=== PATIENT | female | born 1955 | race Caucasian/White ===

== ENCOUNTER 2018-03-19 05:58 | Day surgery (SDC) | payer MEDICARE, SELFPAY ==
[2018-03-14 11:41] LABS: Hematocrit 46.3 % (37-47); Hemoglobin 15.8 g/dl (12.0-15.0); Mean Corp Hgb Conc 34.1 g/gl (32-36); Mean Corpuscular Hgb 31.5 pg (27.0-32.0); Mean Corpuscular Volume 92.2 fL (81-99); Mean Platelet Vol. 8.9 fl (6.2-12.0); Platelet Count 267 K/mm3 (150-450); RBC Distribution Width CV 14.7 % (11.6-14.6); RBC Distribution Width SD 48.8 fl (35.1-43.9); Red Blood Count 5.02 M/mm3 (4.2-5.4); Scan Indicated on CBC? Y/N NO; White Blood Count 7.9 K/mm3 (4.4-11.0)
[2018-03-14 11:48] LABS: Prothrombin Time (Protime)PT. 12.8 SECONDS (11.7-14.9)
[2018-03-14 11:49] LABS: Partial Thromboplast Time 27.3 Seconds (24.1-36.2)
[2018-03-14 12:25] LABS: AST(SGOT) 22 U/L (15-37); Alanine Aminotransfer ALT/SGPT 28 U/L (13-56); Albumin, Serum 3.9 g/dL (3.2-5.0); Alkaline Phosphatase 77 U/L (45-117); Anion Gap 6 (5-15); BUN 11 mg/dL (7-18); BUN/Creat Ratio 10.9 RATIO (10-20); Calcium,Total 9.4 mg/dL (8.5-10.1); Chloride 107 mmol/L (98-107); Creatinine, Serum 1.01 mg/dL (0.55-1.02); EST Glomerular Filtration Rate 59 mL/min (>60); Est Glom Filt Rate - Afr Amer 71 mL/min (>60); Glucose 101 mg/dL (74-106); Potassium 4.3 mmol/L (3.5-5.1); Protein, Total 7.9 g/dL (6.4-8.2); Sodium Level 140 mmol/L (136-145)
--- NOTE | 2018-03-18 11:32 | PCM.HP.BLA ---
History and Physical Date of Admission: 03/19/18 Surgical History and Physical Saniya Medina, a 62 year old female 2 0 0 0 2, presents for L/S BSO on March 19, 2018 at 7:30. 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 Saniya claims it started gradually and has been present Found on CT Scan. It occurs all the time. It is located in the RLQ of the abdomen. Saniya characterizes the quality asymptomatic. Severity is asymptomatic; Additional comments are: Referred by Desiree Bejarano NP.; Additional comments are: having colonoscopy soon. MEDICATIONS HISTORY: Patient is also takin. methotrexate sodium 2.5 mg tablet, one po five times weekly 2. metoprolol tartrate 25 mg tablet, One pill by mouth twice a day 3. Nexium 40 mg capsule,delayed release, One pill by mouth once a day 4. Plaquenil 200 mg tablet, One and one half tab daily ALLERGIES: No Known Allergies Infections - Chicken pox, Mumps and Measles Illnesses - Rheumatoid Arthritis, Acid Reflux Accidents - None Hospitalizations - see surgery Review of Systems: GENERAL - Denies fever, or chills SKIN - Denies skin changes EYES - Denies visual changes EARS - Denies difficulty hearing NOSE - Denies nasal congestion or bleeding MOUTH - Denies sore throat or difficulty swallowing NECK - Denies pain or swelling RESPIRATORY - Denies shortness of breath or wheezing CARDIOVASCULAR - Denies palpitations or chest pain GASTROINTESTINAL - Denies nausea, vomiting, diarrhea, constipation GENITOURINARY - Denies dysuria, frequency of urination, incontinence of urine MUSCULOSKELETAL - Denies joint or muscle pain NEUROLOGICAL - Denies localized numbness or weakness PSYCHIATRIC - Denies depression or anxiety ENDOCRINE - Denies heat or cold intolerance, weight loss or gain HEMATO-IMMUNOLOGIC - Denies excesive bleeding with cuts SOCIAL HISTORY: Alcohol Use - drinks occasionally Smoking - 1/2 pack/day--advised to quit Diet - no special diet Lifestyle - moderate stress lifestyle and Exercise - active Seat Belt Use - always Employer - Disability Illicit Drug Use - None Sexual Activity - single sexual partner Control - postmenopausal FAMILY HISTORY: MENSTRUAL HISTORY: LMP Known?- Postmenopausal PAST PREGNANCIES: Total Pregnancies - 2; Full Term Pregnancies - 2; Premature - 0; Abortions, Induced - 0; Abortions, Spontaneous - 0; Ectopics - 0; Multiple Births - 0; Living Children - 2 SURGICAL HISTORY: 1. T and A, 1969 2. 2003 (L) Shoulder Arthoscopy 3. 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 PHYSICAL EXAM BP- 132/78 Sitting, Right arm, regular cuff Weight- 168.81867 lbs Height- 65 inch BMI:28.02 CONSTITUTIONAL - NAD, well nourished, and well developed SKIN - No rash, lesions, or ulcers HEENT - Normocephalic, PERRLA, EOMI NECK - No nodes, no nuchal rigidity and thyroid normal size and texture LYMPH NODES - Palpation of lymph nodes in neck and groins within normal limits LUNGS - CTA x2 without wheezes, crackles or rales CARDIAC - Regular rate and rhythm without rubs, murmurs, or gallops BREAST - No dominant masses, no tenderness, no axillary adenopathy, no nipple discharge, no skin changes ABDOMEN - Without hepatosplenomegaly, distention, masses, rebound, or guarding; normal bowel sounds; no hernias EXTREMITIES - No edema or calf tenderness NEUROLOGICAL - Cranial nerves II-XII grossly intact PSYCHIATRIC - A and O to time, place, person, mood and affect External Genitial Vagina - non-tender without lesions Urethra/Urethral Meatus - non-tender Bladder - non-tender Vagina - vaginal lozano are pink and moist without loss of rugae and no evidence of atropy Cervix - without cervical motion tenderness and has normal size and features without evident lesions Uterus - 5-6 cm in size, mobile and nontender Adnexa - clear without masses or tenderness ASSESSMENT/PLAN: 1. Ovarian Cyst Nos Discussed options for treatment and recommended proceeding with L/S BSO. Discussed RBAs and all questions answered.
[2018-03-19 06:27] VITALS: BP 125/64; PULSE 59; RESP 16; TEMP 36.6; O2SAT 95; BMI 27.7
--- NOTE | 2018-03-19 07:45 | OV_PTH ---
PATIENT: YU BUSTOS LOC: [facility] [place] [facility] [place][id number] AGE/SX: 62/F ROOM: RE03/19/[address]: Dr. Bogdan Traylor MD : 1955 BED: DIS: 03/19/2018 SPEC #: [id number] RECD: 03/19/18 14:42 STATUS: DEMARIO IGGY #: [id number] PRESTON: 03/19/18 07:[address]: Bogdan Traylor DEPT: SURGICAL PATHOLOGY RECD BY: Rayo Noe ENTERED: 03/19/18 14:42 SP TYPE: OVARY OTHR DR: ANDRES Pederson Tissues: Right ovary Procedures: Surgery Specimen Level V HEADER OPERATION: Laparoscopic right salpingo-oophorotomy, left salpingectomy PRE-OP DIAGNOSIS: Right dermoid ovarian cyst TISSUE SUBMITTED: Bilateral fallopian tubes, right ovary MICROSCOPIC DIAGNOSIS Bilateral fallopian tubes and right ovary, right salpingo-oophorotomy and left salpingectomy: Right ovary - mature cystic teratoma (dermoid cyst). Right and left fallopian tubes ? no pathologic change. AM:sandi 03/20/18 MICROSCOPIC DESCRIPTION Slides are reviewed. GROSS DESCRIPTION Received in fixative is one container labeled with the patient's name and designated bilateral fallopian tubes and right ovary. The specimen consists of a smooth, glistening cystic ovary measuring 3 x 2.6 x 2 cm. The external surface is inked and sections reveal a cystic ovary containing applesauce-like material. The inner cyst wall lining is smooth and glistening. No papillary projections, mass lesions or nodularities are seen. Also present free in the container are two fallopian tubes with an average length of 3.8 cm and maximal diameters of 0.5 cm. The fimbriated ends have a normal villous appearance and cross-sections of the fallopian tubes do not reveal lesions. Sections are submitted as follows: 1-3 ? ovary, totally submitted, 4 ? community relations representative section of one fallopian tube, 5 - community relations representative section of the other fallopian tube. / AM:sandi 03/19/18 TC:1 CPT: 12068
--- NOTE | 2018-03-19 07:59 | PCM.OP.BLANK ---
Operative Report Date of Procedure: 03/19/18 Surgeon: Bogdan Traylor MD, FACOG Overlock Collar Setter: RAKESH Lainez Anesthesia: Xiang Peralta CRNA, LESLIE Type of Anesthesia: General Endotracheal Pre-Op Diagnosis: Right Dermoid Ovarian Cyst Postoperative Diagnosis: Right Dermoid Ovarian Cyst Procedure: Laparoscopic Right Salpingo-Oophrectomy; Left Salpingectomy Findings: 5-6 cm uterus with normal appearing fallopian tubes with evidence of prior tubal ligation. 3-4 cm right ovarian cyst. 1 cm left ovary densely adhered to sidewall. Minimal descensus of cervix which would make vaginal hysterectomy difficult but robotic assisted vaginal hysterectomy possible. Indications: This is a 62 year old patient who has the above diagnosis. She is aware of the risk and indications of this procedure including the possibility of bleeding, infection, and injury to surrounding structures such as bowel and bladder. All questions were answered to consider the patient well-informed. Procedure: The patient was taken to the operating room where after induction of general anesthesia, she was placed in the dorsolithotomy position and prepped and draped in the usual sterile fashion. The bladder was drained of approximately 50 cc of clear yellow urine with a catheter. Anterior cervix was grasped with the tenaculum. Conn cannula was placed and attention was turned toward the laparoscopic portion of the procedure. Approximately 20 cc of half percent ropivacaine was injected subumbilically, suprapubically and midway between. A 5 mm bladeless trocar was placed subumbilically and intraperitoneal placement confirmed. After CO2 insufflation was complete, a 10/12 mm bladeless trocar was introduced suprapubically. The above findings were noted. A 5 mm bladeless port was placed midway between these 2 ports. Each fallopian tube was identified to its fimbriated end and an Enseal device was used to divide the infundibulopelvic ligament on the right and the mesosalpinx on the left. Tubes and right ovary were brought through the lower port using an Endobag. Laparoscopic instruments with as much CO2 gas as possible were removed and incisions were closed with interrupted 4-0 Monocryl suture. The right ureter was noted to peristalsis after removal of the right tube and ovary. Photographs were taken. Steri-Strips placed across the incision. Vaginal instruments were removed. Patient tolerated procedure well was taken to recovery room in satisfactory condition sponge instrument and needle counts were all reportedly correct. Estimated blood loss for the case was minimal. Cefotan 2 g IV was given prior to beginning the operative procedure. Specimens to pathology was bilateral tubes and right ovary
--- NOTE | 2018-03-19 08:05 | PCM.DC.TUB ---
Discharge Diet: No Restrictions Discharge Activity: Return to Normal Activity, May Drive - when you are no longer taking pain/narcotic medicines., May Shower, May Take a Tub Bath, Use Crutches May resume sexual activity in: 3 weeks Additional Activity Instructions:: Ambulate often the next week after surgery. Nothing in the vagina for 5 days. Call your doctor if your incision/area has: Continuous Slow Oozing, Sudden Increased Bleeding, Increased Pain/ Swelling, Increased Redness, Foul Smelling Discharge Call your doctor if you observe: Fever of 101 or Higher, Inability to urinate, Inability to have a bowel movement, Using more than one pad per hour Allergies/Adverse Reactions: Allergies No Known Allergies Allergy (Verified 03/12/18 14:03) Medications to take at Discharge Aspirin [Aspirin, Baby] 81 mg PO DAILY@0800 03/12/18 Calcium Carbonate/Vitamin D3 [Calcium 500-Vit D3 600 Caplet] 1 each PO DAILY 03/12/18 Esomeprazole Mag Trihydrate [Nexium] 40 mg PO DAILY 03/12/18 Flaxseed Oil 1,000 mg PO DAILY 03/12/18 Folic Acid 1 mg PO DAILY@0800 03/12/18 Hydroxychloroquine Sulfate [Plaquenil] 200 mg PO DAILY 03/12/18 Methotrexate 7.5 mg PO Q7D 03/12/18 Metoprolol Succinate [Toprol Xl] 50 mg PO DAILY 03/12/18 Pyridoxine HCl [Vitamin B-6] 25 mg PO DAILY 03/12/18 Hydrocodone/Acetaminophen [Kimper 5-325 Tablet] 1 ea PO Q6H PRN PRN 7 Days #10 tab 03/19/18 Primary Care Physician: Desiree Bejarano PA [Primary Care Provider] - Test Results: Test results from this visit will be discussed in further detail at your follow-up appointment, if applicable. Please Follow Up With: Bogdan Traylor MD - [phone] When: 2-3 weeks
[2018-03-19] MEDS: Ropivacaine 0.5% 30 ML Vial (08:25)
[2018-03-19 09:15] VITALS: BP 125/64; BP 148/81; PULSE 78; RESP 18; TEMP 36.3; O2SAT 100
[2018-03-19 09:30] VITALS: BP 125/64; BP 150/75; PULSE 61; RESP 18; O2SAT 100
[2018-03-19 09:48] VITALS: BP 125/64; BP 138/66; PULSE 61; RESP 18; TEMP 36.2; O2SAT 100
[2018-03-19 11:12] VITALS: BP 125/64; BP 151/59; PULSE 51; RESP 16; TEMP 36.6; O2SAT 96
== END 2018-03-19 11:12 | disposition home or self-care (01) ==
LOC: SDC 05:58 → AC 05:58
PROVIDERS: Family Provider Physician Assistant; PCP Physician Assistant; Visit Provider Obstetrics & Gynecology
PROC: (CPT 58661; principal; 2018-03-19 07:30)
DX: D27.0 Benign neoplasm of right ovary (principal); K21.9 Gastro-esophageal reflux disease without esophagitis; M06.9 Rheumatoid arthritis, unspecified; Z87.891 Personal history of nicotine dependence; Z98.51 Tubal ligation status
CPT/HCPCS: 58661; 36415; 80053; 85027; 85610; 85730; 86850; 86900; 88305; 88307; 93005; J7120; C1760

== ENCOUNTER → 2020-05-07 15:44 | Outpatient (CLI) | payer MEDICARE, SELFPAY ==
[2018-10-09 10:30] VITALS: BMI 27.6
[2020-05-07 16:17] LABS: Absolute Lymphocyte Count 3.24 X10^3/uL (0.83-4.51); Absolute Neutrophil Count 5.9 X10^3/uL (2.0-7.7); Basophil# 0.04 X10^3/uL; Basophil% 0.4 % (0-1); Hematocrit 43.6 % (37-47); Hemoglobin 14.3 g/dL (12.0-15.0); Lymphocyte # 3.24 X10^3/ul (4.0); Lymphocyte % 32.7 % (19-41); Mean Corp Hgb Conc 32.8 g/dL (32-36); Mean Corpuscular Hgb 31.4 pg (27.0-32.0); Mean Corpuscular Volume 95.8 fL (81-99); Monocyte# 0.64 X10^3/uL; Monocyte% 6.5 % (0-10); NRBC Flagged by Analyzer 0 % (0-5); Neutrophil # 5.87 X10^3/uL (2.7-7.7); Neutrophil % 59.2 % (47-70); Platelet Count 301 K/mm3 (150-450); RBC Distribution Width CV 13.3 % (11.6-14.6); RBC Distribution Width SD 46.6 fl (35.1-43.9); Red Blood Count 4.55 M/mm3 (4.2-5.4); White Blood Count 9.9 K/mm3 (4.4-11.0)
[2020-05-07 16:41] LABS: AST(SGOT) 18 U/L (15-37); Alanine Aminotransfer ALT/SGPT 25 U/L (13-56); Albumin, Serum 3.6 g/dL (3.2-5.0); Alkaline Phosphatase 79 U/L (45-117); Anion Gap 6 (5-15); BUN 11 mg/dL (7-18); BUN/Creat Ratio 11.4 RATIO (10-20); Calcium,Total 9.1 mg/dL (8.5-10.1); Chloride 110 mmol/L (98-107); Creatinine, Serum 0.97 mg/dL (0.55-1.02); EST Glomerular Filtration Rate 61 mL/min (>60); Est Glom Filt Rate - Afr Amer 74 mL/min (>60); Globulin 3.6 g/dL (2.2-4.2); Glucose 92 mg/dL (74-106); Potassium 3.9 mmol/L (3.5-5.1); Protein, Total 7.2 g/dL (6.4-8.2); Sodium Level 142 mmol/L (136-145); Thyroid Stim Hormone (TSH) 0.94 uIU/mL (0.358-3.74)
[2020-05-08 09:48] LABS: Hepatitis C Antibody Non-Reactive (Nonreactive); Vitamin D,25 Hydroxy 48.7 ng/mL
== END ==
PROVIDERS: PCP Family Medicine Geriatric Medicine; Visit Provider Family Medicine Geriatric Medicine
DX: I10 Essential (primary) hypertension (principal); E55.9 Vitamin D deficiency, unspecified; Z13.89 Encounter for screening for other disorder
CPT/HCPCS: 36415; 80053; 82306; 84443; 85025; 86803

== ENCOUNTER → 2020-05-18 13:48 | Outpatient (CLI) | payer MEDICARE, SELFPAY ==
[2018-10-09 10:30] VITALS: BMI 27.6
--- NOTE | 2020-05-18 13:51 | CT_ITS ---
STUDY: CT CHEST WITHOUT CONTRAST- LOW DOSE SCREENING PROTOCOL REASON FOR EXAM: Female, 64 years old. Current smoker. 50 pack per year history. No current symptoms of lung cancer or pulmonary infection. Shared decision-making with referring PCP documented in patient''s record. RADIATION DOSAGE (If Supplied By Facility): CTDIvol = ( 2.01 ) mGy, DLP = ( 65.45 ) mGycm TECHNIQUE: Low dose screening CT examination performed from the base of the neck to the upper abdomen. Sagittal and coronal reformatted images performed. Sagittal and coronal MIP images provided. The measurements provided are average, rounded measurements per ACR guidelines. COMPARISON: None. FINDINGS: There is hyperinflation of the lungs consistent with chronic obstructive lung disease (COPD). There is no demonstrated pleural abnormality. Normal heart and pericardium. There are calcifications of the coronary arteries. Normal mediastinum. Normal hilar regions. Normal unenhanced pulmonary arteries. Normal aorta arch and descending thoracic aorta. Normal osseous structures. There is no demonstrated abnormality of the visualized upper abdomen. CT/Low Dose CT Lung Screening IMPRESSION: 1. No significant indeterminate incidental findings requiring additional imaging. 2. Incidental findings include mild emphysema.. ASSESSMENT CATEGORY: LungRADS 1 - Negative. Continue annual screening with LDCT in 12 months, per established ACR guidelines. Electronically Signed: Karsten Castillo MD at 9:07 EDT Tel , Service support ,
== END ==
PROVIDERS: PCP Family Medicine Geriatric Medicine; Referring Provider Family Medicine Geriatric Medicine; Visit Provider Family Medicine Geriatric Medicine
DX: Z12.2 Encounter for screening for malignant neoplasm of respiratory organs (principal); F17.210 Nicotine dependence, cigarettes, uncomplicated; J43.9 Emphysema, unspecified
CPT/HCPCS: G0297

== ENCOUNTER 2020-07-09 08:45 | Day surgery (SDC) | payer MEDICARE, SELFPAY ==
[2020-06-22 13:01] VITALS: BMI 25.1
--- NOTE | 2020-07-03 09:09 | EKG12_ITS ---
Test Reason : PRE OP Blood Pressure : / mmHG Vent. Rate : 058 BPM Atrial Rate : 058 BPM P-R Int : 174 ms QRS Dur : 084 ms QT Int : 412 ms P-R-T Axes : 042 -17 048 degrees QTc Int : 404 ms Sinus bradycardia Otherwise normal ECG Confirmed by RADHA CAMARGO, DORINA ([id number]), international editorial producer ELLIS GALLEGOS ([id number]) on 07/09/2020 8:25:18 AM Referred By: Marito Jackson Confirmed By:DORINA GARCIA MD
[2020-07-03 09:26] LABS: Hematocrit 43.6 % (37-47); Hemoglobin 14.6 g/dL (12.0-15.0); Mean Corp Hgb Conc 33.5 g/dL (32-36); Mean Corpuscular Hgb 31.8 pg (27.0-32.0); Mean Platelet Vol. 8.6 fl (6.2-12.0); Platelet Count 297 K/mm3 (150-450); RBC Distribution Width CV 13.2 % (11.6-14.6); RBC Distribution Width SD 45.1 fl (35.1-43.9); Red Blood Count 4.59 M/mm3 (4.2-5.4); White Blood Count 9.7 K/mm3 (4.4-11.0)
[2020-07-03 09:57] LABS: Anion Gap 4 (5-15); BUN 10 mg/dL (7-18); BUN/Creat Ratio 12.6 RATIO (10-20); Calcium,Total 8.8 mg/dL (8.5-10.1); Chloride 109 mmol/L (98-107); Creatinine, Serum 0.79 mg/dL (0.55-1.02); EST Glomerular Filtration Rate 77 mL/min (>60); Est Glom Filt Rate - Afr Amer 93 mL/min (>60); Glucose 103 mg/dL (74-106); Potassium 4.1 mmol/L (3.5-5.1); Sodium Level 141 mmol/L (136-145)
[2020-07-09] VITALS (7 sets, daily range): BP systolic 110–143; BP diastolic 67–76; PULSE 46–72; RESP 14–16; TEMP 36.3–37.1; O2SAT 95–100; BMI 24.5
[2020-07-09] MEDS: Lactated Ringers 1,000 ML 100 ML IV (09:28)
--- NOTE | 2020-07-09 10:19 | PCM.HP.BLA ---
Problem List (1) Hemorrhoids, complicated Status: Acute History and Physical Date of Admission: 07/09/20 Intake Visit Reasons: Hemorrhoids Chief Complaint: hemorrhoids Document Specialist Required: No Is patient in pain?: Yes (rectum) Pain scale (1-10): 7 Allergies No Known Allergies Allergy (Verified 06/22/20 13:01) Medications Calcium Carbonate/Vitamin D3 [Calcium 500-Vit D3 600 Caplet] 1 ea PO DAILY 03/12/18 [History Confirmed 06/22/20] Esomeprazole Mag Trihydrate [Nexium] 40 mg PO DAILY 03/12/18 [History Confirmed 06/22/20] Flaxseed Oil 1,000 mg PO DAILY 03/12/18 [History Confirmed 06/22/20] Folic Acid 1 mg PO DAILY@0800 03/12/18 [History Confirmed 06/22/20] Hydroxychloroquine Sulfate [Plaquenil] 200 mg PO DAILY 03/12/18 [History Confirmed 06/22/20] Metoprolol Succinate [Toprol Xl] 50 mg PO DAILY 03/12/18 [History Confirmed 06/22/20] Pyridoxine HCl [Vitamin B-6] 25 mg PO DAILY 03/12/18 [History Confirmed 06/22/20] albuterol sulfate 90 mcg/actuation aerosol inhaler 2 puff INHALATION Q6H PRN #18 g 10/09/18 [Rx Confirmed 06/22/20] methotrexate sodium 2.5 mg tablet 12.5 mg PO Q7D tab 10/09/18 [History Confirmed 06/22/20] lactobacillus combination no.8 3 billion cell capsule 3,000 mmu cells PO DAILY 06/22/20 [History Confirmed 06/22/20] PFSH Medical History BMI 30.0-30.9,adult (Chronic) History of pelvic mass (Chronic) Headache (Chronic) History of UTI (Resolved) History of rectal bleeding (Resolved) Abnormal PFT (Acute) Hyperglycemia (Chronic) Rheumatoid arthritis (Chronic) Acid reflux disease (Chronic) Hypertension (Chronic) Grief reaction (Chronic) Depression (Chronic) Hyperlipidemia (Chronic) Obesity (Chronic) Pneumonia (Resolved) Surgical History History of unilateral salpingectomy (Resolved) History of unilateral oophorectomy (Resolved) History of tubal ligation (Resolved) History of tonsillectomy (Resolved) History of arthroscopy of left shoulder (Resolved) Paris's neuroma of left foot (Resolved) Family History Mother Diabetes CVA (cerebral vascular accident) CAD (coronary artery disease) Hypertension Father Hypertension CAD (coronary artery disease) Sister Cancer Ovarian Social History (Updated 06/22/20 @ 13:[address] Marito Jackson MD) household members: none housing: other details: mobile home pets and animals: No Smoking Status: Current every day smoker second hand exposure: Yes alcohol intake: current alcohol intake frequency: a few times a week Alcohol type: beer substance use type: does not use caffeine: Yes Type: coffee Number of servings: 3 HPI HPI HPI: YU BUSTOS, is a 64 F who presents to the office today for surgical consultation regarding bleeding itching painful hemorrhoids. The patient is referred by Dr. Huddleston and a written copy my surgical consult recommendations will return to him. She had a colonoscopy by Dr. Juarez Jones in 2012. Rectal biopsies suggested focal acute colitis. The patient has no recollection of that diagnosis nor treatment. She states her most recent colonoscopy was 2018. I do not have a report of any pathology or that procedure at this time. The patient stated that there were no polyps and a follow-up colonoscopy at 10 years recommended. She has had quite symptomatic hemorrhoids for well over 5 years but in the past 2 years they have become quite symptomatic. She is had rheumatoid arthritis for 20 years. In addition to her other medications she is on Plaquenil and Metformin. She states that she has been very stable in that regard. She has been literally a lifelong cigarette smoker and she continues to smoke cigarettes. She has COPD. She has significant thoracic kyphosis and hyperinflated lung garcia. I have now been handed colonoscopy report February 27, 2018 where a proximal ascending colon polyp consistent with a diminutive tubular adenoma with no dysplasia was removed. The patient was not aware that she had a polyp removed thought it was a hemorrhoid. The interpretation the time of that colonoscopy is that she had rectal bleeding felt likely secondary to internal and external hemorrhoids. There was some evidence of diverticulosis. Actually it was suggested at that time that she have a follow-up colonoscopy at 5 years even though she is under the assumption its 10 years. HPI HPI HPI: YU BUSTOS, is a 64 F who presents to the office today for ROS General General: Yes weight change; no appetite, fatigue, colon cancer, breast cancer or weakness HEENT HEENT: No difficulty swallowing, eye injury, eye surgery, swollen glands or hoarseness Endo Endocrine: No thyroid disease, diabetes mellitus, thyroid cancer, Hair loss, heat intolerance or cold intolerance Skin Skin: No rash or changing moles Breast Breast: No left breast lump, right breast lump, nipple discharge, breast pain, abnormal mammogram, abnormal US or breast enlargement Musc Musculoskeletal: Yes rheumatoid arthritis; no back problems, arthritis, gout or joint pain Cardio Cardiovascular: No murmur, pacemaker, heart disease, atrial fibrillation, high blood pressure, heart attack, heart stent, palpitations, shortness of breat with exertion or chest pain Psych Psychiatric: No depression, anxiety or hearing voices Resp Respiratory: No shortness of breath, No sleep apnea, No cough, No COPD, No asthma, No emphysema, No wheezing Gastro Gastrointestinal: No abdominal pain, No nausea or vomiting, No diarrhea, No constipation, No blood in stool, Yes acid reflux, Yes hemorrhoids, No ulcers, No gallbladder problem, No black,tarry stools Ramesh Hematologic: No blood thinners, No blood disorders, No bleeding, No anemia, No blood clots Neuro Neurologic: No system reviewed and no additional complaints, except as docu, No as per HPI, No abnormal walking, No abnormal hearing, No abnormal movements, No abnormal speech, No behavioral changes, No burning sensations, No confusion, No seizure-like activity, No unsteadiness, No dizziness, No localized weakness, No frequent falls, No headache(s), No lack of coordination, No loss of vision, No memory loss, No numbness, No other visual disturbances, No radiating pain, No restless legs, No sensory deficit, No fainting, No tingling, No tremor(s), No weakness, No other Exam Const General: cooperative, comfortable, no acute distress Nutritional Appearance: average body habitus Orientation: alert, awake [facility] Head: normal to inspection Neck Neck: normal visual inspection Carotids: normal carotid upstroke, no bruits Chest Breast Palpation: No nipple discharge Other: Markedly increased anterior posterior diameter with barrel chest. Marked kyphosis Resp Other: Poor respiratory excursion, clear Cardio Rate: regular rate Rhythm: regular rhythm Heart Sounds: no murmurs GI Palpation: soft, no hepatosplenomegaly Auscultation: normal bowel sounds Other: External inspection of the anal rectum demonstrates prolapsing internal hemorrhoids with irritation. Combination of significant external and internal hemorrhoids on digital examination. Skin General: no rashes or lesions noted Neuro Cognition: normal cognition Extrem General: no calf tenderness Psych Affect: normal affect Assessment & Plan Problems 1. Hemorrhoids, complicated K64.8 Plan Complicated internal and external hemorrhoids. This would clearly be consistent with local pain itching bleeding. The findings clinically are complicated and significant. I recommended the patient consideration for surgical hemorrhoidectomy. I have discussed the technique, benefit, risk, alternatives. She has had an opportunity to ask and have questions answered. 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 The patient is aware of technique, benefit, risk, alternatives. She is aware that I anticipate this being performed as an outpatient. She is aware of COVID-19. Currently the [facility] still reporting a low local incidence. The patient is interested in proceeding if possible. I appreciate the opportunity of assisting with her surgical care Copy: Dr. Duane Jackson M.D., F.A.C.S. Coding Level of Care Code 29964 Diagnoses Hemorrhoids, complicated K64.8 I have re-examined the patient. There are no clinical changes since date of exam. Marito Jackson M.D., F.A.C.S.
--- NOTE | 2020-07-09 11:00 | HEM_PTH ---
PATIENT: YU BUSTOS LOC: [facility] – [place] U#:[id number] AGE/SX: 64/F ROOM: RE07/09/[address]: Dr. Marito Jackson MD : 1955 BED: DIS: 07/09/2020 SPEC #: [id number] RECD: 07/09/20 13:33 STATUS: DEMARIO REHang #: [id number] PRESTON: 07/09/20 11:[address]: Marito Jackson DEPT: SURGICAL PATHOLOGY RECD BY: Alem Paz ENTERED: 07/10/20 08:11 SP TYPE: HEMORRHOID OTHR DR: Dr. Duane Huddleston MD Tissues: HEMORRHOIDS Procedures: Surgery Specimen Level III HEADER OPERATION: Hemorrhoidectomy PRE-OP DIAGNOSIS: Hemorrhoids TISSUE SUBMITTED: Hemorrhoid tissue MICROSCOPIC DIAGNOSIS Hemorrhoid tissue, hemorrhoidectomy: Fragments of anorectal mucosa with dilated and congested blood vessels, consistent with hemorrhoid with focal thrombosis and organization. SJ:sandi 07/13/20 MICROSCOPIC DESCRIPTION Slides are reviewed. GROSS DESCRIPTION Received in fixative is one container labeled with the patient's name and designated hemorrhoid tissue. The specimen consists of three variable sized pieces of junior mucosal tissue measuring in aggregate 5.5 x 3 x 2 cm. Sections reveal congested and hemorrhagic cut surfaces. Residential Treatment Staff sections are submitted in one cassette. / HOLLY:sandi 07/10/20 TC:5 CPT: 00207
[2020-07-09] MEDS: Lubricating Jelly 60 GM Tube 30 GM TOPICAL (11:06)
[2020-07-09] MEDS: Cefotetan 2 GM in 0.9% NS 100 ML IV (11:06)
--- NOTE | 2020-07-09 11:08 | DCINST_ITS ---
Discharge Diet: No Restrictions Discharge Activity: Return to Normal Activity, May Not Drive - while you are taking narcotic pain medications. Do not drive, work with heavy equipment or sign legal documents for 24 hours after your surgery. Additional Activity Instructions:: Take a daily fiber supplementation, large heaping tablespoon in with fluid. You may shower or take a sitz baths in warm soapy water as needed for comfort or after any bowel movement. You may use [id number] topical agents like Preparation H or similar for comfort. You may utilize the provided dibucaine ointment as needed for numbing every 2-4 hours. Anticipate discomfort and anticipate some bleeding. Additional Dressing/Incision Instructions:: You may remove the Vaseline gauze dressing tomorrow morning. Female hygiene pads work well for any drainage. Allergies/Adverse Reactions: Allergies No Known Allergies Allergy (Verified 07/09/20 09:13) Medications to take at Discharge Calcium Carbonate/Vitamin D3 [Calcium 500-Vit D3 600 Caplet] 1 ea PO BID 03/12/18 Esomeprazole Mag Trihydrate [Nexium] 40 mg PO DAILY 03/12/18 Flaxseed Oil 1,000 mg PO DAILY 03/12/18 Folic Acid 1 mg PO DAILY@0800 03/12/18 Hydroxychloroquine Sulfate [Plaquenil] 200 mg PO DAILY 03/12/18 Metoprolol Succinate [Toprol Xl] 25 mg PO BID 03/12/18 Pyridoxine HCl [Vitamin B-6] 25 mg PO DAILY 03/12/18 methotrexate sodium 2.5 mg tablet 12.5 mg PO MO tab 10/09/18 lactobacillus combination no.8 3 billion cell capsule 3,000 mmu cells PO DAILY 06/22/20 Primary Care Physician: Duane Huddleston Chi, MD [Primary Care Provider] - Test Results: Test results from this visit will be discussed in further detail at your follow- up appointment, if applicable. Please Follow Up With: Marito Jackson MD - [phone] When: Plan to have a follow up approximately 3-4 weeks after surgery.
[2020-07-09] MEDS: BUPIVACAINE LIPOSOME/PF 20 ML VIAL OPERA.SITE (11:22)
[2020-07-09] MEDS: Bupivacaine Mpf 0.5% 30 ML VIAL (11:22)
[2020-07-09] MEDS: Dibucaine 30 GM Tube 1 APPLIC TOPICAL (11:22)
--- NOTE | 2020-07-09 12:02 | PCM.OPRPT ---
Problem List (1) Hemorrhoids, complicated Status: Acute Report of Operation Date of Procedure: 07/09/20 Pre-Operative Diagnosis: Symptomatic bleeding, pruritic, internal and external hemorrhoids Post-Operative Diagnosis: Same Surgery/Procedure Performed:: Complex hemorrhoidectomy Description of Surgical Findings:: Timeout and informed consent was obtained. 64-year-old female was taken to the operating room. She was placed prone jackknife on the table. She underwent monitored anesthesia care. Cefotetan 2 g were given intravenously. The perianal area was carefully Betadine and clipper prepped and tape was used to help with retraction. The perianal area and perirectal area was anesthetized with Exparel 20 cc mixed with 25 cc of 0.5% Marcaine. All of the local was utilized throughout the procedure. A speculum was inserted. The large bulk of hemorrhoidal disease was right posterior lateral. An apical suture of 2-0 chromic was placed. This was reinforced with a apical suture of 0 chromic. Scalpel was used to excise the external component and then a harmonic scalpel was used to completely excise the hemorrhoidal tissue. The sphincter mechanism was identified and carefully preserved. Then the mucosa was approximated to itself with a running simple and locking 2-0 chromic. An additional wedge resection was performed right anterior lateral and left mid lateral. Significant amount of tissue was achieved. There was good removal and resolution of the visible hemorrhoidal tissue. Vaseline gauze was inserted and dibucaine ointment was applied externally. Sponge and instrument and needle counts were reported the surgeon be correct. Specimens hemorrhoids. Drains none. Blood loss minimal. The patient was taken to the recovery area in satisfactory edition without apparent complication. Marito Jackson M.D., F.A.C.S. Type of Anesthesia:: Local MAC Anesthesiologist: Quinn Patterson
== END 2020-07-09 13:58 | disposition home or self-care (01) ==
LOC: SDC 08:57 → AC 08:58
PROVIDERS: PCP Family Medicine Geriatric Medicine; Referring Provider Surgery; Visit Provider Surgery
PROC: (CPT 46260; principal; 2020-07-09 10:45)
DX: K64.8 Other hemorrhoids (principal); K64.4 Residual hemorrhoidal skin tags; K62.5 Hemorrhage of anus and rectum; J44.9 Chronic obstructive pulmonary disease, unspecified; M06.9 Rheumatoid arthritis, unspecified; F17.210 Nicotine dependence, cigarettes, uncomplicated; Z87.19 Personal history of other diseases of the digestive system; I10 Essential (primary) hypertension; F32.9 Major depressive disorder, single episode, unspecified; E78.5 Hyperlipidemia, unspecified
CPT/HCPCS: 00902; 46260; 36415; 80048; 85027; 87426; 88304; 93005; C9803; J7120; J2405

== ENCOUNTER → 2020-08-10 10:08 | Outpatient (CLI) | payer MEDICARE, SELFPAY ==
[2020-07-09 09:14] VITALS: BMI 24.5
[2020-08-10 12:16] LABS: Absolute Lymphocyte Count 2.61 X10^3/uL (0.83-4.51); Absolute Neutrophil Count 5.9 X10^3/uL (2.0-7.7); Basophil# 0.06 X10^3/uL; Basophil% 0.7 % (0-1); Eosinophil# 0.07 X10^3/uL; Eosinophils% 0.8 % (0-5); Hemoglobin 14.5 g/dL (12.0-15.0); Lymphocyte # 2.61 X10^3/ul (4.0); Lymphocyte % 28.8 % (19-41); Mean Corp Hgb Conc 33.7 g/dL (32-36); Mean Corpuscular Hgb 31.3 pg (27.0-32.0); Mean Corpuscular Volume 92.9 fL (81-99); Mean Platelet Vol. 9.3 fl (6.2-12.0); Monocyte# 0.43 X10^3/uL; Monocyte% 4.7 % (0-10); NRBC Flagged by Analyzer 0 % (0-5); Neutrophil # 5.85 X10^3/uL (2.7-7.7); Neutrophil % 64.6 % (47-70); Platelet Count 310 K/mm3 (150-450); RBC Distribution Width CV 12.8 % (11.6-14.6); RBC Distribution Width SD 43.3 fl (35.1-43.9); Red Blood Count 4.63 M/mm3 (4.2-5.4); White Blood Count 9.1 K/mm3 (4.4-11.0)
[2020-08-10 12:52] LABS: Vitamin D,25 Hydroxy 40.3 ng/mL
[2020-08-10 12:57] LABS: ALB/GLOB Ratio 0.9 RATIO (0.9-2.4); AST(SGOT) 11 U/L (15-37); Alanine Aminotransfer ALT/SGPT 15 U/L (13-56); Albumin, Serum 3.5 g/dL (3.2-5.0); Alkaline Phosphatase 78 U/L (45-117); Anion Gap 6 (5-15); BUN 6 mg/dL (7-18); BUN/Creat Ratio 6.4 RATIO (10-20); Chloride 107 mmol/L (98-107); Cholesterol 184 mg/dL (200); Creatinine, Serum 0.93 mg/dL (0.55-1.02); EST Glomerular Filtration Rate 64 mL/min (>60); Est Glom Filt Rate - Afr Amer 77 mL/min (>60); Globulin 3.7 g/dL (2.2-4.2); Glucose 111 mg/dL (74-106); High Density Lipoprotein 48 mg/dL; Potassium 4.4 mmol/L (3.5-5.1); Protein, Total 7.2 g/dL (6.4-8.2); Sodium Level 140 mmol/L (136-145); Thyroid Stim Hormone (TSH) 0.98 uIU/mL (0.358-3.74); Triglycerides 158 mg/dL; Very Low Density Lipoprotein 32 mg/dL (5-40)
== END ==
PROVIDERS: PCP Family Medicine Geriatric Medicine; Visit Provider Family Medicine Geriatric Medicine
DX: I10 Essential (primary) hypertension (principal); E55.9 Vitamin D deficiency, unspecified; E78.5 Hyperlipidemia, unspecified
CPT/HCPCS: 36415; 80053; 80061; 82306; 84443; 85025

== ENCOUNTER 2020-11-06 10:01 | Emergency (ER) | payer MEDICARE, SELFPAY ==
[2020-07-09 09:14] VITALS: BMI 24.5
[2020-11-06 10:02] VITALS: BP 140/81; PULSE 73; RESP 16; TEMP 36.3; O2SAT 97; BMI 25.0
--- NOTE | 2020-11-06 10:10 | RAD_ITS ---
STUDY: X-RAY - LEFT HAND REASON FOR EXAM: Female, 65 years old. Injury TECHNIQUE: 3 view(s) of the hand. COMPARISON: None. FINDINGS: Normal radiocarpal articulation. Normal distal radioulnar joint. Normal visualized carpal bones. Normal carpal articulations Normal carpometacarpal articulation of the thumb. Normal second through fifth carpometacarpal joints. Normal metacarpi. Normal metacarpophalangeal joint of the thumb. Normal interphalangeal joint of the thumb. Normal proximal and distal phalanges of the thumb. Normal metacarpophalangeal joints of the second through fifth fingers. Normal proximal and distal interphalangeal joints of the second through fifth fingers. Normal phalanges of the second through fifth fingers. The soft tissue structures are unremarkable. RAD/Hand Min 3 Views IMPRESSION: Normal x-ray examination of the hand. Electronically Signed: Yassine Perales MD at 10:26 EDT , Service support ,
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
[2020-11-06 11:01] VITALS: BP 118/74; PULSE 62; RESP 15; O2SAT 98
== END 2020-11-06 11:03 | disposition home or self-care (01) ==
PROVIDERS: Emergency Provider Emergency Medicine; PCP Family Medicine Geriatric Medicine
DX: S63.203A Unspecified subluxation of left middle finger, initial encounter (principal); X58.XXXA Exposure to other specified factors, initial encounter; Y93.9 Activity, unspecified; Y92.89 Other specified places as the place of occurrence of the external cause; Y99.8 Other external cause status; M06.9 Rheumatoid arthritis, unspecified; I10 Essential (primary) hypertension; K21.9 Gastro-esophageal reflux disease without esophagitis; F17.200 Nicotine dependence, unspecified, uncomplicated
CPT/HCPCS: 73130; 99283

== ENCOUNTER → 2020-11-09 09:42 | Outpatient (CLI) | payer MEDICARE, SELFPAY ==
[2020-11-06 10:02] VITALS: BMI 25.0
[2020-11-09 11:27] LABS: Absolute Lymphocyte Count 3.64 X10^3/uL (0.83-4.51); Absolute Neutrophil Count 6.1 X10^3/uL (2.0-7.7); Basophil# 0.05 X10^3/uL; Basophil% 0.5 % (0-1); Eosinophil# 0.08 X10^3/uL; Eosinophils% 0.8 % (0-5); Hematocrit 46.1 % (37-47); Hemoglobin 14.6 g/dL (12.0-15.0); Lymphocyte # 3.64 X10^3/ul (0.83-4.51); Lymphocyte % 34.7 % (19-41); Mean Corp Hgb Conc 31.7 g/dL (32-36); Mean Corpuscular Hgb 30.3 pg (27.0-32.0); Mean Corpuscular Volume 95.6 fL (81-99); Monocyte# 0.55 X10^3/uL; Monocyte% 5.2 % (0-10); NRBC Flagged by Analyzer 0 % (0-5); Neutrophil # 6.14 X10^3/uL (2.7-7.7); Neutrophil % 58.5 % (47-70); Platelet Count 338 K/mm3 (150-450); RBC Distribution Width SD 48.8 fl (35.1-43.9); Red Blood Count 4.82 M/mm3 (4.2-5.4); White Blood Count 10.5 K/mm3 (4.4-11.0)
[2020-11-09 11:41] LABS: Vitamin D,25 Hydroxy 42.7 ng/mL
[2020-11-09 11:53] LABS: AST(SGOT) 13 U/L (15-37); Alanine Aminotransfer ALT/SGPT 24 U/L (13-56); Albumin, Serum 3.6 g/dL (3.2-5.0); Alkaline Phosphatase 87 U/L (45-117); Anion Gap 6 (5-15); BUN 10 mg/dL (7-18); BUN/Creat Ratio 12.3 RATIO (10-20); Calcium,Total 8.9 mg/dL (8.5-10.1); Chloride 108 mmol/L (98-107); Cholesterol 207 mg/dL (200); Creatinine, Serum 0.81 mg/dL (0.55-1.02); EST Glomerular Filtration Rate 75 mL/min (>60); Est Glom Filt Rate - Afr Amer 90 mL/min (>60); Globulin 3.7 g/dL (2.2-4.2); Glucose 110 mg/dL (74-106); High Density Lipoprotein 61 mg/dL; Potassium 3.8 mmol/L (3.5-5.1); Protein, Total 7.3 g/dL (6.4-8.2); Sodium Level 141 mmol/L (136-145); Thyroid Stim Hormone (TSH) 1.34 uIU/mL (0.358-3.74); Triglycerides 132 mg/dL; Very Low Density Lipoprotein 26 mg/dL (5-40)
== END ==
PROVIDERS: PCP Family Medicine Geriatric Medicine; Visit Provider Family Medicine Geriatric Medicine
DX: I10 Essential (primary) hypertension (principal); E78.5 Hyperlipidemia, unspecified; E55.9 Vitamin D deficiency, unspecified
CPT/HCPCS: 36415; 80053; 80061; 82306; 84443; 85025

== ENCOUNTER → 2020-11-11 12:33 | Outpatient (CLI) | payer MEDICARE, SELFPAY ==
[2020-11-06 10:02] VITALS: BMI 25.0
--- NOTE | 2020-11-11 12:35 | BI_ITS ---
MAMMOGRAPHY - BILATERAL SCREENING REASON FOR EXAM: Female, 65 years old. Routine annual screening examination. PERTINENT HISTORY: Non-contributory. TECHNIQUE: Digital bilateral breast estrada (3D mammographic acquisition) in the CC and MLO projections. 2-D mediolateral oblique (MLO) and craniocaudad (CC) views of both breasts were obtained. CAD: Full Field Digital Mammography with Computer Added Detection was performed. COMPARISON: Comparison is made with prior study dated 09/12/2019. FINDINGS: Breast Composition: There are scattered areas of fibroglandular density. There are no dominant masses or suspicious calcifications. There is a 4.9 mm x 3.8 mm well-defined nodule in the upper lateral aspect of the right breast. This is unchanged. This most likely represents a small lymph node. No other significant abnormalities are identified. There has been no significant change since the prior study. BI/SCRN MAMM (CAD)W/ESTRADA BILAT IMPRESSION: Stable bilateral screening mammogram. Yearly follow-up mammogram recommended. (A) ASSESSMENT CATEGORY: BIRADS Category 2: Benign. A letter regarding these results will be sent to the patient by the facility within 30 days. Approximately 10% of breast cancers are not detected by mammography. A normal mammogram should not delay biopsy of a clinically suspicious abnormality. [id number] Electronically Signed: Yassine Perales MD at 13:23 EDT , Service support ,
== END ==
PROVIDERS: PCP Family Medicine Geriatric Medicine; Referring Provider Family Medicine Geriatric Medicine; Visit Provider Family Medicine Geriatric Medicine
DX: Z12.31 Encounter for screening mammogram for malignant neoplasm of breast (principal)
CPT/HCPCS: 77063; 77067

== ENCOUNTER → 2020-11-24 08:58 | Outpatient (CLI) | payer MEDICARE, SELFPAY ==
[2020-11-06 10:02] VITALS: BMI 25.0
--- NOTE | 2020-11-24 09:13 | EKG12_ITS ---
Test Reason : PRE OP Blood Pressure : / mmHG Vent. Rate : 056 BPM Atrial Rate : 056 BPM P-R Int : 166 ms QRS Dur : 086 ms QT Int : 410 ms P-R-T Axes : 028 -27 058 degrees QTc Int : 395 ms Sinus bradycardia with Premature atrial complexes Septal infarct , age undetermined Abnormal ECG Confirmed by RADHA CAMARGO, DORINA ([id number]), food expeditor BRIAN YOUNGER ([id number]) on 11/25/2020 9:07:26 AM Referred By: Wandy Jenkins Confirmed By:DORINA GARCIA MD
[2020-11-24 10:02] LABS: Anion Gap 6 (5-15); BUN 10 mg/dL (7-18); BUN/Creat Ratio 11.2 RATIO (10-20); Calcium,Total 9.1 mg/dL (8.5-10.1); Chloride 108 mmol/L (98-107); EST Glomerular Filtration Rate 67 mL/min (>60); Est Glom Filt Rate - Afr Amer 81 mL/min (>60); Glucose 101 mg/dL (74-106); Potassium 4.1 mmol/L (3.5-5.1); Sodium Level 141 mmol/L (136-145)
== END ==
PROVIDERS: PCP Family Medicine Geriatric Medicine; Referring Provider Orthopaedic Surgery Hand Surgery; Visit Provider Orthopaedic Surgery Hand Surgery
DX: Z01.812 Encounter for preprocedural laboratory examination (principal); Z01.810 Encounter for preprocedural cardiovascular examination
CPT/HCPCS: 36415; 80048; 93005

== ENCOUNTER → 2021-02-09 09:48 | Outpatient (CLI) | payer MEDICARE, SELFPAY ==
[2021-02-09 12:13] LABS: Absolute Lymphocyte Count 3.02 X10^3/uL (0.83-4.51); Absolute Neutrophil Count 6.2 X10^3/uL (2.0-7.7); Basophil# 0.06 X10^3/uL; Basophil% 0.6 % (0-1); Eosinophil# 0.08 X10^3/uL; Eosinophils% 0.8 % (0-5); Hematocrit 42.3 % (37-47); Lymphocyte # 3.02 X10^3/ul (0.83-4.51); Lymphocyte % 30.4 % (19-41); Mean Corp Hgb Conc 33.1 g/dL (32-36); Mean Corpuscular Hgb 31.3 pg (27.0-32.0); Mean Corpuscular Volume 94.6 fL (81-99); Mean Platelet Vol. 8.9 fl (6.2-12.0); Monocyte# 0.48 X10^3/uL; Monocyte% 4.8 % (0-10); NRBC Flagged by Analyzer 0 % (0-5); Neutrophil # 6.24 X10^3/uL (2.7-7.7); Platelet Count 304 K/mm3 (150-450); RBC Distribution Width CV 13.2 % (11.6-14.6); RBC Distribution Width SD 45.6 fl (35.1-43.9); Red Blood Count 4.47 M/mm3 (4.2-5.4); White Blood Count 9.9 K/mm3 (4.4-11.0)
[2021-02-09 12:29] LABS: Vitamin D,25 Hydroxy 44.2 ng/mL
[2021-02-09 12:35] LABS: AST(SGOT) 21 U/L (15-37); Alanine Aminotransfer ALT/SGPT 29 U/L (13-56); Albumin, Serum 3.4 g/dL (3.2-5.0); Alkaline Phosphatase 75 U/L (45-117); Anion Gap 7 (5-15); BUN 11 mg/dL (7-18); BUN/Creat Ratio 11.3 RATIO (10-20); Calcium,Total 8.3 mg/dL (8.5-10.1); Chloride 105 mmol/L (98-107); Cholesterol 224 mg/dL (200); Creatinine, Serum 0.97 mg/dL (0.55-1.02); EST Glomerular Filtration Rate 61 mL/min (>60); Est Glom Filt Rate - Afr Amer 73 mL/min (>60); Globulin 3.4 g/dL (2.2-4.2); Glucose 133 mg/dL (74-106); High Density Lipoprotein 61 mg/dL; Potassium 3.8 mmol/L (3.5-5.1); Protein, Total 6.8 g/dL (6.4-8.2); Sodium Level 140 mmol/L (136-145); Thyroid Stim Hormone (TSH) 1.05 uIU/mL (0.358-3.74); Triglycerides 82 mg/dL; Very Low Density Lipoprotein 16 mg/dL (5-40)
== END ==
PROVIDERS: PCP Family Medicine Geriatric Medicine; Visit Provider Family Medicine Geriatric Medicine
DX: I10 Essential (primary) hypertension (principal); E78.5 Hyperlipidemia, unspecified; E55.9 Vitamin D deficiency, unspecified
CPT/HCPCS: 36415; 80053; 80061; 82306; 84443; 85025

== ENCOUNTER → 2021-05-12 11:04 | Outpatient (CLI) | payer MEDICARE, SELFPAY ==
[2021-05-12 12:30] LABS: Absolute Lymphocyte Count 3.26 X10^3/uL (0.83-4.51); Absolute Neutrophil Count 4.2 X10^3/uL (2.0-7.7); Basophil# 0.06 X10^3/uL; Basophil% 0.7 % (0-1); Eosinophil# 0.12 X10^3/uL; Eosinophils% 1.5 % (0-5); Hematocrit 43.1 % (37-47); Hemoglobin 14.4 g/dL (12.0-15.0); Lymphocyte # 3.26 X10^3/ul (0.83-4.51); Lymphocyte % 40.3 % (19-41); Mean Corp Hgb Conc 33.4 g/dL (32-36); Mean Corpuscular Hgb 31.2 pg (27.0-32.0); Mean Corpuscular Volume 93.3 fL (81-99); Mean Platelet Vol. 9.2 fl (6.2-12.0); Monocyte# 0.42 X10^3/uL; Monocyte% 5.2 % (0-10); NRBC Flagged by Analyzer 0 % (0-5); Neutrophil # 4.21 X10^3/uL (2.7-7.7); Neutrophil % 52.1 % (47-70); Platelet Count 292 K/mm3 (150-450); RBC Distribution Width CV 13.3 % (11.6-14.6); RBC Distribution Width SD 45.1 fl (35.1-43.9); Red Blood Count 4.62 M/mm3 (4.2-5.4); White Blood Count 8.1 K/mm3 (4.4-11.0)
[2021-05-12 12:57] LABS: ALB/GLOB Ratio 0.9 RATIO (0.9-2.4); AST(SGOT) 23 U/L (15-37); Alanine Aminotransfer ALT/SGPT 33 U/L (13-56); Albumin, Serum 3.4 g/dL (3.2-5.0); Alkaline Phosphatase 76 U/L (45-117); Anion Gap 6 (5-15); BUN 10 mg/dL (7-18); Calcium,Total 8.9 mg/dL (8.5-10.1); Chloride 106 mmol/L (98-107); Cholesterol 213 mg/dL (200); Creatinine, Serum 0.83 mg/dL (0.55-1.02); EST Glomerular Filtration Rate 72 mL/min (>60); Est Glom Filt Rate - Afr Amer 88 mL/min (>60); Globulin 3.9 g/dL (2.2-4.2); Glucose 93 mg/dL (74-106); High Density Lipoprotein 58 mg/dL; Potassium 4.1 mmol/L (3.5-5.1); Protein, Total 7.3 g/dL (6.4-8.2); Sodium Level 139 mmol/L (136-145); Thyroid Stim Hormone (TSH) 1.57 uIU/mL (0.358-3.74); Triglycerides 138 mg/dL; Very Low Density Lipoprotein 28 mg/dL (5-40)
[2021-05-12 13:03] LABS: Vitamin D,25 Hydroxy 48.7 ng/mL
== END ==
PROVIDERS: PCP Family Medicine Geriatric Medicine; Visit Provider Family Medicine Geriatric Medicine
DX: E55.9 Vitamin D deficiency, unspecified (principal); E78.5 Hyperlipidemia, unspecified; I10 Essential (primary) hypertension
CPT/HCPCS: 36415; 80053; 80061; 82306; 84443; 85025

== ENCOUNTER → 2021-11-11 | Outpatient (CLI) | payer MEDICARE, SELFPAY ==
--- NOTE | 2021-11-11 10:46 | RAD_ITS ---
STUDY: X-RAY - LEFT HAND REASON FOR EXAM: Female, 66 years old. RHUE ARTHRITIS W/RHEU FACTOR M05.79 TECHNIQUE: 3 view(s) of the hand. COMPARISON: 11/06/2020 FINDINGS: Normal radiocarpal articulation. Normal distal radioulnar joint. Normal visualized carpal bones. Normal carpal articulations Normal carpometacarpal articulation of the thumb. Normal second through fifth carpometacarpal joints. Normal metacarpi. Normal metacarpophalangeal joint of the thumb. Normal interphalangeal joint of the thumb. Normal proximal and distal phalanges of the thumb. Normal metacarpophalangeal joints of the second through fifth fingers. Normal proximal and distal interphalangeal joints of the second through fifth fingers. Normal phalanges of the second through fifth fingers. The soft tissue structures are unremarkable. RAD/Hand Min 3 Views IMPRESSION: Normal x-ray examination of the hand. Electronically Signed: Karsten Castillo MD at 11:15 EDT ,
--- NOTE | 2021-11-11 10:49 | RAD_ITS ---
STUDY: X-RAY - RIGHT HAND REASON FOR EXAM: Female, 66 years old. RHEU ARTHRITIS W/RHEU FACTOR M05.79 TECHNIQUE: 3 view(s) of the hand. COMPARISON: None. FINDINGS: Normal radiocarpal articulation. Normal distal radioulnar joint. Normal visualized carpal bones. Normal carpal articulations Normal carpometacarpal articulation of the thumb. Normal second through fifth carpometacarpal joints. Normal metacarpi. Normal metacarpophalangeal joint of the thumb. Normal interphalangeal joint of the thumb. Normal proximal and distal phalanges of the thumb. Normal metacarpophalangeal joints of the second through fifth fingers. Normal proximal and distal interphalangeal joints of the second through fifth fingers. Normal phalanges of the second through fifth fingers. The soft tissue structures are unremarkable. RAD/Hand Min 3 Views IMPRESSION: Normal x-ray examination of the hand. Electronically Signed: Karsten Castillo MD at 11:16 EDT ,
[2021-11-11 12:19] LABS: Absolute Lymphocyte Count 3.47 X10^3/uL (0.83-4.51); Absolute Neutrophil Count 7.2 X10^3/uL (2.0-7.7); Basophil# 0.05 X10^3/uL; Basophil% 0.4 % (0-1); Eosinophil# 0.14 X10^3/uL; Eosinophils% 1.2 % (0-5); Hematocrit 43.3 % (37-47); Hemoglobin 14.6 g/dL (12.0-15.0); Lymphocyte # 3.47 X10^3/ul (0.83-4.51); Lymphocyte % 30.3 % (19-41); Mean Corp Hgb Conc 33.7 g/dL (32-36); Mean Corpuscular Hgb 31.9 pg (27.0-32.0); Mean Corpuscular Volume 94.5 fL (81-99); Mean Platelet Vol. 9.4 fl (6.2-12.0); Monocyte# 0.59 X10^3/uL; Monocyte% 5.2 % (0-10); NRBC Flagged by Analyzer 0 % (0-5); Neutrophil # 7.15 X10^3/uL (2.7-7.7); Neutrophil % 62.5 % (47-70); Platelet Count 331 K/mm3 (150-450); RBC Distribution Width CV 13.7 % (11.6-14.6); RBC Distribution Width SD 46.4 fl (35.1-43.9); Red Blood Count 4.58 M/mm3 (4.2-5.4); White Blood Count 11.5 K/mm3 (4.4-11.0)
[2021-11-11 12:37] LABS: Vitamin D,25 Hydroxy 43.4 ng/mL
[2021-11-11 12:42] LABS: AST(SGOT) 20 U/L (15-37); Alanine Aminotransfer ALT/SGPT 33 U/L (13-56); Albumin, Serum 3.7 g/dL (3.2-5.0); Alkaline Phosphatase 80 U/L (45-117); Anion Gap 8 (5-15); BUN 14 mg/dL (7-18); BUN/Creat Ratio 13.2 RATIO (10-20); Calcium,Total 8.9 mg/dL (8.5-10.1); Chloride 107 mmol/L (98-107); Cholesterol 190 mg/dL (200); Creatinine, Serum 1.06 mg/dL (0.55-1.02); EST Glomerular Filtration Rate 55 mL/min (>60); Est Glom Filt Rate - Afr Amer 66 mL/min (>60); Globulin 3.6 g/dL (2.2-4.2); Glucose 110 mg/dL (74-106); High Density Lipoprotein 52 mg/dL; Potassium 3.9 mmol/L (3.5-5.1); Protein, Total 7.3 g/dL (6.4-8.2); Sodium Level 141 mmol/L (136-145); Thyroid Stim Hormone (TSH) 1.01 uIU/mL (0.358-3.74); Triglycerides 136 mg/dL; Very Low Density Lipoprotein 27 mg/dL (5-40)
== END | disposition home or self-care (01) ==
PROVIDERS: PCP Family Medicine Geriatric Medicine; Referring Provider Internal Medicine Rheumatology; Visit Provider Internal Medicine Rheumatology
DX: E55.9 Vitamin D deficiency, unspecified (principal); M05.79 Rheumatoid arthritis with rheumatoid factor of multiple sites without organ or systems involvement; E78.5 Hyperlipidemia, unspecified; I10 Essential (primary) hypertension
CPT/HCPCS: 36415; 73130; 80053; 80061; 82306; 84443; 85025

== ENCOUNTER 2021-11-23 14:16 | Outpatient (CLI) | payer MEDICARE, SELFPAY ==
[2021-11-23 18:13] LABS: M R Staph aureus DNA By PCR Negative (Negative); Probe Check PASS; Specimen Processing Control PASS; Staph aureus DNA By PCR NEGATIVE (Negative)
== END 2021-11-23 23:59 | disposition home or self-care (01) ==
LOC: LABSPEC 14:17
PROVIDERS: PCP Family Medicine Geriatric Medicine; Visit Provider Family Medicine Geriatric Medicine
DX: S21.209A Unspecified open wound of unspecified back wall of thorax without penetration into thoracic cavity, initial encounter (principal); B95.62 Methicillin resistant Staphylococcus aureus infection as the cause of diseases classified elsewhere
CPT/HCPCS: 87070; 87205; 87640

== ENCOUNTER → 2021-12-16 | Outpatient (CLI) | payer MEDICARE, SELFPAY ==
--- NOTE | 2021-12-16 08:13 | BI_ITS ---
MAMMOGRAPHY - BILATERAL SCREENING REASON FOR EXAM: Female, 66 years old. Routine annual screening examination. PERTINENT HISTORY: Non-contributory. TECHNIQUE: Digital bilateral breast estrada (3D mammographic acquisition) in the CC and MLO projections. 2-D mediolateral oblique (MLO) and craniocaudad (CC) views of both breasts were obtained. CAD: Full Field Digital Mammography with Computer Added Detection was performed. COMPARISON: Screening mammogram from 11/11/2020 FINDINGS: Breast Composition: There are scattered areas of fibroglandular density. There are no dominant masses or suspicious calcifications. Stable 5 mm circumscribed nodule in the right upper outer breast likely a small lymph node. No other significant abnormalities are identified. There has been no significant change since the prior study. BI/SCRN MAMM (CAD)W/ESTRADA BILAT IMPRESSION: Stable bilateral screening mammogram. Yearly follow-up mammogram recommended. (A) ASSESSMENT CATEGORY: BIRADS Category 2: Benign. A letter regarding these results will be sent to the patient by the facility within 30 days. Approximately 10% of breast cancers are not detected by mammography. A normal mammogram should not delay biopsy of a clinically suspicious abnormality. [id number] Electronically Signed: Pipo Nance, at 16:52 EDT ,
== END | disposition home or self-care (01) ==
LOC: OPBI 08:11
PROVIDERS: PCP Family Medicine Geriatric Medicine; Visit Provider Family Medicine Geriatric Medicine
DX: Z12.31 Encounter for screening mammogram for malignant neoplasm of breast (principal)
CPT/HCPCS: 77063; 77067

== ENCOUNTER → 2022-05-16 | Outpatient (CLI) | payer MEDICARE, SELFPAY ==
[2022-05-16 12:42] LABS: Absolute Lymphocyte Count 2.73 X10^3/uL (0.83-4.51); Absolute Neutrophil Count 5.4 X10^3/uL (2.0-7.7); Basophil# 0.06 X10^3/uL; Basophil% 0.7 % (0-1); Eosinophil# 0.07 X10^3/uL; Eosinophils% 0.8 % (0-5); Hematocrit 45.5 % (37-47); Lymphocyte # 2.73 X10^3/ul (0.83-4.51); Lymphocyte % 31.1 % (19-41); Mean Corpuscular Hgb 31.3 pg (27.0-32.0); Mean Corpuscular Volume 94.8 fL (81-99); Mean Platelet Vol. 9.5 fl (6.2-12.0); Monocyte# 0.44 X10^3/uL; NRBC Flagged by Analyzer 0 % (0-5); Neutrophil # 5.44 X10^3/uL (2.7-7.7); Neutrophil % 62.1 % (47-70); Platelet Count 309 K/mm3 (150-450); RBC Distribution Width CV 13.5 % (11.6-14.6); RBC Distribution Width SD 46.9 fl (35.1-43.9); White Blood Count 8.8 K/mm3 (4.4-11.0)
[2022-05-16 14:06] LABS: BUN 7 mg/dL (7-18); Creatinine, Serum 1.04 mg/dL (0.55-1.02); Glucose 103 mg/dL (74-106)
[2022-05-16 14:07] LABS: AST(SGOT) 17 U/L (15-37); Alanine Aminotransfer ALT/SGPT 26 U/L (13-56); Albumin, Serum 3.6 g/dL (3.2-5.0); Alkaline Phosphatase 74 U/L (45-117); Anion Gap 7 (5-15); BUN/Creat Ratio 6.7 RATIO (10-20); Calcium,Total 8.6 mg/dL (8.5-10.1); Chloride 105 mmol/L (98-107); Cholesterol 202 mg/dL (200); EST Glomerular Filtration Rate 56 mL/min (>60); Est Glom Filt Rate - Afr Amer 68 mL/min (>60); Globulin 3.6 g/dL (2.2-4.2); High Density Lipoprotein 53 mg/dL; Potassium 3.3 mmol/L (3.5-5.1); Protein, Total 7.2 g/dL (6.4-8.2); Sodium Level 139 mmol/L (136-145); Thyroid Stim Hormone (TSH) 1.02 uIU/mL (0.358-3.74); Triglycerides 135 mg/dL; Very Low Density Lipoprotein 27 mg/dL (5-40)
== END | disposition home or self-care (01) ==
LOC: POLAB3 09:31
PROVIDERS: PCP Family Medicine Geriatric Medicine; Visit Provider Family Medicine Geriatric Medicine
DX: E55.9 Vitamin D deficiency, unspecified (principal); E78.5 Hyperlipidemia, unspecified; I10 Essential (primary) hypertension
CPT/HCPCS: 36415; 80053; 80061; 82306; 84443; 85025

== ENCOUNTER → 2022-05-26 | Outpatient (CLI) | payer MEDICARE, SELFPAY ==
[2022-05-26 12:56] LABS: Anion Gap 6 (5-15); BUN 9 mg/dL (7-18); BUN/Creat Ratio 9.3 RATIO (10-20); Calcium,Total 9.1 mg/dL (8.5-10.1); Chloride 107 mmol/L (98-107); Creatinine, Serum 0.97 mg/dL (0.55-1.02); EST Glomerular Filtration Rate 60 mL/min (>60); Est Glom Filt Rate - Afr Amer 73 mL/min (>60); Glucose 107 mg/dL (74-106); Potassium 3.5 mmol/L (3.5-5.1); Sodium Level 139 mmol/L (136-145)
== END | disposition home or self-care (01) ==
LOC: POLAB3 11:06
PROVIDERS: PCP Family Medicine Geriatric Medicine; Visit Provider Family Medicine Geriatric Medicine
DX: E87.6 Hypokalemia (principal)
CPT/HCPCS: 36415; 80048

== ENCOUNTER → 2022-11-14 | Outpatient (CLI) | payer MEDICARE, SELFPAY ==
[2022-11-14 13:01] LABS: Absolute Lymphocyte Count 2.68 X10^3/uL (0.83-4.51); Basophil# 0.05 X10^3/uL; Basophil% 0.5 % (0-1); Eosinophil# 0.06 X10^3/uL; Eosinophils% 0.6 % (0-5); Hematocrit 45.5 % (37-47); Hemoglobin 15.2 g/dL (12.0-15.0); Lymphocyte # 2.68 X10^3/ul (0.83-4.51); Lymphocyte % 28.8 % (19-41); Mean Corp Hgb Conc 33.4 g/dL (32-36); Mean Corpuscular Hgb 31.2 pg (27.0-32.0); Mean Corpuscular Volume 93.4 fL (81-99); Mean Platelet Vol. 9.5 fl (6.2-12.0); Monocyte# 0.48 X10^3/uL; Monocyte% 5.2 % (0-10); NRBC Flagged by Analyzer 0 % (0-5); Neutrophil % 64.7 % (47-70); Platelet Count 287 K/mm3 (150-450); RBC Distribution Width CV 13.2 % (11.6-14.6); Red Blood Count 4.87 M/mm3 (4.2-5.4); White Blood Count 9.3 K/mm3 (4.4-11.0)
[2022-11-14 13:22] LABS: Vitamin D,25 Hydroxy 57.4 ng/mL
[2022-11-14 13:31] LABS: AST(SGOT) 19 U/L (15-37); Alanine Aminotransfer ALT/SGPT 26 U/L (13-56); Albumin, Serum 3.6 g/dL (3.2-5.0); Alkaline Phosphatase 75 U/L (45-117); Anion Gap 4 (5-15); BUN 12 mg/dL (7-18); BUN/Creat Ratio 14.2 RATIO (10-20); Calcium,Total 9.3 mg/dL (8.5-10.1); Chloride 107 mmol/L (98-107); Cholesterol 225 mg/dL (200); Creatinine, Serum 0.84 mg/dL (0.55-1.02); EST Glomerular Filtration Rate 71 mL/min (>60); Est Glom Filt Rate - Afr Amer 86 mL/min (>60); Globulin 3.5 g/dL (2.2-4.2); Glucose 96 mg/dL (74-106); High Density Lipoprotein 55 mg/dL; Potassium 4.2 mmol/L (3.5-5.1); Protein, Total 7.1 g/dL (6.4-8.2); Sodium Level 136 mmol/L (136-145); Thyroid Stim Hormone (TSH) 0.83 uIU/mL (0.358-3.74); Triglycerides 88 mg/dL; Very Low Density Lipoprotein 18 mg/dL (5-40)
== END | disposition home or self-care (01) ==
LOC: POLAB3 09:29
PROVIDERS: PCP Family Medicine Geriatric Medicine; Visit Provider Family Medicine Geriatric Medicine
DX: E78.5 Hyperlipidemia, unspecified (principal); E55.9 Vitamin D deficiency, unspecified; R53.83 Other fatigue
CPT/HCPCS: 36415; 80053; 80061; 82306; 84443; 85025

== ENCOUNTER → 2022-12-20 | Outpatient (CLI) | payer MEDICARE, SELFPAY ==
--- NOTE | 2022-12-20 12:37 | BI_ITS ---
MAMMOGRAPHY - BILATERAL SCREENING REASON FOR EXAM: Female, 67 years old. Routine annual screening examination. PERTINENT HISTORY: Non-contributory. TECHNIQUE: Digital bilateral breast estrada (3D mammographic acquisition) in the CC and MLO projections. 2-D mediolateral oblique (MLO) and craniocaudad (CC) views of both breasts were obtained. CAD: Full Field Digital Mammography with Computer Added Detection was performed. COMPARISON: Comparison is made with prior study December 16, 2021 and November 11, 2020. FINDINGS: Breast Composition: There are scattered areas of fibroglandular density. There are no dominant masses or suspicious calcifications. Stable 5 mm well-defined nodule in the right upper outer quadrant. This may represent a small lymph node. Stable small benign-appearing bilateral axillary lymph nodes. No other significant abnormalities are identified. There has been no significant change since the prior study. BI/SCRN MAMM (CAD)W/ESTRADA BILAT IMPRESSION: Stable bilateral screening mammogram. Yearly follow-up mammogram recommended. (A) ASSESSMENT CATEGORY: BIRADS Category 2: Benign. A letter regarding these results will be sent to the patient by the facility within 30 days. Approximately 10% of breast cancers are not detected by mammography. A normal mammogram should not delay biopsy of a clinically suspicious abnormality. [id number] Electronically Signed: Yassine Perales MD at 14:03 EDT ,
--- NOTE | 2022-12-20 12:38 | BD_ITS ---
STUDY: DUAL ENERGY X-RAY ABSORPTIOMETRY / DXA REASON FOR EXAM: Female, 67 years old. 627.8Menopausal postmenopausal BONE DENSITY REASON FOR EXAM TECHNIQUE: Bone Mineral Density (BMD) measurements of lumbar spine and bilateral hips were obtained. COMPARISON: None. FINDINGS: Lumbar Spine (L1-L4): g/cm2 (0.792) / T-score (-2.3) / Z-score (-0.3) Findings are suggestive of osteopenia with a high fracture risk. Left Femur Total: g/cm2 (0.769) / T-score (-1.4) / Z-score (0.0) Left Femoral Neck: g/cm2 (0.591) / T-score (-2.3) / Z-score (-0.6) Right Femur Total: g/cm2 (0.745) / T-score (-1.6) / Z-score (-0.1) Right Femoral Neck: g/cm2 (0.637) / T-score (-1.9) / Z-score (-0.2) BD/Dexa Bone Density Study IMPRESSION: The patient is considered osteopenic as outlined below according to World Andrew Organization (WHO) criteria with a high fracture risk. Reference Information: The T-score is the number of standard deviations above or below the standard which is normal for young adults at their peak bone mineral density. The World Health Organization (WHO) interprets the T-scores as follows: Above -1 Normal bone density Between -1 and -2.5 Osteopenia Equal to / or below -2.5 Osteoporosis As a practical clinical guideline, osteopenia may be graded as follows: Mild -1 through -1.5 Moderate -1.6 through -2.0 Severe -2.1 through -2.4 The Z-score is the number of standard deviations above or below age-matched controls. A Z-score of less than -1.5 would be considered abnormal. References: 1. NIH Osteoporosis and Related Bone Diseases www osteo.org 2. International Society for Clinical Densitometry www iscd.org 3. National Osteoporosis Foundation www nof.org Electronically Signed: Yassine Perales MD at 15:43 EDT ,
== END | disposition home or self-care (01) ==
PROVIDERS: PCP Family Medicine Geriatric Medicine; Referring Provider Family Medicine Geriatric Medicine; Visit Provider Family Medicine Geriatric Medicine
DX: Z12.31 Encounter for screening mammogram for malignant neoplasm of breast (principal); Z78.0 Asymptomatic menopausal state
CPT/HCPCS: 77063; 77067; 77080

== ENCOUNTER → 2023-01-23 | Outpatient (CLI) | payer MEDICARE, SELFPAY ==
--- NOTE | 2023-01-23 10:45 | MRI_ITS ---
STUDY: MRI RIGHT ANKLE WITHOUT CONTRAST REASON FOR EXAM: Female, 67 years old. Ankle pain. TECHNIQUE: Standardized fat and water weighted pulse sequences were obtained in all 3 orthogonal planes. COMPARISON: None. FINDINGS: Normal subcutis adipose space. Normal posterior tibialis tendon. Normal flexor digitorum longus tendon. Normal flexor hallucis longus tendon. Normal peroneus longus and brevis tendons. Normal tibialis anterior tendon. Normal extensor hallucis longus tendon. Normal extensor digitorum longus tendons. Normal Achilles tendon and teno-osseous insertion. Normal plantar fascia. Normal plantar calcaneal tubercles. Normal intrinsic muscles of the rearfoot. Normal distal tibiofibular syndesmotic ligamentous complex. Normal lateral ligamentous complex. Normal subtalar ligaments and sinus tarsi. Normal deltoid ligamentous complexes. Normal plantar calcaneonavicular (spring) ligament. 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 Normal talar dome. Normal subtalar articulations. Small lateral ganglion cyst of the talonavicular joint (sagittal series 9 images 8-12, axial series 10 images 11-13). Normal calcaneocuboid articulation. Normal navicular-cuneiform articulations. 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 Lateral ganglion cyst at the talonavicular joint. No other abnormality. Electronically Signed: Quinn Regan MD at 12:26 EDT ,
--- NOTE | 2023-01-23 11:30 | MRI_ITS ---
INDICATION: RIGHT foot pain EXAMINATION: MRI - RIGHT MR Foot W/O Contrast TECHNIQUE: Multiplanar and multisequence MR images of the RIGHT forefoot and midfoot without contrast. IV Contrast Dosage and Agent: None. COMPARISON: MRI ankle on same day.. FINDINGS: BONE: Normal forefoot alignment.] [No fracture or marrow edema. JOINTS: No joint effusion. MUSCLES: Normal bulk and signal. LIGAMENTS: The Lisfranc ligament is intact. TENDONS: The flexor and extensor tendons are intact. No evidence of tenosynovitis. MISCELLANEOUS: Intact plantar fascia. OTHER SOFT TISSUES: Mild increased signal on STIR along ligament between lateral cuneiform and cuboid, axial STIR image 6-9 and sagittal STIR image 15-17.. No evidence to suggest neuroma between the metatarsals. MRI/Lower Ext/No Jt/w/o IMPRESSION: Mild localized edema along ligament between cuboid and cuneiform which may represent strain. Correlate with location of pain. No other acute finding. Electronically Signed: Mendez Constantino MD at 8:59 EDT ,
== END | disposition home or self-care (01) ==
PROVIDERS: PCP Family Medicine Geriatric Medicine; Referring Provider Podiatrist; Visit Provider Podiatrist
DX: M19.071 Primary osteoarthritis, right ankle and foot (principal)
CPT/HCPCS: 73718; 73721

== ENCOUNTER → 2023-02-21 | Outpatient (CLI) | payer MEDICARE, SELFPAY ==
--- NOTE | 2023-02-21 09:33 | RAD_ITS ---
INDICATION: RIGHT UPPER QUADRANT PAIN EXAMINATION/TECHNIQUE: X-RAY - XR Ribs Unilateral Min 2 Views COMPARISON: FINDINGS: SOFT TISSUES: No soft tissue swelling or gas. BONES: No displaced fracture. No sclerotic or destructive changes observed. VISUALIZED LUNGS: Clear. No pneumothorax. RAD/Ribs Unil 2V No CXR IMPRESSION: No evidence of displaced rib fracture. Electronically Signed: Eliazar Hassan DO at 17:34 EDT ,
== END | disposition home or self-care (01) ==
PROVIDERS: PCP Family Medicine Geriatric Medicine; Referring Provider Internal Medicine Rheumatology; Visit Provider Internal Medicine Rheumatology
DX: M85.89 Other specified disorders of bone density and structure, multiple sites (principal); R10.11 Right upper quadrant pain
CPT/HCPCS: 71100

== ENCOUNTER → 2023-03-14 | Outpatient (CLI) | payer MEDICARE, SELFPAY ==
[2023-03-14 12:30] LABS: Absolute Lymphocyte Count 2.47 X10^3/uL (0.83-4.51); Basophil# 0.06 X10^3/uL; Basophil% 0.6 % (0-1); Eosinophil# 0.03 X10^3/uL; Eosinophils% 0.3 % (0-5); Hematocrit 45.5 % (37-47); Lymphocyte # 2.47 X10^3/ul (0.83-4.51); Lymphocyte % 23.8 % (19-41); Mean Corp Hgb Conc 35.2 g/dL (32-36); Mean Corpuscular Hgb 31.9 pg (27.0-32.0); Mean Corpuscular Volume 90.8 fL (81-99); Mean Platelet Vol. 8.7 fl (6.2-12.0); Monocyte# 0.81 X10^3/uL; Monocyte% 7.8 % (0-10); NRBC Flagged by Analyzer 0 % (0-5); Neutrophil % 67.2 % (47-70); Platelet Count 262 K/mm3 (150-450); RBC Distribution Width CV 13.2 % (11.6-14.6); RBC Distribution Width SD 43.8 fl (35.1-43.9); Red Blood Count 5.01 M/mm3 (4.2-5.4); White Blood Count 10.4 K/mm3 (4.4-11.0)
[2023-03-14 12:55] LABS: Anion Gap 8 (5-15); BUN 8 mg/dL (7-18); BUN/Creat Ratio 8.3 RATIO (10-20); Calcium,Total 9.4 mg/dL (8.5-10.1); Chloride 108 mmol/L (98-107); Creatinine, Serum 0.97 mg/dL (0.55-1.02); EST Glomerular Filtration Rate 61 mL/min (>60); Est Glom Filt Rate - Afr Amer 73 mL/min (>60); Glucose 113 mg/dL (74-106); Potassium 4.1 mmol/L (3.5-5.1); Sodium Level 139 mmol/L (136-145)
== END | disposition home or self-care (01) ==
PROVIDERS: PCP Family Medicine Geriatric Medicine; Visit Provider Family Medicine Geriatric Medicine
DX: R30.0 Dysuria (principal); R53.1 Weakness; R53.83 Other fatigue
CPT/HCPCS: 36415; 80048; 85025; 87086

== ENCOUNTER 2023-03-16 09:54 | Emergency (ER) | payer MEDICARE, SELFPAY ==
[2023-03-16 09:55] VITALS: BP 178/94; PULSE 84; RESP 22; TEMP 36.6; O2SAT 98; BMI 28.7
--- NOTE | 2023-03-16 10:14 | EX.ED.DYSGE1 ---
HPI History of Present Illness Chief Complaint: Complaint Informant: patient Onset/Context/Timing Onset: Days (6) Context: Gradual Onset Timing: Continuous Quality: Burning Location: Perineum Worsened by: Urinating, wiping Relieved by: Nothing Narrative Narrative: Patient presents with dysuria that has been constant for the last 6 days. Patient states it is gradually gotten worse. Patient describes the pain as burning. Patient states it is over the perineal area. Patient states it is worse with urination and with wiping. Patient states she got a mirror and looked in her perineum and noted something did not look right. Patient admits to some chills and sweats. Patient is on Cipro and doxycycline for urinary tract infection. Patient admits to some nausea but denies any vomiting. PFSH PFSH Medical History (Updated 03/16/23 @ 10:[address] Cayden Abernathy, DO) Abnormal PFT Acid reflux disease BMI 30.0-30.9,adult Depression Grief reaction Headache Hemorrhoids, complicated History of pelvic mass History of rectal bleeding History of UTI Hyperglycemia Hyperlipidemia Hypertension Obesity Pneumonia Rheumatoid arthritis Home Medications calcium carbonate 500 mg-vitamin D3 15 mcg (600 unit) tablet 1 ea PO BID 03/12/18 [History Last Taken Unknown] esomeprazole magnesium 40 mg capsule,delayed release 40 mg PO DAILY 03/12/18 [History Last Taken 07/09/20] flaxseed oil 1,000 mg capsule 1,000 mg PO DAILY 03/12/18 [History Last Taken Unknown] folic acid 1 mg tablet 1 mg PO DAILY@0800 03/12/18 [History Last Taken Unknown] hydroxychloroquine 200 mg tablet 200 mg PO DAILY 03/12/18 [History Last Taken Unknown] metoprolol succinate 50 mg tablet,extended release 24 hr 25 mg PO BID 03/12/18 [History Last Taken 03/19/18 04:45] pyridoxine (vitamin B6) 50 mg tablet 25 mg PO DAILY 03/12/18 [History Last Taken Unknown] methotrexate sodium 2.5 mg tablet 12.5 mg PO MO 10/09/18 [History Last Taken Unknown] lactobacillus combination no.8 3 billion cell capsule (Adult Probiotic) 3,000 mmu cells PO DAILY 06/22/20 [History Last Taken Unknown] metronidazole 500 mg tablet 500 mg PO TID ##15 07/09/20 [Rx Last Taken Unknown] miconazole nitrate 2 % vaginal cream (Monistat 7) 1 appful vaginal QHS 7 days #45 grams 03/16/23 [Rx Last Taken Unknown] Allergy/AdvReac Type Severity Reaction Status Date / Time No Known Allergies Allergy Verified 03/16/23 09:57 Family History Mother Diabetes CVA (cerebral vascular accident) CAD (coronary artery disease) Hypertension Father Hypertension CAD (coronary artery disease) Sister Cancer Ovarian Surgical History History of arthroscopy of left shoulder History of tonsillectomy History of tubal ligation History of unilateral oophorectomy History of unilateral salpingectomy Hx of hemorrhoidectomy Paris's neuroma of left foot Social History household members: none housing: other details: mobile home pets and animals: No Smoking Status: Current every day smoker tobacco type: cigarettes second hand exposure: Yes alcohol intake: current alcohol intake frequency: a few times a week Alcohol type: beer substance use type: does not use caffeine: Yes Type: coffee Number of servings: 3 ROS ROS ED Constitutional Constitutional ED: Reports chills, subjective and sweats; Denies fever(s) Eyes Eyes: Denies blurry vision or change in vision ENT ENT ED: Denies rhinorrhea or sore throat Cardiovascular Cardiovascular: Denies chest pain or palpitations Respiratory/Chest Respiratory/Chest: Denies cough or dyspnea Gastrointestinal Gastrointestinal: Reports nausea; Denies vomiting Genitourinary Genitourinary ED: Reports dysuria; Denies hematuria Musculoskeletal Musculoskeletal: Denies back pain or neck pain Integumentary Denies abscess or rash Neurologic Neurologic: Reports headache(s); Denies weakness Allergic/Immunologic Allergic/Immunologic ED: Denies mouth swelling or urticaria EXAM Physical Exam Const Vital Signs: 03/16/23 09:55 Temperature 98 F Temperature Source Temporal Pulse Rate 84 Respiratory Rate 22 H Blood Pressure 178/94 H Blood Pressure Mean 122 Pulse Ox 98 Oxygen Delivery Method Room Air Positive well nourished and well developed General Appearance ED: well developed and NAD HEENT Reports moist mucous membranes Neck supple and no JVD Resp normal respiratory effort and clear to auscultation bilaterally Cardio regular rate and regular rhythm GI normal to inspection, nondistended, normoactive bowel sounds and non-tender Palpation: soft Neuro oriented x3, CN's II-XII intact bilaterally and no sensory deficits noted Sensorium / Orientation: alert Motor Exam: strength 5/5 throughout Psych mental status grossly normal MDM MDM MDM Narrative Medical decision making narrative: Differential diagnosis includes urinary tract infection, vaginal candidiasis, and pelvic infection. Urinalysis will be obtained to assess for urinary tract infection. Pelvic exam will be performed to assess for vaginal candidiasis and pelvic infection. History & Record Review Discussion w/independent historian: Patient and Family Additional record(s) reviewed:: Prior outpatient record and Prior labs Lab Data Attestation: I reviewed the patient's lab results. Lab results narrative: Urinalysis showed a leukocyte esterase of 500 with 5-10 white blood cells. There were 0 bacteria noted. Labs: Laboratory Results - last 24 hr 03/16/23 10:45 Urine Color Yellow Urine Clarity Clear Urine pH 5.0 Ur Specific [place] 1.025 Urine Protein 30 H Urine Glucose (UA) Normal Urine Ketones 15 H Urine Occult Blood 50 H Urine Nitrite Negative Urine Bilirubin Negative Urine Urobilinogen 1 H Ur Leukocyte Esterase 500 H Urine RBC 0 SEEN Urine WBC 5-10 SEEN Ur Squamous Epith Cells 0-5 SEEN Urine Bacteria 0 SEEN Urine Mucus 0 SEEN Additional Tests and Interventions Additional Tests or Interventions: Pelvic exam showed erythematous vaginal mucosa. There is some mild thick white discharge noted. There is no uterine or bladder prolapse. Patient was advised that this is likely vaginal candidiasis. Patient requested vaginal cream instead of pill. Treatment and Re-Evaluation :: Urine culture from 2 days ago was reviewed and showed no growth. Patient was instructed to stop taking the Cipro and doxycycline. Patient was given a prescription for Monistat. Patient was instructed to follow-up with her primary care physician in 5 to 7 days. Patient understood and was agreeable with the plan. All questions were answered. Discharge Plan Triage Chief Complaint: Complaint ED Provider: Cayden Abernathy Dx/Rx/DC Orders Clinical Impression: Vaginal candidiasis, Dysuria Instructions: ED TAJ VAGINITIS Prescriptions: New miconazole nitrate [Monistat 7] 2 % cream 1 appful vaginal QHS 7 Days Qty: 45 0RF No Action Adult Probiotic 3 billion cell capsule 3,000 mmu cells PO DAILY Rx Instructions: administer with a meal metoprolol succinate 50 MG tablet extended release 24 hr 25 mg PO BID flaxseed oil 1,000 MG capsule 1,000 mg PO DAILY esomeprazole magnesium 40 MG capsule 40 mg PO DAILY pyridoxine (vitamin B6) 50 MG tablet 25 mg PO DAILY folic acid 1 MG tablet 1 mg PO DAILY@0800 hydroxychloroquine 200 MG tablet 200 mg PO DAILY calcium carbonate-vitamin D3 1 EACH tablet 1 ea PO BID methotrexate sodium 2.5 mg tablet 12.5 mg PO MO metronidazole 500 MG tablet 500 mg PO TID Qty: 15 0RF Primary Care Provider: Duane Huddleston Chi Referrals: Duane Huddleston Chi, MD [Primary Care Provider] - 5-7 Days Disposition Disposition: Home, Self Care
[2023-03-16 10:49] LABS: Bacteria 0 SEEN /hpf (None Seen); Mucous, Urine 0 SEEN /hpf (<or=2+); Red Blood Cells-Urine 0 SEEN /hpf (0-5)
[2023-03-16 11:02] LABS: Color, Urine Yellow (Yellow); Glucose, Dipstick Normal (Normal); Ketone-Dipstick 15 mg/dl (Negative); Leukocyte Esterase-Dipstick 500 /ul (Negative); Nitrite-Dipstick Negative (Negative); Occult Blood-Urine 50 /ul (Negative); Protein-Dipstick 30 mg/dl (Negative); Specific Gravity, Urine 1.025 (1.002-1.030); Urine Bilirubin Dipstick Negative (Negative); Urine Clarity Clear (Clear); Urine Urobilinogen 1 mg/dl (Normal)
[2023-03-16 11:22] LABS: Squamous Epithelial Cells - UA 0-5 SEEN /hpf (5-10); White Blood Cells 5-10 SEEN /hpf (0-5)
== END 2023-03-16 11:28 | disposition home or self-care (01) ==
LOC: ED 11:10
PROVIDERS: Emergency Provider Emergency Medicine; PCP Family Medicine Geriatric Medicine; Visit Provider Emergency Medicine
DX: B37.31 Acute candidiasis of vulva and vagina (principal); M06.9 Rheumatoid arthritis, unspecified; R30.0 Dysuria; E78.5 Hyperlipidemia, unspecified; I10 Essential (primary) hypertension; F17.210 Nicotine dependence, cigarettes, uncomplicated
CPT/HCPCS: 81001; 99282

== ENCOUNTER 2023-03-23 07:03 | Emergency (ER) | payer MEDICARE, SELFPAY ==
[2023-03-23 07:03] VITALS: BP 146/74; PULSE 69; RESP 18; TEMP 36.1; O2SAT 98; BMI 28.9
--- NOTE | 2023-03-23 07:11 | CT_ITS ---
HISTORY: Abdominal pain. TECHNIQUE: Helically acquired images were obtained of the abdomen and pelvis after the intravenous administration of 100 mL Isovue 300. Oral contrast also administered. A radiation dose optimization technique was used for this scan. 420 images. COMPARISON: None. FINDINGS: LOWER CHEST: Lung bases clear. BOWEL: Mild hiatal hernia. Bowel including appendix nondilated. Colonic diverticulosis without focal inflammatory change observed. Moderate stool in the colon. PERITONEUM: No significant ascites. LIVER: Fatty infiltration. GALLBLADDER/BILIARY TREE: Gallbladder present. SPLEEN/PANCREAS/ADRENAL GLANDS: Homogeneous and nonenlarged. KIDNEYS: Right cortical scarring with a 7 mm lower pole cyst. 4 mm right upper pole calculus without hydronephrosis. 3 mm left lower pole calculus without hydronephrosis. VESSELS: No abdominal aortic aneurysm. Mild atherosclerosis. PELVIC ORGANS: Unremarkable. ABDOMINAL WALL: 1.1 x 2.8 cm left inguinal lymph node. BONES: Intact. CT/Abdomen/Pelvis WITH Contrast IMPRESSION: Bilateral nonobstructing renal calculi. Right renal cortical scarring with a small cyst. Hepatic steatosis. Colonic diverticulosis without acute diverticulitis. Moderate stool in the colon. Mild hiatal hernia. Mildly enlarged left inguinal lymph node, possibly reactive. Electronically Signed: Trish Pedraza MD at 9:57 EDT ,
--- NOTE | 2023-03-23 07:12 | EX.ED.DYSGE1 ---
HPI History of Present Illness Chief Complaint: Complaint Informant: patient Onset/Context/Timing Onset: Weeks Context: Gradual Onset Timing: Waxes and wanes Current Severity: Moderate Maximum Severity: Moderate Narrative Narrative: Patient presents with lower abdominal pain. She recently was on Cipro and doxycycline for UTI. She was seen in the ER last week with pelvic pain and found to have a yeast infection. She was prescribed Monistat and then did take fluconazole from her PCP 2 days ago. Patient presents with continued pain from her waist down. She has trouble urinating and states she is just getting dribbles out. She also has not had a bowel movement in several days. She reports chills and sweats but does not believe she had a fever. [facility] Medical History (Updated 03/23/23 @ 10:[address] Alison Jean-Baptiste MD) Abnormal PFT Acid reflux disease BMI 30.0-30.9,adult Depression Grief reaction Headache Hemorrhoids, complicated History of pelvic mass History of rectal bleeding History of UTI Hyperglycemia Hyperlipidemia Hypertension Obesity Pneumonia Rheumatoid arthritis Home Medications calcium carbonate 500 mg-vitamin D3 15 mcg (600 unit) tablet 1 ea PO BID 03/12/18 [History Last Taken Unknown] esomeprazole magnesium 40 mg capsule,delayed release 40 mg PO DAILY 03/12/18 [History Last Taken 07/09/20] flaxseed oil 1,000 mg capsule 1,000 mg PO DAILY 03/12/18 [History Last Taken Unknown] folic acid 1 mg tablet 1 mg PO DAILY@0800 03/12/18 [History Last Taken Unknown] hydroxychloroquine 200 mg tablet 200 mg PO DAILY 03/12/18 [History Last Taken Unknown] metoprolol succinate 50 mg tablet,extended release 24 hr 25 mg PO BID 03/12/18 [History Last Taken 03/19/18 04:45] pyridoxine (vitamin B6) 50 mg tablet 25 mg PO DAILY 03/12/18 [History Last Taken Unknown] methotrexate sodium 2.5 mg tablet 12.5 mg PO MO 10/09/18 [History Last Taken Unknown] lactobacillus combination no.8 3 billion cell capsule (Adult Probiotic) 3,000 mmu cells PO DAILY 06/22/20 [History Last Taken Unknown] metronidazole 500 mg tablet 500 mg PO TID ##15 07/09/20 [Rx Last Taken Unknown] miconazole nitrate 2 % vaginal cream (Monistat 7) 1 appful vaginal QHS 7 days #45 grams 03/16/23 [Rx Last Taken Unknown] magnesium citrate 300 ml PO X1 #1 BOTTLE 03/23/23 [Rx Last Taken Unknown] Allergy/AdvReac Type Severity Reaction Status Date / Time No Known Allergies Allergy Verified 03/16/23 09:57 Family History Mother Diabetes CVA (cerebral vascular accident) CAD (coronary artery disease) Hypertension Father Hypertension CAD (coronary artery disease) Sister Cancer Ovarian Surgical History History of arthroscopy of left shoulder History of tonsillectomy History of tubal ligation History of unilateral oophorectomy History of unilateral salpingectomy Hx of hemorrhoidectomy Paris's neuroma of left foot Social History household members: none housing: other details: mobile home pets and animals: No Smoking Status: Current every day smoker tobacco type: cigarettes second hand exposure: Yes alcohol intake: current alcohol intake frequency: a few times a week Alcohol type: beer substance use type: does not use caffeine: Yes Type: coffee Number of servings: 3 ROS ROS ED Constitutional Constitutional ED: Reports chills and sweats; Denies fever(s) Eyes Eyes: Denies discharge from eye(s) ENT ENT ED: Denies discharge from eye(s), rhinorrhea or sore throat Cardiovascular Cardiovascular: Denies chest pain or palpitations Respiratory/Chest Respiratory/Chest: Denies cough or dyspnea Gastrointestinal Gastrointestinal: Reports abdominal pain and constipation; Denies diarrhea, nausea or vomiting Genitourinary Genitourinary ED: Reports difficulty urinating and dysuria Musculoskeletal Musculoskeletal: Reports back pain; Denies extremity pain Integumentary Denies Abrasions or rash Neurologic Neurologic: Denies headache(s) or weakness Psychiatric Psychiatric: Denies anxiety or depression Allergic/Immunologic Allergic/Immunologic ED: Denies lip swelling or urticaria EXAM Physical Exam Const Vital Signs: 03/23/23 07:03 Temperature 97 F L Temperature Source Temporal Pulse Rate 69 Respiratory Rate 18 Blood Pressure 146/74 H Blood Pressure Mean 98 Pulse Ox 98 Oxygen Delivery Method Room Air Positive well nourished and well developed General Appearance ED: well developed HEENT Reports moist mucous membranes Eyes EOMs intact bilaterally Chest Wall inspection of chest normal and palpation of chest normal Resp normal respiratory effort and clear to auscultation bilaterally Cardio regular rate and regular rhythm GI GI Narrative: Lower abdominal tenderness to palpation. No guarding or rebound. Active bowel sounds noted Extremity normal to inspection Neuro oriented x3 Psych mental status grossly normal Skin no rashes or lesions noted MDM MDM MDM Narrative Medical decision making narrative: Patient is given morphine and Zofran for pain control. Labwork obtained to evaluate for leukocytosis, anemia, and electrolyte derangement. Urinalysis obtained to evaluate for infection/hematuria. CT scan of the abdomen and pelvis obtained to evaluate for any acute abnormality. History & Record Review Discussion w/independent historian: Patient Additional record(s) reviewed:: Prior ED visit and Prior labs Lab Data Attestation: I reviewed the patient's lab results. Labs: Laboratory Results - last 24 hr 03/23/23 03/23/23 07:30 08:25 WBC 8.1 RBC 4.74 Hgb 14.6 Hct 42.1 MCV 88.8 MCH 30.8 MCHC 34.7 RDW Std Deviation 42.3 RDW Coeff of [place] 13.0 Plt Count 288 MPV 8.6 Immature Gran % (Auto) 0.200 Neut % (Auto) 68.3 Lymph % (Auto) 24.7 [place] % (Auto) 6.0 Eos % (Auto) 0.4 Baso % (Auto) 0.4 Absolute Neuts (auto) 5.5 Absolute Lymphs (auto) 2.00 Nucleated RBC % 0 Sodium 136 Potassium 3.8 Chloride 108 H Carbon Dioxide 24.0 Anion Gap 4 L BUN 10 Creatinine 0.87 Estim Creat Clear Calc 50.48 Est GFR (MDRD) Af Amer 83 Est GFR (MDRD) Non-Af 69 BUN/Creatinine Ratio 11.5 Glucose 125 H Calcium 8.9 Urine Color Yellow Urine Clarity Sl. Cloudy Urine pH 7.0 Ur Specific [place] 1.010 Urine Protein 15 H Urine Glucose (UA) Normal Urine Ketones 50 H Urine Occult Blood 10 H Urine Nitrite Negative Urine Bilirubin Negative Urine Urobilinogen Normal Ur Leukocyte Esterase 25 H Urine RBC 0-5 SEEN Urine WBC 0-5 SEEN Ur Squamous Epith Cells 0-5 SEEN Urine Bacteria 1+ Urine Mucus 0 SEEN Radiography Diagnostic Testing: Clinical Impression(s) from Imaging Studies Abdomen/Pelvis CT 03/23/23 07:11 IMPRESSION: Bilateral nonobstructing renal calculi. Right renal cortical scarring with a small cyst. Hepatic steatosis. Colonic diverticulosis without acute diverticulitis. Moderate stool in the colon. Mild hiatal hernia. Mildly enlarged left inguinal lymph node, possibly reactive. Electronically Signed: Trish Pedraza MD at 9:57 EDT , Treatment and Re-Evaluation :: CBC was normal white count 8.1 with normal differential. Hemoglobin is normal at 14.6. Chemistry studies unremarkable with normal renal function. Glucose is 125. Urinalysis shows 1+ bacteria with 0-5 epithelial cells, 0-5 white cells, negative nitrites. This will be sent for culture but not treated with antibiotics. CT scan of the abdomen pelvis shows increased stool throughout. Right renal cortical scarring is noted with a small cyst. She has small nonobstructing renal calculi. No other significant findings noted. Repeat evaluation patient resting more comfortably. Test results are discussed with her. I will write mag citrate to help treat her constipation and see if this does not improve her abdominal pain. Return instructions given. Discharge Plan Triage Chief Complaint: Complaint ED Provider: Alison Jean-Baptiste Dx/Rx/DC Orders Clinical Impression: Abdominal pain, Constipation Instructions: ED Constipation (Adult) Prescriptions: New magnesium citrate Solution 300 ml PO X1 Qty: 1 0RF No Action Adult Probiotic 3 billion cell capsule 3,000 mmu cells PO DAILY Rx Instructions: administer with a meal metoprolol succinate 50 MG tablet extended release 24 hr 25 mg PO BID flaxseed oil 1,000 MG capsule 1,000 mg PO DAILY esomeprazole magnesium 40 MG capsule 40 mg PO DAILY pyridoxine (vitamin B6) 50 MG tablet 25 mg PO DAILY folic acid 1 MG tablet 1 mg PO DAILY@0800 hydroxychloroquine 200 MG tablet 200 mg PO DAILY calcium carbonate-vitamin D3 1 EACH tablet 1 ea PO BID methotrexate sodium 2.5 mg tablet 12.5 mg PO MO metronidazole 500 MG tablet 500 mg PO TID Qty: 15 0RF miconazole nitrate [Monistat 7] 2 % cream 1 appful vaginal QHS 7 Days Qty: 45 0RF Primary Care Provider: Duane Huddleston Chi Referrals: Duane Huddleston Chi, MD [Primary Care Provider] - 1 Week Disposition Disposition: Home, Self Care
[2023-03-23] MEDS: Ondansetron 4 MG/2 ML Vial IV (07:37)
[2023-03-23] MEDS: Morphine 4 MG/ML Syringe IV (07:37)
[2023-03-23] MEDS: 0.9% Normal Saline 1,000 ML 150 ML IV (07:37)
[2023-03-23 07:43] LABS: Absolute Neutrophil Count 5.5 X10^3/uL (2.0-7.7); Basophil# 0.03 X10^3/uL; Basophil% 0.4 % (0-1); Eosinophil# 0.03 X10^3/uL; Eosinophils% 0.4 % (0-5); Hematocrit 42.1 % (37-47); Hemoglobin 14.6 g/dL (12.0-15.0); Lymphocyte % 24.7 % (19-41); Mean Corp Hgb Conc 34.7 g/dL (32-36); Mean Corpuscular Hgb 30.8 pg (27.0-32.0); Mean Corpuscular Volume 88.8 fL (81-99); Mean Platelet Vol. 8.6 fl (6.2-12.0); Monocyte# 0.49 X10^3/uL; NRBC Flagged by Analyzer 0 % (0-5); Neutrophil # 5.53 X10^3/uL (2.7-7.7); Neutrophil % 68.3 % (47-70); Platelet Count 288 K/mm3 (150-450); RBC Distribution Width SD 42.3 fl (35.1-43.9); Red Blood Count 4.74 M/mm3 (4.2-5.4); White Blood Count 8.1 K/mm3 (4.4-11.0)
[2023-03-23 07:56] LABS: Anion Gap 4 (5-15); BUN 10 mg/dL (7-18); BUN/Creat Ratio 11.5 RATIO (10-20); Calcium,Total 8.9 mg/dL (8.5-10.1); Chloride 108 mmol/L (98-107); Creatinine, Serum 0.87 mg/dL (0.55-1.02); EST Glomerular Filtration Rate 69 mL/min (>60); Est Glom Filt Rate - Afr Amer 83 mL/min (>60); Estimated Creatinine Clearance 50.48 ml/min; Glucose 125 mg/dL (74-106); Potassium 3.8 mmol/L (3.5-5.1); Sodium Level 136 mmol/L (136-145)
[2023-03-23 08:33] LABS: Mucous, Urine 0 SEEN /hpf (<or=2+)
[2023-03-23 08:46] LABS: Color, Urine Yellow (Yellow); Glucose, Dipstick Normal (Normal); Ketone-Dipstick 50 mg/dl (Negative); Leukocyte Esterase-Dipstick 25 /ul (Negative); Nitrite-Dipstick Negative (Negative); Occult Blood-Urine 10 /ul (Negative); Protein-Dipstick 15 mg/dl (Negative); Urine Bilirubin Dipstick Negative (Negative); Urine Clarity Sl. Cloudy (Clear); Urine Urobilinogen Normal (Normal)
[2023-03-23 08:57] LABS: Bacteria 1+ /hpf (None Seen); Red Blood Cells-Urine 0-5 SEEN /hpf (0-5)
[2023-03-23 08:58] LABS: Squamous Epithelial Cells - UA 0-5 SEEN /hpf (5-10); White Blood Cells 0-5 SEEN /hpf (0-5)
== END 2023-03-23 10:40 | disposition home or self-care (01) ==
PROVIDERS: Emergency Provider Emergency Medicine; PCP Family Medicine Geriatric Medicine; Visit Provider Emergency Medicine
DX: R10.9 Unspecified abdominal pain (principal); K59.00 Constipation, unspecified; E78.5 Hyperlipidemia, unspecified; I10 Essential (primary) hypertension; Z77.22 Contact with and (suspected) exposure to environmental tobacco smoke (acute) (chronic); Z87.440 Personal history of urinary (tract) infections
CPT/HCPCS: 74177; 80048; 81001; 85025; 87086; 96361; 96374; 96375; 99283; J7030; Q9967; A4216; J2405

== ENCOUNTER → 2023-05-22 | Outpatient (CLI) | payer MEDICARE, SELFPAY ==
[2023-05-22 10:56] LABS: Absolute Lymphocyte Count 2.71 X10^3/uL (0.83-4.51); Absolute Neutrophil Count 5.7 X10^3/uL (2.0-7.7); Basophil# 0.05 X10^3/uL; Basophil% 0.5 % (0-1); Eosinophil# 0.06 X10^3/uL; Eosinophils% 0.7 % (0-5); Hematocrit 45.9 % (37-47); Hemoglobin 15.3 g/dL (12.0-15.0); Lymphocyte # 2.71 X10^3/ul (0.83-4.51); Lymphocyte % 29.4 % (19-41); Mean Corp Hgb Conc 33.3 g/dL (32-36); Mean Corpuscular Volume 92.9 fL (81-99); Mean Platelet Vol. 9.4 fl (6.2-12.0); Monocyte# 0.65 X10^3/uL; Monocyte% 7.1 % (0-10); NRBC Flagged by Analyzer 0 % (0-5); Neutrophil # 5.71 X10^3/uL (2.7-7.7); Platelet Count 326 K/mm3 (150-450); RBC Distribution Width CV 13.6 % (11.6-14.6); RBC Distribution Width SD 46.1 fl (35.1-43.9); Red Blood Count 4.94 M/mm3 (4.2-5.4); White Blood Count 9.2 K/mm3 (4.4-11.0)
[2023-05-22 11:20] LABS: ALB/GLOB Ratio 0.9 RATIO (0.9-2.4); AST(SGOT) 21 U/L (15-37); Alanine Aminotransfer ALT/SGPT 37 U/L (13-56); Albumin, Serum 3.6 g/dL (3.2-5.0); Alkaline Phosphatase 74 U/L (45-117); Anion Gap 7 (5-15); BUN 10 mg/dL (7-18); Calcium,Total 8.9 mg/dL (8.5-10.1); Chloride 108 mmol/L (98-107); Cholesterol 198 mg/dL (200); EST Glomerular Filtration Rate 59 mL/min (>60); Est Glom Filt Rate - Afr Amer 71 mL/min (>60); Globulin 3.9 g/dL (2.2-4.2); Glucose 119 mg/dL (74-106); High Density Lipoprotein 52 mg/dL; Potassium 3.9 mmol/L (3.5-5.1); Protein, Total 7.5 g/dL (6.4-8.2); Sodium Level 137 mmol/L (136-145); Thyroid Stim Hormone (TSH) 1.24 uIU/mL (0.358-3.74); Triglycerides 117 mg/dL; Very Low Density Lipoprotein 23 mg/dL (5-40)
[2023-05-22 14:47] LABS: Vitamin D,25 Hydroxy 54.9 ng/mL
== END | disposition home or self-care (01) ==
LOC: POLAB3 09:03
PROVIDERS: PCP Family Medicine Geriatric Medicine; Visit Provider Family Medicine Geriatric Medicine
DX: R53.83 Other fatigue (principal); E78.5 Hyperlipidemia, unspecified; E55.9 Vitamin D deficiency, unspecified
CPT/HCPCS: 36415; 80053; 80061; 82306; 84443; 85025

== ENCOUNTER → 2023-05-29 | Outpatient (CLI) | payer MEDICARE, SELFPAY ==
[2023-05-29 10:39] LABS: Absolute Lymphocyte Count 2.97 X10^3/uL (0.83-4.51); Absolute Neutrophil Count 4.6 X10^3/uL (2.0-7.7); Basophil# 0.07 X10^3/uL; Basophil% 0.9 % (0-1); Eosinophil# 0.11 X10^3/uL; Eosinophils% 1.3 % (0-5); Hematocrit 43.2 % (37-47); Lymphocyte # 2.97 X10^3/ul (0.83-4.51); Lymphocyte % 36.1 % (19-41); Mean Corp Hgb Conc 32.4 g/dL (32-36); Mean Corpuscular Hgb 30.9 pg (27.0-32.0); Mean Corpuscular Volume 95.4 fL (81-99); Mean Platelet Vol. 8.9 fl (6.2-12.0); Monocyte% 6.1 % (0-10); NRBC Flagged by Analyzer 0 % (0-5); Neutrophil # 4.55 X10^3/uL (2.7-7.7); Neutrophil % 55.4 % (47-70); Platelet Count 272 K/mm3 (150-450); RBC Distribution Width CV 13.5 % (11.6-14.6); RBC Distribution Width SD 47.1 fl (35.1-43.9); Red Blood Count 4.53 M/mm3 (4.2-5.4); White Blood Count 8.2 K/mm3 (4.4-11.0)
[2023-05-29 11:08] LABS: Vitamin D,25 Hydroxy 52.7 ng/mL
[2023-05-29 11:19] LABS: AST(SGOT) 20 U/L (15-37); Alanine Aminotransfer ALT/SGPT 24 U/L (13-56); Albumin, Serum 3.4 g/dL (3.2-5.0); BUN 17 mg/dL (7-18); CRP < 2.90 mg/L (0.0-3.0); Calcium,Total 8.8 mg/dL (8.5-10.1); Creatinine, Serum 0.89 mg/dL (0.55-1.02); EST Glomerular Filtration Rate 67 mL/min (>60); Est Glom Filt Rate - Afr Amer 81 mL/min (>60)
== END | disposition home or self-care (01) ==
LOC: LAB 10:20
PROVIDERS: PCP Family Medicine Geriatric Medicine; Referring Provider Internal Medicine Rheumatology; Visit Provider Internal Medicine Rheumatology
DX: M05.79 Rheumatoid arthritis with rheumatoid factor of multiple sites without organ or systems involvement (principal); M85.89 Other specified disorders of bone density and structure, multiple sites
CPT/HCPCS: 36415; 82040; 82306; 82310; 82565; 84450; 84460; 84520; 85025; 86140

== ENCOUNTER → 2023-06-02 | Outpatient (CLI) | payer MEDICARE, SELFPAY ==
--- NOTE | 2023-06-02 14:39 | CT_ITS ---
STUDY: LOW DOSE CT LUNG CANCER SCREENING REASON FOR EXAM: Female, 67 years old. NICOTINE DEPENDENCE RADIATION DOSAGE (If Supplied By Facility): CTDIvol = ( 3.02 ) mGy, DLP = ( 108.72 ) mGycm TECHNIQUE: No contrast was administered. Low dose technique was utilized (average mAS-38 and kVp 120). 1.25 mm axial source images with a slice interval of 1.25-mm were reconstructed in lung windows. 2.5 mm axial source images with a slice interval of 2.5-mm were reconstructed in lung windows. 5.0 mm axial source images with a slice interval of 5.0-mm were reconstructed in soft tissue windows. COMPARISON: 05/18/2020 Emphysema: Mild emphysema. No noncalcified nodule or mass. Endobronchial lesion: None Aorta: No aortic aneurysm. CORONARY ARTERIES: Coronary artery calcification is seen. Heart: No cardiomegaly. Pulmonary artery: Normal Mediastinal nodes: Normal Other chest and abdominal findings: Small hiatal hernia. CT/Low Dose CT Lung Screening IMPRESSION: Lung-RADS category 1 - Continue annual screening with LDCT in 12 months. IMPORTANT NOTES FOR USE: ACR Lung-RADS Version 1.1 Assessment Categories Release Date: 2018 Category: Coded 0-4 bases on nodule(s) with highest degree of suspicion. Negative screen is defined as categories 1 and 2; a positive screen is defined as categories 3 and 4. Category 3 and 4A nodules that are unchanged on interval CT should be coded as category 2, and individuals returned to screening in 12 months. Category 4X: Category 3 or 4 nodules with additional imaging findings that increase the suspicion of lung cancer, such as spiculation, GGN that doubles in size in 1 year, enlarged lymph notes, etc. Category Modifiers: S (significant finding unrelated to lung cancer) Electronically Signed: Karsten Castillo MD at 0:21 EST ,
== END | disposition home or self-care (01) ==
LOC: CT 14:39
PROVIDERS: PCP Family Medicine Geriatric Medicine; Referring Provider Family Medicine Geriatric Medicine; Visit Provider Family Medicine Geriatric Medicine
DX: F17.210 Nicotine dependence, cigarettes, uncomplicated (principal)
CPT/HCPCS: 71271

== ENCOUNTER → 2023-09-25 | Outpatient (CLI) | payer MEDICARE, SELFPAY ==
--- OUTSIDE RECORDS SUMMARY | 2023-09-25 09:58 | XMS RPT_ITS | CCD ---
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 Name Role Phone MARY CASTILLO Admitting Unavailable ARSUAGA, MARY E Attending Unavailable ARSUAGA, MARY E Primary Care Unavailable BURTON, AMI J Consulting Unavailable PROVIDER, UNKNOWN Consulting Unavailable BURTON, AMI J Admitting Unavailable BURTON, AMI J Attending Unavailable BURTON, AMI J Primary Care Unavailable BURTON, AMI J Consulting Unavailable PROVIDER, UNKNOWN Consulting Unavailable ARSUAGA, MARY E Admitting Unavailable ARSUAGA, MARY E Attending Unavailable ARSUAGA, MARY E Primary Care Unavailable BURTON, AMI J Consulting Unavailable PROVIDER, UNKNOWN Consulting Unavailable ARSUAGA, MARY E Admitting Unavailable ARSUAGA, MARY E Attending Unavailable ARSGREGGGA, MARY E Primary Care Unavailable ALLA HOWE Admitting Unavailable ALLA HOWE Attending Unavailable ALLA HOWE Primary Care Unavailable Isauro, Charles Chi Primary Care Provider Isauro, Charles Chi Primary Care Provider ISAURO, CHARLES CHI Primary Care Unavailable EVIE WILEY Attending Unavailable EVIE WILEY Referring Unavailable YAKOV SUMMERS Attending Unavailable YAKOV SUMMERS Referring Unavailable ISAURO, CHARLES CHI Primary Care Unavailable EVIE WILEY Referring Unavailable BARLEY, THAIS Attending Unavailable ISAURO, CHARLES CHI Primary Care Unavailable ISAURO, CHARLES CHI Primary Care Unavailable EVIE WILEY Attending Unavailable Medications Completed/Discontinued Medications Medication Drug Class(es) Dates Sig (Normalized) Sig (Original) calcium carbonate 1250 mg / cholecalciferol 600 unt oral tablet (8 sources) Vitamin D Start: 03-12-2018 calcium carbonate-vitamin D3 500 mg-15 mcg (600 unit) tab Take by mouth. 0 03/12/2018 Active Problems Active Problems Problem Classification Problem Date Documented Da te Episodic/Chronic Genitourinary symptoms and ill-defined conditions (4 sources) Urinary system finding; Translations: [Unspecified symptoms and signs involving the genitourinary system] Onset: 08-24-2023 06-19-2023 Episodic Other connective tissue disease (1 source) Pain in lower limb; Translations: [Pain in right leg] Episodic Other female genital disorders (1 source) Atrophic vulva; Translations: [Atrophy of vulva] 09-14-2023 Episodic Other gastrointestinal disorders (1 source) Constipation; Translations: [Constipation, unspecified] 08-24-2023 Episodic Other infections; including parasitic (1 source) History of human papilloma virus infection; Translations: [Personal history of other infectious and parasitic diseases] 06-19-2023 Episodic Other injuries and conditions due to external causes (1 source) Injury of left ankle; Translations: [Unspecified injury of left ankle, initial encounter] Episodic Other skin disorders (2 sources) Lichen sclerosus et atrophicus; Translations: [Circumscribed scleroderma] 06-22-2023 Chronic Other skin disorders (1 source) Skin finding; Translations: [Unspecified skin changes] 06-19-2023 Episodic Prolapse of female genital organs (8 sources) Uterine prolapse; Translations: [Uterovaginal prolapse, unspecified] Onset: 08-24-2023 06-19-2023 Chronic Residual codes; unclassified (1 source) Tobacco user; Translations: [Tobacco use] 06-19-2023 Episodic Rheumatoid arthritis and related disease (3 sources) Rheumatoid arthritis with rheumatoid factor of multiple sites without organ or systems involvement; Translations: [Rheumatoid arthritis with rheumatoid factor of multiple sites without organ or systems involvement] Onset: 09-04-2019 Chronic Past or Other Problems Problem Classification Problem Date Documented Da te Episodic/Chronic Other screening for suspected conditions (not mental disorders or infectious disease) (3 sources) Encounter for screening mammogram for malignant neoplasm of breast; Translations: [Encounter for screening mammogram for malignant neoplasm of breast] Onset: 09-12-2019 Episodic Results Test Name Value Interpretation Reference Range Facil ity Vital Signs Date Time Vital Sign Value Performing Clinician Mónica barnett 09-14-2023 10:21-0500 Body weight 74.84 kg Evie Wiley MD Work Phone: [facility] 09-14-2023 10:21-0500 Diastolic blood pressure 78 mm[Hg] Evie Wiley MD Work Phone: [facility] 09-14-2023 10:21-0500 Systolic blood pressure 138 mm[Hg] Evie Wiley MD Work Phone: [facility] 08-30-2023 14:49-0500 Diastolic blood pressure 80 mm[Hg] Yakov Summers MD Work Phone: [facility] 08-30-2023 14:49-0500 Heart rate 73 /min Yakov Summers MD Work Phone: [facility] 08-30-2023 14:49-0500 Systolic blood pressure 153 mm[Hg] Yakov Summers MD Work Phone: [facility] 08-24-2023 09:28-0500 Body weight 74 kg Thais Barley FLOUR WORKER.LEASING MACHINE TENDER Work Phone (unformatted): [phone] [facility] 08-24-2023 09:28-0500 Diastolic blood pressure 84 mm[Hg] Thais Barley FLOUR WORKER.LEASING MACHINE TENDER Work Phone (unformatted): [phone] [facility] 08-24-2023 09:28-0500 Heart rate 71 /min Thais Barley FLOUR WORKER.LEASING MACHINE TENDER Work Phone (unformatted): [phone] [facility] 08-24-2023 09:28-0500 Systolic blood pressure 144 mm[Hg] Thais Barley FLOUR WORKER.LEASING MACHINE TENDER Work Phone (unformatted): [phone] [facility] 06-19-2023 10:46-0500 Body height 160.7 cm Evie Wiley MD Work Phone: [facility] 06-19-2023 10:46-0500 Body weight 75.48 kg Evie Wiley MD Work Phone: [facility] 06-19-2023 10:46-0500 Diastolic blood pressure 80 mm[Hg] Evie Wiley MD Work Phone: [facility] 06-19-2023 10:46-0500 Systolic blood pressure 126 mm[Hg] Evie Wiley MD Work Phone: [facility] 07-20-2022 11:03-0500 Body temperature 98.2 [degF] Mason Christianson APRN.LEASING MACHINE TENDER Work Phone: [facility] 07-20-2022 11:03-0500 Body weight 75.3 kg Mason Christianson APRN.LEASING MACHINE TENDER Work Phone: [facility] 07-20-2022 11:03-0500 Diastolic blood pressure 82 mm[Hg] Mason Christianson APRN.LEASING MACHINE TENDER Work Phone: [facility] 07-20-2022 11:03-0500 Heart rate 66 /min Mason Christianson APRN.LEASING MACHINE TENDER Work Phone: [facility] 07-20-2022 11:03-0500 Respiratory rate 18 /min Mason Christianson APRN.LEASING MACHINE TENDER Work Phone: [facility] 07-20-2022 11:03-0500 SaO2% (BldA) [Mass fraction] 98 % Mason Christianson APRN.LEASING MACHINE TENDER Work Phone: [facility] 07-20-2022 11:03-0500 Systolic blood pressure 124 mm[Hg] Mason Christianson APRN.LEASING MACHINE TENDER Work Phone: [facility] Encounters Encounter Date Encounter Type Care Provider Facility Start: 09-14-2023 Telephone encounter Evie walsh MD Work Phone: OB/Gynecology Procedures Date Procedure Procedure Detail Performing Clinician Start: 08-24-2023 Urnls dip stick/tabl et rgnt auto w/o microscopy Thais Hidalgo FLOUR WORKER.LEASING MACHINE TENDER Work Phone (unformatted): [phone] Start: 07-20-2022 Radex ankle complete minimum 3 views Mason Christianson APRN.LEASING MACHINE TENDER Work Phone: Start: 07-20-2022 Radex foot complete minimum 3 views Mason Christianson APRN.LEASING MACHINE TENDER Work Phone: Plan of Treatment Date Care Activity Detail Author Start: 05-22-2033 Urine microalbumin profile DTaP,Tdap,Td Vaccine (4 - Td or Tdap) [facility] Start: 08-31-2023 End: 11-30-2023 CBC panel - Blood by Automated count CBC Lab Routine Incomplete uterovaginal prolapse Urinary frequency Cystocele, midline Rectocele Expected: 08/31/2023, Expires: 11/30/2023 [facility] Work Phone: Payers Date Payer Category Payer Medicare [id number] 2022 Medicare [id number] 2017 Medicare [id number] 1955 Unknown [id number] 1955 Unknown [id number] 1955 Unknown [id number] 1955 Unknown [id number] 1955 Unknown [id number] Social History Date Type Detail Facility Start[facility] Start: 07-20-2022 Tobacco use and exposure Smokeless t obacco non-user [facility] Start: 1955 Sex Assigned At Not on file [facility] Start: 06-19-2023 End: 09-14-2023 Alcohol intake Current drinker of alcohol (finding) [facility] Start: 06-19-2023 End: 09-14-2023 History of Social function [facility] Start: 06-19-2023 End: 09-14-2023 Tobacco use panel [facility] National Score (1-10 0), lower number is lower risk 80 [facility] Start: 06-19-2023 Alcohol Comment occasional [facility] Clinical Notes 07-20-2022 to 09-14-2023 Telephone Encounter - Evie Wiley MD - 09/14/2023 4:59 PM ESTTelephone Encounter - Katelyn Aguilar RN - 09/14/2023 4:02 PM ESTTelephone Encounter - Roxana Zhong RN - 09/14/2023 11:00 AM EST Note Date & Type Note Facility 09-14-2023 Miscellaneous Notes Noted thank you it is not urgent Received call back form lab client services that Dr. Stiles is traveling internationally and said she would be happy to review it again when she returns. Caller thought that was next week but was not certain. Katelyn Aguilar RN Called lab client services and spoke to pathology department regarding SW requesting vulvar biopsy pathology to be reviewed again. She sent the pathologist who read the vulvar biopsy from 06/19/23, Dr. Alison Stiles, a message regarding this. Roxana Zhong RN documented in this encounter [facility] 09-14-2023 Note HNO ID: [id number] Author: EVIE WILEY MD Service: ? Author Type: Physician Type: Progress Notes Filed: 09/14/2023 12:46 Note Text: Saniya Medina is a 68 year old female who presents for follow up. HPI: Recently has new vulvar lesion and a biopsy was performed as noted below: FINAL DIAGNOSIS 1. 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 - Negative for neoplasm. 2. 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 - Negative for neoplasm. Has been doing well on clobetasol cream. Was not having pruritus. Still not having pruritis. Exam c/w area of hyperpigmentation that was biopsied, and atrophy. OB History T2 L2 SAB0 IAB0 Ectopic0 Multiple0 Live Births0 Comment: Largest baby 8 lb 9 oz [place] History LMP: Postmenopausal Age at Menarche: Age at First : Age at Menopause: [place] History Comments: Sexual Activity: Yes; Male Contraception: Tubal Ligation PAST MEDICAL HISTORY Diagnosis Date Rheumatoid arthritis (HCC) PAST SURGICAL HISTORY Procedure Laterality Date HEMORRHOIDECTOMY 07/09/2020 LIGATE FALLOPIAN TUBE 12/30/1979 PAST SURGICAL HISTORY OF 10/10/2003 left shoulder arthroscopy PAST SURGICAL HISTORY OF 11/01/2010 [place] Neuroma Left foot PAST SURGICAL HISTORY OF 12/02/2020 sagittal ban repair left hand PAST SURGICAL HISTORY OF 11/26/2021 Cyst I and D on back REMV CATARACT EXTRACAP,INSERT LENS Right 06/23/2022 REMV CATARACT EXTRACAP,INSERT LENS Left 07/05/2022 SALPINGECTOMY Right 03/19/2018 and partial oophorectomy TONSILLECTOMY AND ADENOIDECTOMY FAMILY HISTORY Problem Relation Age of Onset Diabetes Mother Heart Father Ovarian cancer Sister No Known Problems Maternal Grandmother No Known Problems Maternal Grandfather No Known Problems Paternal Grandmother No Known Problems Paternal Grandfather Social History Tobacco Use Smoking status: Every Day Smokeless tobacco: Never Vaping Use Vaping Use: Never used Substance Use Topics Alcohol use: Yes Comment: occasional Drug use: Never Current Outpatient Medications Medication Sig calcium carbonate-vitamin D3 500 mg-15 mcg (600 unit) tab Take by mouth. Flaxseed Oil 1,000 mg cap Take by mouth. KLOR-CON M10 10 mEq tablet TAKE 1 TABLET ORALLY ONCE PER DAY FOR 90 DAYS metoprolol tartrate, short acting, (LOPRESSOR) 25 mg tablet methotrexate 2.5 mg tablet hydrOXYchloroQUINE (PLAQUENIL) 200 mg tablet folic acid 1 mg tablet esomeprazole (NEXIUM) 40 mg capsule clobetasol (TEMOVATE) 0.05 % ointment Apply a half of fingertip unit over the affected area every night for 12 weeks until follow up. (Patient not taking: Reported on 08/24/2023) No current facility-administered medications for this visit. Allergies As of Date: 09/14/2023 (No Known Allergies) Fully Assessed 09/14/2023 REVIEW OF SYSTEMS Expanded ROS: N/A Allergies and current medication updated:Yes EXAM: BP 138/78 Wt 165 lb (74.8kg) GENERAL: pleasant, female in no apparent distress CHEST: Normal inspiratory effort PELVIC: external genitalia consistent with atrophy, normal Bartholin's glands, urethra, [place]'s glands, no vulvar lesions, normal appearing perineal body and perianal region NEURO: exam grossly non-focal EXTREMITIES: normal ASSESSMENT AND PLAN: Encounter Diagnosis ICD-10-CM 1. Lichen sclerosus L90.0 2. 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 Exam unchanged from last visit. Vulvar biopsy as noted above. Given clinical exam and patient symptoms, will call to have pathology re evaluate the vulvar biopsy. Discussed if biopsy still consistent with lichen sclerosis, cont clobetasol cream twice weekly. Information given on lichen sclerosis for her to review. Evie Wiley DO Medical Decision Making: Problems: Moderate: New problem with uncertain prognosis Risk: Low: Low risk from testing/treatment Medical Decision Making Level: 3 - Low [facility] 09-14-2023 History of Presen t illness Narrative Saniya Medina is a 68 year old female who presents for follow up. HPI: Recently has new vulvar lesion and a biopsy was performed as noted below: FINAL DIAGNOSIS 1. 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 - Negative for neoplasm. 2. 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 - Negative for neoplasm. Has been doing well on clobetasol cream. Was not having pruritus. Still not having pruritis. Exam c/w area of hyperpigmentation that was biopsied, and atrophy. OB History T2 L2 SAB0 IAB0 Ectopic0 Multiple0 Live Births0 Comment: Largest baby 8 lb 9 oz [place] History LMP: Postmenopausal Age at Menarche: Age at First : Age at Menopause: [place] History Comments: Sexual Activity: Yes; Male Contraception: Tubal Ligation PAST MEDICAL HISTORY Diagnosis Date Rheumatoid arthritis (HCC) PAST SURGICAL HISTORY Procedure Laterality Date HEMORRHOIDECTOMY 07/09/2020 LIGATE FALLOPIAN TUBE 12/30/1979 PAST SURGICAL HISTORY OF 10/10/2003 left shoulder arthroscopy PAST SURGICAL HISTORY OF 11/01/2010 [place] Neuroma Left foot PAST SURGICAL HISTORY OF 12/02/2020 sagittal ban repair left hand PAST SURGICAL HISTORY OF 11/26/2021 Cyst I and D on back REMV CATARACT EXTRACAP,INSERT LENS Right 06/23/2022 REMV CATARACT EXTRACAP,INSERT LENS Left 07/05/2022 SALPINGECTOMY Right 03/19/2018 and partial oophorectomy TONSILLECTOMY & ADENOIDECTOMY <AGE 10 01/23/1969 FAMILY HISTORY Problem Relation Age of Onset Diabetes Mother Heart Father Ovarian cancer Sister No Known Problems Maternal Grandmother No Known Problems Maternal Grandfather No Known Problems Paternal Grandmother No Known Problems Paternal Grandfather Social History Tobacco Use Smoking status: Every Day Smokeless tobacco: Never Vaping Use Vaping Use: Never used Substance Use Topics Alcohol use: Yes Comment: occasional Drug use: Never Current Outpatient Medications Medication Sig calcium carbonate-vitamin D3 500 mg-15 mcg (600 unit) tab Take by mouth. Flaxseed Oil 1,000 mg cap Take by mouth. KLOR-CON M10 10 mEq tablet TAKE 1 TABLET ORALLY ONCE PER DAY FOR 90 DAYS metoprolol tartrate, short acting, (LOPRESSOR) 25 mg tablet methotrexate 2.5 mg tablet hydrOXYchloroQUINE (PLAQUENIL) 200 mg tablet folic acid 1 mg tablet esomeprazole (NEXIUM) 40 mg capsule clobetasol (TEMOVATE) 0.05 % ointment Apply a half of fingertip unit over the affected area every night for 12 weeks until follow up. (Patient not taking: Reported on 08/24/2023) No current facility-administered medications for this visit. Allergies As of Date: 09/14/2023 (No Known Allergies) Fully Assessed 09/14/2023 REVIEW OF SYSTEMS Expanded ROS: N/A Allergies and current medication updated:Yes EXAM: BP 138/78 Wt 165 lb (74.8kg) GENERAL: pleasant, female in no apparent distress CHEST: Normal inspiratory effort PELVIC: external genitalia consistent with atrophy, normal Bartholin's glands, urethra, [place]'s glands, no vulvar lesions, normal appearing perineal body and perianal region NEURO: exam grossly non-focal EXTREMITIES: normal ASSESSMENT AND PLAN: Encounter Diagnosis ICD-10-CM 1. Lichen sclerosus L90.0 2. 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 Exam unchanged from last visit. Vulvar biopsy as noted above. Given clinical exam and patient symptoms, will call to have pathology re evaluate the vulvar biopsy. Discussed if biopsy still consistent with lichen sclerosis, cont clobetasol cream twice weekly. Information given on lichen sclerosis for her to review. Evie Wiley DO Medical Decision Making: Problems: Moderate: New problem with uncertain prognosis Risk: Low: Low risk from testing/treatment Medical Decision Making Level: 3 - Low documented in this encounter [facility] 09-06-2023 Miscellaneous Notes Spoke with patient and she asked for ME for surgery, pt accepted 02/01/24 surgery date at [place], scheduled pre & post op appts except PACC & lab because PACC schedule was not available documented in this encounter [facility] 08-30-2023 Note HNO ID: [id number] Author: YAKOV SUMMERS MD Service: ? Author Type: Physician Type: Progress Notes Filed: 08/31/2023 15:24 Note Text: Female Pelvic Medicine AND Reconstructive Surgery Consult CHIEF COMPLAINT: Saniya Medina is a 68 year old referred for consultation regarding pelvic organ prolapse. She has not had a hysterectomy. PRABHU:08/24/23 IMPRESSION: Saniya Medina is a 68 year old female with Pelvic Organ Prolapse , Urinary Frequency. PLAN: 1. Incomplete uterovaginal prolapse - Discussed observation, pessary, Pelvic Floor Physical Therapy and surgical repair. Discussed need to avoid constipation and well as avoiding excessive Valsalva and weight management to ensure avoidance of worsening of prolapse. - Patient desires surgery, follow up with Dr. Summers 2. Urinary frequency - Discussed the etiology and management of urgency urinary incontinence, urinary urgency and frequency (also known as overactive bladder). Described the care pathway for this problem including 1st and 2nd line treatment options of lifetstyle modifications, behavioral therapy, bladder retraining +/- physical therapy, and medications. - Associated symptoms start with prolapse, expectant management for now - Urine culture ordered 3. Constipation, unspecified constipation type - Continue Benefiber - Discussed important of managing constipation for reducing risk of impact on prolapse I spent a total of 45 minutes on the date of the service which included preparing to see the patient, [id number] patient care, completing clinical documentation, obtaining and/or reviewing separately obtained history, performing a medically appropriate examination, counseling and educating the patient/family/caregiver, ordering medications, tests, or procedures, and communicating with other HCPs (not separately reported). My final recommendations will be communicated back to the requesting physician by way of shared Medical record or letter via US mail. Thais Hidalgo APRN.LEASING MACHINE TENDER = HISTORY OF PRESENT ILLNESS from Thais 08/24/23: HISTORY OF PRESENT ILLNESS: First noticed prolapse in February, states she saw something that was not right . Saw urology and gynecology, was referred to urogynecology. States she has had increase of urinary frequency since noticing prolapse. Voids every 1 hour, denies urinary incontinence. Is not up at night to void. States she feels like she is not fully emptying bladder because of her urinary frequency. Drinks 2-3 cups of coffee, 16 oz pepsi, 32-48 oz of water a day. Denies vaginal bleeding, vaginal pain. States she has occasional constipation. Takes Benefiber daily which has been helping. Denies anal incontinence. Does occasionally strain with bowel movements. History of right salpingectomy and partial oophorectomy (right) in 2018, also history of left salpingectomy. Had cyst on ovaries. Unable to remove left ovary. 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 She has no history of an abnormal mammogram; LMP: No LMP recorded. Patient is postmenopausal.; Menopause yes, age 47: Menstrual history: Menarche: 10; Deliveries: ; History of third or fourth degree laceration: unsure of degree; Weight of largest baby: 8lb9oz Sexual function Sexually active: Not sexually active since she discovered prolapse, no issues prior Comment: Largest baby 8 lb 9 oz , x2 History of third or fourth degree laceration: unsure of degree Weight of largest baby: 8lb9oz PFDI-20 Pt filled this out recently on 08/24/23 PAST MEDICAL HISTORY Diagnosis Date Rheumatoid arthritis (HCC) PAST SURGICAL HISTORY Procedure Laterality Date HEMORRHOIDECTOMY 07/09/2020 LIGATE FALLOPIAN TUBE 12/30/1979 PAST SURGICAL HISTORY OF 10/10/2003 left shoulder arthroscopy PAST SURGICAL HISTORY OF 11/01/2010 [place] Neuroma Left foot PAST SURGICAL HISTORY OF 12/02/2020 sagittal ban repair left hand PAST SURGICAL HISTORY OF 11/26/2021 Cyst I and D on back REMV CATARACT EXTRACAP,INSERT LENS Right 06/23/2022 REMV CATARACT EXTRACAP,INSERT LENS Left 07/05/2022 SALPINGECTOMY Right 03/19/2018 and partial oophorectomy TONSILLECTOMY AND ADENOIDECTOMY FAMILY HISTORY Problem Relation Age of Onset Diabetes Mother Heart Father Ovarian cancer Sister No Known Problems Maternal Grandmother No Known Problems Maternal Grandfather No Known Problems Paternal Grandmother No Known Problems Paternal Grandfather Current Outpatient Medications Medication Sig Dispense Refill clobetasol (TEMOVATE) 0.05 % ointment Apply a half of fingertip unit over the affected area every night for 12 weeks until follow up. (Patient not taking: Reported on 08/24/2023) 30 g 1 calcium carbonate-vitamin D3 500 mg-15 mcg (600 u (more content not included)... [facility] 08-30-2023 Instructions Yakov Summers MD - 08/30/2023 3:46 PM EST HELPFUL PRE-SURGICAL INFORMATION Preparing your skin for surgery Your doctor has asked that you use a special type of soap before surgery, which will help prevent infections after surgery. This soap is called Chlorhexidine, and is sold as Hibiclens, Exidine, and Betasept. You will need a 4 oz. bottle. You will use this soap to wash your body from the neck down. DO NOT use the soap on your head or face. Directions: Use 1/2 of the 4 oz. bottle to wash your body in the shower the night before surgery. Use the other 1/2 bottle to wash your body in the shower the morning of your surgery. DO NOT shave the skin on your belly, genitals, or upper thighs for several days before your surgery. Bowel preparation You will need one 10 oz bottle of Magnesium Citrate saline laxative Start the day prior to surgery Drink the Magnesium Citrate at 12:00 pm Continue with clear liquids for the rest of the day [clear broth, popsicles, Jell-O, coffee or tea (as long as there is no cream or milk added), Gatorade, Crystal light]. Nothing to eat or drink after midnight the night before surgery Other information It is your responsibility to call your primary care or cardiology office to make an appointment if they require seeing you for Medical Clearance. This is at the discretion of each physician. Completed Medical Clearance forms must be faxed or dropped off to our office at least 72 hours prior to your surgery date. For your personal safety, you must be accompanied by a responsible person to drive you home. YOU MAY NOT TAKE A BUS, SCAT, OR CAB. You will need to get the following supplies at the pharmacy before your surgery: Prescriptions Stool softener (Colace or generic docusate sodium) Medications Blood Thinners- for example, Aspirin, baby Aspirin, Coumadin, Heparin, Plavix, Vitamin E, Multivitamin, Fish Oil, Flax Seed, Thanh, Ginkgo, Ginseng, [place]'s Wort, Tumeric, and anti-inflammatory medications including Motrin, Advil, Aleve, etc. MUST be discontinued 7 days prior to surgery. You are responsible for contacting the physician who is monitoring these medications to let them know you will be stopping them during this time. If your physician requires a different plan of action, please contact our office. Diabetic Medications- If you are taking any form of Metformin or Glucophage,or insulin, please consult your primary care physician for directions on holding these medications prior to surgery. Continue to take all other scheduled medications, unless your surgeon instructs you otherwise. You will not be allowed to eat or drink after midnight before your surgery - however, you may take your scheduled oral medications with a sip of water - just enough to get the medications down. Stretching Exercises Starting 5 days before surgery, we recommend that you preform stretching exercises to decrease pain after surgery. We recommend stretching at least 3 times per day every day before surgery. Stretch 1: While lying on your back on the bed or a floor mat Hug your RIGHT knee up to your chest while your left leg is straight on the bed or floor. Hold for 10 seconds. Extend RIGHT leg and rest it on the bed or floor. Rest for 10 seconds. Repeat exercise with the LEFT leg. Hug both knees to chest. Hold for 10 seconds. Straighten both legs and rest them on the bed or floor. Stretch 2: While standing Bend forward at waist and let your arms hang down towards the floor. You may rest your arms on a table or counter for support. Hold for 10 seconds. When to call the office Please call the office at if you have any of the following: If you think you have a fever, take your temperature with a thermometer. Please call if your temperature is 101 degrees F or higher. Your pain is not controlled even though you are taking pain medications. You are throwing up and cannot keep food or liquid down. The skin around your incision is red, and redness is expanding. There is fluid or pus draining from your incision. You have heavy vaginal bleeding (soaking through a pad in one hour) or foul-smelling vaginal discharge. You cannot empty your bladder. You cannot move your bowels and you have tried using over the counter stool softeners. If you need a prescription refill, please call during the day (9AM to 4 PM) and have your pharmacy number available. DO NOT wait until you have run out of medicine. documented in this encounter [facility] 08-30-2023 History of Presen t illness Narrative Female Pelvic Medicine & Reconstructive Surgery Consult CHIEF COMPLAINT: Saniya Medina is a 68 year old referred for consultation regarding pelvic organ prolapse. She has not had a hysterectomy. PRABHU:08/24/23 IMPRESSION: Saniya Medina is a 68 year old female with Pelvic Organ Prolapse , Urinary Frequency. PLAN: 1. Incomplete uterovaginal prolapse - Discussed observation, pessary, Pelvic Floor Physical Therapy and surgical repair. Discussed need to avoid constipation and well as avoiding excessive Valsalva and weight management to ensure avoidance of worsening of prolapse. - Patient desires surgery, follow up with Dr. Summers 2. Urinary frequency - Discussed the etiology and management of urgency urinary incontinence, urinary urgency and frequency (also known as overactive bladder). Described the care pathway for this problem including 1st and 2nd line treatment options of lifetstyle modifications, behavioral therapy, bladder retraining +/- physical therapy, and medications. - Associated symptoms start with prolapse, expectant management for now - Urine culture ordered 3. Constipation, unspecified constipation type - Continue Benefiber - Discussed important of managing constipation for reducing risk of impact on prolapse I spent a total of 45 minutes on the date of the service which included preparing to see the patient, [id number] patient care, completing clinical documentation, obtaining and/or reviewing separately obtained history, performing a medically appropriate examination, counseling and educating the patient/family/caregiver, ordering medications, tests, or procedures, and communicating with other HCPs (not separately reported). My final recommendations will be communicated back to the requesting physician by way of shared Medical record or letter via US mail. Thais Hidalgo APRN.LEASING MACHINE TENDER = HISTORY OF PRESENT ILLNESS from Thais 08/24/23: HISTORY OF PRESENT ILLNESS: First noticed prolapse in February, states she saw something that was not right . Saw urology and gynecology, was referred to urogynecology. States she has had increase of urinary frequency since noticing prolapse. Voids every 1 hour, denies urinary incontinence. Is not up at night to void. States she feels like she is not fully emptying bladder because of her urinary frequency. Drinks 2-3 cups of coffee, 16 oz pepsi, 32-48 oz of water a day. Denies vaginal bleeding, vaginal pain. States she has occasional constipation. Takes Benefiber daily which has been helping. Denies anal incontinence. Does occasionally strain with bowel movements. History of right salpingectomy and partial oophorectomy (right) in 2018, also history of left salpingectomy. Had cyst on ovaries. Unable to remove left ovary. 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 She has no history of an abnormal mammogram; LMP: No LMP recorded. Patient is postmenopausal.; Menopause yes, age 47: Menstrual history: Menarche: 10; Deliveries: ; History of third or fourth degree laceration: unsure of degree; Weight of largest baby: 8lb9oz Sexual function Sexually active: Not sexually active since she discovered prolapse, no issues prior Comment: Largest baby 8 lb 9 oz , x2 History of third or fourth degree laceration: unsure of degree Weight of largest baby: 8lb9oz PFDI-20 Pt filled this out recently on 08/24/23 PAST MEDICAL HISTORY Diagnosis Date Rheumatoid arthritis (HCC) PAST SURGICAL HISTORY Procedure Laterality Date HEMORRHOIDECTOMY 07/09/2020 LIGATE FALLOPIAN TUBE 12/30/1979 PAST SURGICAL HISTORY OF 10/10/2003 left shoulder arthroscopy PAST SURGICAL HISTORY OF 11/01/2010 [place] Neuroma Left foot PAST SURGICAL HISTORY OF 12/02/2020 sagittal ban repair left hand PAST SURGICAL HISTORY OF 11/26/2021 Cyst I and D on back REMV CATARACT EXTRACAP,INSERT LENS Right 06/23/2022 REMV CATARACT EXTRACAP,INSERT LENS Left 07/05/2022 SALPINGECTOMY Right 03/19/2018 and partial oophorectomy TONSILLECTOMY & ADENOIDECTOMY <AGE 10 01/23/1969 FAMILY HISTORY Problem Relation Age of Onset Diabetes Mother Heart Father Ovarian cancer Sister No Known Problems Maternal Grandmother No Known Problems Maternal Grandfather No Known Problems Paternal Grandmother No Known Problems Paternal Grandfather Current Outpatient Medications Medication Sig Dispense Refill clobetasol (TEMOVATE) 0.05 % ointment Apply a half of fingertip unit over the affected area every night for 12 weeks until follow up. (Patient not taking: Reported on 08/24/2023) 30 g 1 calcium carbonate-vitamin D3 500 mg-15 mcg (600 unit) tab Take by mouth. Flaxseed Oil 1,000 mg cap Take by mouth. KLOR-CON M10 10 mEq tablet TAKE 1 TABLET ORALLY ONCE PER DAY FOR 90 DAYS metoprolol tartrate, short acting, (LOPRESSOR) 25 mg tablet methotrexate 2.5 mg tablet hydrOXYchloroQUINE (PLAQUENIL) 200 mg tablet folic acid 1 mg tablet esomeprazole (NEXIUM) 40 mg capsule No current facility-administered medications for this visit. ALLERGIES No Known Allergies Social History Tobacco Use Smoking status: Every Day Smokeless tobacco: Never Vaping Use Vaping Use: Never used Substance Use Topics Alcohol use: Yes Comment: occasional Drug use: Never REVIEW OF SYSTEMS ENT: negative for findings Respiratory: negative for findings Cardiovascular: negative Gastrointestinal: negative Genitourinary: negative Musculoskeletal: negative Neurologic: negative Psychiatric: negative Endocrine: negative Integumentary: negative for findings I have confirmed and edited as necessary, the PFSH and ROS obtained by others. Yakov Summers MD OBJECTIVE: Physical Exam There were no vitals taken for this visit. General Appearance: Well-appearing, no acute distress Psychiatric: Alert and oriented, normal affect Neck: Deferred Skin: No rashes or lesions Lymph: Deferred C/V: Normal peripheral perfusion Lungs: Respiratory effort normal Abdomen: Soft, non-tender, non-distended Pelvic examination: Vulva/Perineum: Normal development, no lesions, normal hair distribution, normal anus Urethral Meatus:Normal location and size, no lesions Urethra: No masses, tenderness or scarring Bladder:No masses, no tenderness Vagina: atrophic, small, 0.5cm hardened cyst on left vaginal sidewall, approximately 3cm proximal from vaginal opening at 3 oclock Cervix: nontender Uterus: nontender Adnexae:No masses, tenderness or nodularity Perineal Sensation: Normal Levator tone: decreased Levator tenderness: Absent NEG EBCST POP-Q: Prolapse Noted: Yes Aa = 0 Ba = 0 C = -5.0 gh = 3.5 pb = 3.5 tvl = 10.0 Ap = -1.5 Bp = -1.5 D = -7.0 Prolapse reduced nicely with apical correction. UA results: N/A performed 08/24/23 US PVR: N/A performed 08/24/23 (0cc) Physical exam chaperoned by Latoya Bravo RN. IMPRESSION & PLAN: Saniya Medina is a 68 year old female with: Stage II cystocele, UVP, rectocele We discussed the findings of our history and physcial today demonstrating Stage II uterovaginal prolapse, cystocele, rectocele. We discussed non-surgical management options, including a pessary and pelvic floor therapy, but she declined these and expressed a desire to proceed with surgery. I reviewed various surgical options: reconstructive versus obliterative, mesh versus [place] tissue, and abdominal versus vaginal versus laparoscopic. Offered TVH, USLS, APR, cysto vs SSL hysteropexy, APR, cysto. Would recommend hysteropexy given uterine prolapse/descensus not significant, would be a challenging hysterectomy, and given her early stage II prolapse she will likely fair well with a hysteropexy. Also discussed removing vaginal cyst at time of surgery and will send to pathology. Decided on SSL hysteropexy, APR, cysto, excision of vaginal cyst. Consented in the office. We agreed that we would hold on a suburethral mesh sling at the time of the prolapse repair given her lack of or minimal symptoms and absence of CRISTIN on exam. Did discuss risk of CRISTIN postop, will readdress after surgery if they occur. We discussed all of the details and risks associated with each procedure. We discussed the impact of prolapse repair on bladder function and discussed the possibilities of the development of de karen stress incontinence or post operative voiding dysfunction with a need to temporarily use a catheter. We discussed the risks of surgery, including the risks relevant to her medical conditions. Her primary risks include bleeding, infection, injury to adjacent structures including urethra, ureters, bladder, bowel, rectum, blood vessels, nerves. We spoke about surgery and physical activity limitations after surgery. Strongly encouraged quitting or decreasing cigarette smoking around the time of her surgery. 2. 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 documented in this encounter [facility] 08-24-2023 Note HNO ID: [id number] Author: THAIS HIDALGO APRN.LEASING MACHINE TENDER Service: ? Author Type: Nurse Practitioner Type: Progress Notes Filed: 08/24/2023 10:41 Note Text: Female Pelvic Medicine AND Reconstructive Surgery Consult CHIEF COMPLAINT: Saniya Medina is a 68 year old female who presents for consultation requested by Dr. Wiley for an opinion regarding Pelvic Organ Prolapse. HISTORY OF PRESENT ILLNESS: First noticed prolapse in February, states she saw something that was not right . Saw urology and gynecology, was referred to urogynecology. States she has had increase of urinary frequency since noticing prolapse. Voids every 1 hour, denies urinary incontinence. Is not up at night to void. States she feels like she is not fully emptying bladder because of her urinary frequency. Drinks 2-3 cups of coffee, 16 oz pepsi, 32-48 oz of water a day. Denies vaginal bleeding, vaginal pain. States she has occasional constipation. Takes Benefiber daily which has been helping. Denies anal incontinence. Does occasionally strain with bowel movements. History of right salpingectomy and partial oophorectomy (right) in 2018, also history of left salpingectomy. Had cyst on ovaries. Unable to remove left ovary. 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 She has no history of an abnormal mammogram; LMP: No LMP recorded. Patient is postmenopausal.; Menopause yes, age 47: Menstrual history: Menarche: 10; Deliveries: ; History of third or fourth degree laceration: unsure of degree; Weight of largest baby: 8lb9oz Sexual function Sexually active: Not sexually active since she discovered prolapse, no issues prior PFDI-20 Do you: Usually experience pressure in the lower abdomen? Yes, moderately bothersome (3) Usually experience heaviness or dullness in the pelvic area? Yes, moderately bothersome (3) Usually have a bulge or something falling out that you can see or feel in your vaginal area? Yes, quite a bit bothersome (4) Ever have to push on the vagina or around the rectum to have or complete a bowel movement? Yes, moderately bothersome (3) very rare Usually experience a feeling of incomplete bladder emptying? Yes, quite a bit bothersome (4) Ever have to push up on a bulge in the vaginal area with your fingers to start or complete urination? Yes, somewhat bothersome (2) Feel you need to strain too hard to have a bowel movement? Yes, quite a bit bothersome (4) Feel you have not completely emptied your bowels at the end of a bowel movement? Yes, quite a bit bothersome (4) Usually lose stool beyond your control if your stool is well formed? Yes, not at all bothersome (1) Usually lose stool beyond your control if your stool is loose? Yes, not at all bothersome (1) Usually lose gas from the rectum beyond your control? No (0) Usually have pain when you pass your stool? Yes, not at all bothersome (1) Experience a strong sense of urgency and have to vance to the bathroom to have a bowel movement? Yes, not at all bothersome (1) Does part of your bowel ever pass through the rectum and bulge outside during or after a bowel movement? Yes, not at all bothersome (1) Usually experience frequent urination? Yes, quite a bit bothersome (4) Usually experience urine leakage associated with a feeling of urgency, that is, a strong sensation of needing to go to the bathroom? Yes, somewhat bothersome (2) Usually experience urine leakage related to coughing, sneezing or laughing? Yes, not at all bothersome (1) Usually experience small amounts of urine leakage (that is, drops)? Yes, not at all bothersome (1) Usually experience difficulty emptying your bladder? Yes, moderately bothersome (3) Usually experience pain or discomfort in the lower abdomen or genital region? Yes, moderately bothersome (3) Do you have pain associated with your prolapse (not pressure or fullness) No PAST SURGICAL HISTORY Procedure Laterality Date HEMORRHOIDECTOMY 07/09/2020 LIGATE FALLOPIAN TUBE 12/30/1979 PAST SURGICAL HISTORY OF 10/10/2003 left shoulder arthroscopy PAST SURGICAL HISTORY OF 11/01/2010 [place] Neuroma Left foot PAST SURGICAL HISTORY OF 12/02/2020 sagittal ban repair left hand PAST SURGICAL HISTORY OF 11/26/2021 Cyst I and D on back REMV CATARACT EXTRACAP,INSERT LENS Right 06/23/2022 REMV CATARACT EXTRACAP,INSERT LENS Left 07/05/2022 SALPINGECTOMY Right 03/19/2018 and partial oophorectomy TONSILLECTOMY AND ADENOIDECTOMY PAST MEDICAL HISTORY Diagnosis Date Rheumatoid arthritis (HCC) FAMILY HISTORY Problem Relation Age of Onset Diabetes Mother Heart Father Ovarian cancer Sister No Known Problems Maternal Grandmother No Known Problems Maternal Grandfather No Known Problems Paternal Grandmother No Known Problems Paternal Grandfather Current Outpatient Medications Medication Sig clobetasol (TEMOVATE) (more content not included)... [facility] 08-24-2023 History of Presen t illness Narrative Female Pelvic Medicine & Reconstructive Surgery Consult CHIEF COMPLAINT: Saniya Medina is a 68 year old female who presents for consultation requested by Dr. Wiley for an opinion regarding Pelvic Organ Prolapse. HISTORY OF PRESENT ILLNESS: First noticed prolapse in February, states she saw something that was not right . Saw urology and gynecology, was referred to urogynecology. States she has had increase of urinary frequency since noticing prolapse. Voids every 1 hour, denies urinary incontinence. Is not up at night to void. States she feels like she is not fully emptying bladder because of her urinary frequency. Drinks 2-3 cups of coffee, 16 oz pepsi, 32-48 oz of water a day. Denies vaginal bleeding, vaginal pain. States she has occasional constipation. Takes Benefiber daily which has been helping. Denies anal incontinence. Does occasionally strain with bowel movements. History of right salpingectomy and partial oophorectomy (right) in 2018, also history of left salpingectomy. Had cyst on ovaries. Unable to remove left ovary. 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 She has no history of an abnormal mammogram; LMP: No LMP recorded. Patient is postmenopausal.; Menopause yes, age 47: Menstrual history: Menarche: 10; Deliveries: ; History of third or fourth degree laceration: unsure of degree; Weight of largest baby: 8lb9oz Sexual function Sexually active: Not sexually active since she discovered prolapse, no issues prior PFDI-20 Do you: Usually experience pressure in the lower abdomen? Yes, moderately bothersome (3) Usually experience heaviness or dullness in the pelvic area? Yes, moderately bothersome (3) Usually have a bulge or something falling out that you can see or feel in your vaginal area? Yes, quite a bit bothersome (4) Ever have to push on the vagina or around the rectum to have or complete a bowel movement? Yes, moderately bothersome (3) very rare Usually experience a feeling of incomplete bladder emptying? Yes, quite a bit bothersome (4) Ever have to push up on a bulge in the vaginal area with your fingers to start or complete urination? Yes, somewhat bothersome (2) Feel you need to strain too hard to have a bowel movement? Yes, quite a bit bothersome (4) Feel you have not completely emptied your bowels at the end of a bowel movement? Yes, quite a bit bothersome (4) Usually lose stool beyond your control if your stool is well formed? Yes, not at all bothersome (1) Usually lose stool beyond your control if your stool is loose? Yes, not at all bothersome (1) Usually lose gas from the rectum beyond your control? No (0) Usually have pain when you pass your stool? Yes, not at all bothersome (1) Experience a strong sense of urgency and have to vance to the bathroom to have a bowel movement? Yes, not at all bothersome (1) Does part of your bowel ever pass through the rectum and bulge outside during or after a bowel movement? Yes, not at all bothersome (1) Usually experience frequent urination? Yes, quite a bit bothersome (4) Usually experience urine leakage associated with a feeling of urgency, that is, a strong sensation of needing to go to the bathroom? Yes, somewhat bothersome (2) Usually experience urine leakage related to coughing, sneezing or laughing? Yes, not at all bothersome (1) Usually experience small amounts of urine leakage (that is, drops)? Yes, not at all bothersome (1) Usually experience difficulty emptying your bladder? Yes, moderately bothersome (3) Usually experience pain or discomfort in the lower abdomen or genital region? Yes, moderately bothersome (3) Do you have pain associated with your prolapse (not pressure or fullness) No PAST SURGICAL HISTORY Procedure Laterality Date HEMORRHOIDECTOMY 07/09/2020 LIGATE FALLOPIAN TUBE 12/30/1979 PAST SURGICAL HISTORY OF 10/10/2003 left shoulder arthroscopy PAST SURGICAL HISTORY OF 11/01/2010 [place] Neuroma Left foot PAST SURGICAL HISTORY OF 12/02/2020 sagittal ban repair left hand PAST SURGICAL HISTORY OF 11/26/2021 Cyst I and D on back REMV CATARACT EXTRACAP,INSERT LENS Right 06/23/2022 REMV CATARACT EXTRACAP,INSERT LENS Left 07/05/2022 SALPINGECTOMY Right 03/19/2018 and partial oophorectomy TONSILLECTOMY & ADENOIDECTOMY <AGE 12 01/23/1969 PAST MEDICAL HISTORY Diagnosis Date Rheumatoid arthritis (HCC) FAMILY HISTORY Problem Relation Age of Onset Diabetes Mother Heart Father Ovarian cancer Sister No Known Problems Maternal Grandmother No Known Problems Maternal Grandfather No Known Problems Paternal Grandmother No Known Problems Paternal Grandfather Current Outpatient Medications Medication Sig clobetasol (TEMOVATE) 0.05 % ointment Apply a half of fingertip unit over the affected area every night for 12 weeks until follow up. calcium carbonate-vitamin D3 500 mg-15 mcg (600 unit) tab Take by mouth. Flaxseed Oil 1,000 mg cap Take by mouth. KLOR-CON M10 10 mEq tablet TAKE 1 TABLET ORALLY ONCE PER DAY FOR 90 DAYS metoprolol tartrate, short acting, (LOPRESSOR) 25 mg tablet methotrexate 2.5 mg tablet hydrOXYchloroQUINE (PLAQUENIL) 200 mg tablet folic acid 1 mg tablet esomeprazole (NEXIUM) 40 mg capsule No current facility-administered medications for this visit. 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 Skin: Negative for rash or itching. Psychiatric: Negative for depression. Reports normal stress. Neurologic: Negative for new headache or syncope. Endocrine: Negative for sweating, cold intolerance or heat intolerance. Cardiovascular: Negative for recent chest pain, chest pressure or chest discomfort. Hematologic/Lymphatic: Negative for easy bruising or excessive bleeding. Respiratory: Negative for wheezing, shortness of breath or persistent cough. Gastrointestinal: Negative for persistent abdominal pain. Negative for anorexia, persistent nausea and/or vomiting. Musculoskeletal: Negative for muscle pain, back pain, joint pain or stiffness. I have confirmed and edited as necessary, the PFSH and ROS obtained by others. Thais Hidalgo APRN.LEASING MACHINE TENDER Pan Devulcanizer Helper offered: Patient declines. OBJECTIVE: There were no vitals taken for this visit. Physical Exam Constitutional: BMI - There is no height or weight on file to calculate BMI. General Appearance: Well appearing, alert, in no acute distress, well-hydrated, well nourished. Skin: Skin color, texture, turgor normal, no suspicious rashes or lesions Lungs: Not examined Heart: Not examined Breasts: Deferred Abdomen: Abdomen soft, non-tender Pelvic: External Genitalia: No lesions or other abnormalities POP-Q: Prolapse Noted: Yes Aa = -1.0 Ba = -1.0 C = -4.0 gh = 3.0 pb = 3.0 tvl = 10.0 Ap = -2.0 Bp = -2.0 D = -5.0 Vaginal epithelium: Atrophic Cervix: Normal Urethra: Normal Bimanual: Normal size anteverted uterus, No tenderness, No masses Rectovaginal: No tenderness, No masses Anal Sphincter: Resting Tone: Normal Squeeze Strength: 2+ out of 5 Sphincter Defect: no Levator Ani Contraction: 0 Levator Ani Tone: normal Levator Ani Tenderness: No Saddle Sensory Exam (S2-4): normal UA results: trace leukocytes Bladder scan: Nurse performed and PVR 0 mL IMPRESSION: Saniya Medina is a 68 year old female with Pelvic Organ Prolapse , Urinary Frequency. PLAN: 1. Incomplete uterovaginal prolapse - Discussed observation, pessary, Pelvic Floor Physical Therapy and surgical repair. Discussed need to avoid constipation and well as avoiding excessive Valsalva and weight management to ensure avoidance of worsening of prolapse. - Patient desires surgery, follow up with Dr. Summers 2. Urinary frequency - Discussed the etiology and management of urgency urinary incontinence, urinary urgency and frequency (also known as overactive bladder). Described the care pathway for this problem including 1st and 2nd line treatment options of lifetstyle modifications, behavioral therapy, bladder retraining +/- physical therapy, and medications. - Associated symptoms start with prolapse, expectant management for now - Urine culture ordered 3. Constipation, unspecified constipation type - Continue Benefiber - Discussed important of managing constipation for reducing risk of impact on prolapse I spent a total of 45 minutes on the date of the service which included preparing to see the patient, [id number] patient care, completing clinical documentation, obtaining and/or reviewing separately obtained history, performing a medically appropriate examination, counseling and educating the patient/family/caregiver, ordering medications, tests, or procedures, and communicating with other HCPs (not separately reported). My final recommendations will be communicated back to the requesting physician by way of shared Medical record or letter via US mail. Thais Hidalgo APRN.ROGELIO documented in this encounter [facility] 06-22-2023 Miscellaneous Notes See result note Clobetasol ordered documented in this encounter [facility] 06-20-2023 Note HNO ID: [id number] Author: Alison Vail RN Service: ? Author Type: ? Type: Progress Notes Filed: 06/20/2023 11:40 AM Note Text: Received Pap results from [facility]. Scan on 06/20/2023 10:58 AM by Provider, ALYSE Arndt: Cytology [facility] 06-19-2023 Note HNO ID: [id number] Author: Evie Wiley MD Service: ? Author Type: Physician Type: Progress Notes Filed: 06/19/2023 12:09 PM Note Text: Saniya Medina is a 67 year old female who presents today for a vulvar biopsy. Indication: new vulvar lesion. UNIVERSAL PROTOCOL / SAFETY CHECKLIST Procedure to be Performed: Vulvar Biopsy Sign In: A Moment of CARE was completed. Personnel directly involved with the procedure wore the appropriate PPE (Personal Protective Equipment). Patient/Surrogate Stated/Verified: PATIENT VERIFIED(optional for EMERGENT procedures): Patient name, Date of , Relevant allergies, and The intended procedure Time Out Communication: Intended patient and procedure match the source documents. Consent documented and matches the intended procedure. Sign Out: SIGN OUT (optional for EMERGENT procedures): All specimen containers correctly labeled. All instruments, equipment, possible retained foreign bodies accounted for. Post-procedure follow-up management communicated and Plan of Care Visit completed when applicable. PROCEDURE NOTE: GROSS LESIONS: Yes, two < 1 cm hyperpigmented areas over perineum that patient reports are new BIOPSY: Area was cleansed with betadine and anesthetized with 2 mL 1% lidocaine with 1:100,000 epi. 3 mm Moran punch used to biopsy region. HEMOSTASIS: Obtained with pressure Procedure Summary: Patient tolerated procedure well. ASSESSMENT: Patient reported new skin lesion, h/o HPV, tobacco user PLAN: Specimens labeled and sent to Pathology. Will notify patient of results in 1-2 weeks. Post-procedure instructions reviewed and written material given to the patient. Evie Wiley DO [facility] 06-19-2023 Note HNO ID: [id number] Author: Evie Wiley MD Service: ? Author Type: Physician Type: Progress Notes Filed: 06/19/2023 12:09 PM Note Text: Pan Devulcanizer Helper offered: Patient declines. Saniya Medina is a 67 year old female who presents for problem visit - new patient for prolapse. HPI: She reports since February 2023 she noticed pelvic pain, difficulty initiating a urinary stream, and difficulty having a BM. She reports constipation with firm, hard stools. She feels at times she has difficulty initiating a urinary stream and then has dribbling, and incomplete emptying of her bladder. She will then use restroom shortly after and be able to empty. At times she feels she empties her bladder completely. Using restroom 18 times in 12 hours. No hematuria or dysuria. No pain currently but when she had it it was in her lower pelvis. Currently sexually active. She had a visit with Dr. Maurer with urology for this a few weeks ago and was told she had prolapse and to see a contract administration coordinator. She is interested in surgical management of her prolapse. She also noticed a new perineal lesion when looking with a mirror over last few weeks. She was getting annual exams and pap smears with a provider in [facility]. Reports h/o LEEP 30+ years ago. She states her last pap was 4 years ago and normal. OB History No obstetric history on file. [place] History LMP: Postmenopausal Age at Menarche: Age at First : Age at Menopause: [place] History Comments: Sexual Activity: Yes; Male Contraception: Tubal Ligation PAST MEDICAL HISTORY Diagnosis Date Rheumatoid arthritis (HCC) PAST SURGICAL HISTORY Procedure Laterality Date HEMORRHOIDECTOMY 07/09/2020 LIGATE FALLOPIAN TUBE 12/30/1979 PAST SURGICAL HISTORY OF 10/10/2003 left shoulder arthroscopy PAST SURGICAL HISTORY OF 11/01/2010 [place] Neuroma Left foot PAST SURGICAL HISTORY OF 12/02/2020 sagittal ban repair left hand PAST SURGICAL HISTORY OF 11/26/2021 Cyst I and D on back REMV CATARACT EXTRACAP,INSERT LENS Right 06/23/2022 REMV CATARACT EXTRACAP,INSERT LENS Left 07/05/2022 SALPINGECTOMY Right 03/19/2018 and partial oophorectomy TONSILLECTOMY AND ADENOIDECTOMY FAMILY HISTORY Problem Relation Age of Onset Diabetes Mother Heart Father Ovarian cancer Sister No Known Problems Maternal Grandmother No Known Problems Maternal Grandfather No Known Problems Paternal Grandmother No Known Problems Paternal Grandfather Social History Tobacco Use Smoking status: Every Day Smokeless tobacco: Never Vaping Use Vaping Use: Never used Substance Use Topics Alcohol use: Yes Comment: occasional Drug use: Never Current Outpatient Medications Medication Sig calcium carbonate-vitamin D3 500 mg-15 mcg (600 unit) tab Take by mouth. Flaxseed Oil 1,000 mg cap Take by mouth. KLOR-CON M10 10 mEq tablet TAKE 1 TABLET ORALLY ONCE PER DAY FOR 90 DAYS metoprolol tartrate, short acting, (LOPRESSOR) 25 mg tablet methotrexate 2.5 mg tablet hydrOXYchloroQUINE (PLAQUENIL) 200 mg tablet folic acid 1 mg tablet esomeprazole (NEXIUM) 40 mg capsule No current facility-administered medications for this visit. Allergies As of Date: 06/19/2023 (No Known Allergies) Fully Assessed 06/19/2023 REVIEW OF SYSTEMS Expanded ROS: See HPI. Allergies and current medication updated:Yes EXAM: BP 126/80 Ht 5' 3.25 (1.61m) Wt 166 lb 6.4 oz (75.5kg) BMI 29.23 kg/(m2). GENERAL: pleasant, female in no apparent distress HEENT: Normocephalic, atraumatic, mucus membranes moist, and no lesions NECK: full range of motion DERMATOLOGY: Normal and without lesions CHEST: Normal inspiratory effort ABDOMEN: soft, non-tender, and no masses PELVIC: external genitalia atrophic, normal Bartholin's glands, urethra, [place] Brook's glands, no cervical lesions, stage 2 uterine prolapse, grade 2 cystocele BIMANUAL: uterus normal size, shape and consistency, no adnexal masses, and non-tender NEURO: exam grossly non-focal EXTREMITIES: normal ASSESSMENT AND PLAN: Encounter Diagnosis ICD-10-CM 1. History of HPV infection Z86.19 SURGICAL PATHOLOGY 2. Tobacco user Z72.0 SURGICAL PATHOLOGY 3. Skin change R23.9 SURGICAL PATHOLOGY 4. Uterine prolapse N81.4 CONSULT TO URO GYNECOLOGY 5. Urinary symptom or sign R39.9 CONSULT TO URO GYNECOLOGY 6. Cystocele with prolapse N81.4 CONSULT TO URO GYNECOLOGY Uterine prolapse and cystocele: Discussed management with pessary and offered pessary insertion today. Patient declines and she desires surgical management. Referral to uro gynecology for consultation. Recently evaluated by urology. Vulvar biopsy today. Sign records release for prior pap smears and annual exam visits. Evie Wiley DO Medical Decision Making: Problems: Moderate: New problem with uncertain prognosis Medical Decision Making Level: 2 - Straightforward [facility] 06-19-2023 History of Presen t illness Narrative Saniya Medina is a 67 year old female who presents today for a vulvar biopsy. Indication: new vulvar lesion. UNIVERSAL PROTOCOL / SAFETY CHECKLIST Procedure to be Performed: Vulvar Biopsy Sign In: A Moment of CARE was completed. Personnel directly involved with the procedure wore the appropriate PPE (Personal Protective Equipment). Patient/Surrogate Stated/Verified: PATIENT VERIFIED(optional for EMERGENT procedures): Patient name, Date of , Relevant allergies, and The intended procedure Time Out Communication: Intended patient and procedure match the source documents. Consent documented and matches the intended procedure. Sign Out: SIGN OUT (optional for EMERGENT procedures): All specimen containers correctly labeled. All instruments, equipment, possible retained foreign bodies accounted for. Post-procedure follow-up management communicated and Plan of Care Visit completed when applicable. PROCEDURE NOTE: GROSS LESIONS: Yes, two < 1 cm hyperpigmented areas over perineum that patient reports are new BIOPSY: Area was cleansed with betadine and anesthetized with 2 mL 1% lidocaine with 1:100,000 epi. 3 mm Moran punch used to biopsy region. HEMOSTASIS: Obtained with pressure Procedure Summary: Patient tolerated procedure well. ASSESSMENT: Patient reported new skin lesion, h/o HPV, tobacco user PLAN: Specimens labeled and sent to Pathology. Will notify patient of results in 1-2 weeks. Post-procedure instructions reviewed and written material given to the patient. Evie Wiley DO Pan Devulcanizer Helper offered: Patient declines. Saniya Medina is a 67 year old female who presents for problem visit - new patient for prolapse. HPI: She reports since February 2023 she noticed pelvic pain, difficulty initiating a urinary stream, and difficulty having a BM. She reports constipation with firm, hard stools. She feels at times she has difficulty initiating a urinary stream and then has dribbling, and incomplete emptying of her bladder. She will then use restroom shortly after and be able to empty. At times she feels she empties her bladder completely. Using restroom 18 times in 12 hours. No hematuria or dysuria. No pain currently but when she had it it was in her lower pelvis. Currently sexually active. She had a visit with Dr. Maurer with urology for this a few weeks ago and was told she had prolapse and to see a contract administration coordinator. She is interested in surgical management of her prolapse. She also noticed a new perineal lesion when looking with a mirror over last few weeks. She was getting annual exams and pap smears with a provider in [facility]. Reports h/o LEEP 30+ years ago. She states her last pap was 4 years ago and normal. OB History No obstetric history on file. [place] History LMP: Postmenopausal Age at Menarche: Age at First : Age at Menopause: [place] History Comments: Sexual Activity: Yes; Male Contraception: Tubal Ligation PAST MEDICAL HISTORY Diagnosis Date Rheumatoid arthritis (HCC) PAST SURGICAL HISTORY Procedure Laterality Date HEMORRHOIDECTOMY 07/09/2020 LIGATE FALLOPIAN TUBE 12/30/1979 PAST SURGICAL HISTORY OF 10/10/2003 left shoulder arthroscopy PAST SURGICAL HISTORY OF 11/01/2010 [place] Neuroma Left foot PAST SURGICAL HISTORY OF 12/02/2020 sagittal ban repair left hand PAST SURGICAL HISTORY OF 11/26/2021 Cyst I and D on back REMV CATARACT EXTRACAP,INSERT LENS Right 06/23/2022 REMV CATARACT EXTRACAP,INSERT LENS Left 07/05/2022 SALPINGECTOMY Right 03/19/2018 and partial oophorectomy TONSILLECTOMY & ADENOIDECTOMY <AGE 10 01/23/1969 FAMILY HISTORY Problem Relation Age of Onset Diabetes Mother Heart Father Ovarian cancer Sister No Known Problems Maternal Grandmother No Known Problems Maternal Grandfather No Known Problems Paternal Grandmother No Known Problems Paternal Grandfather Social History Tobacco Use Smoking status: Every Day Smokeless tobacco: Never Vaping Use Vaping Use: Never used Substance Use Topics Alcohol use: Yes Comment: occasional Drug use: Never Current Outpatient Medications Medication Sig calcium carbonate-vitamin D3 500 mg-15 mcg (600 unit) tab Take by mouth. Flaxseed Oil 1,000 mg cap Take by mouth. KLOR-CON M10 10 mEq tablet TAKE 1 TABLET ORALLY ONCE PER DAY FOR 90 DAYS metoprolol tartrate, short acting, (LOPRESSOR) 25 mg tablet methotrexate 2.5 mg tablet hydrOXYchloroQUINE (PLAQUENIL) 200 mg tablet folic acid 1 mg tablet esomeprazole (NEXIUM) 40 mg capsule No current facility-administered medications for this visit. Allergies As of Date: 06/19/2023 (No Known Allergies) Fully Assessed 06/19/2023 REVIEW OF SYSTEMS Expanded ROS: See HPI. Allergies and current medication updated:Yes EXAM: BP 126/80 Ht 5' 3.25 (1.61m) Wt 166 lb 6.4 oz (75.5kg) BMI 29.23 kg/(m^2). GENERAL: pleasant, female in no apparent distress HEENT: Normocephalic, atraumatic, mucus membranes moist, and no lesions NECK: full range of motion DERMATOLOGY: Normal and without lesions CHEST: Normal inspiratory effort ABDOMEN: soft, non-tender, and no masses PELVIC: external genitalia atrophic, normal Bartholin's glands, urethra, [place]'s glands, no cervical lesions, stage 2 uterine prolapse, grade 2 cystocele BIMANUAL: uterus normal size, shape and consistency, no adnexal masses, and non-tender NEURO: exam grossly non-focal EXTREMITIES: normal ASSESSMENT AND PLAN: Encounter Diagnosis ICD-10-CM 1. History of HPV infection Z86.19 SURGICAL PATHOLOGY 2. Tobacco user Z72.0 SURGICAL PATHOLOGY 3. Skin change R23.9 SURGICAL PATHOLOGY 4. Uterine prolapse N81.4 CONSULT TO URO GYNECOLOGY 5. Urinary symptom or sign R39.9 CONSULT TO URO GYNECOLOGY 6. Cystocele with prolapse N81.4 CONSULT TO URO GYNECOLOGY Uterine prolapse and cystocele: Discussed management with pessary and offered pessary insertion today. Patient declines and she desires surgical management. Referral to uro gynecology for consultation. Recently evaluated by urology. Vulvar biopsy today. Sign records release for prior pap smears and annual exam visits. Evie Wiley DO Medical Decision Making: Problems: Moderate: New problem with uncertain prognosis Medical Decision Making Level: 2 - Straightforward documented in this encounter [facility] 07-20-2022 History of Presen t illness Narrative Images from the original note were not included. Subjective HPI HPI Saniya Medina is a 66 year old female who presents today for CC of bilat ankle pain, right foot pain after falling 1 day ago. Has tried otc medication and splint for relief. Symptoms are worsened by walking/rom. Risk factors hx of fracture in of left foot/ankle in past. Denies numbness/tingling of bliat lower extremity. .Patient presents with: bilateral ankle pain: Fell yesterday History reviewed. No pertinent past medical history. No past surgical history on file. ALLERGIES Patient has no known allergies. MEDICATIONS calcium carbonate-vitamin D3 500 mg-15 mcg (600 unit) tab Take by mouth. Flaxseed Oil 1,000 mg cap Take by mouth. KLOR-CON M10 10 mEq tablet TAKE 1 TABLET ORALLY ONCE PER DAY FOR 90 DAYS metoprolol tartrate, short acting, (LOPRESSOR) 25 mg tablet methotrexate 2.5 mg tablet hydrOXYchloroQUINE (PLAQUENIL) 200 mg tablet folic acid 1 mg tablet esomeprazole (NEXIUM) 40 mg capsule No family history on file. Social History Tobacco Use Smoking status: Every Day Smokeless tobacco: Never ROS Objective Blood pressure 124/82, pulse 66, temperature 36.8 C (98.2 F), temperature source Tympanic, resp. rate 18, weight 75.3 kg (166 lb), SpO2 98 %. Physical Exam Constitutional: General: She is not in acute distress. Appearance: She is not toxic-appearing or diaphoretic. HENT: Head: Normocephalic and atraumatic. Pulmonary: Effort: Pulmonary effort is normal. No accessory muscle usage or respiratory distress. Musculoskeletal: Right ankle: Swelling and ecchymosis present. Tenderness present over the lateral malleolus. Decreased range of motion. Right Achilles Tendon: Normal. Left ankle: Swelling and ecchymosis present. No deformity or lacerations. Tenderness present over the lateral malleolus. Normal range of motion. Left Achilles Tendon: Normal. Legs: Neurological: Mental Status: She is alert and oriented to person, place, and time. ASSESSMENT/PLAN: 1. Pain of right lower extremity due to injury - ICD9: 729.5, ICD10: M79.604 (primary diagnosis) -no bony abnormality noted on xray -Rest, Ice, Compression, Elevation discussed -discussed use of ibuprofen -follow up with primary care if symptoms persist/worsen in 10-14 days - XR FOOT GENERAL 3V AP/LAT/OBL RIGHT IMPRESSION: Partial overriding of the proximal and middle phalanxes in the second and third digits may represent subluxation. Please clinically correlate. No acute fracture seen. Dictated by : TAMARA ALBERT MD - XR ANKLE GENERAL 3V AP/LAT/OBL BILATERAL IMPRESSION: Partial overriding of the proximal and middle phalanxes in the second and third digits may represent subluxation. Please clinically correlate. No acute fracture seen. Dictated by : TAMARA ALBERT MD Known hammer toe This examination was interpreted and the report reviewed and electronically signed by: TAMARA ALBERT MD on Jul 20 2022 12:03PM EST 2. Injury of left ankle, initial encounter - ICD9: 959.7, ICD10: S99.912A - XR ANKLE GENERAL 3V AP/LAT/OBL BILATERAL Mason Christianson APRN.LEASING MACHINE TENDER documented in this encounter [facility] Diagnosis History of HPV infection- Primary Personal history of other infectious and parasitic disease Tobacco user Tobacco use disorder Skin change Other symptoms involving skin and integumentary tissues Uterine prolapse Uterine prolapse without mention of vaginal wall prolapse Urinary symptom or sign Other symptoms involving urinary system Cystocele with prolapse [facility] Diagnosis Lichen sclerosus- Primary Circumscribed scleroderma [facility] Diagnosis Incomplete uterovaginal prolapse- Primary Uterovaginal prolapse, incomplete Urinary frequency Constipation, unspecified constipation type [facility] Diagnosis Incomplete uterovaginal prolapse- Primary Uterovaginal prolapse, incomplete Urinary frequency Cystocele, midline Rectocele [facility] 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 Uterovaginal prolapse Uterovaginal prolapse, unspecified [facility])* Diagnostic Procedure Only (Urgent) - Closed Specialty Diagnoses / Procedures Referred By Contac t Referred To Contact XR IMAGING Diagnoses Pain of right lower extremity due to injury Injury of left ankle, initial encounter Procedures XR ANKLE GENERAL 3V AP/LAT/OBL BILATERAL RADEX ANKLE COMPLETE MINIMUM 3 VIEWS Mason Christianson APRN.LEASING MACHINE TENDER [address] [place] [address] Xr Imaging Referral ID Status Reason Start Date Expiration Date V isits Requested Visits Authorized [id number] Closed Auto-Generate d Referral 07/20/2022 08/19/2023 1 1 * Diagnostic Procedure Only (Urgent) - Closed Specialty Diagnoses / Procedures Referred By Contac t Referred To Contact XR IMAGING Diagnoses Pain of right lower extremity due to injury Procedures XR FOOT GENERAL 3V AP/LAT/OBL RIGHT RADEX FOOT COMPLETE MINIMUM 3 VIEWS Mason Christianson APRN.LEASING MACHINE TENDER [address] [place] [address] Xr Imaging Referral ID Status Reason Start Date Expiration Date V isits Requested Visits Authorized [id number] Closed Auto-Generate d Referral 07/20/2022 08/19/2023 1 1 [facility] Summary Purpose Family History No Family History Records FoundNo Family History Records FoundNo Family History Records Found Advance Directives No Advanced Directives Records FoundNo Advanced Directives Records FoundNo Advanced Directives Records Found Reason for Referral Specialty Diagnoses / Procedures Referred By Contac t Referred To Contact Diagnoses Uterine prolapse Urinary symptom or sign Cystocele with prolapse Procedures CONSULT TO URO GYNECOLOGY OFFICE/OUTPATIENT [facility] 60-74 MINUTES Evie Wiley MD [address] [facility] [place] [address] Referral ID Status Reason Start Date Expiration Date Visits Requested Visits Authorized [id number] Pending Review PCP Requested Referral Auto-Generate d Referral 3 06/18/2024 1 1 Specialty Diagnoses / Procedures Referred By Magui t Referred To Contact Diagnoses Incomplete uterovaginal prolapse Urinary frequency Cystocele, midline Rectocele Procedures REFER TO PACC - PRE ANESTHESIA CONSULTATION CLINIC OFFICE/OUTPATIENT [facility] 60 MINUTES Yakov Summers MD [address] [address] Referral ID Status Reason Start Date Expiration Date Visits Requested Visits Authorized [id number] Pending Review PCP Requested Referral 08/31/2023 08/30/2024 1 1 Additional Source Comments INFORMATION SOURCE (unrecogn ized section and content) DATE CREATED AUTHOR AUTHOR'S ORGANIZ ATION 02/10/2021 [facility] dawn [place] DATE CREATED AUTHOR AUTHOR'S ORGANIZ ATION 09/22/2023 [facility] Source Comments (unrecognize d section and content) In the event this informatio n is protected by the Federal Confidentiality of Alcohol and Drug Abuse Patient Records regulations: The Federal rules restrict any use of the information to criminally investigate or prosecute any alcohol or drug abuse patient.[facility] Hospital[facility] the event this information is protected by the Federal Confidentiality of Alcohol and Drug Abuse Patient Records regulations: The Federal rules restrict any use of the information to criminally investigate or prosecute any alcohol or drug abuse patient.[facility] Hospital[facility] the event this information is protected by the Federal Confidentiality of Alcohol and Drug Abuse Patient Records regulations: The Federal rules restrict any use of the information to criminally investigate or prosecute any alcohol or drug abuse patient.[facility] Hospital[facility] the event this information is protected by the Federal Confidentiality of Alcohol and Drug Abuse Patient Records regulations: The Federal rules restrict any use of the information to criminally investigate or prosecute any alcohol or drug abuse patient.[facility] HospitalIn the event this information is protected by the Federal Confidentiality of Alcohol and Drug Abuse Patient Records regulations: The Federal rules restrict any use of the information to criminally investigate or prosecute any alcohol or drug abuse patient.[facility] Hospital[facility] the event this information is protected by the Federal Confidentiality of Alcohol and Drug Abuse Patient Records regulations: The Federal rules restrict any use of the information to criminally investigate or prosecute any alcohol or drug abuse patient.[facility] HospitalIn the event this information is protected by the Federal Confidentiality of Alcohol and Drug Abuse Patient Records regulations: The Federal rules restrict any use of the information to criminally investigate or prosecute any alcohol or drug abuse patient.[facility] Hospital[facility] the event this information is protected by the Federal Confidentiality of Alcohol and Drug Abuse Patient Records regulations: The Federal rules restrict any use of the information to criminally investigate or prosecute any alcohol or drug abuse patient.[facility] Reason for Visit (unrecogniz ed section and content) Reason Comments New Patient Prolapse Reason Comments Orders Specialty Diagnoses / Procedures Referred By Contac t Referred To Contact CARDIOLOGY Diagnoses Uterine prolapse Urinary symptom or sign Cystocele with prolapse Procedures CONSULT TO URO GYNECOLOGY OFFICE/OUTPATIENT NEW [facility] 60-74 MINUTES Evie Wiley MD [address] [place] [address] [facility] [address] [place] [address] Referral ID Status Reason Start Date Expiration Date V isits Requested Visits Authorized [id number] Closed PCP Requested Referral Auto-Generated Referral 07/24/2023 07/23/2024 1 1 Specialty Diagnoses / Procedures Referred By Contac t Referred To Contact Gun Stock Checker / UROL CHERRY GROWER Diagnoses Uterine prolapse Urinary symptom or sign Cystocele with prolapse Uterine prolapse [N81.4]; Urinary symptom or sign [R39.9]; Cystocele with prolapse [N81.4] Procedures OFFICE/OUTPATIENT ESTABLISHED HIGH MDM 40 MIN EST WHI PATIENT Yakov Summers MD [address] [address] Yakov Summers MD [address] [address] Referral ID Status Reason Start Date Expiration Date V isits Requested Visits Authorized [id number] Authorized 07/24/2023 07/23/2024 99 99 Reason Comments Schedule Surgery Reason Comments Medication Follow-up clobetasol Specialty Diagnoses / Procedures Referred By Magui troncoso 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 Diagnoses Follow-up exam Medication Follow up Procedures OFFICE/OUTPATIENT ESTABLISHED HIGH MDM 40 MIN EST WHI PATIENT Evie Wiley MD [address] [place] [address] Evie Wiley MD [address] [place] [address] Referral ID Status Reason Start Date Expiration Date V isits Requested Visits Authorized [id number] Authorized 07/24/2023 07/23/2024 99 99 Reason Comments Results Care Teams (unrecognized sec tion and content) 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 Mechanic Relationship Specialty Start Date End Date IsauroCharles fuentes Chi [address] [facility] [address] [place] [address] PCP - General Gerontology 07/20/22 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 Mechanic Relationship Specialty Start Date End Date Isauro, Charles Chi [address] [place] [address] [place], [place] [id number] PCP - General Gerontology 07/20/22 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 Mechanic Relationship Specialty Start Date End Date IsauroCharles fuentes Chi [address] [facility] [address] [place], [place] [id number] PCP - General Gerontology 07/20/22 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 Mechanic Relationship Specialty Start Date End Date Charles Huddleston Chi [address] [facility] [address] [place], [place] [id number] PCP - General Gerontology 07/20/22 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 Mechanic Relationship Specialty Start Date End Date Charles Huddleston Chi [address] [facility] [address] [place], [place] [id number] PCP - General Gerontology 07/20/22 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 Mechanic Relationship Specialty Start Date End Date Charles Huddleston Chi [address] [facility] [address] [place], [place] [id number] PCP - General Gerontology 07/20/22 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 Mechanic Relationship Specialty Start Date End Date Charles Huddleston Chi [address] [facility] [address] [place], [place] [id number] PCP - General Gerontology 07/20/22 FOR RECORDS PERTAINING TO PATIENTS WHO ARE OR HAVE BEEN ENROLLED IN A CHEMICAL DEPENDENCY/SUBSTANCEABUSE PROGRAM, SOME INFORMATION MAY BE OMITTED. This clinical summary was aggregated from multiple sources. Caution should be exercised in using it in the provision of clinical care. This summary normalizes information from multiple sources, and as a consequence, information in this document may materially change the coding, format and clinical context of patient data. In addition, data may be omitted in some cases. CLINICAL DECISIONS SHOULD BE BASED ON THE PRIMARY CLINICAL RECORDS. [facility]. provides no warranty or guarantee of the accuracy or completeness of information in this document.
[2023-09-25 10:18] LABS: Erythrocyte Sedimentation Rate 4 mm/hr (0-30)
[2023-09-25 10:19] LABS: Absolute Lymphocyte Count 3.15 X10^3/uL (0.83-4.51); Absolute Neutrophil Count 4.7 X10^3/uL (2.0-7.7); Basophil# 0.07 X10^3/uL; Basophil% 0.8 % (0-1); Eosinophils% 1.2 % (0-5); Hemoglobin 14.7 g/dL (12.0-15.0); Lymphocyte # 3.15 X10^3/ul (0.83-4.51); Lymphocyte % 36.9 % (19-41); Mean Corp Hgb Conc 32.7 g/dL (32-36); Mean Corpuscular Hgb 30.4 pg (27.0-32.0); Monocyte# 0.53 X10^3/uL; Monocyte% 6.2 % (0-10); NRBC Flagged by Analyzer 0 % (0-5); Neutrophil # 4.66 X10^3/uL (2.7-7.7); Neutrophil % 54.5 % (47-70); Platelet Count 309 K/mm3 (150-450); RBC Distribution Width CV 13.3 % (11.6-14.6); Red Blood Count 4.84 M/mm3 (4.2-5.4); White Blood Count 8.5 K/mm3 (4.4-11.0)
[2023-09-25 10:41] LABS: AST(SGOT) 16 U/L (15-37); Alanine Aminotransfer ALT/SGPT 17 U/L (13-56); BUN 13 mg/dL (7-18); CRP < 2.90 mg/L (0.0-3.0); Creatinine, Serum 0.93 mg/dL (0.55-1.02); EST Glomerular Filtration Rate 64 mL/min (>60); Est Glom Filt Rate - Afr Amer 77 mL/min (>60)
== END | disposition home or self-care (01) ==
LOC: LAB 09:29
PROVIDERS: PCP Family Medicine Geriatric Medicine; Referring Provider Internal Medicine Rheumatology; Visit Provider Internal Medicine Rheumatology
DX: M05.79 Rheumatoid arthritis with rheumatoid factor of multiple sites without organ or systems involvement (principal); Z79.899 Other long term (current) drug therapy
CPT/HCPCS: 36415; 82565; 84450; 84460; 84520; 85025; 85652; 86140

== ENCOUNTER → 2023-11-20 | Outpatient (CLI) | payer MEDICARE, SELFPAY ==
[2023-11-20 10:28] LABS: Absolute Lymphocyte Count 1.97 X10^3/uL (0.83-4.51); Absolute Neutrophil Count 5.3 X10^3/uL (2.0-7.7); Basophil# 0.05 X10^3/uL; Basophil% 0.6 % (0-1); Eosinophil# 0.11 X10^3/uL; Eosinophils% 1.4 % (0-5); Hematocrit 43.8 % (37-47); Hemoglobin 14.6 g/dL (12.0-15.0); Lymphocyte # 1.97 X10^3/ul (0.83-4.51); Lymphocyte % 24.7 % (19-41); Mean Corp Hgb Conc 33.3 g/dL (32-36); Mean Corpuscular Hgb 30.2 pg (27.0-32.0); Mean Corpuscular Volume 90.5 fL (81-99); Mean Platelet Vol. 9.3 fl (6.2-12.0); Monocyte# 0.55 X10^3/uL; Monocyte% 6.9 % (0-10); NRBC Flagged by Analyzer 0 % (0-5); Neutrophil # 5.27 X10^3/uL (2.7-7.7); Neutrophil % 66.1 % (47-70); Platelet Count 248 K/mm3 (150-450); RBC Distribution Width CV 13.2 % (11.6-14.6); RBC Distribution Width SD 42.9 fl (35.1-43.9); Red Blood Count 4.84 M/mm3 (4.2-5.4)
[2023-11-20 10:44] LABS: Vitamin D,25 Hydroxy 37.2 ng/mL
[2023-11-20 11:41] LABS: AST(SGOT) 16 U/L (15-37); Alanine Aminotransfer ALT/SGPT 24 U/L (13-56); Albumin, Serum 3.6 g/dL (3.2-5.0); Alkaline Phosphatase 69 U/L (45-117); Anion Gap 6 (5-15); BUN 9 mg/dL (7-18); BUN/Creat Ratio 10.5 RATIO (10-20); Calcium,Total 9.2 mg/dL (8.5-10.1); Chloride 111 mmol/L (98-107); Creatinine, Serum 0.86 mg/dL (0.55-1.02); EST Glomerular Filtration Rate 69 mL/min (>60); Est Glom Filt Rate - Afr Amer 84 mL/min (>60); Globulin 3.7 g/dL (2.2-4.2); Glucose 104 mg/dL (74-106); Potassium 4.5 mmol/L (3.5-5.1); Protein, Total 7.3 g/dL (6.4-8.2); Sodium Level 141 mmol/L (136-145)
== END | disposition home or self-care (01) ==
LOC: POLAB3 09:56
PROVIDERS: PCP Family Medicine Geriatric Medicine; Visit Provider Family Medicine Geriatric Medicine
DX: R53.83 Other fatigue (principal); E55.9 Vitamin D deficiency, unspecified
CPT/HCPCS: 36415; 80053; 82306; 84443; 85025

== ENCOUNTER 2023-11-26 08:59 | Emergency (ER) | payer MEDICARE, SELFPAY ==
[2023-11-26 09:00] VITALS: BP 144/80; PULSE 67; RESP 16; TEMP 36.1; O2SAT 99; BMI 29.2
--- NOTE | 2023-11-26 09:05 | RAD_ITS ---
HISTORY: INJURY. TECHNIQUE: XR Ankle Min 3 Views. COMPARISON: None. FINDINGS: BONES : Nondisplaced fracture of the distal fibula which appears to have advanced healing. Nondisplaced horizontal fracture of the fifth metatarsal base. JOINTS: No dislocation. Joint spaces maintained. SOFT TISSUES: Mild lateral soft tissue swelling. RAD/Ankle min 3 Views IMPRESSION: Acute nondisplaced fracture of the fifth metatarsal base. Nondisplaced fracture of the left distal fibula, subacute to chronic in appearance. Electronically Signed: Trish Pedraza MD at 9:39 EDT ,
--- NOTE | 2023-11-26 10:18 | EDS_ITS ---
HPI History of Present Illness Chief Complaint: Lower Extremity Injury Narrative Narrative: 68-year-old female presenting with left foot pain. She states she fell try to bring her friend to the emergency room today. Patient was ambulatory but states it does hurt she describes as 9/10 of pain. She has bruising over the lateral aspect of the foot. No numbness or tingling. Did not hit her head or lose consciousness. [facility] Medical History Abnormal PFT Acid reflux disease BMI 30.0-30.9,adult Depression Grief reaction Headache Hemorrhoids, complicated History of pelvic mass History of rectal bleeding History of UTI Hyperglycemia Hyperlipidemia Hypertension Obesity Pneumonia Rheumatoid arthritis Home Medications calcium carbonate 500 mg-vitamin D3 15 mcg (600 unit) tablet 1 ea PO BID 03/12/18 [History Last Taken Unknown] esomeprazole magnesium 40 mg capsule,delayed release 40 mg PO DAILY 03/12/18 [History Last Taken 07/09/20] flaxseed oil 1,000 mg capsule 1,000 mg PO DAILY 03/12/18 [History Last Taken Unknown] folic acid 1 mg tablet 1 mg PO DAILY@0800 03/12/18 [History Last Taken Unknown] hydroxychloroquine 200 mg tablet 200 mg PO DAILY 03/12/18 [History Last Taken Unknown] metoprolol succinate 50 mg tablet,extended release 24 hr 25 mg PO BID 03/12/18 [History Last Taken 03/19/18 04:45] pyridoxine (vitamin B6) 50 mg tablet 25 mg PO DAILY 03/12/18 [History Last Taken Unknown] methotrexate sodium 2.5 mg tablet 12.5 mg PO MO 10/09/18 [History Last Taken Unknown] lactobacillus combination no.8 3 billion cell capsule (Adult Probiotic) 3,000 mmu cells PO DAILY 06/22/20 [History Last Taken Unknown] metronidazole 500 mg tablet 500 mg PO TID ##15 07/09/20 [Rx Last Taken Unknown] miconazole nitrate 2 % vaginal cream (Monistat 7) 1 appful vaginal QHS 7 days #45 grams 03/16/23 [Rx Last Taken Unknown] magnesium citrate 300 ml PO X1 #1 BOTTLE 03/23/23 [Rx Last Taken Unknown] Allergy/AdvReac Type Severity Reaction Status Date / Time No Known Allergies Allergy Verified 03/16/23 09:57 Family History Mother Diabetes CVA (cerebral vascular accident) CAD (coronary artery disease) Hypertension Father Hypertension CAD (coronary artery disease) Sister Cancer Ovarian Surgical History History of arthroscopy of left shoulder History of tonsillectomy History of tubal ligation History of unilateral oophorectomy History of unilateral salpingectomy Hx of hemorrhoidectomy Paris's neuroma of left foot Social History household members: none housing: other details: mobile home pets and animals: No Smoking Status: Current every day smoker tobacco type: cigarettes second hand exposure: Yes alcohol intake: current alcohol intake frequency: a few times a week Alcohol type: beer substance use type: does not use caffeine: Yes Type: coffee Number of servings: 3 ROS ROS ED Constitutional Constitutional ED: Denies chills, fever(s) or sweats Eyes Eyes: Denies blurry vision or change in vision ENT ENT ED: Denies ear pain or sore throat Cardiovascular Cardiovascular: Denies chest pain, palpitations or racing heartbeat Respiratory/Chest Respiratory/Chest: Denies cough, dyspnea or sputum Gastrointestinal Gastrointestinal: Denies abdominal pain, constipation, diarrhea, nausea or vomiting Genitourinary Genitourinary ED: Denies dysuria, hematuria or urinary frequency Musculoskeletal Musculoskeletal: Reports other Details: Left foot pain ; Denies arthralgias, myalgias or neck pain Integumentary Denies abscess, Abrasions or rash Neurologic Neurologic: Denies headache(s), paresthesias or weakness Psychiatric Psychiatric: Denies anxiety, depression, suicidal ideation or suicidal thoughts Endocrine Endocrinology: Denies polydipsia or polyuria EXAM Physical Exam Const Vital Signs: 11/26/23 09:00 11/26/23 12:21 11/26/23 12:43 Temperature 96.9 F L 97.7 F L 97.7 F L Temperature Source Temporal Temporal Pulse Rate 67 62 62 Respiratory Rate 16 17 17 Blood Pressure 144/80 H 140/73 H 140/73 H Blood Pressure Mean 101 95 95 Pulse Ox 99 95 95 Oxygen Delivery Method Room Air Room Air Positive well nourished General Appearance ED: NAD HEENT normocephalic and atraumatic Resp normal respiratory effort Extremity Extremity Narrative: No tenderness to palpation over the medial or lateral malleolus. There is pain at the base of the fifth metatarsal and bruising here. No other pain palpated in the foot or ankle. Neurovascular with brisk cap refill to all 5 toes. Neuro oriented x3 and CN's II-XII intact bilaterally Sensorium / Orientation: alert Motor Exam: strength 5/5 throughout Skin no wounds MDM MDM MDM Narrative Medical decision making narrative: Patient presenting with left foot and ankle pain. Had a protocol x-ray of the left ankle in the waiting room and it showed a base of the fifth metatarsal fracture on my interpretation. There is also an old distal fibular fracture. Patient is not tender over the lateral malleolus. I did order dedicated foot films. Patient request ibuprofen which is ordered. X-ray of the left foot on my interpretation shows acute nondisplaced left fifth metatarsal fracture. Patient placed in walking boot. She does not want crutches. Return precautions discussed. She is given follow-up with podiatry. Impression: 1. Mechanical fall 2. Left fifth metatarsal fracture Lab Data Attestation: I reviewed the patient's lab results. Radiography Diagnostic Testing: Clinical Impression(s) from Imaging Studies Ankle X-Ray 11/26/23 09:05 IMPRESSION: Acute nondisplaced fracture of the fifth metatarsal base. Nondisplaced fracture of the left distal fibula, subacute to chronic in appearance. Electronically Signed: Trish Pedraza MD at 9:39 EDT , Foot X-Ray 11/26/23 10:18 IMPRESSION: Suspect nondisplaced fracture of the left fifth metatarsal base. Electronically Signed: Trish Pedraza MD at 11:01 EDT , Discharge Plan Triage Chief Complaint: Lower Extremity Injury ED Provider: Tonio,[place] Dx/Rx/DC Orders Instructions: ED Fracture, Foot Prescriptions: No Action Adult Probiotic 3 billion cell capsule 3,000 mmu cells PO DAILY Rx Instructions: administer with a meal metoprolol succinate 50 MG tablet extended release 24 hr 25 mg PO BID flaxseed oil 1,000 MG capsule 1,000 mg PO DAILY esomeprazole magnesium 40 MG capsule 40 mg PO DAILY pyridoxine (vitamin B6) 50 MG tablet 25 mg PO DAILY folic acid 1 MG tablet 1 mg PO DAILY@0800 hydroxychloroquine 200 MG tablet 200 mg PO DAILY calcium carbonate-vitamin D3 1 EACH tablet 1 ea PO BID methotrexate sodium 2.5 mg tablet 12.5 mg PO MO metronidazole 500 MG tablet 500 mg PO TID Qty: 15 0RF magnesium citrate Solution 300 ml PO X1 Qty: 1 0RF miconazole nitrate [Monistat 7] 2 % cream 1 appful vaginal QHS 7 Days Qty: 45 0RF Primary Care Provider: Duane Huddleston Chi Referrals: Arsalan Farias DPM [Med Staff - Active Staff] - 3-5 Days Duane Huddleston Chi, MD [Primary Care Provider] - Disposition Disposition: Home, Self Care Discharge Date/Time: 11/26/23 12:44
--- NOTE | 2023-11-26 10:18 | RAD_ITS ---
HISTORY: pain. TECHNIQUE: XR Foot Min 3 Views. COMPARISON: None. FINDINGS: BONES : Faint linear lucency of the fifth metatarsal base. Mild periarticular osteopenia. Old fracture of the distal fibula. JOINTS: No dislocation. Degenerative change. RAD/Foot min 3 Views IMPRESSION: Suspect nondisplaced fracture of the left fifth metatarsal base. Electronically Signed: Trish Pedraza MD at 11:01 EDT ,
[2023-11-26] MEDS: Ibuprofen 600 MG Tablet PO (10:39)
[2023-11-26 12:21] VITALS: BP 140/73; PULSE 62; RESP 17; TEMP 36.5; O2SAT 95
[2023-11-26 12:43] VITALS: BP 140/73; PULSE 62; RESP 17; TEMP 36.5; O2SAT 95
== END 2023-11-26 12:44 | disposition home or self-care (01) ==
PROVIDERS: Emergency Provider Student in an Organized Health Care Education/Training Program; PCP Family Medicine Geriatric Medicine; Visit Provider Student in an Organized Health Care Education/Training Program
DX: S92.355A Nondisplaced fracture of fifth metatarsal bone, left foot, initial encounter for closed fracture (principal); Y93.89 Activity, other specified; W19.XXXA Unspecified fall, initial encounter; E78.5 Hyperlipidemia, unspecified; I10 Essential (primary) hypertension; Z79.899 Other long term (current) drug therapy; Z98.51 Tubal ligation status; Z90.721 Acquired absence of ovaries, unilateral; F17.210 Nicotine dependence, cigarettes, uncomplicated
CPT/HCPCS: 73610; 73630; 99283

== ENCOUNTER → 2023-12-26 | Outpatient (CLI) | payer MEDICARE, SELFPAY ==
--- NOTE | 2023-12-26 08:21 | BI_ITS ---
MAMMOGRAPHY - BILATERAL SCREENING REASON FOR EXAM: Female, 68 years old. Routine annual screening examination. PERTINENT HISTORY: Non-contributory. TECHNIQUE: Digital bilateral breast estrada (3D mammographic acquisition) in the CC and MLO projections. 2-D mediolateral oblique (MLO) and craniocaudad (CC) views of both breasts were obtained. CAD: Full Field Digital Mammography with Computer Added Detection was performed. COMPARISON: Comparison is made with prior study December 20, 2022 and December 16, 2021. FINDINGS: Breast Composition: There are scattered areas of fibroglandular density. There are no dominant masses or suspicious calcifications. Stable 5 mm well-defined nodule in the upper outer quadrant of the right breast. Stable fat-containing bilateral axillary lymph nodes. No other significant abnormalities are identified. There has been no significant change since the prior study. BI/SCRN MAMM (CAD)W/ESTRADA BILAT IMPRESSION: Stable bilateral screening mammogram. Yearly follow-up mammogram recommended. (A) ASSESSMENT CATEGORY: BIRADS Category 2: Benign. A letter regarding these results will be sent to the patient by the facility within 30 days. Approximately 10% of breast cancers are not detected by mammography. A normal mammogram should not delay biopsy of a clinically suspicious abnormality. [id number] Electronically Signed: Yassine Perales MD at 9:04 EDT ,
== END | disposition home or self-care (01) ==
LOC: OPBI 08:19
PROVIDERS: PCP Family Medicine Geriatric Medicine; Referring Provider Family Medicine Geriatric Medicine; Visit Provider Family Medicine Geriatric Medicine
DX: Z12.31 Encounter for screening mammogram for malignant neoplasm of breast (principal)
CPT/HCPCS: 77063; 77067

== ENCOUNTER 2023-12-28 09:50 | Outpatient (RCR) | payer MEDICARE, SELFPAY ==
[2023-12-28 11:19] LABS: Absolute Lymphocyte Count 2.21 X10^3/uL (0.83-4.51); Absolute Neutrophil Count 5.7 X10^3/uL (2.0-7.7); Basophil# 0.06 X10^3/uL; Basophil% 0.7 % (0-1); Eosinophil# 0.06 X10^3/uL; Eosinophils% 0.7 % (0-5); Hemoglobin 14.5 g/dL (12.0-15.0); Lymphocyte # 2.21 X10^3/ul (0.83-4.51); Lymphocyte % 25.8 % (19-41); Mean Corpuscular Hgb 30.7 pg (27.0-32.0); Mean Platelet Vol. 9.1 fl (6.2-12.0); Monocyte# 0.52 X10^3/uL; Monocyte% 6.1 % (0-10); NRBC Flagged by Analyzer 0 % (0-5); Neutrophil # 5.69 X10^3/uL (2.7-7.7); Neutrophil % 66.5 % (47-70); Platelet Count 289 K/mm3 (150-450); RBC Distribution Width CV 13.6 % (11.6-14.6); RBC Distribution Width SD 46.2 fl (35.1-43.9); Red Blood Count 4.73 M/mm3 (4.2-5.4); White Blood Count 8.6 K/mm3 (4.4-11.0)
[2023-12-28 11:26] LABS: Erythrocyte Sedimentation Rate 8 mm/hr (0-30)
[2023-12-28 11:55] LABS: AST(SGOT) 23 U/L (15-37); Alanine Aminotransfer ALT/SGPT 26 U/L (13-56); BUN 11 mg/dL (7-18); CRP < 2.90 mg/L (0.0-3.0); EST Glomerular Filtration Rate 66 mL/min (>60); Est Glom Filt Rate - Afr Amer 79 mL/min (>60)
== END 2023-12-28 18:00 | disposition home or self-care (01) ==
LOC: LAB 09:50
PROVIDERS: PCP Family Medicine Geriatric Medicine; Referring Provider Internal Medicine Rheumatology; Visit Provider Internal Medicine Rheumatology
DX: M05.79 Rheumatoid arthritis with rheumatoid factor of multiple sites without organ or systems involvement (principal); Z79.899 Other long term (current) drug therapy
CPT/HCPCS: 36415; 82565; 84450; 84460; 84520; 85025; 85652; 86140

== ENCOUNTER 2024-04-03 10:33 | Outpatient (RCR) | payer MEDICARE, SELFPAY ==
[2024-04-03 11:35] LABS: Absolute Lymphocyte Count 2.66 X10^3/uL (0.83-4.51); Absolute Neutrophil Count 4.5 X10^3/uL (2.0-7.7); Basophil# 0.04 X10^3/uL; Basophil% 0.5 % (0-1); Eosinophil# 0.08 X10^3/uL; Hematocrit 40.9 % (37-47); Hemoglobin 13.2 g/dL (12.0-15.0); Lymphocyte # 2.66 X10^3/ul (0.83-4.51); Lymphocyte % 34.6 % (19-41); Mean Corp Hgb Conc 32.3 g/dL (32-36); Mean Platelet Vol. 9.1 fl (6.2-12.0); Monocyte# 0.38 X10^3/uL; Monocyte% 4.9 % (0-10); NRBC Flagged by Analyzer 0 % (0-5); Neutrophil % 58.7 % (47-70); Platelet Count 271 K/mm3 (150-450); RBC Distribution Width CV 13.5 % (11.6-14.6); RBC Distribution Width SD 45.6 fl (35.1-43.9); White Blood Count 7.7 K/mm3 (4.4-11.0)
[2024-04-03 11:45] LABS: Erythrocyte Sedimentation Rate 4 mm/hr (0-30)
[2024-04-03 12:05] LABS: AST(SGOT) 27 U/L (15-37); Alanine Aminotransfer ALT/SGPT 30 U/L (13-56); BUN 10 mg/dL (7-18); CRP 3.95 mg/L (0.0-3.0); Creatinine, Serum 0.82 mg/dL (0.55-1.02); EST Glomerular Filtration Rate 73 mL/min (>60); Est Glom Filt Rate - Afr Amer 88 mL/min (>60)
== END 2024-04-03 18:00 | disposition home or self-care (01) ==
LOC: LAB 10:33
PROVIDERS: PCP Family Medicine Geriatric Medicine; Referring Provider Internal Medicine Rheumatology; Visit Provider Internal Medicine Rheumatology
DX: M05.79 Rheumatoid arthritis with rheumatoid factor of multiple sites without organ or systems involvement (principal); Z79.899 Other long term (current) drug therapy
CPT/HCPCS: 36415; 82565; 84450; 84460; 84520; 85025; 85652; 86140

== ENCOUNTER → 2024-05-23 | Outpatient (CLI) | payer MEDICARE, SELFPAY ==
[2024-05-23 09:21] LABS: Absolute Lymphocyte Count 2.85 X10^3/uL (0.83-4.51); Absolute Neutrophil Count 4.2 X10^3/uL (2.0-7.7); Basophil# 0.04 X10^3/uL; Basophil% 0.5 % (0-1); Eosinophil# 0.09 X10^3/uL; Eosinophils% 1.2 % (0-5); Hematocrit 44.3 % (37-47); Hemoglobin 14.4 g/dL (12.0-15.0); Lymphocyte # 2.85 X10^3/ul (0.83-4.51); Lymphocyte % 36.9 % (19-41); Mean Corp Hgb Conc 32.5 g/dL (32-36); Mean Corpuscular Hgb 29.9 pg (27.0-32.0); Mean Corpuscular Volume 91.9 fL (81-99); Mean Platelet Vol. 9.1 fl (6.2-12.0); Monocyte# 0.54 X10^3/uL; NRBC Flagged by Analyzer 0 % (0-5); Neutrophil % 54.3 % (47-70); Platelet Count 268 K/mm3 (150-450); RBC Distribution Width CV 13.5 % (11.6-14.6); RBC Distribution Width SD 45.4 fl (35.1-43.9); Red Blood Count 4.82 M/mm3 (4.2-5.4); White Blood Count 7.7 K/mm3 (4.4-11.0)
[2024-05-23 09:52] LABS: Vitamin D,25 Hydroxy 30.4 ng/mL
[2024-05-23 10:09] LABS: ALB/GLOB Ratio 0.9 RATIO (0.9-2.4); AST(SGOT) 27 U/L (15-37); Alanine Aminotransfer ALT/SGPT 39 U/L (13-56); Albumin, Serum 3.6 g/dL (3.2-5.0); Alkaline Phosphatase 72 U/L (45-117); Anion Gap 6 (5-15); BUN 13 mg/dL (7-18); BUN/Creat Ratio 12.7 RATIO (10-20); Chloride 108 mmol/L (98-107); Creatinine, Serum 1.02 mg/dL (0.55-1.02); EST Glomerular Filtration Rate 57 mL/min (>60); Est Glom Filt Rate - Afr Amer 69 mL/min (>60); Globulin 3.8 g/dL (2.2-4.2); Glucose 126 mg/dL (74-106); Potassium 3.9 mmol/L (3.5-5.1); Protein, Total 7.4 g/dL (6.4-8.2); Sodium Level 140 mmol/L (136-145)
== END | disposition home or self-care (01) ==
LOC: POLAB3 09:00
PROVIDERS: PCP Family Medicine Geriatric Medicine; Visit Provider Family Medicine Geriatric Medicine
DX: R53.83 Other fatigue (principal); E55.9 Vitamin D deficiency, unspecified
CPT/HCPCS: 36415; 80053; 82306; 84443; 85025

== ENCOUNTER 2024-06-26 09:32 | Outpatient (RCR) | payer MEDICARE, SELFPAY ==
[2024-06-26 10:40] LABS: AST(SGOT) 26 U/L (15-37); Alanine Aminotransfer ALT/SGPT 36 U/L (13-56); BUN 11 mg/dL (7-18); CRP 4.17 mg/L (0.0-3.0); Creatinine, Serum 1.09 mg/dL (0.55-1.02); EST Glomerular Filtration Rate 53 mL/min (>60); Est Glom Filt Rate - Afr Amer 64 mL/min (>60)
[2024-06-26 10:49] LABS: Erythrocyte Sedimentation Rate 15 mm/hr (0-30)
[2024-06-26 10:51] LABS: Absolute Lymphocyte Count 2.95 X10^3/uL (0.83-4.51); Basophil# 0.06 X10^3/uL; Basophil% 0.7 % (0-1); Eosinophils% 1.2 % (0-5); Hematocrit 44.5 % (37-47); Hemoglobin 14.8 g/dL (12.0-15.0); Lymphocyte # 2.95 X10^3/ul (0.83-4.51); Lymphocyte % 34.3 % (19-41); Mean Corp Hgb Conc 33.3 g/dL (32-36); Mean Corpuscular Volume 90.1 fL (81-99); Mean Platelet Vol. 9.3 fl (6.2-12.0); Monocyte# 0.51 X10^3/uL; Monocyte% 5.9 % (0-10); NRBC Flagged by Analyzer 0 % (0-5); Neutrophil # 4.95 X10^3/uL (2.7-7.7); Neutrophil % 57.6 % (47-70); Platelet Count 304 K/mm3 (150-450); RBC Distribution Width CV 13.8 % (11.6-14.6); RBC Distribution Width SD 44.9 fl (35.1-43.9); Red Blood Count 4.94 M/mm3 (4.2-5.4); White Blood Count 8.6 K/mm3 (4.4-11.0)
== END 2024-06-26 18:00 | disposition home or self-care (01) ==
LOC: LAB 09:32
PROVIDERS: PCP Family Medicine Geriatric Medicine; Referring Provider Internal Medicine Rheumatology; Visit Provider Internal Medicine Rheumatology
DX: M05.79 Rheumatoid arthritis with rheumatoid factor of multiple sites without organ or systems involvement (principal); Z79.899 Other long term (current) drug therapy

== ENCOUNTER 2024-09-30 12:25 | Outpatient (RCR) | payer MEDICARE, SELFPAY ==
[2024-09-30 13:37] LABS: Absolute Neutrophil Count 5.7 X10^3/uL (2.0-7.7); Basophil# 0.07 X10^3/uL; Basophil% 0.7 % (0-1); Eosinophil# 0.07 X10^3/uL; Eosinophils% 0.7 % (0-5); Erythrocyte Sedimentation Rate 13 mm/hr (0-30); Hematocrit 45.6 % (37-47); Hemoglobin 15.3 g/dL (12.0-15.0); Lymphocyte % 31.4 % (19-41); Mean Corp Hgb Conc 33.6 g/dL (32-36); Mean Corpuscular Hgb 29.1 pg (27.0-32.0); Mean Corpuscular Volume 86.7 fL (81-99); Mean Platelet Vol. 9.2 fl (6.2-12.0); Monocyte# 0.72 X10^3/uL; Monocyte% 7.5 % (0-10); NRBC Flagged by Analyzer 0 % (0-5); Neutrophil # 5.67 X10^3/uL (2.7-7.7); Neutrophil % 59.4 % (47-70); Platelet Count 362 K/mm3 (150-450); RBC Distribution Width CV 13.7 % (11.6-14.6); RBC Distribution Width SD 42.2 fl (35.1-43.9); Red Blood Count 5.26 M/mm3 (4.2-5.4); White Blood Count 9.6 K/mm3 (4.4-11.0)
[2024-09-30 19:37] LABS: AST(SGOT) 35 U/L (<=31); Alanine Aminotransfer ALT/SGPT 27 U/L (<=34); BUN 18 mg/dL (4-19); CRP < 3.00 mg/L (0.0-3.0); Creatinine, Serum 1.02 mg/dL (0.70-1.20); EST Glomerular Filtration Rate 59 (>60)
== END 2024-09-30 18:00 | disposition home or self-care (01) ==
LOC: LAB 12:25
PROVIDERS: PCP Family Medicine Geriatric Medicine; Referring Provider Internal Medicine Rheumatology; Visit Provider Internal Medicine Rheumatology
DX: M05.79 Rheumatoid arthritis with rheumatoid factor of multiple sites without organ or systems involvement (principal); Z79.899 Other long term (current) drug therapy
CPT/HCPCS: 36415; 82565; 84450; 84460; 84520; 85025; 85652; 86140

== ENCOUNTER → 2024-11-20 | Outpatient (CLI) | payer MEDICARE, SELFPAY ==
[2024-11-20 10:36] LABS: Absolute Lymphocyte Count 2.15 X10^3/uL (0.83-4.51); Absolute Neutrophil Count 4.9 X10^3/uL (2.0-7.7); Basophil# 0.05 X10^3/uL; Basophil% 0.7 % (0-1); Eosinophil# 0.06 X10^3/uL; Eosinophils% 0.8 % (0-5); Hematocrit 43.5 % (37-47); Hemoglobin 14.5 g/dL (12.0-15.0); Lymphocyte # 2.15 X10^3/ul (0.83-4.51); Lymphocyte % 28.3 % (19-41); Mean Corp Hgb Conc 33.3 g/dL (32-36); Mean Corpuscular Hgb 29.5 pg (27.0-32.0); Mean Corpuscular Volume 88.4 fL (81-99); Monocyte# 0.38 X10^3/uL; NRBC Flagged by Analyzer 0 % (0-5); Neutrophil # 4.94 X10^3/uL (2.7-7.7); Neutrophil % 64.8 % (47-70); Platelet Count 263 K/mm3 (150-450); RBC Distribution Width CV 14.6 % (11.6-14.6); RBC Distribution Width SD 46.3 fl (35.1-43.9); Red Blood Count 4.92 M/mm3 (4.2-5.4); White Blood Count 7.6 K/mm3 (4.4-11.0)
[2024-11-20 11:56] LABS: ALB/GLOB Ratio 1.5 RATIO (0.9-2.4); AST(SGOT) 25 U/L (<=31); Alanine Aminotransfer ALT/SGPT 22 U/L (<=34); Albumin, Serum 4.2 g/dL (3.4-4.8); Alkaline Phosphatase 66 U/L (35-104); Anion Gap 12 (5-15); BUN 15 mg/dL (4-19); BUN/Creat Ratio 15.2 RATIO (10-20); Calcium,Total 9.6 mg/dL (7.6-11.0); Carbon Dioxide 22.3 mmol/L (21.0-32.0); Chloride 105 mmol/L (98-108); Creatinine, Serum 0.96 mg/dL (0.70-1.20); EST Glomerular Filtration Rate 63 (>60); Globulin 2.9 g/dL (2.2-4.2); Glucose 119 mg/dL (70-99); Potassium 4.5 mmol/L (3.3-5.1); Sodium Level 139 mmol/L (133-145); Total Bilirubin 0.24 mg/dL (0.00-1.30)
[2024-11-20 11:57] LABS: Thyroid Stim Hormone (TSH) 0.944 uIU/mL (0.300-4.200); Vitamin D,25 Hydroxy 40.6 ng/mL (30-100)
== END | disposition home or self-care (01) ==
LOC: LAB 10:12
PROVIDERS: PCP Family Medicine Geriatric Medicine; Referring Provider Family Medicine Geriatric Medicine; Visit Provider Family Medicine Geriatric Medicine
DX: R53.83 Other fatigue (principal); E55.9 Vitamin D deficiency, unspecified
CPT/HCPCS: 36415; 80053; 82306; 84443; 85025

== ENCOUNTER 2024-11-29 10:19 | Outpatient (RCR) | payer MEDICARE, SELFPAY ==
[2024-11-29 11:31] LABS: Absolute Lymphocyte Count 2.58 X10^3/uL (0.83-4.51); Absolute Neutrophil Count 5.2 X10^3/uL (2.0-7.7); Basophil# 0.05 X10^3/uL; Basophil% 0.6 % (0-1); Eosinophil# 0.07 X10^3/uL; Eosinophils% 0.8 % (0-5); Hematocrit 42.1 % (37-47); Hemoglobin 14.3 g/dL (12.0-15.0); Lymphocyte # 2.58 X10^3/ul (0.83-4.51); Lymphocyte % 30.8 % (19-41); Mean Corpuscular Hgb 30.3 pg (27.0-32.0); Mean Corpuscular Volume 89.2 fL (81-99); Mean Platelet Vol. 9.2 fl (6.2-12.0); Monocyte# 0.43 X10^3/uL; Monocyte% 5.1 % (0-10); NRBC Flagged by Analyzer 0 % (0-5); Neutrophil # 5.24 X10^3/uL (2.7-7.7); Neutrophil % 62.5 % (47-70); Platelet Count 270 K/mm3 (150-450); RBC Distribution Width CV 14.6 % (11.6-14.6); RBC Distribution Width SD 47.2 fl (35.1-43.9); Red Blood Count 4.72 M/mm3 (4.2-5.4); White Blood Count 8.4 K/mm3 (4.4-11.0)
[2024-11-29 11:35] LABS: Erythrocyte Sedimentation Rate 11 mm/hr (0-30)
[2024-11-29 12:17] LABS: AST(SGOT) 24 U/L (<=31); Alanine Aminotransfer ALT/SGPT 21 U/L (<=34); BUN 11 mg/dL (4-19); Creatinine, Serum 0.86 mg/dL (0.70-1.20); EST Glomerular Filtration Rate 72 (>60)
[2024-11-29 12:18] LABS: CRP < 3.00 mg/L (0.0-3.0)
== END 2024-11-29 18:00 | disposition home or self-care (01) ==
LOC: LAB 10:19
PROVIDERS: PCP Family Medicine Geriatric Medicine; Referring Provider Internal Medicine Rheumatology; Visit Provider Internal Medicine Rheumatology
DX: M05.79 Rheumatoid arthritis with rheumatoid factor of multiple sites without organ or systems involvement (principal); Z79.899 Other long term (current) drug therapy
CPT/HCPCS: 36415; 82565; 84450; 84460; 84520; 85025; 85652; 86140

== ENCOUNTER → 2025-01-14 | Outpatient (CLI) | payer MEDICARE, SELFPAY ==
--- NOTE | 2025-01-14 13:28 | BD_ITS ---
PROCEDURE: DEXA BONE DENSITY STUDY 01/14/2025 REASON FOR EXAM: F, age 69 y/o . TECHNIQUE: DEXA BONE DENSITY STUDY COMPARISON: DEXA on 12/20/2022 FINDINGS: BMD and T-SCORES Lumbar spine: 0.850 g/cm2, T-score -1.8 Levels: L1 through L4 Change from prior: Statistically significant BMD increase of 7.4%. Left femoral neck: 0.659 g/cm2, T-score -1.7 Femoral neck comparison data not recommended for monitoring change. Prior T-score -2.3 Left total hip: 0.806 g/cm2, T-score -1.1 Change from prior: Statistically significant BMD increase of 4.9%. Right femoral neck: 0.654 g/cm2, T-score -1.8 Femoral neck comparison data not recommended for monitoring change. Prior T-score -1.9 Right total hip: 0.800 g/cm2, T-score -1.2 Change from prior: Statistically significant BMD increase of 7.4%. The World Health Organization has defined the following categories based on bone density: Normal bone density: T-score equal to or greater than -1.0 Osteopenia: T-score between -1.0 and -2.5 Osteoporosis: T-score equal to or less than -2.5 FRAX (or Comparable) Fracture Risk Assessment: 10 Year Probability of Fracture: Major Osteoporotic Fracture: 22% Hip Fracture: 6.3% (Note: FRAX is not to be reported in setting of normal range bone density, osteoporosis on DEXA, known history of osteoporosis, prior osteoporotic hip or vertebral fracture, or for any patient undergoing pharmacological treatment for bone loss.) The National Osteoporosis Foundation (NOF) recommends pharmacological treatment for patients with a FRAX 10-year risk of 3% or higher for a hip fracture, or 20% or higher for a major osteoporotic fracture, to prevent osteoporosis and reduce fracture risk. The patient does meet the pharmacological treatment recommendations for prevention of osteoporosis. BD/Dexa Bone Density Study IMPRESSION: OSTEOPENIA. Reading Location: [id number]
== END | disposition home or self-care (01) ==
LOC: OPBD 13:24
PROVIDERS: PCP Family Medicine Geriatric Medicine; Referring Provider Internal Medicine Rheumatology; Visit Provider Internal Medicine Rheumatology
DX: M85.88 Other specified disorders of bone density and structure, other site (principal)
CPT/HCPCS: 77080

== ENCOUNTER → 2025-04-07 | Outpatient (CLI) | payer MEDICARE, SELFPAY | END | disposition home or self-care (01) | LOC: POLAB3 11:52 | PROVIDERS: PCP Family Medicine Geriatric Medicine; Visit Provider Family Medicine Geriatric Medicine | DX: R68.83 Chills (without fever) (principal) | CPT/HCPCS: 87631 ==

== ENCOUNTER → 2025-05-26 | Outpatient (CLI) | payer MEDICARE, SELFPAY ==
[2025-05-26 09:17] LABS: Hematocrit 45.2 % (37-47); Hemoglobin 14.9 g/dL (12.0-15.0); Immature Granulocytes Count 0.030 X10^3/uL (0.0-0.0); Mean Corp Hgb Conc 33.0 g/dL (32-36); Mean Corpuscular Volume 92.6 fL (81-99); Mean Platelet Vol. 9.2 fl (6.2-12.0); NRBC Flagged by Analyzer 0 % (0-5); Platelet Count 269 K/mm3 (150-450); RBC Distribution Width CV 14.3 % (11.6-14.6); RBC Distribution Width SD 48.4 fl (35.1-43.9); Red Blood Count 4.88 M/mm3 (4.2-5.4); White Blood Count 8.3 K/mm3 (4.4-11.0)
[2025-05-26 10:16] LABS: AST(SGOT) 28 U/L (<=31); Alanine Aminotransfer ALT/SGPT 25 U/L (<=34); Albumin, Serum 4.2 g/dL (3.4-4.8); Alkaline Phosphatase 64 U/L (35-104); Anion Gap 11 (5-15); BUN 9 mg/dL (4-19); BUN/Creat Ratio 9.8 RATIO (10-20); Calcium,Total 9.3 mg/dL (7.6-11.0); Carbon Dioxide 24.6 mmol/L (21.0-32.0); Chloride 107 mmol/L (98-108); Globulin 2.9 g/dL (2.2-4.2); Glucose 116 mg/dL (70-99); Potassium 4.9 mmol/L (3.3-5.1); Vitamin D,25 Hydroxy 43.8 ng/mL (30-100)
[2025-05-26 16:58] LABS: Xtra Tube Kwok EXTRA TUBE
== END | disposition home or self-care (01) ==
LOC: POLAB3 08:57
PROVIDERS: PCP Family Medicine Geriatric Medicine; Visit Provider Family Medicine Geriatric Medicine
DX: E55.9 Vitamin D deficiency, unspecified (principal); E03.9 Hypothyroidism, unspecified; R53.83 Other fatigue
CPT/HCPCS: 36415; 80053; 82306; 84443; 85025

== ENCOUNTER 2025-06-21 09:43 | Outpatient (CLI) | payer MEDICARE, SELFPAY ==
--- NOTE | 2025-06-21 09:45 | CT_ITS ---
PROCEDURE: LOW DOSE CT LUNG SCREENING 06/21/2025 REASON FOR EXAM: SCREENING TECHNIQUE: Procedure Code: [id number] Modality: CT Procedure: LOW DOSE CT LUNG SCREENING Coronal and Sagittal reconstruction series were provided. One or more dose reduction techniques were used (e.g., Automated exposure control, adjustment of the mA and/or kV according to patient size, use of iterative reconstruction technique). REFERENCE LINK: [facility] Lung-RADS COMPARISON: CT chest 06/02/2023 FINDINGS: Pulmonary Nodules: None. Hardware:None. Lymph Nodes:No enlarged mediastinal, hilar, or axillary lymph nodes. Heart and Vasculature:Nonenlarged. No pericardial effusion. Moderate coronary atherosclerotic calcifications.Atherosclerotic calcifications of the thoracic aorta. Thoracic aorta and pulmonary arteries have normal contours; noncontrast technique limits evaluation. Coronary Artery Calcifications: Lungs and Airways: Mild emphysematous changes are present. No consolidation. Airways are patent. Pleura:No pleural effusion or pneumothorax Upper Abdomen:Visualized upper abdomen unremarkable. Bones:Degenerative changes of the thoracic spine. CT/Low Dose CT Lung Screening IMPRESSION: Diffuse emphysematous changes. No pulmonary nodules. Lung-RADS Category: 1 NEGATIVE. RECOMMEND 12-MONTH SCREENING LDCT. Reading Location: [facility]
--- OUTSIDE RECORDS SUMMARY | 2025-06-21 09:47 | XMS RPT_ITS | CCD ---
Author Organization [facility] Care Team Providers Care Production Grip Name Role Phone ARSGREGGGA, MARY E Admitting Unavailable ARSUAGA, MARY E Attending Unavailable ARSUAGA, MARY E Primary Care Unavailable BURTONDESIREE J Consulting Unavailable PROVIDER, UNKNOWN Consulting Unavailable BURTON, DESIREE J Admitting Unavailable BURTON, DESIREE J Attending Unavailable BURTON, DESIREE J Primary Care Unavailable BURTON, DESIREE J Consulting Unavailable PROVIDER, UNKNOWN Consulting Unavailable ARSUAGA, MARY E Admitting Unavailable ARSUAGA, MARY E Attending Unavailable ARSUAGA, MARY E Primary Care Unavailable BURTON, DESIREE J Consulting Unavailable PROVIDER, UNKNOWN Consulting Unavailable ARSUAGA, MARY E Admitting Unavailable ARSUAGA, MARY E Attending Unavailable ARSUAGA, MARY E Primary Care Unavailable ALLEY HOWE Admitting Unavailable ALLEY HOWE Attending Unavailable ALLEY HOWE Primary Care Unavailable Flaquito, Duane Chi Primary Care Provider Flaquito, Duane Chi Primary Care Provider [phone] Flaquito, Duane Chi Primary Care Provider JOSUÉ SUMMERSNDRA Admitting Unavailable MELINA, YAKOV Attending Unavailable FLAQUITO, DUANE CHI Primary Care Unavailable FLAQUITO, DUANE CHI Primary Care Unavailable MELINA, YAKOV Attending Unavailable FLAQUITO, DUANE CHI Primary Care Unavailable MELINA, YAKOV Attending Unavailable Dr. Duane Huddleston MD, Chi Primary Care Provider [phone] MEERA RENEE MD Attending Provider [phone] MEERA RENEE MD Referring Provider [phone] Duane Huddleston MD, Chi Primary Care Provider [phone] MEERA RENEE MD Attending Provider [phone] MEERA RENEE MD Referring Provider Flaquito CAMARGO, Dr. Duane Eng Attending Provider Flaquito CAMARGO, Dr. Duane Eng Referring Provider FLAQUITO, DUANE CHI Primary Care Unavailable TIZZANODEVANTE P Referring Unavailable FLAQUITO, DUANE CHI Primary Care Unavailable SELF Referring Unavailable TIZZANO, DEVANTE P Attending Unavailable FLAQUITO, DUANE CHI Primary Care Unavailable FLAQUITO, DUANE CHI Primary Care Unavailable MELINA, YAKOV Referring Unavailable FLAQUITO, DUANE CHI Primary Care Unavailable FLAQUITO, DUANE CHI Primary Care Unavailable MELINA, YAKOV Referring Unavailable FLAQUITO, DUANE CHI Primary Care Unavailable Flaquito CAMARGO, Dr. Duane nEg Primary Care Physician [phone] MEERA RENEE MD Attending Physician MEERA RENEE MD Referring Provider [phone] Roger CAMARGO, Dr. Nagel Attending Physician Flaquito CAMARGO, Dr. Duane Eng Attending Physician MEERA RENEE Referring Unavailable Flaquito, Duane Chi Primary Care Unavailable THELMAALEAS Attending Unavailable Flaquito, Daune Chi Attending Unavailable Flaquito, Duane Chi Referring Unavailable Flaquito, Duane Chi Primary Care Unavailable THELMAALEAS Referring Unavailable Flaquito, Duane Chi Primary Care Unavailable THELMAALEAS Attending Unavailable Flaquito, Duane Chi Primary Care Unavailable THELMA RALLIS Referring Unavailable THELMAALEAS Attending Unavailable THELMA RALJO-ANNS Referring Unavailable Flaquito, Duane Chi Primary Care Unavailable MEERA RENEE Attending Unavailable Flaquito, Duane Chi Primary Care Unavailable Flaquito, Duane Chi Attending Unavailable Flaquito, Duane Chi Referring Unavailable THELMA RALLIS Referring Unavailable Flaquito, Duane Chi Primary Care Unavailable THELMAALEAS Attending Unavailable Flaquito, Duane Chi Primary Care Unavailable Flaquito, Duane Chi Attending Unavailable Flaquito, Duane Chi Attending Unavailable Flaquito, Duane Chi Primary Care Unavailable Medications Current Medications Medication Drug Class(es) Dates Sig (Normalized) Sig (Original) alendronic acid 35 mg oral tablet (3 sources) Bisphosphonate take 1 tablet by mouth every week in the morning alendronate (FOSAMAX) 35 mg tablet Take 35 mg by mouth one time a week. In AM with cup of water on empty stomach. Nothing else by mouth and stay upright for 30 min. Active B.coagulans/maltodext/ guar gum (BENEFIBER ADVANCED ORAL) (3 sources) B.coagulans/malt o dext/guar gum (BENEFIBER ADVANCED ORAL) Take by mouth. Active calcium carbonate 1250 mg / cholecalciferol 600 unt oral tablet (20 sources) Vitamin D Start: 03-12-2018 calcium carbonate-vitamin D3 500 mg-15 mcg (600 unit) tab Take by mouth. 03/12/2018 Active Start: 03-12-2018 Start: 03-12-2018 Calcium Carbon ate-Vitamin D3 Active 1 EA PO TWICE A DAY March 12, 2018 12:00am Comment on above: Take by mouth. clobetasol propionate 0.0005 mg/mg topical ointment (20 sources) Corticosteroid Start: 2022 clobetasol (TEMOVATE) 0.05 % ointment Indications: Lichen sclerosus Apply a half of fingertip unit over the affected area every night for 12 weeks until follow up. 30 g 1 06/22/2023 Active Comment on above: Apply a half of fing ertip unit over the affected area every night for 12 weeks until follow up. clotrimazole 10 mg/ml topical cream (1 source) Azole Antifungal Start: 2023 End: 2023 clotrimazole (LOTRIMIN) 1 % cream Indications: Skin yeast infection Apply to affected area two times a day for 14 days. 45 g 1 11/23/2023 12/07/2023 Active esomeprazole 40 mg delayed release oral capsule (20 sources) Proton Pump Inhibitor Start: 2017 take 1 capsule by mouth once daily folic acid 1 mg oral tablet (20 sources) Start: 2017 take 1 tablet by mouth once daily hydroxychloroquine sulfate 200 mg oral tablet (20 sources) Antimalarial, Antirheumatic Agent Start: 2017 take 1 tablet by mouth once daily ibuprofen 600 mg oral tablet (2 sources) Nonsteroidal Anti-inflammatory Drug Start: 2023 End: 2023 take 1 tablet by mouth every six hours as needed ibuprofen (MOTRIN) 600 mg tablet Take 1 tablet by mouth every 6 hours as needed for pain. 120 tablet 02/29/2024 03/30/2024 Active Lactobacillus acidophilus (3 sources) Lactobacillus acidophilus (PROBIOTIC ORAL) Take by mouth. Active Lactobacillus Combination No.8 (Adult Probiotic) 3 billion cell capsule (17 sources) Start: 2019 take 3 capsules by mouth once daily Lactobacillus Combination No.8 (Adult Probiotic) 3 billion cell capsule Active 3000 MMU CELLS PO DAILY June 22, 2020 2:03pm administer with a meal Start: 06-22-2020 take 3 capsules by m outh once daily Start: 06-22-2020 take 3 capsules by m outh once daily Lactobacillus Combination No.8 (Adult Probiotic) 3 billion cell capsule Active 3000 NMA PO DAILY June 22, 2020 1:00am administer with a meal Start: 06-22-2020 take 3 capsules by m outh once daily Lactobacillus Combination No.8 (Adult Probiotic) 3 billion cell capsule Active 3000 MMU CELLS PO DAILY June 22, 2020 12:00am administer with a meal Start: 06-22-2020 take 3 capsules by m outh once daily Lactobacillus Combination No.8 (Adult Probiotic) 3 billion cell capsule Active 3000 MMU CELLS PO DAILY June 22, 2020 1:00am administer with a meal linseed oil 1000 mg oral capsule (20 sources) Start: 03-12-2018 take 1 capsule by mo [facility] once daily Comment on above: Take by mouth. magnesium citrate 58.2 mg/ml oral solution (11 sources) Start: 03-23-2023 take 1 mL by mouth once Start: 03-23-2023 take 1 mL by mouth once Magnes ium Citrate Active 300 ML PO ONE TIME 1 March 23, 2023 12:00am methotrexate 2.5 mg oral tablet (20 sources) Folate Analog Metabolic Inhibitor Start: 03-26-2020 methotrexate 2.5 mg tablet 03/26/2020 Active Start: 10-09-2018 take 5 tablets by mouth once Start: 10-09-2018 take 12.5 mg by mouth once Met hotrexate Sodium Active 12.5 MG PO MO October 09, 2018 10:40am Start: 03-12-2018 End: 10-09-2018 take 3 tablets by mouth every week Methotrexate Sodium 2.5 MG tablet Discontinued 7.5 mg PO Q7D March 12, 2018 12:00am October 09, 2018 10:40am Start: 03-12-2018 End: 10-09-2018 take 7.5 mg by mouth every week Methotrexate Sodium Di scontinued 7.5 MG PO Q7D March 12, 2018 12:00am October 09, 2018 10:40am metoprolol tartrate 25 mg oral tablet (20 sources) beta-Adrenergic Bessy Start: 01-18-2020 metopr olol tartrate, short acting, (LOPRESSOR) 25 mg tablet 01/18/2020 Active Start: 03-12-2018 take 2 tablets by [facility] twice daily Start: 03-12-2018 take 25 mg by mouth twice janelle y Metoprolol Succinate Active 25 MG PO TWICE A DAY March 12, 2018 12:00am metroNIDAZOLE 500 mg oral tablet (17 sources) Nitroimidazole Antimicrobial Start: 07-09-2020 take 1 tablet by mouth three times daily miconazole nitrate 20 mg/ml vaginal cream (13 sources) Azole Antifungal Start: 03-16-2023 Start: 03-16-2023 Miconazole Nit rate (Monistat 7) 2 % cream Active 1 APPFUL VAGINAL AT BEDTIME 45 7 March 16, 2023 12:00am ondansetron 4 mg disintegrating oral tablet (1 source) Serotonin-3 Receptor Antagonist Start: 02-29-2024 End: 03-07-2024 take 1 tablet by mouth every eight hours as needed ondansetron orally disintegrating (ZOFRAN ODT) 4 mg disintegrating tablet Take 1 tablet by mouth every 8 hours as needed for nausea/vomiting for up to 7 days. 20 tablet 0 02/29/2024 03/07/2024 Active oxyCODONE hydrochloride 5 mg oral tablet (1 source) Opioid Agonist Start: 02-29-2024 End: 03-05-2024 take 1 tablet by mouth every six hours as needed for pain oxyCODONE IR (ROXICODONE) 5 mg immediate release tablet Indications: Post-op pain Take 1 tablet by mouth every 6 hours as needed for pain for up to 5 days. 8 tablet 0 02/29/2024 03/05/2024 Active microencapsulated potassium chloride 10 meq extended release oral tablet (20 sources) Start: 05-18-2022 take 1 tablet by mouth once daily KLOR-CON M10 10 mEq tablet TAKE 1 TABLET ORALLY ONCE PER DAY FOR 90 DAYS 05/18/2022 Active Comment on above: TAKE 1 TABLET ORALLY ONCE PER DAY FOR 90 DAYS pyridoxine HCl, vitamin B6, (VITAMIN B-6 ORAL) (3 sources) pyridoxine HCl, vitamin B6, (VITAMIN B-6 ORAL) Take by mouth. Active vitamin b6 50 mg oral tablet (17 sources) Start: 03-12-2018 Completed/Discontinued Medications Medication Drug Class(es) Dates Sig (Normalized) Sig (Original) acetaminophen 325 mg / HYDROcodone bitartrate 5 mg oral tablet (20 sources) Opioid Agonist Start: 07-09-2020 End: 07-12-2020 Hydrocodone-Acetamino phen 1 TABLET tablet Discontinued 1 {tbl} PO EVERY 6 HOURS NEEDED as needed for Pain 10 3 0 July 09, 2020 July 11, 2020 1:00am July 12, 2020 1:03am Postoperative pain Other acute postprocedural pain Start: 07-09-2020 End: 07-12-2020 take 1 tablet by mouth every six hours as needed Hydrocodone-Acetaminophen Discontinued 1 TABLET PO EVERY 6 HOURS NEEDED 10 3 July 09, 2020 July 12, 2020 1:03am Start: 03-19-2018 End: 10-09-2018 Hydrocodone-Acetaminophen 1 EACH tablet Discontinued 1 NMA PO EVERY 6 HOURS NEEDED as needed for Severe Pain (6-10/10) 10 7 0 March 19, 2018 8:07am October 09, 2018 10:40am Other acute postprocedural pain Start: 03-19-2018 End: 10-09-2018 Hydrocodone-Acetaminophen Di scontinued 1 EACH PO EVERY 6 HOURS NEEDED 10 7 March 19, 2018 8:07am October 09, 2018 10:40am aspirin 81 mg chewable tablet (17 sources) Platelet Aggregation Inhibitor, Nonsteroidal Anti-inflammatory Drug Start: 03-12-2018 End: 06-22-2020 take 1 tablet by mouth once daily Aspirin 81 MG tablet,chewable Discontinued 81 mg PO DAILY@0800 March 12, 2018 12:00am June 22, 2020 2:01pm Problems Active Problems Problem Classification Problem Date Documented Da te Episodic/Chronic Abdominal pain (11 sources) Abdominal pain; Translations: [Unspecified abdominal pain] 03-23-2023 Episodic Adjustment disorders (17 sources) Grief finding; Translations: [Adjustment disorder with depressed mood] 07-09-2020 Chronic Administrative/social admission (2 sources) Education and/or schooling finding; Translations: [Problems related to education and literacy, unspecified] 01-16-2024 Episodic Diabetes mellitus without complication (17 sources) Hyperglycemia; Translations: [Hyperglycemia, unspecified] 07-09-2020 Episodic Disorders of lipid metabolism (20 sources) Hyperlipidemia; Translations: [Hyperlipidemia, unspecified] Onset: 4 07-09-2020 Chronic Esophageal disorders (20 sources) Gastroesophageal reflux disease; Translations: [Gastro-esophageal reflux disease without esophagitis] Onset: 4 07-09-2020 Chronic Essential hypertension (20 sources) Hypertensive disorder; Translations: [Essential (primary) hypertension] Onset: 4 Resolved: 4 07-09-2020 Chronic Genitourinary symptoms and ill-defined conditions (20 sources) History of urinary tract infection; Translations: [Personal history of urinary (tract) infections] 07-09-2020 Episodic Headache; including migraine (17 sources) Headache; Translations: [Headache] 07-09-2020 Episodic Hemorrhoids (17 sources) Hemorrhoids; Translations: [Other hemorrhoids] 06-22-2020 Episodic Inflammatory diseases of female pelvic organs (1 source) Chronic vulvitis; Translations: [Subacute and chronic vulvitis] 05-29-2024 Episodic Malaise and fatigue (2 sources) Other fatigue; Translations: [Other fatigue] Onset: 5 Episodic Mood disorders (20 sources) Depressive disorder; Translations: [Depression] Onset: 4 07-09-2020 Chronic Mycoses (14 sources) Candidiasis of vagina; Translations: [Candidiasis of vagina] 03-16-2023 Episodic Nutritional deficiencies (1 source) Vitamin D deficiency, unspecified; Translations: [Vitamin D deficiency, unspecified] Onset: 5 Chronic Other connective tissue disease (1 source) Pain in lower limb; Translations: [Pain in right leg] Episodic Other female genital disorders (1 source) Atrophic vulva; Translations: [Atrophy of vulva] 09-14-2023 Episodic Other gastrointestinal disorders (17 sources) History of rectal bleeding; Translations: [Personal history of other diseases of the digestive system] 07-09-2020 Episodic Other gastrointestinal disorders (20 sources) Constipation; Translations: [Constipation, unspecified] Onset: 4 03-23-2023 Episodic Other infections; including parasitic (1 source) History of human papilloma virus infection; Translations: [Personal history of other infectious and parasitic diseases] 06-19-2023 Episodic Other injuries and conditions due to external causes (1 source) Injury of left ankle; Translations: [Unspecified injury of left ankle, initial encounter] Episodic Other nervous system disorders (17 sources) Mortons neuroma of left foot; Translations: [Lesion of plantar nerve, left lower limb] 08-06-2020 Chronic Other nervous system disorders (1 source) Other acute postprocedural pain; Translations: [Post-op pain] Onset: 4 Episodic Other nutritional; endocrine; and metabolic disorders (20 sources) Body mass index 30+ - obesity; Translations: [Body mass index (BMI) 30.0-30.9, adult] Onset: 4 07-09-2020 Chronic Other nutritional; endocrine; and metabolic disorders (17 sources) Obesity; Translations: [Obesity, unspecified] 07-09-2020 Chronic Other screening for suspected conditions (not mental disorders or infectious disease) (20 sources) Encounter for screening mammogram for malignant neoplasm of breast; Translations: [Pulmonary function studies abnormal] Onset: 0 07-09-2020 Episodic Other skin disorders (3 sources) Lichen sclerosus et atrophicus; Translations: [Circumscribed scleroderma] 06-22-2023 Chronic Other skin disorders (1 source) Skin finding; Translations: [Unspecified skin changes] 06-19-2023 Episodic Pneumonia (except that caused by tuberculosis or sexually transmitted disease) (17 sources) Pneumonia; Translations: [Pneumonia, unspecified organism] 08-06-2020 Episodic Prolapse of female genital organs (16 sources) Uterine prolapse; Translations: [Uterovaginal prolapse, unspecified] Onset: 4 06-19-2023 Chronic Residual codes; unclassified (17 sources) H/O: major abdominal surgery; Translations: [Acquired absence of other genital organ(s)] 07-09-2020 Episodic Residual codes; unclassified (17 sources) H/O: Disorder; Translations: [Personal history of other specified conditions] 07-09-2020 Episodic Residual codes; unclassified (17 sources) History of arthroscopic procedure on shoulder; Translations: [Other specified postprocedural states] 07-09-2020 Episodic Residual codes; unclassified (18 sources) Tobacco user; Translations: [Tobacco use] 10-09-2018 Episodic Residual codes; unclassified (1 source) Chills (without fever); Translations: [Chills (without fever)] Onset: 5 Episodic Rheumatoid arthritis and related disease (20 sources) Rheumatoid arthritis with rheumatoid factor of multiple sites without organ or systems involvement; Translations: [Rheumatoid arthritis] Onset: 0 07-09-2020 Chronic Substance-related disorders (1 source) Nicotine dependence, cigarettes, uncomplicated; Translations: [Nicotine dependence, cigarettes, uncomplicated] Onset: 5 Chronic Thyroid disorders (1 source) Hypothyroidism, unspecified; Translations: [Hypothyroidism, unspecified] Onset: 5 Chronic Unclassified (2 sources) Patient encounter status 11-25-2024 Past or Other Problems Problem Classification Problem Date Documented Da te Episodic/Chronic Cardiac dysrhythmias (14 sources) Palpitations; Translations: [Palpitations] Onset: 01-15-2024 01-15-2024 Episodic Other aftercare (1 source) 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; Translations: [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] Onset: 10-21-2024 Episodic Other bone disease and musculoskeletal deformities (1 source) Other specified disorders of bone density and structure, other site; Translations: [Other specified disorders of bone density and structure, other site] Onset: 01-19-2025 Episodic Screening and history of mental health and substance abuse codes (14 sources) Ex-smoker; Translations: [Personal history of nicotine dependence] Onset: 01-15-2024 01-15-2024 Episodic Results Test Name Value Interpretation Reference Range Facility CBC W/Diff, Automatedon 11-0 Absolute Lymph 2.63 X10 3/uL Normal 0.83-4.51 [facility] Comment on above: Performed By: #### L 100.0100, L501.1105, L101.9900, L501.4100, L501.4405, L501.6710, L501.1000 #### [facility] [address] [place], [address] Absolute Neut 4.9 X10 3/uL Normal 2.0-7.7 [facility] Comment on above: Performed By: #### L 100.0100, L501.1105, L101.9900, L501.4100, L501.4405, L501.6710, L501.1000 #### [facility] [address] [place], [address] Basophils/100 WBC (Bld) 0.6 % Normal 0-1 [facility] Comment on above: Performed By: #### L 100.0100, L501.1105, L101.9900, L501.4100, L501.4405, L501.6710, L501.1000 #### [facility] [address] [place], [address] Eosinophils/100 WBC (Bld) 0.8 % Normal 0-5 [facility] Comment on above: Performed By: #### L 100.0100, L501.1105, L101.9900, L501.4100, L501.4405, L501.6710, L501.1000 #### [facility] [address] [place], [address] Erythrocyte distribution width (RBC) [Ratio] 14.3 % Normal 11.6-14.6 [facility] Comment on above: Performed By: #### L 100.0100, L501.1105, L101.9900, L501.4100, L501.4405, L501.6710, L501.1000 #### [facility] [address] [place], [address] Hematocrit (Bld) [Volume fraction] 45.2 % Normal 37-47 [facility] Comment on above: Performed By: #### L 100.0100, L501.1105, L101.9900, L501.4100, L501.4405, L501.6710, L501.1000 #### [facility] [address] [place], [address] Hemoglobin (Bld) [Mass/Vol] 14.9 g/dL Normal 12.0-15.0 [facility] Comment on above: Performed By: #### L 100.0100, L501.1105, L101.9900, L501.4100, L501.4405, L501.6710, L501.1000 #### [facility] [address] [place], [address] IG% 0.400 Normal 0.0-0.9 [facility] Comment on above: Result Comment: IG% - Immature Granulocytes (promyelocytes, myelocytes and metamyelocytes) > 1% indicates that a LEFT SHIFT is Present. Performed By: #### L 100.0100, L501.1105, L101.9900, L501.4100, L501.4405, L501.6710, L501.1000 #### [facility] [address] [place], [address] Lymphocytes/100 WBC (Bld) 31.7 % Normal 19-41 [facility] Comment on above: Performed By: #### L 100.0100, L501.1105, L101.9900, L501.4100, L501.4405, L501.6710, L501.1000 #### [facility] [address] [place], [address] MCH (RBC) [Entitic mass] 30.5 pg Normal 27.0-32.0 [facility] Comment on above: Performed By: #### L 100.0100, L501.1105, L101.9900, L501.4100, L501.4405, L501.6710, L501.1000 #### [facility] [address] [place], [address] MCHC (RBC) [Mass/Vol] 33.0 g/dL Normal 32-36 [facility] Comment on above: Performed By: #### L 100.0100, L501.1105, L101.9900, L501.4100, L501.4405, L501.6710, L501.1000 #### [facility] [address] [place], [address] MCV (RBC) [Entitic vol] 92.6 fL Normal 81-99 [facility] Comment on above: Performed By: #### L 100.0100, L501.1105, L101.9900, L501.4100, L501.4405, L501.6710, L501.1000 #### [facility] [address] [place], [address] Monocytes/100 WBC (Bld) 7.1 % Normal 0-10 [facility] Comment on above: Performed By: #### L 100.0100, L501.1105, L101.9900, L501.4100, L501.4405, L501.6710, L501.1000 #### [facility] [address] [place], [address] Neutrophils/100 WBC (Bld) 59.4 % Normal 47-70 [facility] Comment on above: Performed By: #### L 100.0100, L501.1105, L101.9900, L501.4100, L501.4405, L501.6710, L501.1000 #### [facility] [address] [place], [address] Nucleated RBC (Bld) [#/Vol] 0 10*3/uL Normal 0-5 [facility] Comment on above: Performed By: #### L 100.0100, L501.1105, L101.9900, L501.4100, L501.4405, L501.6710, L501.1000 #### [facility] [address] [place], [address] Platelet mean volume (Bld) [Entitic vol] 9.2 fL Normal 6.2-12.0 [facility] Comment on above: Performed By: #### L 100.0100, L501.1105, L101.9900, L501.4100, L501.4405, L501.6710, L501.1000 #### [facility] [address] [place], [address] Platelets (Bld) [#/Vol] 269 10*3/uL Normal 150-450 [facility] Comment on above: Performed By: #### L 100.0100, L501.1105, L101.9900, L501.4100, L501.4405, L501.6710, L501.1000 #### [facility] [address] [place], [address] RBC (Bld) [#/Vol] 4.88 10*6/uL Normal 4.2-5.4 [facility] Comment on above: Performed By: #### L 100.0100, L501.1105, L101.9900, L501.4100, L501.4405, L501.6710, L501.1000 #### [facility] [address] [place], [address] RDW SD 48.4 fl High 35.1-43.9 [facility] Comment on above: Performed By: #### L 100.0100, L501.1105, L101.9900, L501.4100, L501.4405, L501.6710, L501.1000 #### [facility] [address] [place], [address] WBC (Bld) [#/Vol] 8.3 10*3/uL Normal 4.4-11.0 [facility] Comment on above: Performed By: #### L 100.0100, L501.1105, L101.9900, L501.4100, L501.4405, L501.6710, L501.1000 #### [facility] [address] [place], [address] Comprehensive Metabolic Prof ilon 05-26-2025 Albumin [Mass/Vol] 4.2 g/dL Normal 3.4-4.8 [facility] Comment on above: Performed By: #### L 100.0100, L501.1105, L101.9900, L501.4100, L501.4405, L501.6710, L501.1000 #### [facility] [address] [place], [address] Albumin/Globulin [Mass ratio] 1.4 {ratio} Normal 0.9-2.4 [facility] Comment on above: Performed By: #### L 100.0100, L501.1105, L101.9900, L501.4100, L501.4405, L501.6710, L501.1000 #### [facility] [address] [place], [address] ALK PHOS 64 U/L Normal 35-104 [facility] Comment on above: Performed By: #### L 100.0100, L501.1105, L101.9900, L501.4100, L501.4405, L501.6710, L501.1000 #### [facility] [address] [place], [address] ALT [Catalytic activity/Vol] 25 U/L Normal <=34 [facility] Comment on above: Performed By: #### L 100.0100, L501.1105, L101.9900, L501.4100, L501.4405, L501.6710, L501.1000 #### [facility] [address] [place], [address] AST [Catalytic activity/Vol] 28 U/L Normal <=31 [facility] Comment on above: Performed By: #### L 100.0100, L501.1105, L101.9900, L501.4100, L501.4405, L501.6710, L501.1000 #### [facility] [address] [place], [address] Bilirubin [Mass/Vol] 0.36 mg/dL Normal 0.00-1.30 [facility] Comment on above: Performed By: #### L 100.0100, L501.1105, L101.9900, L501.4100, L501.4405, L501.6710, L501.1000 #### [facility] [address] [place], [address] BUN/CRE 9.8 RATIO Low 10-20 [facility] Comment on above: Performed By: #### L 100.0100, L501.1105, L101.9900, L501.4100, L501.4405, L501.6710, L501.1000 #### [facility] [address] [place], [address] Calcium [Mass/Vol] 9.3 mg/dL Normal 7.6-11.0 [facility] Comment on above: Performed By: #### L 100.0100, L501.1105, L101.9900, L501.4100, L501.4405, L501.6710, L501.1000 #### [facility] [address] [place], [address] Chloride [Moles/Vol] 107 mmol/L Normal 98-108 [facility] Comment on above: Performed By: #### L 100.0100, L501.1105, L101.9900, L501.4100, L501.4405, L501.6710, L501.1000 #### [facility] [address] [place], [address] CO2 [Moles/Vol] 24.6 mmol/L Normal 21.0-32.0 [facility] Comment on above: Performed By: #### L 100.0100, L501.1105, L101.9900, L501.4100, L501.4405, L501.6710, L501.1000 #### [facility] [address] [place], [address] Creatinine [Mass/Vol] 0.97 mg/dL Normal 0.70-1.20 [facility] Comment on above: Performed By: #### L 100.0100, L501.1105, L101.9900, L501.4100, L501.4405, L501.6710, L501.1000 #### [facility] [address] [place], [address] GAP 11 Normal 5-15 [facility] Comment on above: Performed By: #### L 100.0100, L501.1105, L101.9900, L501.4100, L501.4405, L501.6710, L501.1000 #### [facility] [address] [place], [address] GFR/1.73 sq M.predicted among non-blacks MDRD (S/P/Bld) [Vol rate/Area] 62 mL/min/{1.73_m2} Normal >60 [facility] Comment on above: Result Comment: mL/m in/1.73m2 CKD-EPI Creatinine Equation (2020) Performed By: #### L 100.0100, L501.1105, L101.9900, L501.4100, L501.4405, L501.6710, L501.1000 #### [facility] [address] [place], [address] Globulin (S) [Mass/Vol] 2.9 g/dL Normal 2.2-4.2 [facility] Comment on above: Performed By: #### L 100.0100, L501.1105, L101.9900, L501.4100, L501.4405, L501.6710, L501.1000 #### [facility] [address] [place], [address] Glucose [Mass/Vol] 116 mg/dL High 70-99 [facility] Comment on above: Performed By: #### L 100.0100, L501.1105, L101.9900, L501.4100, L501.4405, L501.6710, L501.1000 #### [facility] [address] [place], [address] Potassium [Moles/Vol] 4.9 mmol/L Normal 3.3-5.1 [facility] Comment on above: Performed By: #### L 100.0100, L501.1105, L101.9900, L501.4100, L501.4405, L501.6710, L501.1000 #### [facility] [address] [place], [address] Sodium [Moles/Vol] 142 mmol/L Normal 133-145 [facility] Comment on above: Performed By: #### L 100.0100, L501.1105, L101.9900, L501.4100, L501.4405, L501.6710, L501.1000 #### [facility] [address] [place], [address] T PROT 7.1 g/dL Normal 5.9-8.4 [facility] Comment on above: Performed By: #### L 100.0100, L501.1105, L101.9900, L501.4100, L501.4405, L501.6710, L501.1000 #### [facility] [address] [place], [address] Urea nitrogen [Mass/Vol] 9 mg/dL Normal 4-19 [facility] Comment on above: Performed By: #### L 100.0100, L501.1105, L101.9900, L501.4100, L501.4405, L501.6710, L501.1000 #### [facility] [address] [place], [place], [id number] Thyroid Stim Hormone (TSH)on 05-26-2025 TSH 1.250 uIU/mL Normal 0.300-4.200 [facility] Comment on above: Performed By: #### L 100.0100, L501.1105, L101.9900, L501.4100, L501.4405, L501.6710, L501.1000 #### [facility] [address] [place], [place], [address] Vitamin D,25 Hydroxyon 05-26 Vitamin D 25-OH 43.8 ng/mL Normal 30-100 [facility] Comment on above: Result Comment: Kylee min D Status Deficiency: <20 ng/mL (50nmol/L) Insufficiency: 20-30 ng/mL (50-75 nmol/L) Sufficiency: 30-100 ng/mL (75-250 nmol/L) Toxicity: >100 ng/mL (>250 nmol/L) Performed By: #### L 100.0100, L501.1105, L101.9900, L501.4100, L501.4405, L501.6710, L501.1000 #### [facility] [address] [place], [place], [address] Influenza virus A and B and SARS-CoV-2 (COVID-19) and Respiratory syncytial virus RNAOrdered By: Duane Huddleston on 04-07-2025 SARS-CoV-2 (COVID-19) RNA JATINDER+probe Ql (Unsp spec) [facility] M100.678on 04-07-2025 M100.678 Pending SARS-CoV-2 (COVID 19) Negative INFLUENZA A Negative INFLUENZA B Negative RSV PCR Negative Normal [facility] Comment on above: Performed By: #### L 100.0100, L501.1105, L101.9900, L501.4100, L501.4405, L501.6710, L501.1000 #### [facility] [address] [place], [address] Bone density reportOrdered B y: Jun Willis on 01-14-2025 Study report Skeletal system DXA [facility] Imaging Services [address] [place] [address] Dexa Bone Density Study MR#: [id number] Acct: [id number] Name: MARA BUSTOS Rep #: [id number] : 1955 F 69 From: Natalie Willis MD PCP: Dr. Duane Huddleston MD Status: REG C LI Study:Dexa Bone Density Study Date of Exam: 01/14/25 Exam# [id number] Ordering Dr: RA KINGA RENEE MD PROCEDURE: DEXA BONE DENSITY STUDY 01/14/2025 REASON FOR EXAM: F, age 69 y/o . TECHNIQUE: DEXA BONE DENSITY STUDY COMPARISON: DEXA on 12/20/2022 FINDINGS: BMD and T-SCORES Lumbar spine: 0.850 g/cm2, T-score -1.8 Levels: L1 through L4 Change from prior: Statistically significant BMD increase of 7.4%. Left femoral neck: 0.659 g/cm2, T-score -1.7 Femoral neck comparison data not recommended for monitoring change. Prior T-score -2.3 Left total hip: 0.806 g/cm2, T-score -1.1 Change from prior: Statistically significant BMD increase of 4.9%. Right femoral neck: 0.654 g/cm2, T-score -1.8 Femoral neck comparison data not recommended for monitoring change. Prior T-score -1.9 Right total hip: 0.800 g/cm2, T-score -1.2 Change from prior: Statistically significant BMD increase of 7.4%. The World Health Organization has defined the following categories based on bonedensity: Normal bone density: T-score equal to or greater than -1.0 Osteopenia: T-score between -1.0 and -2.5 Osteoporosis: T-score equal to or less than -2.5 FRAX (or Comparable) Fracture Risk Assessment: 10 Year Probability of Fracture: Major Osteoporotic Fracture: 22% Hip Fracture: 6.3% (Note: FRAX is not to be reported in setting of normal range bone density, osteoporosis on DEXA, known history of osteoporosis, prior osteoporotic hip or vertebral fracture, or for any patient undergoing pharmacological treatment for bone loss.) The National Osteoporosis Foundation (NOF) recommends pharmacological treatment for patients with a FRAX 10-year risk of 3% or higher for a hip fracture, or 20% or higher for a major osteoporotic fracture, to prevent osteoporosis and reduce fracture risk. The patient does meet the pharmacological treatment recommendations for prevention of osteoporosis. BD/Dexa Bone Density Study IMPRESSION: OSTEOPENIA. Reading Location: [id number] CC: Dr. Duane Huddleston MD; MEERA RENEE MD ~ [employer] Operator: Signed [facility] Dexa Bone Density Studyon Dexa Bone Density Study [facility] Imaging Services [address] [place] [id number] Dexa Bone Density Study MR#: [id number] Acct: [id number] Name: MARA BUSTOS Rep #: [id number] : 1955 F 69 From: Jun Willis MD PCP: Dr. Duane Huddleston MD Status: REG CLI Study: Dexa Bone Density Study Date of Exam: 01/14/25 Exam# [id number] Ordering Dr: MEERA RENEE MD PROCEDURE: DEXA BONE DENSITY STUDY 01/14/2025 REASON FOR EXAM: F, age 69 y/o . TECHNIQUE: DEXA BONE DENSITY STUDY COMPARISON: DEXA on 12/20/2022 FINDINGS: BMD and T-SCORES Lumbar spine: 0.850 g/cm2, T-score -1.8 Levels: L1 through L4 Change from prior: Statistically significant BMD increase of 7.4%. Left femoral neck: 0.659 g/cm2, T-score -1.7 Femoral neck comparison data not recommended for monitoring change. Prior T-score -2.3 Left total hip: 0.806 g/cm2, T-score -1.1 Change from prior: Statistically significant BMD increase of 4.9%. Right femoral neck: 0.654 g/cm2, T-score -1.8 Femoral neck comparison data not recommended for monitoring change. Prior T-score -1.9 Right total hip: 0.800 g/cm2, T-score -1.2 Change from prior: Statistically significant BMD increase of 7.4%. The World Health Organization has defined the following categories based on bone density: Normal bone density: T-score equal to or greater than -1.0 Osteopenia: T-score between -1.0 and -2.5 Osteoporosis: T-score equal to or less than -2.5 FRAX (or Comparable) Fracture Risk Assessment: 10 Year Probability of Fracture: Major Osteoporotic Fracture: 22% Hip Fracture: 6.3% (Note: FRAX is not to be reported in setting of normal range bone density, osteoporosis on DEXA, known history of osteoporosis, prior osteoporotic hip or vertebral fracture, or for any patient undergoing pharmacological treatment for bone loss.) The National Osteoporosis Foundation (NOF) recommends pharmacological treatment for patients with a FRAX 10-year risk of 3% or higher for a hip fracture, or 20% or higher for a major osteoporotic fracture, to prevent osteoporosis and reduce fracture risk. The patient does meet the pharmacological treatment recommendations for prevention of osteoporosis. BD/Dexa Bone Density Study IMPRESSION: OSTEOPENIA. Reading Location: [id number] CC: Dr. Duane Huddleston MD; MEERA RENEE MD [employer] Operator: Signed Normal [facility] SCRE[facility] * * *Final Report* * * DATE OF EXAM: Dec 26 2024 8:43AM [facility] 0582 - [facility] SCREENING W E[facility] / PROCEDURE REASON: multiple diagnoses * * * * Physician Interpretation * * * * RESULT: [facility] [address] [id number] #[id number] - [facility] SCREENING W [facility] HISTORY: 69 year-old patient presents for screening. Patient is asymptomatic in both breasts. Patient states no personal history of breast cancer. The patient has a family history of ovarian cancer. COMPARISON STUDIES: The present examination has been compared to prior imaging studies dated 11/11/2020 (mammogram), 12/16/2021 (mammogram), 12/20/2022 (mammogram) and 12/26/2023 (mammogram). MAMMOGRAM TECHNIQUE: The study was acquired using full field digital technology and interpreted from soft copy. Digital Breast Tomosynthesis (DBT) images were obtained and used to assist in the interpretation of this examination. MAMMOGRAM FINDINGS: There are scattered areas of fibroglandular density. No suspicious masses, calcifications or other abnormalities are seen in either breast. There are no significant interval changes. IMPRESSION: There is no mammographic evidence of malignancy in either breast. Routine screening mammogram is recommended. Annual mammogram will be due in 1 year. BI-RADS Category 1: Negative RISK: Based on the Tyrer-Cuzick (TC) risk assessment model, this patient has a 2.0% lifetime risk of developing breast cancer, meaning they are at average risk for developing breast cancer. However, this is only an estimate based on available history provided on the patient's questionnaire. We encourage all patients to talk with their providers about these results, further recommendations for managing breast health, and appropriate supplemental screening options if the patient has dense breast tissue. Interpreting Radiologist: Can Sterling M.D. Electronically signed on: 12/27/2024 [employer] Operator: FERNANDO Transcribe Date/Time: Dec 26 2024 8:25A Dictated by: CAN STERLING MD This examination was interpreted and the report reviewed and electronically signed by: CAN STERLING MD on Dec 27 2024 7:43AM EST [id number] Normal [facility] AST(SGOT)on 11-29-2024 AST [Catalytic activity/Vol] 24 U/L Normal <=31 [facility] Comment on above: Performed By: #### L 100.0100, L501.1105, L101.9900, L501.4100, L501.4405, L501.6710, L501.1000 #### [facility] [address] [place], [address] Absolute lymphocyte countOrd ered By: MEERA RENEE on 11-29-2024 Lymphocytes Auto (Unsp spec) [#/Vol] 2.58 10*3/uL 0.83-4.51 [facility] Absolute neutrophil countOrd ered By: MEERA RENEE on 11-29-2024 Neutrophils (Bld) [#/Vol] 5.2 10*3/uL 2.0-7.7 [facility] Alanine Aminotransferas (SGP T)on 11-29-2024 ALT [Catalytic activity/Vol] 21 U/L Normal <=34 [facility] Comment on above: Performed By: #### L 100.0100, L501.1105, L101.9900, L501.4100, L501.4405, L501.6710, L501.1000 #### [facility] [address] [place], [place], [id number] Automated lymphocyte count a s percentage of total leukocytesOrdered By: MEERA RENEE on 11-29-2024 Lymphocytes/100 WBC Auto (Unsp spec) 30.8 % 19-41 [facility] BUNon 11-29-2024 Urea nitrogen [Mass/Vol] 11 mg/dL Normal 4-19 [facility] Comment on above: Performed By: #### L 100.0100, L501.1105, L101.9900, L501.4100, L501.4405, L501.6710, L501.1000 #### [facility] [address] [place], [place], [id number] Basophil percentageOrdered B y: MEERA RENEE on 11-29-2024 Basophils/100 WBC (Bld) 0.6 % 0-1 [facility] CBC W/Diff, Automatedon Absolute Lymph 2.58 X10 3/uL Normal 0.83-4.51 [facility] Comment on above: Performed By: #### L 100.0100, L501.1105, L101.9900, L501.4100, L501.4405, L501.6710, L501.1000 #### [facility] [address] [place], [address] Absolute Neut 5.2 X10 3/uL Normal 2.0-7.7 [facility] Comment on above: Performed By: #### L 100.0100, L501.1105, L101.9900, L501.4100, L501.4405, L501.6710, L501.1000 #### [facility] [address] [place], [address] Basophils/100 WBC (Bld) 0.6 % Normal 0-1 [facility] Comment on above: Performed By: #### L 100.0100, L501.1105, L101.9900, L501.4100, L501.4405, L501.6710, L501.1000 #### [facility] [address] [place], [address] Eosinophils/100 WBC (Bld) 0.8 % Normal 0-5 [facility] Comment on above: Performed By: #### L 100.0100, L501.1105, L101.9900, L501.4100, L501.4405, L501.6710, L501.1000 #### [facility] [address] [place], [address] Erythrocyte distribution width (RBC) [Ratio] 14.6 % Normal 11.6-14.6 [facility] Comment on above: Performed By: #### L 100.0100, L501.1105, L101.9900, L501.4100, L501.4405, L501.6710, L501.1000 #### [facility] [address] [place], [address] Hematocrit (Bld) [Volume fraction] 42.1 % Normal 37-47 [facility] Comment on above: Performed By: #### L 100.0100, L501.1105, L101.9900, L501.4100, L501.4405, L501.6710, L501.1000 #### [facility] [address] [place], [address] Hemoglobin (Bld) [Mass/Vol] 14.3 g/dL Normal 12.0-15.0 [facility] Comment on above: Performed By: #### L 100.0100, L501.1105, L101.9900, L501.4100, L501.4405, L501.6710, L501.1000 #### [facility] [address] [place], [address] IG% 0.200 Normal 0.0-0.9 [facility] Comment on above: Result Comment: IG% - Immature Granulocytes (promyelocytes, myelocytes and metamyelocytes) > 1% indicates that a LEFT SHIFT is Present. Performed By: #### L 100.0100, L501.1105, L101.9900, L501.4100, L501.4405, L501.6710, L501.1000 #### [facility] [address] [place], [address] Lymphocytes/100 WBC (Bld) 30.8 % Normal 19-41 [facility] Comment on above: Performed By: #### L 100.0100, L501.1105, L101.9900, L501.4100, L501.4405, L501.6710, L501.1000 #### [facility] [address] [place], [address] MCH (RBC) [Entitic mass] 30.3 pg Normal 27.0-32.0 [facility] Comment on above: Performed By: #### L 100.0100, L501.1105, L101.9900, L501.4100, L501.4405, L501.6710, L501.1000 #### [facility] [address] [place], [address] MCHC (RBC) [Mass/Vol] 34.0 g/dL Normal 32-36 [facility] Comment on above: Performed By: #### L 100.0100, L501.1105, L101.9900, L501.4100, L501.4405, L501.6710, L501.1000 #### [facility] [address] [place], [address] MCV (RBC) [Entitic vol] 89.2 fL Normal 81-99 [facility] Comment on above: Performed By: #### L 100.0100, L501.1105, L101.9900, L501.4100, L501.4405, L501.6710, L501.1000 #### [facility] [address] [place], [address] Monocytes/100 WBC (Bld) 5.1 % Normal 0-10 [facility] Comment on above: Performed By: #### L 100.0100, L501.1105, L101.9900, L501.4100, L501.4405, L501.6710, L501.1000 #### [facility] [address] [place], [address] Neutrophils/100 WBC (Bld) 62.5 % Normal 47-70 [facility] Comment on above: Performed By: #### L 100.0100, L501.1105, L101.9900, L501.4100, L501.4405, L501.6710, L501.1000 #### [facility] [address] [place], [address] Nucleated RBC (Bld) [#/Vol] 0 10*3/uL Normal 0-5 [facility] Comment on above: Performed By: #### L 100.0100, L501.1105, L101.9900, L501.4100, L501.4405, L501.6710, L501.1000 #### [facility] [address] [place], [address] Platelet mean volume (Bld) [Entitic vol] 9.2 fL Normal 6.2-12.0 [facility] Comment on above: Performed By: #### L 100.0100, L501.1105, L101.9900, L501.4100, L501.4405, L501.6710, L501.1000 #### [facility] [address] [place], [address] Platelets (Bld) [#/Vol] 270 10*3/uL Normal 150-450 [facility] Comment on above: Performed By: #### L 100.0100, L501.1105, L101.9900, L501.4100, L501.4405, L501.6710, L501.1000 #### [facility] [address] [place], [address] RBC (Bld) [#/Vol] 4.72 10*6/uL Normal 4.2-5.4 [facility] Comment on above: Performed By: #### L 100.0100, L501.1105, L101.9900, L501.4100, L501.4405, L501.6710, L501.1000 #### [facility] [address] [place], [address] RDW SD 47.2 fl High 35.1-43.9 [facility] Comment on above: Performed By: #### L 100.0100, L501.1105, L101.9900, L501.4100, L501.4405, L501.6710, L501.1000 #### [facility] [address] [place], [address] WBC (Bld) [#/Vol] 8.4 10*3/uL Normal 4.4-11.0 [facility] Comment on above: Performed By: #### L 100.0100, L501.1105, L101.9900, L501.4100, L501.4405, L501.6710, L501.1000 #### [facility] [address] [place], [place], [id number] CRPon 11-29-2024 C-REACTIVE PROT < 3.00 Normal 0.0-3.0 [facility] Comment on above: Performed By: #### L 100.0100, L501.1105, L101.9900, L501.4100, L501.4405, L501.6710, L501.1000 #### [facility] [address] [place], [address] Eosinophil percentageOrdered By: MEERA RENEE on 11-29-2024 Eosinophils/100 WBC (Bld) 0.8 % 0-5 [facility] Erythrocyte Sed Rateon 11-29 SED RATE 11 mm/hr Normal 0-30 [facility] Comment on above: Performed By: #### L 100.0100, L501.1105, L101.9900, L501.4100, L501.4405, L501.6710, L501.1000 #### [facility] [address] [place], [place], [id number] Erythrocyte distribution wid th ratioOrdered By: MEERA RENEE on 11-29-2024 Erythrocyte distribution width (RBC) [Ratio] 14.6 % 11.6-14.6 [facility] Erythrocyte distribution wid th standard deviationOrdered By: MEERA RENEE on 11-29-2024 Erythrocyte distribution width (RBC) [Ratio] 47.2 fl High 35.1-43.9 [facility] Erythrocyte sedimentation ra teOrdered By: MEERA RENEE on 11-29-2024 ESR (Bld) [Velocity] 11 mm/h 0-30 [facility] Glomerular filtration rate ( GFR) estimation/1.73 sq m using serum, plasma, or whole bOrdered By: MEERA RENEE on 11-29-2024 GFR/1.73 sq M.predicted among non-blacks MDRD (S/P/Bld) [Vol rate/Area] 72 mL/min/{1.73_m2} >60 [facility] Comment on above: mL/min/1.73m2 CKD-EP I Creatinine Equation (2020) Hematocrit Auto (Bld) [Volum e fraction]Ordered By: MEERA RENEE on 11-29-2024 Hematocrit (Bld) [Volume fraction] 42.1 % 37-47 [facility] Hemoglobin measurementOrdere d By: MEERA RENEE on 11-29-2024 Hemoglobin (Bld) [Mass/Vol] 14.3 g/dL 12.0-15.0 [facility] Immature granulocytes/100 WB C Auto (Bld)Ordered By: MEERA RENEE on 11-29-2024 Immature granulocytes/100 WBC (Bld) 0.200 % 0.0-0.9 [facility] Comment on above: IG% - Immature Granu locytes (promyelocytes, myelocytes and metamyelocytes) > 1% indicates that a LEFT SHIFT is Present. Laboratory - Chemistry and C hemistry - challengeOrdered By: MEERA RENEE on 11-29-2024 AST [Catalytic activity/Vol] 24 U/L <32 [facility] MCV (mean corpuscular volume ) determinationOrdered By: MEERA RENEE on 11-29-2024 MCV (RBC) [Entitic vol] 89.2 fL 81-99 [facility] Mean corpuscular hemoglobin (MCH) determinationOrdered By: MEERA RENEE on 11-29-2024 MCH (RBC) [Entitic mass] 30.3 pg 27.0-32.0 [facility] Mean corpuscular hemoglobin concentration (MCHC) determinationOrdered By: MEERA RENEE on 11-29-2024 MCHC (RBC) [Mass/Vol] 34.0 g/dL 32-36 [facility] Mean platelet volume determi nationOrdered By: MEERA RENEE on 11-29-2024 Platelet mean volume (Bld) [Entitic vol] 9.2 fL 6.2-12.0 [facility] Monocyte percentageOrdered B y: MEERA RENEE on 11-29-2024 Monocytes/100 WBC (Bld) 5.1 % 0-10 [facility] Neutrophil percentageOrdered By: MEERA RENEE on 11-29-2024 Neutrophils/100 WBC (Bld) 62.5 % 47-70 [facility] Nucleated red blood cell per centageOrdered By: MEERA RENEE on 11-29-2024 Nucleated RBC/100 WBC (Bld) [Ratio] 0 % 0-5 [facility] Platelet countOrdered By: RA KINGA RENEE on 11-29-2024 Platelets (Bld) [#/Vol] 270 10*3/uL 150-450 [facility] RBC Auto (Bld) [#/Vol]Ordere d By: MEEAR RENEE on 11-29-2024 RBC (Bld) [#/Vol] 4.72 10*6/uL 4.2-5.4 [facility] Serum Creatinine AND GFRon 0 11-29-2024 Creatinine [Mass/Vol] 0.86 mg/dL Normal 0.70-1.20 [facility] Comment on above: Performed By: #### L 100.0100, L501.1105, L101.9900, L501.4100, L501.4405, L501.6710, L501.1000 #### [facility] [address] [place], [place], [id number] GFR/1.73 sq M.predicted among non-blacks MDRD (S/P/Bld) [Vol rate/Area] 72 mL/min/{1.73_m2} Normal >60 [facility] Comment on above: Result Comment: mL/m in/1.73m2 CKD-EPI Creatinine Equation (2020) Performed By: #### L 100.0100, L501.1105, L101.9900, L501.4100, L501.4405, L501.6710, L501.1000 #### [facility] [address] [place], [place], [id number] Serum creatinine measurement (mass/volume)Ordered By: MEERA RENEE on 11-29-2024 Creatinine [Mass/Vol] 0.86 mg/dL 0.70-1.20 [facility] [facility] Serum or plasma C reactive p rotein measurement (mass/volume)Ordered By: MEERA RENEE on 11-29-2024 CRP [Mass/Vol] mg/L 0.0-3.0 [facility] Serum or plasma alanine harrell otransferase (ALT) measurementOrdered By: MEERA RENEE on 11-29-2024 ALT [Catalytic activity/Vol] 21 U/L <35 [facility] Serum or plasma urea nitroge n measurement (mass/volume)Ordered By: MEERA RENEE on 11-29-2024 Urea nitrogen [Mass/Vol] 11 mg/dL 4-19 [facility] White blood cell (WBC) count Ordered By: MEERA RENEE on 11-29-2024 WBC (Bld) [#/Vol] 8.4 10*3/uL 4.4-11.0 [facility] CNOVon 11-25-2024 CNOV Office Visit (OBGYWM ) JULIMARA ([id number]) 1955 F Date Time Provider Department 11/25/24 9:30 AM DEVANTE CHRISTENSEN During your visit today, we recorded the following information about you: Blood pressure Weight Height 158/94 83.9 kg 1.62 m Devante Christensen MD 11/25/2024 10:27 AM Signed Music 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 Mara is a 69 year old who presents for an annual gynecologic exam without complaints. Postmenopausal: Yes since age 47 HRT use: No. Leep: Yes: Bothersome pelvic pain: No Last mammogram: 2023 normal History of abnormal mammogram: No OB History Gravida2 Para2 Term2 Preterm0 AB0 Living2 SAB0 IAB0 Ectopic0 Multiple0 Live Births0 Comment: Largest baby 8 lb 9 oz Problem Relation Age of Onset Diabetes Mother Heart Father Ovarian cancer Sister No Known Problems Maternal Grandmother No Known Problems Maternal Grandfather No Known Problems Paternal Grandmother No Known Problems Paternal Grandfather SOCIAL HISTORY Social History Tobacco Use Smoking status: Former Current packs/day: 0.00 Types: Cigarettes Start date: 1969 Quit date: 12/29/2023 Years since quittin.9 Smokeless tobacco: Never Vaping Use Vaping status: Never Used Substance Use Topics Alcohol use: Yes Comment: occasional Drug use: Never REVIEW OF SYSTEMS Abdomen: No abdominal pain, nausea, vomiting, diarrhea, or constipation. No bloating, early satiety, indigestion, or increased flatulence. Bladder: No dysuria, gross hematuria, urinary frequency, urinary urgency, or incontinence Breast: No breast lumps, nipple d/c, overlying skin changes, redness or skin retraction Allergies and current medication updated:Yes SENSITIVE EXAM: The sensitive examination was discussed with the Patient or Patient's Authorized Foot Piece Assembler. As applicable, any other physician, advance practice provider, medical student, or other health professional student that will be observing or involved in the sensitive examination for educational or training purposes was discussed with the Patient or Authorized Foot Piece Assembler. The Patient or Authorized Foot Piece Assembler has agreed to proceed with the sensitive examination. (Sensitive examination includes inspection and/or palpation of the breasts, pelvis, prostate and anorectal regions). EXAM: There were no vitals taken for this visit. GENERAL: pleasant, female in no apparent distress HEENT: Normocephalic, atraumatic, mucus membranes moist, and no lesions NECK: Supple, full range of motion, no adenopathy, and thyroid normal DERMATOLOGY: Normal, without lesions, non-icteric, and non-hirsute BREAST: soft, non-tender, symmetric, no dominant mass, normal nipple-areolar complex, no lymphadenopathy, and no nipple discharge CHEST: Normal inspiratory effort ABDOMEN: soft, non-tender, and no masses PELVIC: external genitalia normal, normal Bartholin's glands, urethra, [place]'s glands, no vulvar lesions, no cervical lesions, good vaginal support, physiologic discharge present, normal appearing perineal body and perianal region BIMANUAL: uterus normal size, shape and consistency, no adnexal masses, and non-tender RECTOVAGINAL: deferred. NEURO: alert and oriented x3,exam grossly non-focal EXTREMITIES: normal ASSESSMENT/PLAN: 1) Health maintenance: Pap done with reflex HPV 2) Follow up one year or sooner as needed # elevated bp 158/94 is typical in office but normal at home MD Kana Sebastian Toni, MA 11/25/2024 11:38 AM Signed Addended by: LAI ROGER on: 11/25/2024 11:38 AM Modules accepted: Orders Devante Christensen MD 11/25/2024 12:20 PM Signed Addended by: DEVANTE CHRISTENSEN on: 11/25/2024 12:20 PM Modules accepted: Orders Referring Provider: SELF [200] Allergies As of Date: 11/25/2024 (No Known Allergies) Date Reviewed: 11/25/2024 Reviewed by: Lai Roger MA - Fully Assessed Reason for Visit: Well Woman [1463] Primary Visit Diagnosis:Encounter for gynecological examination (general) (routine) without abnormal findings [Z01.419] Other Visit Diagnoses:Encounter for screening mammogram for breast cancer [Z12.31] Screening for cervical cancer [Z12.4] Order(s):NICKY SCREENING W ESTRADA [[id number]] Order #: [id number] FUTURE PAP TEST [[id number]] Order #: [id number] Prescriptions as of 11/25/2024 - pyridoxine HCl, vitamin B6, (VITAMIN B-6 ORAL) Take by mouth. - alendronate (FOSAMAX) 35 mg tablet Take 35 mg by mouth one time a week. In AM with cup of water on empty stomach. Nothing else by mouth and stay upright for 30 min. - Lactobacillus acidophilus (PROBIOTIC ORAL) Take by mouth. - B.coagulans/maltodext/ guar gum (BENEFIBER ADVANCED ORAL) Take by mouth. - clobetasol (TEMOVATE) 0.05 % ointment Apply a half of fingertip unit over the affected area every (more content not included)... Normal [facility] HIGH RISK HUMAN PAPILLOMA GAEL (HPV), PCR FOR DETECTION AND GENOTYPINGon 11-25-2024 HPV 16 Ag Ql (Unsp spec) Not detected Normal Not detec marcelino [facility] Comment on above: Order Comment: Speci men Type: FLUID SPECIMEN Ordering Facility: [facility] Address: [address] [place] [address] Performed By: #### H PVHRT #### [facility] CLIA [id number] [address] [place] [address] [place] HPV 18 Ag Ql (Unsp spec) Not detected Normal Not detec marcelino [facility] Comment on above: Order Comment: Speci men Type: FLUID SPECIMEN Ordering Facility: [facility] Address: [address] [place] [address] Performed By: #### H PVHRT #### [facility] CLIA [id number] [address] [place] [address] [place] HPV 31+33+35+39+45+51+52+56+ 58+59+66+68 DNA JATINDER+probe Ql (Cvx) Not detected Normal Not detected [facility] Comment on above: Order Comment: Speci men Type: FLUID SPECIMEN Ordering Facility: [facility] Address: [address] [place] [address] Result Comment: High Risk HPV Other Type includes HPV types 31, 33, 35, 39, 45, 51, 52, 56, 58, 59, 66 and 68. Performed By: #### H PVHRT #### [facility] CLIA [id number] [address] [place] [address] [place] PAP TESTon 11-25-2024 ADEQUACY Normal [facility] Comment on above: Order Comment: Speci men Type: FLUID SPECIMEN Ordering Facility: [facility] Address: [address] [place] [address] Result Comment: Sati sfactory for interpretation. Transformation zone present Performed By: #### L [id number] #### [facility] CLIA [id number] [address] [place] [address] [place] CASE REPORT Normal [facility] Comment on above: Order Comment: Speci men Type: FLUID SPECIMEN Ordering Facility: [facility] Address: [address] [place] [address] Result Comment: Gyne cologic Cytology Report Case: [id number] Authorizing Provider: Devante Christensen MD Collected: 11/25/2024 12:26 PM Ordering Location: OB/Gynecology Received: 11/25/2024 03:56 PM First Screen: Lulu, Kianna, CT, ASCP Rescreen: Alia Santos Specimen: Pap Test, ThinPrep, Cervix Performed By: #### L [id number] #### [facility] CLIA [id number] [address] [place] [address] [place] [facility] CLINICAL HISTORY, CYTOLOGY, TRANSMISSIONS SYSTEMS OPERATOR Routine Exam Normal [facility] Comment on above: Order Comment: Speci men Type: FLUID SPECIMEN Ordering Facility: [facility] Address: [address] [place] [address] Result Comment: Post Menopausal Performed By: #### L [id number] #### [facility] CLIA [id number] [address] [place] [address] FINAL PERFORMING LAB Normal [facility] Comment on above: Order Comment: Speci men Type: FLUID SPECIMEN Ordering Facility: [facility] Address: [address] [place] [address] Result Comment: Tech nical component, administrative tech screening performed at: [facility], [address] [place] [address] CLIA: [id number] Diagnostic interpretation performed at: [facility], [address] [place] [address] CLIA# [id number] Conveyor Belt Operator: Manoj Driscoll MD Performed By: #### L [id number] #### [facility] CLIA [id number] [address] [place] [address] [place] INTERPRETATION, CYTOLOGY, TRANSMISSIONS SYSTEMS OPERATOR Normal [facility] Comment on above: Order Comment: Speci men Type: FLUID SPECIMEN Ordering Facility: [facility] Address: [address] [place] [address] Result Comment: Nega tive for intraepithelial lesion or malignancy. at 0927 EDT Performed By: #### L [id number] #### [facility] CLIA [id number] [address] [place] [address] [place] [facility] PAP DISCLAIMER COMMENT The Pap Smear is a screening test for cervical cancer. False negative results occur with all screening tests, emphasizing the need for rescreening at recommended intervals, and clinical correlation. Normal [facility] Comment on above: Order Comment: Speci men Type: FLUID SPECIMEN Ordering Facility: [facility] Address: [address] [place] [address] Performed By: #### L [id number] #### [facility] CLIA [id number] [place] PAP CYBER ENGINEER COMMENT This specimen has be en analyzed by the ThinPrep Imaging System, an automated imaging and review system, which assists the laboratory in evaluating cells on ThinPrep Pap tests. Following automated imaging, selected garcia from every slide are reviewed by a administrative tech. Normal [facility] Comment on above: Order Comment: Speci men Type: FLUID SPECIMEN Ordering Facility: [facility] Address: [address] [place] [address] Performed By: #### L [id number] #### [facility] CLIA [id number] OF [facility] Absolute lymphocyte countOrd ered By: Duane Huddleston on 11-20-2024 Lymphocytes Auto (Unsp spec) [#/Vol] 2.15 10*3/uL 0.83-4.51 [facility] Absolute neutrophil countOrd ered By: Duane Huddleston on 11-20-2024 Neutrophils (Bld) [#/Vol] 4.9 10*3/uL 2.0-7.7 [facility] Anion gap in Serum or Plasma Ordered By: Duane Huddleston on 11-20-2024 Anion gap [Moles/Vol] 12 mmol/L 5-15 [facility] Automated lymphocyte count a s percentage of total leukocytesOrdered By: Duane Huddleston on 11-20-2024 Lymphocytes/100 WBC Auto (Unsp spec) 28.3 % 19-41 [facility] BUN/creatinine ratioOrdered By: Duane Huddleston on 11-20-2024 Urea nitrogen/Creatinine [Mass ratio] 15.2 mg/mg 10-20 [facility] Basophil percentageOrdered B y: Duane Huddleston on 11-20-2024 Basophils/100 WBC (Bld) 0.7 % 0-1 [facility] Bilirubin, totalOrdered By: Duane Huddleston on 11-20-2024 Bilirubin [Mass/Vol] 0.24 mg/dL 0.00-1.30 [facility] CBC W/Diff, Automatedon 10-24 0-2024 Absolute Lymph 2.15 X10 3/uL Normal 0.83-4.51 [facility] Comment on above: Performed By: #### L 500.4050, L506.1001, L100.0100, L501.9520 #### [facility] [address] [place], [address] Absolute Neut 4.9 X10 3/uL Normal 2.0-7.7 [facility] Comment on above: Performed By: #### L 500.4050, L506.1001, L100.0100, L501.9520 #### [facility] [address] [place], [address] Basophils/100 WBC (Bld) 0.7 % Normal 0-1 [facility] Comment on above: Performed By: #### L 500.4050, L506.1001, L100.0100, L501.9520 #### [facility] [address] [place], [address] Eosinophils/100 WBC (Bld) 0.8 % Normal 0-5 [facility] Comment on above: Performed By: #### L 500.4050, L506.1001, L100.0100, L501.9520 #### [facility] [address] [place], [address] Erythrocyte distribution width (RBC) [Ratio] 14.6 % Normal 11.6-14.6 [facility] Comment on above: Performed By: #### L 500.4050, L506.1001, L100.0100, L501.9520 #### [facility] [address] [place], [address] Hematocrit (Bld) [Volume fraction] 43.5 % Normal 37-47 [facility] Comment on above: Performed By: #### L 500.4050, L506.1001, L100.0100, L501.9520 #### [facility] [address] [place], [address] Hemoglobin (Bld) [Mass/Vol] 14.5 g/dL Normal 12.0-15.0 [facility] Comment on above: Performed By: #### L 500.4050, L506.1001, L100.0100, L501.9520 #### [facility] [address] [place], [address] IG% 0.400 Normal 0.0-0.9 [facility] Comment on above: Result Comment: IG% - Immature Granulocytes (promyelocytes, myelocytes and metamyelocytes) > 1% indicates that a LEFT SHIFT is Present. Performed By: #### L 500.4050, L506.1001, L100.0100, L501.9520 #### [facility] [address] [place], [address] Lymphocytes/100 WBC (Bld) 28.3 % Normal 19-41 [facility] Comment on above: Performed By: #### L 500.4050, L506.1001, L100.0100, L501.9520 #### [facility] [address] [place], [address] MCH (RBC) [Entitic mass] 29.5 pg Normal 27.0-32.0 [facility] Comment on above: Performed By: #### L 500.4050, L506.1001, L100.0100, L501.9520 #### [facility] [address] [place], [address] MCHC (RBC) [Mass/Vol] 33.3 g/dL Normal 32-36 [facility] Comment on above: Performed By: #### L 500.4050, L506.1001, L100.0100, L501.9520 #### [facility] [address] [place], [address] MCV (RBC) [Entitic vol] 88.4 fL Normal 81-99 [facility] Comment on above: Performed By: #### L 500.4050, L506.1001, L100.0100, L501.9520 #### [facility] [address] [place], [address] Monocytes/100 WBC (Bld) 5.0 % Normal 0-10 [facility] Comment on above: Performed By: #### L 500.4050, L506.1001, L100.0100, L501.9520 #### [facility] [address] [place], [address] Neutrophils/100 WBC (Bld) 64.8 % Normal 47-70 [facility] Comment on above: Performed By: #### L 500.4050, L506.1001, L100.0100, L501.9520 #### [facility] [address] [place], [address] Nucleated RBC (Bld) [#/Vol] 0 10*3/uL Normal 0-5 [facility] Comment on above: Performed By: #### L 500.4050, L506.1001, L100.0100, L501.9520 #### [facility] [address] [place], [address] Platelet mean volume (Bld) [Entitic vol] 9.0 fL Normal 6.2-12.0 [facility] Comment on above: Performed By: #### L 500.4050, L506.1001, L100.0100, L501.9520 #### [facility] [address] [place], [address] Platelets (Bld) [#/Vol] 263 10*3/uL Normal 150-450 [facility] Comment on above: Performed By: #### L 500.4050, L506.1001, L100.0100, L501.9520 #### [facility] [address] [place], [address] RBC (Bld) [#/Vol] 4.92 10*6/uL Normal 4.2-5.4 [facility] Comment on above: Performed By: #### L 500.4050, L506.1001, L100.0100, L501.9520 #### [facility] [address] [place], [address] RDW SD 46.3 fl High 35.1-43.9 [facility] Comment on above: Performed By: #### L 500.4050, L506.1001, L100.0100, L501.9520 #### [facility] [address] [place], [address] WBC (Bld) [#/Vol] 7.6 10*3/uL Normal 4.4-11.0 [facility] Comment on above: Performed By: #### L 500.4050, L506.1001, L100.0100, L501.9520 #### [facility] [address] [place], [address] Carbon dioxide, total [Moles /volume] in Central venous bloodOrdered By: Duane Huddleston on 11-20-2024 CO2 [Moles/Vol] 22.3 mmol/L 21.0-32.0 [facility] Chloride assayOrdered By: Gueavra Huddleston on 11-20-2024 Chloride [Moles/Vol] 105 mmol/L 98-108 [facility] Comprehensive Metabolic Prof ilon 11-20-2024 Albumin [Mass/Vol] 4.2 g/dL Normal 3.4-4.8 [facility] Comment on above: Performed By: #### L 500.4050, L506.1001, L100.0100, L501.9520 #### [facility] [address] [place], [address] Albumin/Globulin [Mass ratio] 1.5 {ratio} Normal 0.9-2.4 [facility] Comment on above: Performed By: #### L 500.4050, L506.1001, L100.0100, L501.9520 #### [facility] [address] [place], [address] ALK PHOS 66 U/L Normal 35-104 [facility] Comment on above: Performed By: #### L 500.4050, L506.1001, L100.0100, L501.9520 #### [facility] [address] [place], [address] ALT [Catalytic activity/Vol] 22 U/L Normal <=34 [facility] Comment on above: Performed By: #### L 500.4050, L506.1001, L100.0100, L501.9520 #### [facility] [address] [place], [address] AST [Catalytic activity/Vol] 25 U/L Normal <=31 [facility] Comment on above: Performed By: #### L 500.4050, L506.1001, L100.0100, L501.9520 #### [facility] [address] [place], [address] Bilirubin [Mass/Vol] 0.24 mg/dL Normal 0.00-1.30 [facility] Comment on above: Performed By: #### L 500.4050, L506.1001, L100.0100, L501.9520 #### [facility] [address] [place], [address] BUN/CRE 15.2 RATIO Normal 10-20 [facility] Comment on above: Performed By: #### L 500.4050, L506.1001, L100.0100, L501.9520 #### [facility] [address] [place], [address] Calcium [Mass/Vol] 9.6 mg/dL Normal 7.6-11.0 [facility] Comment on above: Performed By: #### L 500.4050, L506.1001, L100.0100, L501.9520 #### [facility] [address] [place], [address] Chloride [Moles/Vol] 105 mmol/L Normal 98-108 [facility] Comment on above: Performed By: #### L 500.4050, L506.1001, L100.0100, L501.9520 #### [facility] [address] [place], [address] CO2 [Moles/Vol] 22.3 mmol/L Normal 21.0-32.0 [facility] Comment on above: Performed By: #### L 500.4050, L506.1001, L100.0100, L501.9520 #### [facility] [address] [place], [address] Creatinine [Mass/Vol] 0.96 mg/dL Normal 0.70-1.20 [facility] Comment on above: Performed By: #### L 500.4050, L506.1001, L100.0100, L501.9520 #### [facility] [address] [place], [address] GAP 12 Normal 5-15 [facility] Comment on above: Performed By: #### L 500.4050, L506.1001, L100.0100, L501.9520 #### [facility] [address] [place], [address] GFR/1.73 sq M.predicted among non-blacks MDRD (S/P/Bld) [Vol rate/Area] 63 mL/min/{1.73_m2} Normal >60 [facility] Comment on above: Result Comment: mL/m in/1.73m2 CKD-EPI Creatinine Equation (2020) Performed By: #### L 500.4050, L506.1001, L100.0100, L501.9520 #### [facility] [address] [place], [address] Globulin (S) [Mass/Vol] 2.9 g/dL Normal 2.2-4.2 [facility] Comment on above: Performed By: #### L 500.4050, L506.1001, L100.0100, L501.9520 #### [facility] [address] [place], [address] Glucose [Mass/Vol] 119 mg/dL High 70-99 [facility] Comment on above: Performed By: #### L 500.4050, L506.1001, L100.0100, L501.9520 #### [facility] [address] [place], [address] Potassium [Moles/Vol] 4.5 mmol/L Normal 3.3-5.1 [facility] Comment on above: Performed By: #### L 500.4050, L506.1001, L100.0100, L501.9520 #### [facility] [address] [place], [address] Sodium [Moles/Vol] 139 mmol/L Normal 133-145 [facility] Comment on above: Performed By: #### L 500.4050, L506.1001, L100.0100, L501.9520 #### [facility] [address] [place], [address] T PROT 7.0 g/dL Normal 5.9-8.4 [facility] Comment on above: Performed By: #### L 500.4050, L506.1001, L100.0100, L501.9520 #### [facility] [address] [place], [address] Urea nitrogen [Mass/Vol] 15 mg/dL Normal 4-19 [facility] Comment on above: Performed By: #### L 500.4050, L506.1001, L100.0100, L501.9520 #### [facility] [address] [place], [address] Eosinophil percentageOrdered By: Duane Huddleston on 11-20-2024 Eosinophils/100 WBC (Bld) 0.8 % 0-5 [facility] Erythrocyte distribution wid th ratioOrdered By: Duane Huddleston on 11-20-2024 Erythrocyte distribution width (RBC) [Ratio] 14.6 % 11.6-14.6 [facility] Erythrocyte distribution wid th standard deviationOrdered By: Duane Huddleston on 11-20-2024 Erythrocyte distribution width (RBC) [Ratio] 46.3 fl High 35.1-43.9 [facility] Glomerular filtration rate ( GFR) estimation/1.73 sq m using serum, plasma, or whole bOrdered By: Duane Huddleston on 11-20-2024 GFR/1.73 sq M.predicted among non-blacks MDRD (S/P/Bld) [Vol rate/Area] 63 mL/min/{1.73_m2} >60 [facility] Comment on above: mL/min/1.73m2 CKD-EP I Creatinine Equation (2020) Hematocrit Auto (Bld) [Volum e fraction]Ordered By: Duane Huddleston on 11-20-2024 Hematocrit (Bld) [Volume fraction] 43.5 % 37-47 [facility] Hemoglobin measurementOrdere d By: Duane Huddleston 11-20-2024 Hemoglobin (Bld) [Mass/Vol] 14.5 g/dL 12.0-15.0 [facility] Immature granulocytes/100 WB C Auto (Bld)Ordered By: Duane Huddleston 11-20-2024 Immature granulocytes/100 WBC (Bld) 0.400 % 0.0-0.9 [facility] Comment on above: IG% - Immature Granu locytes (promyelocytes, myelocytes and metamyelocytes) > 1% indicates that a LEFT SHIFT is Present. Laboratory - Chemistry and C hemistry - challengeOrdered By: Duane Huddleston on 11-20-2024 AST [Catalytic activity/Vol] 25 U/L <32 [facility] MCV (mean corpuscular volume ) determinationOrdered By: Duane Huddleston on 11-20-2024 MCV (RBC) [Entitic vol] 88.4 fL 81-99 [facility] Mean corpuscular hemoglobin (MCH) determinationOrdered By: Duane Huddleston on 11-20-2024 MCH (RBC) [Entitic mass] 29.5 pg 27.0-32.0 [facility] Mean corpuscular hemoglobin concentration (MCHC) determinationOrdered By: Duane Huddleston on 11-20-2024 MCHC (RBC) [Mass/Vol] 33.3 g/dL 32-36 [facility] Mean platelet volume determi nationOrdered By: Duane Huddleston on 11-20-2024 Platelet mean volume (Bld) [Entitic vol] 9.0 fL 6.2-12.0 [facility] Monocyte percentageOrdered B y: Duane Huddleston on 11-20-2024 Monocytes/100 WBC (Bld) 5.0 % 0-10 [facility] Neutrophil percentageOrdered By: Duane Huddleston on 11-20-2024 Neutrophils/100 WBC (Bld) 64.8 % 47-70 [facility] Nucleated red blood cell per centageOrdered By: Duane Huddleston on 11-20-2024 Nucleated RBC/100 WBC (Bld) [Ratio] 0 % 0-5 [facility] Platelet countOrdered By: Guevara Huddleston on 11-20-2024 Platelets (Bld) [#/Vol] 263 10*3/uL 150-450 [facility] Potassium measurement (mass/ volume)Ordered By: Duane Huddleston on 11-20-2024 Potassium (Unsp spec) [Mass/Vol] 4.5 mmol/L 3.3-5.1 [facility] RBC Auto (Bld) [#/Vol]Ordere d By: Duane Huddleston on 11-20-2024 RBC (Bld) [#/Vol] 4.92 10*6/uL 4.2-5.4 [facility] Serum creatinine measurement (mass/volume)Ordered By: Duane Huddleston on 11-20-2024 Creatinine [Mass/Vol] 0.96 mg/dL 0.70-1.20 [facility] Serum globulin measurementOr dered By: Duane Huddleston 11-20-2024 Globulin (S) [Mass/Vol] 2.9 g/dL 2.2-4.2 [facility] Serum glucose measurement (m ass/volume)Ordered By: Duane Huddleston on 11-20-2024 Glucose [Mass/Vol] 119 mg/dL High 70-99 [facility] Serum or plasma alanine harrell otransferase (ALT) measurementOrdered By: Duane Huddleston 11-20-2024 ALT [Catalytic activity/Vol] 22 U/L <35 [facility] Serum or plasma albumin jordan urement (mass/volume)Ordered By: Duane Huddleston 11-20-2024 Albumin [Mass/Vol] 4.2 g/dL 3.4-4.8 [facility] Serum or plasma albumin/glob ulin mass ratioOrdered By: Duane Hdudleston 11-20-2024 Albumin/Globulin [Mass ratio] 1.5 {ratio} 0.9-2.4 [facility] Serum or plasma alkaline martina sphatase measurementOrdered By: Duane Huddleston 11-20-2024 ALP [Catalytic activity/Vol] 66 U/L 35-104 [facility] Serum or plasma calcium jordan urement (mass/volume)Ordered By: Duane Huddleston 11-20-2024 Calcium [Mass/Vol] 9.6 mg/dL 7.6-11.0 [facility] Serum or plasma urea nitroge n measurement (mass/volume)Ordered By: Duane Huddleston 11-20-2024 Urea nitrogen [Mass/Vol] 15 mg/dL 4-19 [facility] Sodium levelOrdered By: Duane Huddleston 11-20-2024 Sodium [Moles/Vol] 139 mmol/L 133-145 [facility] TSH DL <= 0.005 mIU/L QnOrde red By: Duane Huddleston on 11-20-2024 TSH Qn 0.944 uIU/mL 0.300-4.200 [facility] Thyroid Stim Hormone (TSH)on 11-20-2024 TSH 0.944 uIU/mL Normal 0.300-4.200 [facility] Comment on above: Performed By: #### L 500.4050, L506.1001, L100.0100, L501.9520 #### [facility] [address] [place], [place], [id number] Total proteinOrdered By: Duane Huddleston on 11-20-2024 Protein [Mass/Vol] 7.0 g/dL 5.9-8.4 [facility] Vitamin D,25 Hydroxyon 11-20 Vitamin D 25-OH 40.6 ng/mL Normal 30-100 [facility] Comment on above: Result Comment: Kylee min D Status Deficiency: <20 ng/mL (50nmol/L) Insufficiency: 20-30 ng/mL (50-75 nmol/L) Sufficiency: 30-100 ng/mL (75-250 nmol/L) Toxicity: >100 ng/mL (>250 nmol/L) Performed By: #### L 100.0100, L501.1105, L101.9900, L501.4100, L501.4405, L501.6710, L501.1000 #### [facility] [address] [place], [address] White blood cell (WBC) count Ordered By: Duane Huddleston on 11-20-2024 WBC (Bld) [#/Vol] 7.6 10*3/uL 4.4-11.0 [facility] AST(SGOT)on 09-30-2024 AST [Catalytic activity/Vol] 35 U/L High <=31 [facility] Comment on above: Result Comment: Hemo lysis present, Results??could be affected. ?? Performed By: #### L 100.0100, L501.1105, L101.9900, L501.4100, L501.4405, L501.6710, L501.1000 #### [facility] [address] [place], [place], [id number] Absolute lymphocyte countOrd ered By: MEERA RENEE on 09-30-2024 Lymphocytes Auto (Unsp spec) [#/Vol] 3.00 10*3/uL 0.83-4.51 [facility] Absolute neutrophil countOrd ered By: MEERA RENEE on 09-30-2024 Neutrophils (Bld) [#/Vol] 5.7 10*3/uL 2.0-7.7 [facility] Alanine Aminotransferas (SGP T)on 09-30-2024 ALT [Catalytic activity/Vol] 27 U/L Normal <=34 [facility] Comment on above: Performed By: #### L 100.0100, L501.1105, L101.9900, L501.4100, L501.4405, L501.6710, L501.1000 #### [facility] [address] [place], [place], [id number] Automated lymphocyte count a s percentage of total leukocytesOrdered By: MEERA RENEE on 09-30-2024 Lymphocytes/100 WBC Auto (Unsp spec) 31.4 % 19-41 [facility] BUNon 09-30-2024 Urea nitrogen [Mass/Vol] 18 mg/dL Normal 4-19 [facility] Comment on above: Performed By: #### L 100.0100, L501.1105, L101.9900, L501.4100, L501.4405, L501.6710, L501.1000 #### [facility] [address] [place], [place], [id number] Basophil percentageOrdered B y: MEERA RENEE on 09-30-2024 Basophils/100 WBC (Bld) 0.7 % 0-1 [facility] CBC W/Diff, Automatedon 09-21 0-2024 Absolute Lymph 3.00 X10 3/uL Normal 0.83-4.51 [facility] Comment on above: Performed By: #### L 100.0100, L501.1105, L101.9900, L501.4100, L501.4405, L501.6710, L501.1000 #### [facility] [address] [place], [address] Absolute Neut 5.7 X10 3/uL Normal 2.0-7.7 [facility] Comment on above: Performed By: #### L 100.0100, L501.1105, L101.9900, L501.4100, L501.4405, L501.6710, L501.1000 #### [facility] [address] [place], [address] Basophils/100 WBC (Bld) 0.7 % Normal 0-1 [facility] Comment on above: Performed By: #### L 100.0100, L501.1105, L101.9900, L501.4100, L501.4405, L501.6710, L501.1000 #### [facility] [address] [place], [address] Eosinophils/100 WBC (Bld) 0.7 % Normal 0-5 [facility] Comment on above: Performed By: #### L 100.0100, L501.1105, L101.9900, L501.4100, L501.4405, L501.6710, L501.1000 #### [facility] [address] [place], [address] Erythrocyte distribution width (RBC) [Ratio] 13.7 % Normal 11.6-14.6 [facility] Comment on above: Performed By: #### L 100.0100, L501.1105, L101.9900, L501.4100, L501.4405, L501.6710, L501.1000 #### [facility] [address] [place], [address] Hematocrit (Bld) [Volume fraction] 45.6 % Normal 37-47 [facility] Comment on above: Performed By: #### L 100.0100, L501.1105, L101.9900, L501.4100, L501.4405, L501.6710, L501.1000 #### [facility] [address] [place], [address] Hemoglobin (Bld) [Mass/Vol] 15.3 g/dL High 12.0-15.0 [facility] Comment on above: Performed By: #### L 100.0100, L501.1105, L101.9900, L501.4100, L501.4405, L501.6710, L501.1000 #### [facility] [address] [place], [address] IG% 0.300 Normal 0.0-0.9 [facility] Comment on above: Result Comment: IG% - Immature Granulocytes (promyelocytes, myelocytes and metamyelocytes) > 1% indicates that a LEFT SHIFT is Present. Performed By: #### L 100.0100, L501.1105, L101.9900, L501.4100, L501.4405, L501.6710, L501.1000 #### [facility] [address] [facility], [address] Lymphocytes/100 WBC (Bld) 31.4 % Normal 19-41 [facility] Comment on above: Performed By: #### L 100.0100, L501.1105, L101.9900, L501.4100, L501.4405, L501.6710, L501.1000 #### [facility] [address] [place], [address] MCH (RBC) [Entitic mass] 29.1 pg Normal 27.0-32.0 [facility] Comment on above: Performed By: #### L 100.0100, L501.1105, L101.9900, L501.4100, L501.4405, L501.6710, L501.1000 #### [facility] [address] [place], [address] MCHC (RBC) [Mass/Vol] 33.6 g/dL Normal 32-36 [facility] Comment on above: Performed By: #### L 100.0100, L501.1105, L101.9900, L501.4100, L501.4405, L501.6710, L501.1000 #### [facility] [address] [place], [address] MCV (RBC) [Entitic vol] 86.7 fL Normal 81-99 [facility] Comment on above: Performed By: #### L 100.0100, L501.1105, L101.9900, L501.4100, L501.4405, L501.6710, L501.1000 #### [facility] [address] [place], [address] Monocytes/100 WBC (Bld) 7.5 % Normal 0-10 [facility] Comment on above: Performed By: #### L 100.0100, L501.1105, L101.9900, L501.4100, L501.4405, L501.6710, L501.1000 #### [facility] [address] [place], [address] Neutrophils/100 WBC (Bld) 59.4 % Normal 47-70 [facility] Comment on above: Performed By: #### L 100.0100, L501.1105, L101.9900, L501.4100, L501.4405, L501.6710, L501.1000 #### [facility] [address] [place], [address] Nucleated RBC (Bld) [#/Vol] 0 10*3/uL Normal 0-5 [facility] Comment on above: Performed By: #### L 100.0100, L501.1105, L101.9900, L501.4100, L501.4405, L501.6710, L501.1000 #### [facility] [address] [place], [address] Platelet mean volume (Bld) [Entitic vol] 9.2 fL Normal 6.2-12.0 [facility] Comment on above: Performed By: #### L 100.0100, L501.1105, L101.9900, L501.4100, L501.4405, L501.6710, L501.1000 #### [facility] [address] [place], [address] Platelets (Bld) [#/Vol] 362 10*3/uL Normal 150-450 [facility] Comment on above: Performed By: #### L 100.0100, L501.1105, L101.9900, L501.4100, L501.4405, L501.6710, L501.1000 #### [facility] [address] [place], [address] RBC (Bld) [#/Vol] 5.26 10*6/uL Normal 4.2-5.4 [facility] Comment on above: Performed By: #### L 100.0100, L501.1105, L101.9900, L501.4100, L501.4405, L501.6710, L501.1000 #### [facility] [address] [place], [address] RDW SD 42.2 fl Normal 35.1-43.9 [facility] Comment on above: Performed By: #### L 100.0100, L501.1105, L101.9900, L501.4100, L501.4405, L501.6710, L501.1000 #### [facility] [address] [place], [address] WBC (Bld) [#/Vol] 9.6 10*3/uL Normal 4.4-11.0 [facility] Comment on above: Performed By: #### L 100.0100, L501.1105, L101.9900, L501.4100, L501.4405, L501.6710, L501.1000 #### [facility] [address] [place], [place], [id number] CRPon 09-30-2024 C-REACTIVE PROT < 3.00 Normal 0.0-3.0 [facility] Comment on above: Performed By: #### L 100.0100, L501.1105, L101.9900, L501.4100, L501.4405, L501.6710, L501.1000 #### [facility] [address] [place], [address] CRP [Mass/Vol]Ordered By: RA KINGA RENEE on 09-30-2024 C-Reactive Protein Extended Range < 3.00 mg/L 0.0-3.0 [facility] Eosinophil percentageOrdered By: MEERA RENEE on 09-30-2024 Eosinophils/100 WBC (Bld) 0.7 % 0-5 [facility] Erythrocyte Sed Rateon 09-30 SED RATE 13 mm/hr Normal 0-30 [facility] Comment on above: Performed By: #### L 100.0100, L501.1105, L101.9900, L501.4100, L501.4405, L501.6710, L501.1000 #### [facility] [address] [place], [place], [id number] Erythrocyte distribution wid th ratioOrdered By: MEERA RENEE on 09-30-2024 Erythrocyte distribution width (RBC) [Ratio] 13.7 % 11.6-14.6 [facility] Erythrocyte distribution wid th standard deviationOrdered By: MEERA RENEE on 09-30-2024 Erythrocyte distribution width (RBC) [Entitic vol] 42.2 fL 35.1-43.9 [facility] Erythrocyte distribution width (RBC) [Ratio] 42.2 fl 35.1-43.9 [facility] Erythrocyte sedimentation ra teOrdered By: MEERA RENEE on 09-30-2024 ESR (Bld) [Velocity] 13 mm/h 0-30 [facility] GFR/1.73 sq M.predicted adilene g non-blacks MDRD (S/P/Bld) [Vol rate/Area]Ordered By: MEERA RENEE on 09-30-2024 Estimated GFR (MDRD) Non-Af Amer 59 Low >60 [facility] Comment on above: mL/min/1.73m2 CKD-EP I Creatinine Equation (2020) Glomerular filtration rate ( GFR) estimation/1.73 sq m using serum, plasma, or whole bOrdered By: MEERA RENEE on 09-30-2024 GFR/1.73 sq M.predicted among non-blacks MDRD (S/P/Bld) [Vol rate/Area] 59 mL/min/{1.73_m2} Low >60 [facility] Comment on above: mL/min/1.73m2 CKD-EP I Creatinine Equation (2020) Hematocrit Auto (Bld) [Volum e fraction]Ordered By: MEERA RENEE on 09-30-2024 Hematocrit (Bld) [Volume fraction] 45.6 % 37-47 [facility] Hemoglobin measurementOrdere d By: MEERA RENEE on 09-30-2024 Hemoglobin (Bld) [Mass/Vol] 15.3 g/dL High 12.0-15.0 [facility] Immature granulocytes/100 WB C Auto (Bld)Ordered By: MEERA RENEE on 09-30-2024 Immature granulocytes/100 WBC (Bld) 0.300 % 0.0-0.9 [facility] Comment on above: IG% - Immature Granu locytes (promyelocytes, myelocytes and metamyelocytes) > 1% indicates that a LEFT SHIFT is Present. Laboratory - Chemistry and C hemistry - challengeOrdered By: MEERA RENEE on 09-30-2024 AST [Catalytic activity/Vol] 35 U/L High <32 [facility] Comment on above: Hemolysis present, R esults could be affected. Lymphocytes Auto (Unsp spec) [#/Vol]Ordered By: MEERA RENEE on 09-30-2024 Lymphocytes (Bld) [#/Vol] 3.00 10*3/uL 0.83-4.51 [facility] Lymphocytes/100 WBC Auto (Un sp spec)Ordered By: MEERA RENEE on 09-30-2024 Lymphocytes/100 WBC (Bld) 31.4 % 19-41 [facility] MCV (mean corpuscular volume ) determinationOrdered By: MEERA RENEE on 09-30-2024 MCV (RBC) [Entitic vol] 86.7 fL 81-99 [facility] Mean corpuscular hemoglobin (MCH) determinationOrdered By: MEERA RENEE on 09-30-2024 MCH (RBC) [Entitic mass] 29.1 pg 27.0-32.0 [facility] Mean corpuscular hemoglobin concentration (MCHC) determinationOrdered By: MEERA RENEE on 09-30-2024 MCHC (RBC) [Mass/Vol] 33.6 g/dL 32-36 [facility] Mean platelet volume determi nationOrdered By: MEERA RENEE on 09-30-2024 Platelet mean volume (Bld) [Entitic vol] 9.2 fL 6.2-12.0 [facility] Monocyte percentageOrdered B y: MEERA RENEE on 09-30-2024 Monocytes/100 WBC (Bld) 7.5 % 0-10 [facility] Neutrophil percentageOrdered By: MEERA RENEE on 09-30-2024 Neutrophils/100 WBC (Bld) 59.4 % 47-70 [facility] Nucleated red blood cell per centageOrdered By: MEERA RENEE on 09-30-2024 Nucleated RBC/100 WBC (Bld) [Ratio] 0 % 0-5 [facility] Platelet countOrdered By: RA KINGA RENEE on 09-30-2024 Platelets (Bld) [#/Vol] 362 10*3/uL 150-450 [facility] RBC Auto (Bld) [#/Vol]Ordere d By: MEERA RENEE on 09-30-2024 RBC (Bld) [#/Vol] 5.26 10*6/uL 4.2-5.4 [facility] Serum Creatinine AND GFRon 0 09-30-2024 Creatinine [Mass/Vol] 1.02 mg/dL Normal 0.70-1.20 [facility] Comment on above: Performed By: #### L 100.0100, L501.1105, L101.9900, L501.4100, L501.4405, L501.6710, L501.1000 #### [facility] [address] [place], [place], [address] GFR/1.73 sq M.predicted among non-blacks MDRD (S/P/Bld) [Vol rate/Area] 59 mL/min/{1.73_m2} Low >60 [facility] Comment on above: Result Comment: mL/m in/1.73m2 CKD-EPI Creatinine Equation (2020) Performed By: #### L 100.0100, L501.1105, L101.9900, L501.4100, L501.4405, L501.6710, L501.1000 #### [facility] [address] [place], [place], [id number] Serum creatinine measurement (mass/volume)Ordered By: MEERA RENEE on 09-30-2024 Creatinine [Mass/Vol] 1.02 mg/dL 0.70-1.20 [facility] Serum or plasma C reactive p rotein measurement (mass/volume)Ordered By: MEERA RENEE on 09-30-2024 CRP [Mass/Vol] mg/L 0.0-3.0 [facility] Serum or plasma alanine harrell otransferase (ALT) measurementOrdered By: MEERA RENEE on 09-30-2024 ALT [Catalytic activity/Vol] 27 U/L <35 [facility] Serum or plasma urea nitroge n measurement (mass/volume)Ordered By: MEERA RENEE on 09-30-2024 Urea nitrogen [Mass/Vol] 18 mg/dL 4-19 [facility] White blood cell (WBC) count Ordered By: MEERA RENEE on 09-30-2024 WBC (Bld) [#/Vol] 9.6 10*3/uL 4.4-11.0 [facility] AST(SGOT)on 06-26-2024 AST [Catalytic activity/Vol] 26 U/L Normal 15-37 [facility] Comment on above: Performed By: #### L 100.0100, L501.1105, L101.9900, L501.4100, L501.4405, L501.6710, L501.1000 #### [facility] [address] [place], [place], [id number] Absolute neutrophil countOrd ered By: MEERA RENEE on 06-26-2024 Neutrophils (Bld) [#/Vol] 5.0 10*3/uL 2.0-7.7 [facility] Alanine Aminotransferas (SGP T)on 06-26-2024 ALT [Catalytic activity/Vol] 36 U/L Normal 13-56 [facility] Comment on above: Performed By: #### L 100.0100, L501.1105, L101.9900, L501.4100, L501.4405, L501.6710, L501.1000 #### [facility] [address] [place], [place], [id number] BUNon 06-26-2024 Urea nitrogen [Mass/Vol] 11 mg/dL Normal 7-18 [facility] Comment on above: Performed By: #### L 100.0100, L501.1105, L101.9900, L501.4100, L501.4405, L501.6710, L501.1000 #### [facility] [address] [place], [place], [id number] Basophil percentageOrdered B y: MEERA RENEE on 06-26-2024 Basophils/100 WBC (Bld) 0.7 % 0-1 [facility] C-reactive protein measureme nt by high sensitivity methodOrdered By: MEERA RENEE on 06-26-2024 C-Reactive Protein Extended Range 4.17 mg/L High 0.0-3.0 [facility] Comment on above: C-Reactive Protein ( CRP) provides useful information for thediagnosis, therapy and monitoring of inflammatory processesand associated diseases. For the evaluation of Relative Riskfor Cardiovascular Disease, a High Sensitivity CRP (HSCRP)should be ordered. CBC W/Diff, Automatedon 12-0 -2023 Absolute Lymph 2.95 X10 3/uL Normal 0.83-4.51 [facility] Comment on above: Performed By: #### L 100.0100, L501.1105, L101.9900, L501.4100, L501.4405, L501.6710, L501.1000 #### [facility] [address] [place], [address] Absolute Neut 5.0 X10 3/uL Normal 2.0-7.7 [facility] Comment on above: Performed By: #### L 100.0100, L501.1105, L101.9900, L501.4100, L501.4405, L501.6710, L501.1000 #### [facility] [address] [place], [address] Basophils/100 WBC (Bld) 0.7 % Normal 0-1 [facility] Comment on above: Performed By: #### L 100.0100, L501.1105, L101.9900, L501.4100, L501.4405, L501.6710, L501.1000 #### [facility] [address] [place], [address] Eosinophils/100 WBC (Bld) 1.2 % Normal 0-5 [facility] Comment on above: Performed By: #### L 100.0100, L501.1105, L101.9900, L501.4100, L501.4405, L501.6710, L501.1000 #### [facility] [address] [place], [address] Erythrocyte distribution width (RBC) [Ratio] 13.8 % Normal 11.6-14.6 [facility] Comment on above: Performed By: #### L 100.0100, L501.1105, L101.9900, L501.4100, L501.4405, L501.6710, L501.1000 #### [facility] [address] [place], [address] Hematocrit (Bld) [Volume fraction] 44.5 % Normal 37-47 [facility] Comment on above: Performed By: #### L 100.0100, L501.1105, L101.9900, L501.4100, L501.4405, L501.6710, L501.1000 #### [facility] [address] [place], [address] Hemoglobin (Bld) [Mass/Vol] 14.8 g/dL Normal 12.0-15.0 [facility] Comment on above: Performed By: #### L 100.0100, L501.1105, L101.9900, L501.4100, L501.4405, L501.6710, L501.1000 #### [facility] [address], [address] IG% 0.300 Normal 0.0-0.9 [facility] Comment on above: Result Comment: IG% - Immature Granulocytes (promyelocytes, myelocytes and metamyelocytes) > 1% indicates that a LEFT SHIFT is Present. Performed By: #### L 100.0100, L501.1105, L101.9900, L501.4100, L501.4405, L501.6710, L501.1000 #### [facility] [address] [place], [address] Lymphocytes/100 WBC (Bld) 34.3 % Normal 19-41 [facility] Comment on above: Performed By: #### L 100.0100, L501.1105, L101.9900, L501.4100, L501.4405, L501.6710, L501.1000 #### [facility] [address] [place], [address] MCH (RBC) [Entitic mass] 30.0 pg Normal 27.0-32.0 [facility] Comment on above: Performed By: #### L 100.0100, L501.1105, L101.9900, L501.4100, L501.4405, L501.6710, L501.1000 #### [facility] [address] [place], [address] MCHC (RBC) [Mass/Vol] 33.3 g/dL Normal 32-36 [facility] Comment on above: Performed By: #### L 100.0100, L501.1105, L101.9900, L501.4100, L501.4405, L501.6710, L501.1000 #### [facility] [address] [place], [address] MCV (RBC) [Entitic vol] 90.1 fL Normal 81-99 [facility] Comment on above: Performed By: #### L 100.0100, L501.1105, L101.9900, L501.4100, L501.4405, L501.6710, L501.1000 #### [facility] [address] [place], [address] Monocytes/100 WBC (Bld) 5.9 % Normal 0-10 [facility] Comment on above: Performed By: #### L 100.0100, L501.1105, L101.9900, L501.4100, L501.4405, L501.6710, L501.1000 #### [facility] [address] [place], [address] Neutrophils/100 WBC (Bld) 57.6 % Normal 47-70 [facility] Comment on above: Performed By: #### L 100.0100, L501.1105, L101.9900, L501.4100, L501.4405, L501.6710, L501.1000 #### [facility] [address] [place], [address] Nucleated RBC (Bld) [#/Vol] 0 10*3/uL Normal 0-5 [facility] Comment on above: Performed By: #### L 100.0100, L501.1105, L101.9900, L501.4100, L501.4405, L501.6710, L501.1000 #### [facility] [address] [place], [address] Platelet mean volume (Bld) [Entitic vol] 9.3 fL Normal 6.2-12.0 [facility] Comment on above: Performed By: #### L 100.0100, L501.1105, L101.9900, L501.4100, L501.4405, L501.6710, L501.1000 #### [facility] [address] [place], [address] Platelets (Bld) [#/Vol] 304 10*3/uL Normal 150-450 [facility] Comment on above: Performed By: #### L 100.0100, L501.1105, L101.9900, L501.4100, L501.4405, L501.6710, L501.1000 #### [facility] [address] [place], [address] RBC (Bld) [#/Vol] 4.94 10*6/uL Normal 4.2-5.4 [facility] Comment on above: Performed By: #### L 100.0100, L501.1105, L101.9900, L501.4100, L501.4405, L501.6710, L501.1000 #### [facility] [address] [place], [address] RDW SD 44.9 fl High 35.1-43.9 [facility] Comment on above: Performed By: #### L 100.0100, L501.1105, L101.9900, L501.4100, L501.4405, L501.6710, L501.1000 #### [facility] [address] [place], [address] WBC (Bld) [#/Vol] 8.6 10*3/uL Normal 4.4-11.0 [facility] Comment on above: Performed By: #### L 100.0100, L501.1105, L101.9900, L501.4100, L501.4405, L501.6710, L501.1000 #### [facility] [address] [place], [address] CRPon 06-26-2024 C-REACTIVE PROT 4.17 mg/L High 0.0-3.0 [facility] Comment on above: Result Comment: C-Re active Protein (CRP) provides useful information for the diagnosis, therapy and monitoring of inflammatory processes and associated diseases. For the evaluation of Relative Risk for Cardiovascular Disease, a High Sensitivity CRP (HSCRP) should be ordered. Performed By: #### L 100.0100, L501.1105, L101.9900, L501.4100, L501.4405, L501.6710, L501.1000 #### [facility] [address] [place], [address] Eosinophil percentageOrdered By: MEERA RENEE on 06-26-2024 Eosinophils/100 WBC (Bld) 1.2 % 0-5 [facility] Erythrocyte Sed Rateon 06-26 SED RATE 15 mm/hr Normal 0-30 [facility] Comment on above: Performed By: #### L 100.0100, L501.1105, L101.9900, L501.4100, L501.4405, L501.6710, L501.1000 #### [facility] [address] [place], [address] Erythrocyte distribution wid th ratioOrdered By: MEERA RENEE on 06-26-2024 Erythrocyte distribution width (RBC) [Ratio] 13.8 % 11.6-14.6 [facility] Erythrocyte distribution wid th standard deviationOrdered By: MEERA RENEE on 06-26-2024 Erythrocyte distribution width (RBC) [Entitic vol] 44.9 fL High 35.1-43.9 [facility] Erythrocyte sedimentation ra teOrdered By: MEERA RENEE on 06-26-2024 ESR (Bld) [Velocity] 15 mm/h 0-30 [facility] Estimated glomerular filtrat ion rate (GFR) AmericanOrdered By: MEERA RENEE on 06-26-2024 Estimated GFR (MDRD) Amer 64 mL/min >60 [facility] Comment on above: GFR Calc Glomerular filtration rate ( GFR) estimationOrdered By: MEERA RENEE on 06-26-2024 Estimated GFR (MDRD) Non-Af Amer 53 mL/min Low >60 [facility] Comment on above: Non- GFR Calc Hematocrit Auto (Bld) [Volum e fraction]Ordered By: MEERA RENEE on 06-26-2024 Hematocrit (Bld) [Volume fraction] 44.5 % 37-47 [facility] Hemoglobin measurementOrdere d By: MEERA RENEE on 06-26-2024 Hemoglobin (Bld) [Mass/Vol] 14.8 g/dL 12.0-15.0 [facility] Immature granulocytes/100 WB C Auto (Bld)Ordered By: MEERA RENEE on 06-26-2024 Immature granulocytes/100 WBC (Bld) 0.300 % 0.0-0.9 [facility] Comment on above: IG% - Immature Granu locytes (promyelocytes, myelocytes and metamyelocytes) > 1% indicates that a LEFT SHIFT is Present. Laboratory - Chemistry and C hemistry - challengeOrdered By: MEERA RENEE on 06-26-2024 AST [Catalytic activity/Vol] 26 U/L 15-37 [facility] Lymphocytes Auto (Unsp spec) [#/Vol]Ordered By: MEERA RENEE on 06-26-2024 Lymphocytes (Bld) [#/Vol] 2.95 10*3/uL 0.83-4.51 [facility] Lymphocytes/100 WBC Auto (Un sp spec)Ordered By: MEERA RENEE on 06-26-2024 Lymphocytes/100 WBC (Bld) 34.3 % 19-41 [facility] MCV (mean corpuscular volume ) determinationOrdered By: MEERA RENEE on 06-26-2024 MCV (RBC) [Entitic vol] 90.1 fL 81-99 [facility] Mean corpuscular hemoglobin (MCH) determinationOrdered By: MEERA RENEE on 06-26-2024 MCH (RBC) [Entitic mass] 30.0 pg 27.0-32.0 [facility] Mean corpuscular hemoglobin concentration (MCHC) determinationOrdered By: MEERA RENEE on 06-26-2024 MCHC (RBC) [Mass/Vol] 33.3 g/dL 32-36 [facility] Mean platelet volume determi nationOrdered By: MEERA RENEE on 06-26-2024 Platelet mean volume (Bld) [Entitic vol] 9.3 fL 6.2-12.0 [facility] Monocyte percentageOrdered B y: MEERA RENEE on 06-26-2024 Monocytes/100 WBC (Bld) 5.9 % 0-10 [facility] Neutrophil percentageOrdered By: MEERA RENEE on 06-26-2024 Neutrophils/100 WBC (Bld) 57.6 % 47-70 [facility] Nucleated red blood cell per centageOrdered By: MEERA RENEE on 06-26-2024 Nucleated RBC/100 WBC (Bld) [Ratio] 0 % 0-5 [facility] Platelet countOrdered By: RA KINGA RENEE on 06-26-2024 Platelets (Bld) [#/Vol] 304 10*3/uL 150-450 [facility] RBC Auto (Bld) [#/Vol]Ordere d By: MEERA RENEE on 06-26-2024 RBC (Bld) [#/Vol] 4.94 10*6/uL 4.2-5.4 [facility] Serum Creatinine AND GFRon 1 08-27-2023 Creatinine [Mass/Vol] 1.09 mg/dL High 0.55-1.02 [facility] Comment on above: Result Comment: The validity of the calculated GFR GFRAA in patients over 70 years has not been determined. Clinical correlation is essential. Performed By: #### L 100.0100, L501.1105, L101.9900, L501.4100, L501.4405, L501.6710, L501.1000 #### [facility] [address] [place], [address] EST GFR - AA 64 mL/min Normal >60 [facility] Comment on above: Result Comment: Afri can Malaysian GFR Calc Performed By: #### L 100.0100, L501.1105, L101.9900, L501.4100, L501.4405, L501.6710, L501.1000 #### [facility] [address] [place], [address] GFR/1.73 sq M.predicted among non-blacks MDRD (S/P/Bld) [Vol rate/Area] 53 mL/min/{1.73_m2} Low >60 [facility] Comment on above: Result Comment: Non- GFR Calc Performed By: #### L 100.0100, L501.1105, L101.9900, L501.4100, L501.4405, L501.6710, L501.1000 #### [facility] [address] [place], [place], [id number] Serum or plasma alanine harrell otransferase (ALT) measurementOrdered By: MEERA RENEE on 06-26-2024 ALT [Catalytic activity/Vol] 36 U/L 13-56 [facility] Serum or plasma creatinine m easurement (mass/volume)Ordered By: MEERA RENEE on 06-26-2024 Creatinine [Mass/Vol] 1.09 mg/dL High 0.55-1.02 [facility] Comment on above: The validity of the calculated GFR & GFRAA in patients over 70 years has not been determined. Clinical correlation is essential. Serum or plasma urea nitroge n measurement (mass/volume)Ordered By: MEERA RENEE on 06-26-2024 Urea nitrogen [Mass/Vol] 11 mg/dL 02-07 [facility] White blood cell (WBC) count Ordered By: MEERA RENEE on 06-26-2024 WBC (Bld) [#/Vol] 8.6 10*3/uL 4.4-11.0 [facility] CNOVon 05-29-2024 CNOV Office Visit ([facility] ) JULIMARA Santos ([id number]) 1955 F Date Time Provider Department 05/29/24 10:30 AM YAKOV SUMMERS During your visit today, we recorded the following information about you: Blood pressure Weight 144/73 86.2 kg Yakov Summers MD 05/29/2024 11:20 AM Signed Female Pelvic Medicine AND Reconstructive Surgery Post-Op Visit Mara Santos Juli is a 68 year old year old female who presents for a 3 Month post-op check s/p Procedure(s) on 02/29/24: Sacrospinous ligament suspension hysteropexy Anterior colporrhaphy Posterior colporrhaphy Perineorrhaphy Cystoscopy Bladder biopsy. Post-op complications: no Bleeding: no Pain: no If you had pain related to your prolapse before surgery, has your pain resolved? Not Applicable Abnormal vaginal discharge: no Pathology: FINAL DIAGNOSIS A. Urinary bladder, biopsy: - Chronic inflammation and reactive changes. B. Skin, perineum, biopsy: - Focal ulcer, chronic inflammation, and reactive changes. Using Clobetasol 2x/week. Denies vulvar itching or irritation. Sciatic pain has resolved. PFDI-20 Do you: Usually experience pressure in the lower abdomen? No (0) Usually experience heaviness or dullness in the pelvic area? No (0) Usually have a bulge or something falling out that you can see or feel in your vaginal area? No (0) Ever have to push on the vagina or around the rectum to have or complete a bowel movement? No (0) Usually experience a feeling of incomplete bladder emptying? No (0) Ever have to push up on a bulge in the vaginal area with your fingers to start or complete urination? No (0) Feel you need to strain too hard to have a bowel movement? No (0) Feel you have not completely emptied your bowels at the end of a bowel movement? No (0) Usually lose stool beyond your control if your stool is well formed? No (0) Usually lose stool beyond your control if your stool is loose? No (0) Usually lose gas from the rectum beyond your control? No (0) Usually have pain when you pass your stool? No (0) Experience a strong sense of urgency and have to vance to the bathroom to have a bowel movement? No (0) Does part of your bowel ever pass through the rectum and bulge outside during or after a bowel movement? No (0) Usually experience frequent urination? No (0) Usually experience urine leakage associated with a feeling of urgency, that is, a strong sensation of needing to go to the bathroom? No (0) Usually experience urine leakage related to coughing, sneezing or laughing? No (0) Usually experience small amounts of urine leakage (that is, drops)? No (0) Usually experience difficulty emptying your bladder? No (0) Usually experience pain or discomfort in the lower abdomen or genital region? No (0) Overall, how satisfied were you with your postoperative pain medication? Very satisfied With regard to your expectations before surgery, did you have the amount of pain you expected, more pain, or less pain? Much less pain than I expected Was the preoperative teaching you had about pain expectations helpful? Yes Were the discharge instructions you received about pain medications helpful? Yes The sensitive examination was discussed with the Patient or Patient's Authorized Foot Piece Assembler. As applicable, any other physician, advance practice provider, medical student, or other health professional student that will be observing or involved in the sensitive examination for educational or training purposes was discussed with the Patient or Authorized Foot Piece Assembler. The Patient or Authorized Foot Piece Assembler has agreed to proceed with the sensitive examination. (Sensitive examination includes inspection and/or palpation of the breasts, pelvis, prostate and anorectal regions) Music Producer offered, exam chaperoned by Latoya Bravo RN OBJECTIVE: BP 144/73 Wt 86.2 kg (190 lb 0.6 oz) BMI 33.40 kg/m? General Appearance: Appears stated age, comfortable, No acute distress Abdomen: Benign, soft, non-tender, no hernia, masses. Pelvic examination: Vulva/Perineum: Normal development, no lesions, perineal incision healing well Urethral Meatus:Normal location and size, no lesions Urethra: No masses, tenderness or scarring Bladder:No masses, no tenderness Vagina: Good vaginal support, suture material present, incision healing well, and atrophic Cervix: surgically absent Uterus: surgical absent Adnexa:No masses, tenderness or nodularity ASSESMENT: Mara Bustos is a 68 year old year old female who is post-op; stable and doing well post-operative course uncomplicated PLAN: - May resume normal activities - No lifting restrictions - continue her clobetasol - working well, can titrate up/down as needed when she has a flare, can continue to follow with her primary OBGYN Recommend annual vaginal exams with primary OBGYN (more content not included)... Normal [facility] CNOVon 04-17-2024 [facility] Office Visit ([facility]A ) MARA BUSTOS ([id number]) 1955 F Date Time Provider Department 04/17/24 10:30 AM YAKOV SUMMERS During your visit today, we recorded the following information about you: Pulse Blood pressure 52/minute 132/57 Yakov Summers MD 04/17/2024 11:45 AM Signed Female Pelvic Medicine AND Reconstructive Surgery Post-Op Visit Mara Bustos is a 68 year old year old female who presents for a 6 Week post-op check s/p Procedure(s): Sacrospinous ligament suspension hysteropexy Anterior colporrhaphy Posterior colporrhaphy Perineorrhaphy Cystoscopy Bladder biopsy Anesthesia: General Findings: - Stage II cystocele, uterovaginal prolapse, rectocele - Normal 360 degree cysto with bladder dome intact, bilateral ureteral orifice noted with brisk jets, no sutures or injuries seen in bladder. - Red lesion lateral to right ureteral orifice on cysto - asymmetric darkened skin lesion on perineum - Vaginal sweep was negative - Rectal exam confirms no suture material in the rectum. Post-op complications: no Bleeding: no Pain: no If you had pain related to your prolapse before surgery, has your pain resolved? Yes Abnormal vaginal discharge: no Pathology: Overall doing great! Does have some occasional sciatic pain down right leg that is new since surgery, but only occurs after she's done a lot or walked a lot in a day. Component FINAL DIAGNOSIS A. Urinary bladder, biopsy: - Chronic inflammation and reactive changes. B. Skin, perineum, biopsy: - Focal ulcer, chronic inflammation, and reactive changes. PFDI-20 Do you: Usually experience pressure in the lower abdomen? No (0) Usually experience heaviness or dullness in the pelvic area? No (0) Usually have a bulge or something falling out that you can see or feel in your vaginal area? No (0) Ever have to push on the vagina or around the rectum to have or complete a bowel movement? No (0) Usually experience a feeling of incomplete bladder emptying? No (0) Ever have to push up on a bulge in the vaginal area with your fingers to start or complete urination? No (0) Feel you need to strain too hard to have a bowel movement? No (0) Feel you have not completely emptied your bowels at the end of a bowel movement? No (0) Usually lose stool beyond your control if your stool is well formed? No (0) Usually lose stool beyond your control if your stool is loose? No (0) Usually lose gas from the rectum beyond your control? No (0) Usually have pain when you pass your stool? No (0) Experience a strong sense of urgency and have to vance to the bathroom to have a bowel movement? No (0) Does part of your bowel ever pass through the rectum and bulge outside during or after a bowel movement? No (0) Usually experience frequent urination? No (0) Usually experience urine leakage associated with a feeling of urgency, that is, a strong sensation of needing to go to the bathroom? No (0) Usually experience urine leakage related to coughing, sneezing or laughing? No (0) Usually experience small amounts of urine leakage (that is, drops)? No (0) Usually experience difficulty emptying your bladder? No (0) Usually experience pain or discomfort in the lower abdomen or genital region? No (0) Overall, how satisfied were you with your postoperative pain medication? Neither satisfied nor dissatisfied With regard to your expectations before surgery, did you have the amount of pain you expected, more pain, or less pain? Much less pain than I expected Was the preoperative teaching you had about pain expectations helpful? Yes Were the discharge instructions you received about pain medications helpful? Yes The sensitive examination was discussed with the Patient or Patient's Authorized Foot Piece Assembler. As applicable, any other physician, advance practice provider, medical student, or other health professional student that will be observing or involved in the sensitive examination for educational or training purposes was discussed with the Patient or Authorized Foot Piece Assembler. The Patient or Authorized Foot Piece Assembler has agreed to proceed with the sensitive examination. (Sensitive examination includes inspection and/or palpation of the breasts, pelvis, prostate and anorectal regions) Music Producer offered, exam chaperoned by Mae Dunn RN OBJECTIVE: BP 132/57 Pulse (!) 52 General Appearance: Appears stated age, comfortable, No acute distress Abdomen: Benign, soft, non-tender, no hernia, masses. Pelvic examination: Vulva/Perineum: Normal development, no lesions, perineal incision healing well, ulcer on right labia majora Urethral Meatus:Normal location and size, no lesions Urethra: No masses, tenderness or scarring Bladder:No masses, no tenderness Vagina: Good vaginal support, suture material present, incision healing wel (more content not included)... Normal [facility]very 03-11-2024 [facility] Telephone (GYREBECCAWP) MARA BUSTOS ([id number]) 1955 F Date Time Provider Department 03/11/24 YAKOV SUMMERS During your visit today, we recorded the following information about you: Peyton Abdi RN 03/11/2024 5:06 PM Addendum Attempted to call pt. Message left to call office. ----- Message from Yakov Summers MD sent at 03/11/2024 1:13 PM EDT ----- Hi! Can you please call mara and let her know the 2 biopsies I sent during her surgery were normal? Bladder and perineum. Thanks Salbador Abdi RN March 11, 2024 5:06 PM Mae Dunn 03/12/2024 11:07 AM Signed Attempted to call pt. LVM to call back for a message from Dr. Summers at her convenience. Office number provided. Mae Dunn 03/18/2024 9:16 AM Signed Call to pt. Verified name and . Dr. Summers's message given to pt. Pt verbalized understanding. Pt will follow up with next scheduled post op appointment 04/17. Allergies As of Date: 03/11/2024 (No Known Allergies) Date Reviewed: 02/29/2024 Reviewed by: Wayne Salcido, VEE - Fully Assessed Prescriptions as of 03/18/2024 - ibuprofen (MOTRIN) 600 mg tablet Take 1 tablet by mouth every 6 hours as needed for pain. - clobetasol (TEMOVATE) 0.05 % ointment Apply a half of fingertip unit over the affected area every night for 12 weeks until follow up. - calcium carbonate-vitamin D3 500 mg-15 mcg (600 unit) tab Take by mouth. - Flaxseed Oil 1,000 mg cap Take by mouth. - KLOR-CON M10 10 mEq tablet TAKE 1 TABLET ORALLY ONCE PER DAY FOR 90 DAYS - metoprolol tartrate, short acting, (LOPRESSOR) 25 mg tablet - methotrexate 2.5 mg tablet - hydrOXYchloroQUINE (PLAQUENIL) 200 mg tablet - folic acid 1 mg tablet - esomeprazole (NEXIUM) 40 mg capsule Problem List As Of Date 03/11/2024 Noted Resolved Constipation [K59.00] 01/15/2024 Depressive disorder [F32.A] 01/15/2024 Gastroesophageal reflux disease [K21.9] 01/15/2024 Hyperlipidemia [E78.5] 01/15/2024 Hypertension [I10] 01/15/2024 01/15/2024 Obesity with body mass index 30 or greater [E66*01/15/2024 Rheumatoid arthritis (HCC) [M06.9] 09/04/2019 Former smoker [Z87.891] 01/15/2024 Palpitations [R00.2] 01/15/2024 Vaginal prolapse [N81.10] 02/29/2024 Encounter Status:Closed by MAE DUNN on 03/18/24 Normal [facility] ANES POSTPROC EVALon 024 ANES POSTPROC EVAL HNO ID: [id number] Author: MELVIN GATICA MD Service: Anesthesiology Author Type: Anesthesiologist Type: Anesthesia Postprocedure Evaluation Filed: 02/29/2024 15:34 Note Text: POST ANESTHESIA EVALUATION NOTE : 1955 Procedure Summary Date: 02/29/24 Room / Location: [place] [address] / [place] Anesthesia Start: 1239 Anesthesia Stop: 1527 Procedures: CYSTOSCOPY (Bladder) FIXATION LIGAMENT SACROSPINOUS (Pending: Vagina ) PERINEOPLASTY, NON-OBSTETRICAL (Vagina ) COMBINED ANTERIOPOSTERIOR COLPORRHAPHY INCLUDING CYSTOURETHROSCOPY WHEN PERFORMED (Vagina ) BIOPSY BLADDER (Bladder) Diagnosis: Uterovaginal prolapse (Uterovaginal prolapse [N81.4]) Surgeons: Yakov Summers MD Responsible Provider: Melvin Gatica MD Anesthesia Type: general ASA Status: 3 Anesthesia Type: general Airway Type: ETT Last Vitals Vitals Value Taken Time BP 148/67 02/29/24 1531 Temp 36.3 ?C (97.3 ?F) 02/29/24 1526 Pulse 62 02/29/24 1532 Resp 15 02/29/24 1532 SpO2 97 % 02/29/24 1532 Vitals shown include unfiled device data. Post Anesthesia Patient Status Patient Evaluation: bedside. Anticipated Disposition: phase 2 then home. Neurological Status: aware and responsive. Pulmonary Status: breathing comfortably on room air Airway Control: returned to baseline unsupported. Cardiovascular Status: stable. Pain Management: clinically adequate Postoperative Hydration: acceptable. Intraoperative Events: no significant anesthesia events Post Operative Nausea/Vomiting Status: no significant post operative nausea or vomiting Recommendation: continue current plan of care. Anesthesia Observations No Documentation SIGNATURE: Melvin Gatica MD PATIENT NAME: Mara Bustos DATE: February 29, 2024 TIME: 3:33 PM CSN: [id number] [facility] ANES PRE-OPon 02-29-2024 ANE PRE-OP HNO ID: [id number] Author: DENIS CAMARILLO DO Service: Anesthesiology Author Type: Anesthesiologist Type: Anesthesia Preprocedure Evaluation Filed: 02/29/2024 11:03 Note Text: ANESTHESIOLOGY DAY OF SURGERY NOTE : 1955 Procedure Information Date/Time: 02/29/24 1145 Procedures: COLPORRHAPHY POSTERIOR (Vagina ) CYSTOSCOPY (Bladder) FIXATION LIGAMENT SACROSPINOUS (Pending: Vagina ) ANTERIOR COLPORRHAPHY REPAIR CYSTOCELE WITH OR W/O REPAIR URETHROCELE INCLUDING CYSTOURETHROSCOPY WHEN PERFORMED (Vagina ) PERINEOPLASTY, NON-OBSTETRICAL (Vagina ) Location: [place] [facility] / [place] Surgeons: Yakov Summers MD Estimated body mass index is 31.81 kg/m? as calculated from the following: Height as of 02/19/24: 160.7 cm (5' 3.25). Weight as of 02/19/24: 82.1 kg (181 lb). Most recent hematocrit and potassium results: Hematocrit 40.4 01/15/2024 Potassium 3.9 01/15/2024 Relevant Problems GI (+) Gastroesophageal reflux disease Other (+) Rheumatoid arthritis (HCC) I - PHYSICAL EVALUATION AIRWAY Patient intubated: No. Tracheostomy tube not present Mallampati: II. TM distance: >3 FB. Neck ROM: full ROM without neurological symptoms. Mouth opening: adequate. Short neck: no. Thick neck: no DENTAL Dentures, upper: complete. Dentures, lower: complete. II - ANESTHESIA PLAN ASA Score: 3 Anesthetic Plan: general Airway type: ETT NPO Status: adequate Beta Bessy Monitoring Plan Monitoring plan: standard ASA. Post Procedure Analgesic Plan Postoperative analgesic plan: parenteral or oral opioids, multimodal analgesia and per surgical service. Informed Consent Anesthetic risks, benefits, alternatives, personnel and consent discussed: yes. Patient / Responsible Alliance Party agrees to proceed: yes Patient / Surrogate agrees to blood products: Yes DNR status not reviewed with patient and/or family prior to surgery. Significant changes in the patient condition since the History and Physical, not otherwise documented in primary service progress note: no. Potential Anesthesia issues that may suggest increased risk of complications or contraindication to planned procedure: none. Discussed the possibility of lip / dental damage: yes No vitals data found for the desired time range. No current facility-administered medications on file as of 02/29/2024. Outpatient Medications as of 02/29/2024 Medication Sig clobetasol (TEMOVATE) 0.05 % ointment [...] mg tablet esomeprazole (NEXIUM) 40 mg capsule I have interviewed and examined the patient. I have reviewed the medical record and/or the pre-anesthesia evaluation, pertinent labs, and test results. This contains updated information obtained within 48 hours of Surgery/Procedure. SIGNATURE: Denis Camarillo DO PATIENT NAME: Mara Bustos DATE: February 29, 2024 TIME: 11:02 AM CSN: [id number] [facility] BRIEF OP NOTon 02-29-2024 BRIEF OP NOT HNO ID: [id number] Author: KASSANDRA PFEIFFER MD Service: Gynecology Author Type: Resident Type: Brief Op Note Filed: 02/29/2024 15:30 Note Text: Attestation signed by Yakov Summers MD at 02/29/2024 3:36 PM I agree with this brief op note. I performed the procedure with assistance and was present and scrubbed for the entire procedure. Yakov Summers MD BRIEF OPERATIVE / PROCEDURE NOTE LOG ID: [id number] SURGERY/PROCEDURE DATE: 02/29/2024 INCISION/PROCEDURE START TIME: 1:05 PM INCISION CLOSE/PROCEDURE END TIME: 3:15 PM SURGEON(S)/PROCEDURALI ST(S) AND BOOTH CASHIER(S): Surgeon(s) and Role: * Yakov Summers MD - Primary * Kassandra Pfeiffer MD - Resident - Assisting Nurse Practitioner: Belle Anguiano APRN.BATTERY MECHANIC SURGERY/PROCEDURE(S): Procedure(s): CYSTOSCOPY FIXATION LIGAMENT SACROSPINOUS PERINEOPLASTY, NON-OBSTETRICAL COMBINED ANTERIOPOSTERIOR COLPORRHAPHY INCLUDING CYSTOURETHROSCOPY WHEN PERFORMED BIOPSY BLADDER ANESTHESIA: General FINDINGS: Normal appearing cervix. Cystocele, rectocele. Vaginal calcification of the right distal vaginal wall. Black asymmetric perineal lesion. Bladder lesion. ESTIMATED BLOOD LOSS: 150 mls SPECIMENS: ID Type Source Tests Collected by Time Destination A : Tissue Bladder, Biopsy SURGICAL PATHOLOGY Yakov Summers MD 02/29/2024 2:03 PM B : Perineal biopsy Tissue Perineum, Biopsy SURGICAL PATHOLOGY Yakov Summers MD 02/29/2024 2:33 PM COMPLICATIONS: None DRAINS: henning catheter CLOSURE TECHNIQUE: Primary PRE-OP/PRE-PROCEDURE DIAGNOSIS: vaginal prolapse POST-OP/POST-PROCEDURE DIAGNOSIS: Same as Preop Patient was accompanied to the next level of care by a licensed practitioner from the surgical team pending completion of this brief op note (or operative note) SIGNATURE: Kassandra Pfeiffer MD PATIENT NAME: Mara Bustos DATE: February 29, 2024 TIME: 3:28 PM [facility] NURSING PROGon 02-29-2024 NURSING PROG HNO ID: [id number] Author: WAYNE SALCIDO RN Service: Nursing Author Type: Registered Nurse Type: Nursing Progress Note Filed: 02/29/2024 16:49 Note Text: Void trial successful. Instilled 300 cc into bladder via henning catheter. Pt able to ambulate to bathroom and void 225 cc. [facility] OPERATIVE NOon 02-29-2024 OPERATIVE NO HNO ID: [id number] Author: YAKOV SUMMERS MD Service: Urogynecology Author Type: Physician Type: Operative Report Filed: 02/29/2024 15:49 Note Text: OPERATIVE/PROCEDURE REPORT LOG ID: [id number] Surgery/Procedure Date: 02/29/2024 Incision/Procedure Start Time: 1:05 PM Incision Close/Procedure End Time: 3:15 PM Surgeon(s)/Procedurali st(s) and Segment Block Layer(s): Surgeon(s) and Role: * Yakov Summers MD - Primary * Kassandra Pfeiffer MD - Resident - Assisting Nurse Practitioner: Belle Anguiano APRN.BATTERY MECHANIC Procedure(s): Sacrospinous ligament suspension hysteropexy Anterior colporrhaphy Posterior colporrhaphy Perineorrhaphy Cystoscopy Bladder biopsy Anesthesia: General Findings: - Stage II cystocele, uterovaginal prolapse, rectocele - Normal 360 degree cysto with bladder dome intact, bilateral ureteral orifice noted with brisk jets, no sutures or injuries seen in bladder. - Red lesion lateral to right ureteral orifice on cysto - asymmetric darkened skin lesion on perineum - Vaginal sweep was negative - Rectal exam confirms no suture material in the rectum Estimated Blood Loss: 100mL Antibiotics: 2g Cefoxitin prior to skin incision Specimens: bladder biopsy, perineal biopsy VTE Prophylaxis: SCDs for mechanical prophylaxis, SQ heparin Drains: Henning Complications: None Implanted Devices: None Pre-Op/Pre-Procedure Diagnosis: Cystocele, uterovaginal prolapse, Rectocele Post-Op/Post-Procedure Diagnosis: same, bladder lesion, perineal lesion Procedure Details: The patient was taken to the operating room where a surgical time-out and safety checklist were performed. The patient was then given prophylactic antibiotics and sequential compression devices were applied bilaterally. She underwent general anesthesia without any difficulty. She was positioned in the dorsal lithotomy position using yellowfin stirrups, making sure that her lower extremities were not overly extended or flexed. She was prepped and draped in the normal sterile fashion. A final time out was performed. A Henning catheter was inserted for continuous bladder drainage. Sacrospinous Ligament Suspension Hysteropexy and anterior colporrhaphy The cervix was grasped and brought to the level of the ischial spine to plan the reconstruction, with an anterior approach felt best to reduce her prolapse. The Allis clamps were placed along the anterior vaginal wall at the superior and most dependent portion of the cystocele in the midline. The anterior vaginal wall was injected with dilute solution of lidocaine with epinephrine. Using a Bovie, a vertical incision was made in the midline from the superior portion of the cystocele to the most dependent portion. Next, using Metzenbaum scissors, sharp dissection was used to dissect the vaginal epithelium off the underlying tissue anteriorly. Dissection was carried out laterally until the epithelium was dissected off the bladder on both sides. We dissected out laterally and posteriorly to the paravaginal and pararectal space to the level of the ischial spine, first opening the space bluntly with Metzenbaum scissors, then digitally.The sacrospinous ligament was then exposed. Three Capio sutures were deployed around the sacrospinous ligament with a Capio device, approximately 1.5 cm medial to the ischial spine in the sacrospinous ligament. Then the vaginal epithelium and adventitia were plicated using several vertical mattress sutures of 2-0 PDS. Once the plication was completed, the vaginal epithelium was trimmed bilaterally. Cystoscopy A cystoscopy was performed with the 70 degree cystoscope. The bladder and urethra were closely inspected. There was no evidence of injury to the urethra or bladder. There were brisk bilateral ureteral jets. At this time the cystoscope was changed to a 30 degree cystoscope and the small red lesion as described above was visualized and a biopsy was taken with forceps. Hemostasis was appropriate. Then the Henning was reinserted. The bladder was drained. The vaginal epithelium was then closed with a running layer of 2-0 vicryl suture. Then the PDS sutures were then passed through the vagina for its closure. After sutures were tied down, cystoscopy was performed again and confirmed bilateral ureteral patency. A rectal exam was normal. Then the sacrospinous stitches were trimmed. POSTERIOR REPAIR/PERINEORRHAPHY and Perineal biopsy: Attention was turned to the posterior vaginal wall and the most prominent portion of the posterior vaginal epithelium that was prolapsing was grasped with Allis clamps along the midline. The vaginal epithelium was infiltrated with local anesthetic. The midline of the vaginal epithelium at the posterior vaginal wall was incised with a Bovie along the length of the entire rectocele to the level of the perineum. A randy-shaped wedge of perineal tissue was also incised at the midline with a scalpel. (more content not included)... Normal [facility] SURGICAL PATHOLOGYon 024 CASE REPORT [facility] Comment on above: Order Comment: Speci men Type: TISSUE SPECIMEN Ordering Facility: [facility] Address: [address] [place] [address] Result Comment: Surg ica Pathology Report Case: [id number] Authorizing Provider: Yakov Summers MD Collected: 02/29/2024 02:03 PM Ordering Location: [facility] Surgery Received: 02/29/2024 03:47 PM Pathologist: Darryl Crawford MD Specimens: A) - Bladder, Biopsy B) - Perineum, Biopsy, Perineal biopsy Performed By: #### S #### [facility] CLIA [id number] [address] [place] [address] [place] CLINICAL HISTORY [facility] Comment on above: Order Comment: Speci men Type: TISSUE SPECIMEN Ordering Facility: [facility] Address: [address] [place] [address] Result Comment: Pre- op diagnosis: Uterovaginal prolapse [N81.4] Performed By: #### S #### [facility] CLIA [id number] [address] [place] [address] [place] FINAL DIAGNOSIS [facility] Comment on above: Order Comment: Speci men Type: TISSUE SPECIMEN Ordering Facility: [facility] Address: [address] [place] [address] Result Comment: A. U rinary bladder, biopsy: - Chronic inflammation and reactive changes. B. Skin, perineum, biopsy: - Focal ulcer, chronic inflammation, and reactive changes. Performed By: #### S #### [facility] CLIA [id number] [address] [place] [address] [place] FINAL PERFORMING LAB Normal [facility] Comment on above: Order Comment: Speci men Type: TISSUE SPECIMEN Ordering Facility: [facility] Address: [address] [place] [address] Result Comment: Diag nostic interpretation performed at [facility], [address] [place] [address] CLIA# [id number] Conveyor Belt Operator: Stevenson Bravo M.D. Performed By: #### S #### [facility] CLIA [id number] [address] [place] [address] [place] GROSS DESCRIPTION Normal [facility] Comment on above: Order Comment: Speci men Type: TISSUE SPECIMEN Ordering Facility: [facility] Address: [address] [place] [address] Result Comment: A. B ladder, Biopsy Received in formalin is one piece of junior, soft tissue measuring 0.3 x 0.2 x 0.1 cm. Totally submitted in one cassette. Gross examination performed at [facility], [address] [place] [address] JT 02/29/2024 9:15 PM B. Perineum, Biopsy Received in formalin, labeled peritoneal biopsy is a junior-brown, soft tissue fragment, measuring 2.0 x 0.5 x 0.3 cm. The specimen is sectioned and entirely submitted in cassette B1. AKA March 01, 2024 10:18 AM Gross examination performed at [facility], [address] [place] [address] Performed By: #### S #### [facility] CLIA [id number] [address] [place] [address] [place] HISTORY PHYSICALon HISTORY PHYSICAL HNO ID: [id number] Author: SARAY RIVERA APRN.BATTERY MECHANIC Service: ? Author Type: Nurse Practitioner Type: H&P Filed: 02/19/2024 09:55 Note Text: [facility] HISTORY AND PHYSICAL EXAMINATION SERVICE DATE: 02/19/2024 SERVICE TIME: 9:54 AM PRIMARY CARE PHYSICIAN: Duane Huddleston MD Assessment Patient has the following medical conditions which may affect kyle-operative course: Palpitations Assessment: controlled on rx Former smoker Assessment: 0.5ppd/55 years, quit 12/29/2023, no wheezes, lungs CTA, pulse ox 97% on RA Constipation Assessment: otc rx as needed Gastroesophageal reflux disease Assessment: controlled on rx Rheumatoid arthritis (HCC) Assessment: controlled on rx, following OSH rheumatology Depressive disorder Assessment: hx, no current tx Obesity with body mass index 30 or greater Assessment: Body mass index is 31.81 kg/m?. Hyperlipidemia Assessment: diet controlled [place] Activity Status Index: METS: Climb a flight of stairs or walk up a hill (5.50 METs) DASI Score: 5.5 Patient denies any chest pain or undue shortness of breath with the above physical activity. Clinical Frailty Scale: 3. Well, with treated comorbid disease STOP-Bang Score: BMI greater than 35 kg/m2 Patient over 50 years old Has a large neck Denies snoring loudly Denies feeling tired, fatigued, or sleepy during the daytime Has not been observed to stop breathing or choking/gasping during sleep Denies having high blood pressure Non-male patient STOP-Bang Score: 3 [id number] Score: Age: 65-74 Sex: female CHF history: No Hypertension history: No Stroke/TIA/thromboembo lism history: No Vascular disease history: No Diabetes history: No [id number] Score: 2 ARISCAT Score: Age: 51-80 Preoperative SpO2: >=96% Respiratory infection in the last month: No Preoperative anemia: No Surgical incision: peripheral Duration of surgery: >3 hrs Emergency procedure: No ARISCAT Score: 26 ANESTHESIA FINDINGS: Intubation History: No history of difficult intubation Significant Anesthesia Considerations: none Airway History: No history of difficult airway I - PHYSICAL EVALUATION AIRWAY Patient intubated: No. Tracheostomy tube not present Mallampati: II. TM distance: >3 FB. Neck ROM: full ROM without neurological symptoms. Mouth opening: adequate. Short neck: no. Additional comments: +left TMJ. Thick neck: yes Suarez present: no Lip Bite Test: I Microretrognathia/Micr onagthia/Recessed Chin: No DENTAL Dentures, upper: complete. Dentures, lower: complete. II - ANESTHESIA PLAN Anesthetic Plan: other Beta Bessy Monitoring Plan Post Procedure Analgesic Plan Informed Consent Anesthetic risks, benefits, alternatives, personnel and consent discussed: yes. Patient / Responsible Alliance Party agrees to proceed: yes Patient / Surrogate agrees to blood products: blood products not planned Discussed the possibility of lip / dental damage: yes Prepared for Surgery: optimally prepared for surgery. CONSULTS: Patient does not require consults for optimization at this time Planned Anesthetic: other The Following Tests/Procedures Have Been Initiated: No orders of the defined types were placed in this encounter. REASON FOR VISIT: Mara Bustos is a 68 year old female who is scheduled for Procedure(s): COLPORRHAPHY POSTERIOR (N/A) CYSTOSCOPY (N/A) FIXATION LIGAMENT SACROSPINOUS (Pending) ANTERIOR COLPORRHAPHY REPAIR CYSTOCELE WITH OR W/O REPAIR URETHROCELE INCLUDING CYSTOURETHROSCOPY WHEN PERFORMED (N/A) PERINEOPLASTY, NON-OBSTETRICAL (N/A) at the request of Dr. Yakov Summers for consultation. My final recommendation will be communicated back to the requesting physician by way of shared medical record or letter. Subjective The patient has the following: ACTIVE PROBLEM LIST Constipation Depressive Disorder Gastroesophageal Reflux Disease Hyperlipidemia Obesity With Body Mass Index 30 Or Greater Rheumatoid Arthritis (Hcc) Former Smoker Palpitations COVID-19 Immunization Status Overdue - Covid-19 Vaccine ( - season) Overdue since 07/17/2023 05/22/2023 Imm Admin: COVID-19 vaccine, age 12+ yr, season (PFIZER-BIONTECH) 11/14/2022 Imm Admin: COVID-19 vaccine, age 12+ yr, bivalent (MODERNA) 11/10/2021 Outside Immunization: COVID-19, mRNA, LNP-S, PF, 100 mcg/0.5mL dose or 50 mcg/0.25mL dose Only the first 3 history entries have been loaded, but more history exists. CHIEF COMPLAINT: Pre-op exam HPI: Mara Bustos is a 68 year old seen for PAC due to scheduled above surgery because of uterovaginal prolapse. 08/30/2023, Dr. Yakov Summers CHIEF COMPLAINT: Mara Bustos is a 68 year old referred for consultation regarding pelvic organ prolapse. She has not had a hysterectomy. PRABHU:08/24/23 IMPR (more content not included)... [facility] Tele[facility] ([facility]) JULIMORRIS ([id number]) 1955 F Date Time Provider Department 02/01/24 YAKOV SUMMESR [facility] During your visit today, we recorded the following information about you: Bev Boogie 02/01/2024 12:46 PM Signed Per staff msg from Dr Melina Jackson cancelled the rest of their surgeries for today 01/31 so this pt needs to be rescheduled, spoke with pt and she accepted 02/29/24 surgery date at [facility], scheduled pre/post op appts Allergies As of Date: 02/01/2024 (No Known Allergies) Date Reviewed: 01/15/2024 Reviewed by: Saray Rivera APRN.BATTERY MECHANIC - Fully Assessed Reason for Visit: RESCHEDULE SURGERY [Other] Prescriptions as of 02/01/2024 - clobetasol (TEMOVATE) 0.05 % ointment Apply a half of fingertip unit over the affected area every night for 12 weeks until follow up. - calcium carbonate-vitamin D3 500 mg-15 mcg (600 unit) tab Take by mouth. - Flaxseed Oil 1,000 mg cap Take by mouth. - KLOR-CON M10 10 mEq tablet TAKE 1 TABLET ORALLY ONCE PER DAY FOR 90 DAYS - metoprolol tartrate, short acting, (LOPRESSOR) 25 mg tablet - methotrexate 2.5 mg tablet - hydrOXYchloroQUINE (PLAQUENIL) 200 mg tablet - folic acid 1 mg tablet - esomeprazole (NEXIUM) 40 mg capsule Problem List As Of Date 02/01/2024 Noted Resolved Constipation [K59.00] 01/15/2024 Depressive disorder [F32.A] 01/15/2024 Gastroesophageal reflux disease [K21.9] 01/15/2024 Hyperlipidemia [E78.5] 01/15/2024 Hypertension [I10] 01/15/2024 01/15/2024 Obesity with body mass index 30 or greater [E66*01/15/2024 Rheumatoid arthritis (HCC) [M06.9] 09/04/2019 Former smoker [Z87.891] 01/15/2024 Palpitations [R00.2] 01/15/2024 Encounter Status:Closed by BEV BOOGIE on 02/01/24 Normal [facility] Bacteria Ur Culton Bacteria identified Cx Nom (U) ORGANISM ID: 1 <10,000 CFU/ml Normal urogenital micki Normal [facility] Comment on above: Performed By: #### 5 7021-8 #### [facility] CLIA [id number] [address] [place] [address] [place] CBC W Auto Differential pane l (Bld)on 01-15-2024 Basophils (Bld) [#/Vol] 0.05 10*3/uL [facility] Basophils/100 WBC (Bld) 0.6 % C [facility] Differential cell count method Nom (Bld) Auto [facility] Eosinophils (Bld) [#/Vol] 0.04 10*3/uL [facility] Eosinophils/100 WBC (Bld) 0.5 % [facility] Erythrocyte distribution width (RBC) [Ratio] 13.6 % 11.5 - 15.0 % [facility] Hematocrit (Bld) [Volume fraction] 40.4 % 36.0 - 46.0 % [facility] Hemoglobin (Bld) [Mass/Vol] 13.7 g/dL 11.5 - 15.5 g/dL [facility] Immature granulocytes (Bld) [#/Vol] 0.03 10*3/uL [facility] Immature granulocytes/100 WBC (Bld) 0.3 % [facility] Lymphocytes (Bld) [#/Vol] 1.88 10*3/uL [facility] Lymphocytes/100 WBC (Bld) 21.9 % [facility] MCH (RBC) [Entitic mass] 31.1 pg 26. 0 - 34.0 pg [facility] MCHC (RBC) [Mass/Vol] 33.9 g/dL 30.5 - 36.0 g/dL [facility] MCV (RBC) [Entitic vol] 91.6 fL 80.0 - 100.0 fL [facility] Monocytes (Bld) [#/Vol] 0.61 10*3/uL [facility] Monocytes/100 WBC (Bld) 7.1 % C [facility] Neutrophils (Bld) [#/Vol] 5.99 10*3/uL [facility] Neutrophils/100 WBC (Bld) 69.6 % [facility] Nucleated RBC (Bld) [#/Vol] NINF [facility] Nucleated RBC/100 WBC (Bld) [Ratio] 0.0 % /100 WBC [facility] Platelet mean volume (Bld) [Entitic vol] 9.0 fL 9.0 - 12.7 fL [facility] Platelets (Bld) [#/Vol] 223 10*3/uL [facility] RBC (Bld) [#/Vol] 4.41 10*6/uL 3.90 - 5.2 0 m/uL [facility] WBC (Bld) [#/Vol] 8.60 10*3/uL [facility] Basophils (Bld) [#/Vol] 0.05 10*3/uL Normal <0.11 [facility] Comment on above: Order Comment: Speci men Type: BLOOD SPECIMEN Ordering Facility: [facility] Address: [address] [place] [address] Performed By: #### 5 7021-8 #### [facility] ZEIA [id number] [address] [place] [address] [place] Basophils/100 WBC (Bld) 0.6 % Normal C [facility] Comment on above: Order Comment: Speci men Type: BLOOD SPECIMEN Ordering Facility: [facility] Address: [address] [place] [address] Performed By: #### 5 7021-8 #### [facility] CLIA [id number] [address] [place] [address] [place] Differential cell count method Nom (Bld) Auto Normal [facility] Comment on above: Order Comment: Speci men Type: BLOOD SPECIMEN Ordering Facility: [facility] Address: [address] [place] [address] Performed By: #### 5 7021-8 #### [facility] CLIA [id number] [address] [place] [address] [place] Eosinophils (Bld) [#/Vol] 0.04 10*3/uL Normal <0.46 [facility] Comment on above: Order Comment: Speci men Type: BLOOD SPECIMEN Ordering Facility: [facility] Address: [address] [place] [address] Performed By: #### 5 7021-8 #### [facility] CLIA [id number] [address] [place] [address] [place] Eosinophils/100 WBC (Bld) 0.5 % Normal [facility] Comment on above: Order Comment: Speci men Type: BLOOD SPECIMEN Ordering Facility: [facility] Address: [address] [place] [address] Performed By: #### 5 7021-8 #### [facility] CLIA [id number] [address] [place] [address] [place] Erythrocyte distribution width (RBC) [Ratio] 13.6 % Normal 11.5-15.0 [facility] Comment on above: Order Comment: Speci men Type: BLOOD SPECIMEN Ordering Facility: [facility] Address: [address] [place] [address] Performed By: #### 5 7021-8 #### [facility] CLIA [id number] [address] [place] [address] [place] Hematocrit (Bld) [Volume fraction] 40.4 % Normal 36.0-46.0 [facility] Comment on above: Order Comment: Speci men Type: BLOOD SPECIMEN Ordering Facility: [facility] Address: [address] [place] [address] Performed By: #### 5 7021-8 #### [facility] CLIA [id number] [address] [place] [address] [place] Hemoglobin (Bld) [Mass/Vol] 13.7 g/dL Normal 11.5-15.5 [facility] Comment on above: Order Comment: Speci men Type: BLOOD SPECIMEN Ordering Facility: [facility] Address: [address] [place] [address] Performed By: #### 5 7021-8 #### [facility] CLIA [id number] [address] [place] [address] [place] Immature granulocytes (Bld) [#/Vol] 0.03 10*3/uL Normal <0.10 [facility] Comment on above: Order Comment: Speci men Type: BLOOD SPECIMEN Ordering Facility: [facility] Address: [address] [place] [address] Performed By: #### 5 7021-8 #### [facility] CLIA [id number] [address] [place] [address] [place] Immature granulocytes/100 WBC (Bld) 0.3 % Normal [facility] Comment on above: Order Comment: Speci men Type: BLOOD SPECIMEN Ordering Facility: [facility] Address: [address] [place] [address] Performed By: #### 5 7021-8 #### [facility] CLIA [id number] [address] [place] [address] [place] Lymphocytes (Bld) [#/Vol] 1.88 10*3/uL Normal 1.00-4.00 [facility] Comment on above: Order Comment: Speci men Type: BLOOD SPECIMEN Ordering Facility: [facility] Address: [address] [place] [address] Performed By: #### 5 7021-8 #### [facility] CLIA [id number] [address] [place] [address] [place] Lymphocytes/100 WBC (Bld) 21.9 % Normal [facility] Comment on above: Order Comment: Speci men Type: BLOOD SPECIMEN Ordering Facility: [facility] Address: [address] [place] [address] Performed By: #### 5 7021-8 #### [facility] CLIA [id number] [address] [place] [address] [place] MCH (RBC) [Entitic mass] 31.1 pg Normal 26.0-34.0 [facility] Comment on above: Order Comment: Speci men Type: BLOOD SPECIMEN Ordering Facility: [facility] Address: [address] [place] [address] Performed By: #### 5 7021-8 #### [facility] CLIA [id number] [address] [place] [address] [place] MCHC (RBC) [Mass/Vol] 33.9 g/dL Normal 30.5-36.0 [facility] Comment on above: Order Comment: Speci men Type: BLOOD SPECIMEN Ordering Facility: [facility] Address: [address] [place] [address] Performed By: #### 5 7021-8 #### [facility] CLIA [id number] [address] [place] [address] [place] MCV (RBC) [Entitic vol] 91.6 fL Normal 80.0-100.0 C [facility] Comment on above: Order Comment: Speci men Type: BLOOD SPECIMEN Ordering Facility: [facility] Address: [address] [place] [address] Performed By: #### 5 7021-8 #### [facility] CLIA [id number] [address] [place] [address] [place] Monocytes (Bld) [#/Vol] 0.61 10*3/uL Normal <0.87 [facility] Comment on above: Order Comment: Speci men Type: BLOOD SPECIMEN Ordering Facility: [facility] Address: [address] [place] [address] Performed By: #### 5 7021-8 #### [facility] CLIA [id number] [address] [place] [address] [place] Monocytes/100 WBC (Bld) 7.1 % Normal [facility] Comment on above: Order Comment: Speci men Type: BLOOD SPECIMEN Ordering Facility: [facility] Address: [address] [place] [address] Performed By: #### 5 7021-8 #### [facility] CLIA [id number] [address] [place] [address] [place] Neutrophils (Bld) [#/Vol] 5.99 10*3/uL Normal 1.45-7.50 [facility] Comment on above: Order Comment: Speci men Type: BLOOD SPECIMEN Ordering Facility: [facility] Address: [address] [place] [address] Performed By: #### 5 7021-8 #### [facility] CLIA [id number] [address] [place] [address] [place] Neutrophils/100 WBC (Bld) 69.6 % Normal [facility] Comment on above: Order Comment: Speci men Type: BLOOD SPECIMEN Ordering Facility: [facility] Address: [address] [place] [address] Performed By: #### 5 7021-8 #### [facility] CLIA [id number] [address] [place] [address] [place] Nucleated RBC (Bld) [#/Vol] 10*3/uL Normal <0.01 [facility] Comment on above: Order Comment: Speci men Type: BLOOD SPECIMEN Ordering Facility: [facility] Address: [address] [place] [address] Performed By: #### 5 7021-8 #### [facility] CLIA [id number] [address] [place] [address] [place] Nucleated RBC/100 WBC (Bld) [Ratio] 0.0 /100 WBC Normal [facility] Comment on above: Order Comment: Speci men Type: BLOOD SPECIMEN Ordering Facility: [facility] Address: [address] [place] [address] Performed By: #### 5 7021-8 #### [facility] CLIA [id number] [address] [place] [address] [place] Platelet mean volume (Bld) [Entitic vol] 9.0 fL Normal 9.0-12.7 [facility] Comment on above: Order Comment: Speci men Type: BLOOD SPECIMEN Ordering Facility: [facility] Address: [address] [place] [address] Performed By: #### 5 7021-8 #### [facility] CLIA [id number] [address] [place] [address] [place] Platelets (Bld) [#/Vol] 223 10*3/uL Normal 150-400 [facility] Comment on above: Order Comment: Speci men Type: BLOOD SPECIMEN Ordering Facility: [facility] Address: [address] [place] [address] Performed By: #### 5 7021-8 #### [facility] CLIA [id number] [address] [place] [address] [place] RBC (Bld) [#/Vol] 4.41 10*6/uL Normal 3.90-5.20 [facility] Comment on above: Order Comment: Speci men Type: BLOOD SPECIMEN Ordering Facility: [facility] Address: [address] [place] [address] Performed By: #### 5 7021-8 #### [facility] CLIA [id number] [address] [place] [address] [facility] [place] WBC (Bld) [#/Vol] 8.60 10*3/uL Normal 3.70-11.00 [facility] Comment on above: Order Comment: Speci men Type: BLOOD SPECIMEN Ordering Facility: [facility] Address: [address] [place] [id number] Performed By: #### 5 7021-8 #### [facility] CLIA [id number] [address] [place] Comprehensive metabolic 2000 panelOrdered By: Aminta Walton on 01-15-2024 Albumin [Mass/Vol] 4.0 g/dL 3.9 - 4.9 g/dL [facility] ALP [Catalytic activity/Vol] 67 U/L 34 - 123 U/L [facility] ALT [Catalytic activity/Vol] 17 U/L 7 - 38 U/L [facility] Anion gap [Moles/Vol] 10 mmol/L 8 - 15 mmol/L [facility] AST [Catalytic activity/Vol] 19 U/L 13 - 35 U/L [facility] Bilirubin [Mass/Vol] 0.5 mg/dL 0.2 - 1 .3 mg/dL [facility] Calcium [Mass/Vol] 9.1 mg/dL 8.5 - 10. 2 mg/dL [facility] Chloride [Moles/Vol] 107 mmol/L 98 - 10 7 mmol/L [facility] CO2 [Moles/Vol] 24 mmol/L 22 - 30 mmol/L [facility] Creatinine [Mass/Vol] 0.85 mg/dL 0.58 - 0.96 mg/dL [facility] GFR/1.73 sq M.predicted among non-blacks MDRD (S/P/Bld) [Vol rate/Area] 74 mL/min/{1.73_m2} - PINF [facility] Comment on above: Estimated Glomerular Filtration Rate (eGFR) is calculated using the 2020 CKD-EPI creatinine equation. This equation utilizes serum creatinine, sex, and age as parameters. The creatinine assay has traceable calibration to isotope dilution-mass spectrometry. Refer to KDIGO guidelines for clinical interpretation. In patients with unstable renal function, e.g. those with acute kidney injury, the eGFR may not accurately reflect actual GFR. Glucose [Mass/Vol] 111 mg/dL High 74 - 99 mg/dL [facility] Comment on above: The [place] Diabete s Association (ADA) provides guidance for cutoff values for fasting glucose and random glucose. The ADA defines fasting as no caloric intake for at least 8 hours. Fasting plasma glucose results between 100 to 125 mg/dL indicate increased risk for diabetes (prediabetes). Fasting plasma glucose results greater than or equal to 126 mg/dL meet the criteria for diagnosis of diabetes. In the absence of unequivocal hyperglycemia, results should be confirmed by repeat testing. In a patient with classic symptoms of hyperglycemia or hyperglycemic crisis, random plasma glucose results greater than or equal to 200 mg/dL meet the criteria for diagnosis of diabetes. Reference: Standards of Medical Care in Diabetes 2016, [place] Diabetes Association. Diabetes Care. 2016.39(Suppl 1). Interpretation and review of laboratory results Abnormal [facility] Potassium [Moles/Vol] 3.9 mmol/L 3.7 - 5.1 mmol/L [facility] Protein [Mass/Vol] 6.7 g/dL 6.3 - 8.0 g/dL [facility] Sodium [Moles/Vol] 141 mmol/L 136 - 144 mmol/L [facility] Urea nitrogen [Mass/Vol] 10 mg/dL 7 - 21 mg/d [facility] Comprehensive metabolic 2000 panelon 01-15-2024 Albumin [Mass/Vol] 4.0 g/dL Normal 3.9-4.9 [facility] Comment on above: Order Comment: Soniya cardenas Type: BLOOD SPECIMEN Ordering Facility: [facility] Address: [address] [place] [address] Performed By: #### 5 7021-8 #### [id number] [address] [place] [address] [place] ALP [Catalytic activity/Vol] 67 U/L Normal 34-123 [facility] Comment on above: Order Comment: Soniya cardenas Type: BLOOD SPECIMEN Ordering Facility: [facility] Address: [address] [place] [address] Performed By: #### 5 7021-8 #### [facility] CLIA [id number] [address] [place] [address] [place] ALT [Catalytic activity/Vol] 17 U/L Normal 7-38 [facility] Comment on above: Order Comment: Speci men Type: BLOOD SPECIMEN Ordering Facility: [facility] Address: [address] [place] [address] Performed By: #### 5 7021-8 #### [facility] CLIA [id number] [address] [place] [address] [place] Anion gap [Moles/Vol] 10 mmol/L Normal 8-15 [facility] Comment on above: Order Comment: Speci men Type: BLOOD SPECIMEN Ordering Facility: [facility] Address: [address] [facility] [place] [address] Performed By: #### 5 7021-8 #### [facility] CLIA [id number] [address] [place] [address] [place] AST [Catalytic activity/Vol] 19 U/L Normal 13-35 [facility] Comment on above: Order Comment: Speci men Type: BLOOD SPECIMEN Ordering Facility: [facility] Address: [address] [place] [address] Performed By: #### 5 7021-8 #### [facility] CLIA [id number] [address] [place] [address] [place] Bilirubin [Mass/Vol] 0.5 mg/dL Normal 0.2-1.3 [facility] Comment on above: Order Comment: Speci men Type: BLOOD SPECIMEN Ordering Facility: [facility] Address: [address] [place] [address] Performed By: #### 5 7021-8 #### [facility] CLIA [id number] [address] [place] [address] [place] Calcium [Mass/Vol] 9.1 mg/dL Normal 8.5-10.2 [facility] Comment on above: Order Comment: Speci men Type: BLOOD SPECIMEN Ordering Facility: [facility] Address: [address] [place] [address] Performed By: #### 5 7021-8 #### [facility] CLIA [id number] [address] [place] [address] [place] Chloride [Moles/Vol] 107 mmol/L Normal 98-107 [facility] Comment on above: Order Comment: Speci men Type: BLOOD SPECIMEN Ordering Facility: [facility] Address: [address] [place] [address] Performed By: #### 5 7021-8 #### [facility] CLIA [id number] [address] [place] [address] [place] CO2 [Moles/Vol] 24 mmol/L Normal 22-30 [facility] Comment on above: Order Comment: Speci men Type: BLOOD SPECIMEN Ordering Facility: [facility] Address: [address] [place] [address] Performed By: #### 5 7021-8 #### [facility] CLIA [id number] [address] [place] [address] [place] Creatinine [Mass/Vol] 0.85 mg/dL Normal 0.58-0.96 [facility] Comment on above: Order Comment: Speci men Type: BLOOD SPECIMEN Ordering Facility: [facility] Address: [address] [place] [address] Performed By: #### 5 7021-8 #### [facility] CLIA [id number] [address] [place] [address] [place] Creatinine and Glomerular filtration rate.predicted panel (S/P/Bld) 74 mL/min/1.73m??? Normal >=60 [facility] Comment on above: Order Comment: Speci men Type: BLOOD SPECIMEN Ordering Facility: [facility] Address: [address] [place], [place] [address] Result Comment: Cori mated Glomerular Filtration Rate (eGFR) is calculated using the 2020 CKD-EPI creatinine equation. This equation utilizes serum creatinine, sex, and age as parameters. The creatinine assay has traceable calibration to isotope dilution-mass spectrometry. Refer to KDIGO guidelines for clinical interpretation. In patients with unstable renal function, e.g. those with acute kidney injury, the eGFR may not accurately reflect actual GFR. Performed By: #### 5 7021-8 #### [facility] [id number] [address] [place] [address] [place] Glucose [Mass/Vol] 111 mg/dL High 74-99 [facility] Comment on above: Order Comment: Soniya cardenas Type: BLOOD SPECIMEN Ordering Facility: [facility] Address: [address] [place] [address] Result Comment: The [place] Diabetes Association (ADA) provides guidance for cutoff values for fasting glucose and random glucose. The ADA defines fasting as no caloric intake for at least 8 hours. Fasting plasma glucose results between 100 to 125 mg/dL indicate increased risk for diabetes (prediabetes). Fasting plasma glucose results greater than or equal to 126 mg/dL meet the criteria for diagnosis of diabetes. In the absence of unequivocal hyperglycemia, results should be confirmed by repeat testing. In a patient with classic symptoms of hyperglycemia or hyperglycemic crisis, random plasma glucose results greater than or equal to 200 mg/dL meet the criteria for diagnosis of diabetes. Reference: Standards of Medical Care in Diabetes 2016, [place] Diabetes Association. Diabetes Care. 2016.39(Suppl 1). Performed By: #### 5 7021-8 #### [facility] [id number] [address] [place] [address] [place] Potassium [Moles/Vol] 3.9 mmol/L Normal 3.7-5.1 [facility] Comment on above: Order Comment: Soniya cardenas Type: BLOOD SPECIMEN Ordering Facility: [facility] Address: [address] [place], [place] [address] Performed By: #### 5 7021-8 #### [facility] CLIA [id number] [address] [place] [address] [place] Protein [Mass/Vol] 6.7 g/dL Normal 6.3-8.0 [facility] Comment on above: Order Comment: Speci men Type: BLOOD SPECIMEN Ordering Facility: [facility] Address: [address] [place] [address] Performed By: #### 5 7021-8 #### [facility] CLIA [id number] [address] [place] [address] [place] Sodium [Moles/Vol] 141 mmol/L Normal 136-144 [facility] Comment on above: Order Comment: Speci men Type: BLOOD SPECIMEN Ordering Facility: [facility] Address: [address] [place] [address] Performed By: #### 5 7021-8 #### [facility] CLIA [id number] [address] [place] [address] [place] Urea nitrogen [Mass/Vol] 10 mg/dL Normal 7-21 [facility] Comment on above: Order Comment: Speci men Type: BLOOD SPECIMEN Ordering Facility: [facility] Address: [address] [place] [address] Performed By: #### 5 7021-8 #### [facility] [id number] [address] [place] [address] [place] ACK81ue 01-15-2024 ECG01 Ventricular Rate : 4 9 BPM Atrial Rate : 49 BPM P-R Interval : 182 ms QRS Duration : 98 ms Q-T Interval : 438 ms QTC Calculation(Bazett) : 395 ms Calculated P [place] : 7 degrees Calculated R [place] : -14 degrees Calculated T [place] : 18 degrees SINUS BRADYCARDIA OTHERWISE NORMAL ECG Confirmed by MD PAYTON GREGORY () on 01/15/2024 9:43:06 AM NAME : MARA BUSTOS PID : [id number] : 1955 Gender : Female Race : ORD : Procedure Date : Jan 15 2024 09:05:52 Edit Date : Jan 15 2024 09:43:11 Diagnosis: SINUS BRADYCARDIA OTHERWISE NORMAL ECG Confirmed by MD PAYTON GREGORY () on 01/15/2024 9:43:06 AM Test Reason : Location : 636 : [facility] Overread By : MD PAYTON GREGORY Edited By : MD PAYTON GREGORY Referred By : YAKOV SUMMERS Acquired by : Luisana walker [facility] HISTORY PHYSICALon HISTORY PHYSICAL HNO ID: [id number] Author: SARAY RIVERA APRN.BATTERY MECHANIC Service: ? Author Type: Nurse Practitioner Type: H&P Filed: 01/15/2024 09:41 Note Text: HISTORY AND PHYSICAL EXAMINATION SERVICE DATE: 01/15/2024 SERVICE TIME: 9:40 AM PRIMARY CARE PHYSICIAN: Duane Huddleston MD Assessment Patient has the following medical conditions which may affect kyle-operative course: Former smoker Assessment: 0.5ppd/55 years, quit 12/29/2023, no wheezes, lungs CTA, pulse ox 97% on RA Palpitations Assessment: controlled on rx EKG today bradycardia otherwise normal Gastroesophageal reflux disease Assessment: controlled on rx Constipation Assessment: otc rx as needed Rheumatoid arthritis (HCC) Assessment: controlled on rx, following OSH rheumatology Depressive disorder Assessment: hx, no current tx Obesity with body mass index 30 or greater Assessment: Body mass index is 30.23 kg/m?. [place] Activity Status Index: METS: Climb a flight of stairs or walk up a hill (5.50 METs) DASI Score: 5.5 Patient denies any chest pain or undue shortness of breath with the above physical activity. Clinical Frailty Scale: 3. Well, with treated comorbid disease STOP-Bang Score: BMI greater than 35 kg/m2 Patient over 50 years old Has a large neck Denies snoring loudly Denies feeling tired, fatigued, or sleepy during the daytime Has not been observed to stop breathing or choking/gasping during sleep Denies having high blood pressure Non-male patient STOP-Bang Score: 3 [id number] Score: Age: 65-74 Sex: female CHF history: No Hypertension history: No Stroke/TIA/thromboembo lism history: No Vascular disease history: No Diabetes history: No [id number] Score: 2 ARISCAT Score: Age: 51-80 Preoperative SpO2: >=96% Respiratory infection in the last month: No Preoperative anemia: No Surgical incision: peripheral Duration of surgery: >3 hrs Emergency procedure: No ARISCAT Score: 26 ANESTHESIA FINDINGS: Intubation History: No history of difficult intubation Significant Anesthesia Considerations: none Airway History: No history of difficult airway I - PHYSICAL EVALUATION AIRWAY Patient intubated: No. Tracheostomy tube not present Mallampati: II. TM distance: >3 FB. Neck ROM: full ROM without neurological symptoms. Mouth opening: adequate. Short neck: no. Additional comments: +left TMJ. Thick neck: yes Suarez present: no Lip Bite Test: I Microretrognathia/Micr onagthia/Recessed Chin: No DENTAL Dentures, upper: complete. Dentures, lower: complete. II - ANESTHESIA PLAN Anesthetic Plan: other Beta Bessy Monitoring Plan Post Procedure Analgesic Plan Informed Consent Anesthetic risks, benefits, alternatives, personnel and consent discussed: yes. Patient / Responsible Alliance Party agrees to proceed: yes Patient / Surrogate agrees to blood products: blood products not planned Discussed the possibility of lip / dental damage: yes Prepared for Surgery: optimally prepared for surgery, pending [see comment]. Labs and EKG CONSULTS: Patient does not require consults for optimization at this time Planned Anesthetic: other anesthesia choice The Following Tests/Procedures Have Been Initiated: Orders Placed This Encounter >CBC + AUTO DIFF Standing Status: Future Number of Occurrences: 1 Standing Expiration Date: 04/15/2024 >CMP Standing Status: Future Number of Occurrences: 1 Standing Expiration Date: 04/15/2024 Urine Culture - LAB COLLECT Standing Status: Future Number of Occurrences: 1 Standing Expiration Date: 04/15/2024 ECG COMPLETE Standing Status: Future Standing Expiration Date: 01/14/2025 REASON FOR VISIT: Mara Bustos is a 68 year old female who is scheduled for Procedure(s): COLPORRHAPHY POSTERIOR (N/A) CYSTOSCOPY (N/A) FIXATION LIGAMENT SACROSPINOUS (Pending) ANTERIOR COLPORRHAPHY REPAIR CYSTOCELE WITH OR W/O REPAIR URETHROCELE INCLUDING CYSTOURETHROSCOPY WHEN PERFORMED (N/A) PERINEOPLASTY, NON-OBSTETRICAL (N/A) at the request of Dr. Yakov Summers for consultation. My final recommendation will be communicated back to the requesting physician by way of shared medical record or letter. Subjective The patient has the following: ACTIVE PROBLEM LIST Constipation Depressive Disorder Gastroesophageal Reflux Disease Hyperlipidemia Obesity With Body Mass Index 30 Or Greater Rheumatoid Arthritis (Hcc) Former Smoker Palpitations COVID-19 Immunization Status Overdue - Covid-19 Vaccine ( season) Overdue since 07/17/2023 05/22/2023 Imm Admin: COVID-19 vaccine, age 12+ yr, season (PFIZER-BIONTECH) 11/14/2022 Imm Admin: COVID-19 vaccine, age 12+ yr, bivalent (MODERNA) 11/10/2021 Outside Immunization: COVID-19, mRNA, LNP-S, PF, 100 mcg/0.5mL dose or 50 mcg/0.25mL dose Only the first 3 history entries have been loaded, but more history exists. CHIEF COMPLAINT: Pre-op exam HPI: Mara Bustos is a 5 (more content not included)... Normal [facility] Absolute lymphocyte countOrd ered By: Duane Huddleston on 11-20-2023 Lymphocytes Auto (Unsp spec) [#/Vol] 1.97 10*3/uL 0.83-4.51 [facility] Automated lymphocyte count a s percentage of total leukocytesOrdered By: Duane Huddleston on 11-20-2023 Lymphocytes/100 WBC Auto (Unsp spec) 24.7 % 19-41 [facility] Basophil percentageOrdered B y: Duane Huddleston on 11-20-2023 Basophils/100 WBC (Bld) 0.6 % 0-1 [facility] Bilirubin [Mass/Vol] 0.30 mg/dL 0.20-1.00 [facility] Comment on above: For patients on eltr ombopag therapy, use of Dimension [place] TBIL is not recommended. Chloride [Moles/Vol] 111 mmol/L 98-107 [facility] Eosinophils/100 WBC (Bld) 1.4 % 0-5 [facility] Glucose [Mass/Vol] 104 mg/dL 74-106 [facility] Comment on above: Fasting Glucose resu lt from 100 to 125 mg/dL suggests IMPAIRED HOMEOSTASIS per A.D.A. criteria. Hemoglobin (Bld) [Mass/Vol] 14.6 g/dL 12.0-15.0 [facility] Monocytes/100 WBC (Bld) 6.9 % 0-10 [facility] Neutrophils (Bld) [#/Vol] 5.3 10*3/uL 2.0-7.7 [facility] Neutrophils/100 WBC (Bld) 66.1 % 47-70 [facility] Potassium [Moles/Vol] 4.5 mmol/L 3.5-5.1 [facility] Protein [Mass/Vol] 7.3 g/dL 6.4-8.2 [facility] Sodium [Moles/Vol] 141 mmol/L 136-145 [facility] WBC (Bld) [#/Vol] 8.0 10*3/uL 4.4-11.0 [facility] Determination of erythrocyte mean corpuscular volume (MCV)Ordered By: Duane Huddleston on 11-20-2023 MCV (RBC) [Entitic vol] 90.5 fL 81-99 [facility] Erythrocyte distribution wid th ratioOrdered By: [facility] on 11-20-2023 Erythrocyte distribution width (RBC) [Ratio] 13.2 % 11.6-14.6 [facility] Erythrocyte distribution wid th standard deviationOrdered By: [facility] 11-20-2023 Erythrocyte distribution width (RBC) [Entitic vol] 42.9 fL 35.1-43.9 [facility] Hematocrit Auto (Bld) [Volum e fraction][facility] Hematocrit (Bld) [Volume fraction] 43.8 % 37-47 [facility] Immature granulocytes/100 WB C Auto (Bld)Ordered By: Duane Huddleston 11-20-2023 Immature granulocytes/100 WBC (Bld) 0.300 % 0.0-0.9 [facility] Comment on above: IG% - Immature Granu locytes (promyelocytes, myelocytes and metamyelocytes) > 1% indicates that a LEFT SHIFT is Present. Laboratory - Chemistry and C hemistry - challengeOrdered By: Duane Flaquito 11-20-2023 Albumin/Globulin [Mass ratio] 1.0 {ratio} 0.9-2.4 [facility] ALP [Catalytic activity/Vol] 69 U/L 45-117 [facility] ALT [Catalytic activity/Vol] 24 U/L 13-56 [facility] CO2 [Moles/Vol] 24.0 mmol/L 21.0-32.0 [facility] Globulin (S) [Mass/Vol] 3.7 g/dL 2.2-4.2 [facility] Urea nitrogen/Creatinine [Mass ratio] 10.5 mg/mg 10-20 [facility] Laboratory - Hematology and Cell countsOrdered By: Duane Huddleston on 11-20-2023 MCH (RBC) [Entitic mass] 30.2 pg 27.0-32.0 [facility] MCHC (RBC) [Mass/Vol] 33.3 g/dL 32-36 [facility] Nucleated RBC/100 WBC (Bld) [Ratio] 0 % 0-5 [facility] Platelet mean volume (Bld) [Entitic vol] 9.3 fL 6.2-12.0 [facility] Platelets (Bld) [#/Vol] 248 10*3/uL 150-450 [facility] No Panel InformationOrdered By: Duane Huddleston on 11-20-2023 Estimated GFR (MDRD) Amer 84 mL/min >60 [facility] Comment on above: GFR Calc Estimated GFR (MDRD) Non-Af Amer 69 mL/min >60 [facility] Comment on above: Non- GFR Calc Vitamin D 25-Hydroxy 37.2 ng/mL [facility] Comment on above: Vitamin D 25(OH) Sta tus Range Deficiency <20 ng/mL (50nmol/L) Insufficiency 20 - 30 ng/mL (50 - 75 nmol/L) Sufficiency 30 - 100 ng/mL (75 - 250 nmol/L) Toxicity >100 ng/mL (>250 nmol/L) RBC Auto (Bld) [#/Vol]Ordere d By: Duane Huddleston on 11-20-2023 RBC (Bld) [#/Vol] 4.84 10*6/uL 4.2-5.4 [facility] Serum or plasma calcium jordan urement (mass/volume)Ordered By: Dunae Huddleston on 11-20-2023 Calcium [Mass/Vol] 9.2 mg/dL 8.5-10.1 [facility] Serum or plasma creatinine m easurement (mass/volume)Ordered By: Duane Huddleston on 11-20-2023 Creatinine [Mass/Vol] 0.86 mg/dL 0.55-1.02 [facility] Comment on above: The validity of the calculated GFR & GFRAA in patients over 70 years has not been determined. Clinical correlation is essential. Serum or plasma thyroid stim ulating hormone (TSH) measurement (units/volume)Ordered By: Duane Huddleston on 11-20-2023 TSH Qn 1.10 uIU/mL 0.358-3.74 [facility] Serum or plasma urea nitroge n measurement (mass/volume)Ordered By: Duane Huddleston on 11-20-2023 Urea nitrogen [Mass/Vol] 9 mg/dL 7-18 [facility] Thin prep Papanicolaou smear with manual screeningOrdered By: Duane Huddleston on 11-20-2023 Thin prep Papanicolaou smear with manual screening 3.6 g/dL 3.2-5.0 [facility] Thin prep Papanicolaou smear with manual screening 16 U/L 15-37 [facility] Thin prep Papanicolaou smear with manual screening 6 5-15 [facility] Absolute lymphocyte countOrd ered By: THELMA ESTES on 09-25-2023 Lymphocytes Auto (Unsp spec) [#/Vol] 3.15 10*3/uL 0.83-4.51 [facility] Automated lymphocyte count a s percentage of total leukocytesOrdered By: THELMA ESTES on 09-25-2023 Lymphocytes/100 WBC Auto (Unsp spec) 36.9 % 19-41 [facility] Basophil percentageOrdered B y: THELMA ESTES on 09-25-2023 Basophils/100 WBC (Bld) 0.8 % 0-1 [facility] Eosinophils/100 WBC (Bld) 1.2 % 0-5 [facility] Hemoglobin (Bld) [Mass/Vol] 14.7 g/dL 12.0-15.0 [facility] Monocytes/100 WBC (Bld) 6.2 % 0-10 [facility] Neutrophils (Bld) [#/Vol] 4.7 10*3/uL 2.0-7.7 [facility] Neutrophils/100 WBC (Bld) 54.5 % 47-70 [facility] [facility] W[facility] (Bld) [#/Vol] 8.5 10*3/uL 4.4-11.0 [facility] Determination of erythrocyte mean corpuscular volume (MCV)Ordered By: THELMA ESTES on 09-25-2023 MCV (RBC) [Entitic vol] 93.0 fL 81-99 [facility] Erythrocyte distribution wid th ratioOrdered By: THELMA ESTSE on 09-25-2023 Erythrocyte distribution width (RBC) [Ratio] 13.3 % 11.6-14.6 [facility] Erythrocyte distribution wid th standard deviationOrdered By: THELMA ESTES on 09-25-2023 Erythrocyte distribution width (RBC) [Entitic vol] 45.0 fL 35.1-43.9 [facility] Erythrocyte sedimentation ra teOrdered By: THELMA ESTES on 09-25-2023 ESR (Bld) [Velocity] 4 mm/h 0-30 [facility] Hematocrit Auto (Bld) [Volum e fraction]Ordered By: THELMA ESTES on 09-25-2023 Hematocrit (Bld) [Volume fraction] 45.0 % 37-47 [facility] Immature granulocytes/100 WB C Auto (Bld)Ordered By: THELMA ESTES on 09-25-2023 Immature granulocytes/100 WBC (Bld) 0.400 % 0.0-0.9 [facility] Comment on above: IG% - Immature Granu locytes (promyelocytes, myelocytes and metamyelocytes) > 1% indicates that a LEFT SHIFT is Present. Laboratory - Chemistry and C hemistry - challengeOrdered By: THELMA ESTES on 09-25-2023 ALT [Catalytic activity/Vol] 17 U/L 13-56 [facility] Laboratory - Hematology and Cell countsOrdered By: THELMA ESTES on 09-25-2023 MCH (RBC) [Entitic mass] 30.4 pg 27.0-32.0 [facility] MCHC (RBC) [Mass/Vol] 32.7 g/dL 32-36 [facility] Nucleated RBC/100 WBC (Bld) [Ratio] 0 % 0-5 [facility] Platelet mean volume (Bld) [Entitic vol] 9.0 fL 6.2-12.0 [facility] Platelets (Bld) [#/Vol] 309 10*3/uL 150-450 [facility] No Panel InformationOrdered By: THELMA ESTES on 09-25-2023 C-Reactive Protein Extended Range < 2.90 mg/L 0.0-3.0 [facility] Comment on above: C-Reactive Protein ( CRP) provides useful information for thediagnosis, therapy and monitoring of inflammatory processesand associated diseases. For the evaluation of Relative Riskfor Cardiovascular Disease, a High Sensitivity CRP (HSCRP)should be ordered. Estimated GFR (MDRD) Amer 77 mL/min >60 [facility] Comment on above: GFR Calc Estimated GFR (MDRD) Non-Af Amer 64 mL/min >60 [facility] Comment on above: Non- GFR Calc RBC Auto (Bld) [#/Vol]Ordere d By: THELMA ESTES on 09-25-2023 RBC (Bld) [#/Vol] 4.84 10*6/uL 4.2-5.4 [facility] Serum or plasma creatinine m easurement (mass/volume)Ordered By: THELMA ESTES on 09-25-2023 Creatinine [Mass/Vol] 0.93 mg/dL 0.55-1.02 [facility] Comment on above: The validity of the calculated GFR & GFRAA in patients over 70 years has not been determined. Clinical correlation is essential. Serum or plasma urea nitroge n measurement (mass/volume)Ordered By: THELMA ESTES on 09-25-2023 Urea nitrogen [Mass/Vol] 13 mg/dL 7-18 [facility] Thin prep Papanicolaou smear with manual screeningOrdered By: THELMA ESTES on 09-25-2023 Thin prep Papanicolaou smear with manual screening 16 U/L 15-37 [facility] UA DIP, URINE (POC)on 2023 BILIRUBIN UA (POCT) Negative Negative [facility] CLARITY UA (POCT) Clear [facility] COLOR UA (POCT) [place] [facility] GLUCOSE UA (POCT) Negative Negative mg/dL [facility] Hemoglobin Ql (U) Negative Negative [facility] KETONE UA (POCT) Negative Negative mg/dL [facility] LEUKOCYTES UA (POCT) Trace Abnormal Negative [facility] NITRITE UA (POCT) Negative Negative [facility] PH UA (POCT) 5.5 4.5 - 8.0 [facility] Protein Ql (U) Trace Abnormal Negative mg/dL [facility] SPECIFIC GRAVITY UA (POCT) >=1.030 1.005 - 1.030 [facility] UROBILINOGEN UA (POCT) 0.2 E.U./dL Geraldine l E.U./dL [facility] Absolute lymphocyte countOrd ered By: Alley Howe on 05-29-2023 Lymphocytes Auto (Unsp spec) [#/Vol] 2.97 10*3/uL 0.83-4.51 [facility] Basophil percentageOrdered B y: Alley Howe on 05-29-2023 Basophils/100 WBC (Bld) 0.9 % 0-1 [facility] Eosinophils/100 WBC (Bld) 1.3 % 0-5 [facility] Neutrophils (Bld) [#/Vol] 4.6 10*3/uL 2.0-7.7 [facility] Neutrophils/100 WBC (Bld) 55.4 % 47-70 [facility] WBC (Bld) [#/Vol] 8.2 10*3/uL 4.4-11.0 [facility] Blood erythrocytes count (nu mber/volume)Ordered By: Alley Howe on 05-29-2023 RBC (Bld) [#/Vol] 4.53 10*6/uL 4.2-5.4 [facility] Blood hemoglobin measurement (mass/volume)Ordered By: Alley Howe on 05-29-2023 Hemoglobin (Bld) [Mass/Vol] 14.0 g/dL 12.0-15.0 [facility] Blood lymphocytes/100 leukoc ytesOrdered By: Alley Howe on 05-29-2023 Lymphocytes/100 WBC (Bld) 36.1 % 19-41 [facility] Blood monocytes/100 leukocyt esOrdered By: Alley Howe on 05-29-2023 Monocytes/100 WBC (Bld) 6.1 % 0-10 [facility] Blood platelet mean volumeOr dered By: Alley Howe on 05-29-2023 Platelet mean volume (Bld) [Entitic vol] 8.9 fL 6.2-12.0 [facility] Determination of erythrocyte mean corpuscular volume (MCV)Ordered By: Alley Howe on 05-29-2023 MCV (RBC) [Entitic vol] 95.4 fL 81-99 [facility] Hematocrit Auto (Bld) [Volum e fraction]Ordered By: Alley Howe on 05-29-2023 Hematocrit (Bld) [Volume fraction] 43.2 % 37-47 [facility] Laboratory - Chemistry and C hemistry - challengeOrdered By: Alley Howe on 05-29-2023 ALT [Catalytic activity/Vol] 24 U/L 13-56 [facility] Laboratory - Hematology and Cell countsOrdered By: Alley Howe on 05-29-2023 Erythrocyte distribution width (RBC) [Entitic vol] 47.1 fL 35.1-43.9 [facility] Erythrocyte distribution width (RBC) [Ratio] 13.5 % 11.6-14.6 [facility] Immature granulocytes/100 WBC (Bld) 0.200 % 0.0-0.9 [facility] Comment on above: IG% - Immature Granu locytes (promyelocytes, myelocytes and metamyelocytes) > 1% indicates that a LEFT SHIFT is Present. MCH (RBC) [Entitic mass] 30.9 pg 27.0-32.0 [facility] Nucleated RBC/100 WBC (Bld) [Ratio] 0 % 0-5 [facility] MCHC Auto (RBC) [Mass/Vol]Or dered By: Alley Howe on 05-29-2023 MCHC (RBC) [Mass/Vol] 32.4 g/dL 32-36 [facility] No Panel InformationOrdered By: Alley Howe on 05-29-2023 Estimated GFR (MDRD) Amer 81 mL/min >60 [facility] Comment on above: GFR Calc Estimated GFR (MDRD) Non-Af Amer 67 mL/min >60 [facility] Comment on above: Non- GFR Calc Vitamin D 25-Hydroxy 52.7 ng/mL [facility] Comment on above: Vitamin D 25(OH) Sta tus Range Deficiency <20 ng/mL (50nmol/L) Insufficiency 20 - 30 ng/mL (50 - 75 nmol/L) Sufficiency 30 - 100 ng/mL (75 - 250 nmol/L) Toxicity >100 ng/mL (>250 nmol/L) Platelets bldOrdered By: Delia Howe on 05-29-2023 Platelets (Bld) [#/Vol] 272 10*3/uL 150-450 [facility] Serum or plasma C reactive p rotein measurement (mass/volume)Ordered By: Alley Howe on 05-29-2023 CRP [Mass/Vol] mg/L 0.0-3.0 [facility] Comment on above: C-Reactive Protein ( CRP) provides useful information for thediagnosis, therapy and monitoring of inflammatory processesand associated diseases. For the evaluation of Relative Riskfor Cardiovascular Disease, a High Sensitivity CRP (HSCRP)should be ordered. Serum or plasma albumin jordan urement (mass/volume)Ordered By: Alley Howe on 05-29-2023 Albumin [Mass/Vol] 3.4 g/dL 3.2-5.0 [facility] Serum or plasma calcium jordan urement (mass/volume)Ordered By: Alley Howe on 05-29-2023 Calcium [Mass/Vol] 8.8 mg/dL 8.5-10.1 [facility] Serum or plasma creatinine m easurement (mass/volume)Ordered By: Alley Howe on 05-29-2023 Creatinine [Mass/Vol] 0.89 mg/dL 0.55-1.02 [facility] Comment on above: The validity of the calculated GFR & GFRAA in patients over 70 years has not been determined. Clinical correlation is essential. Serum or plasma urea nitroge n measurement (mass/volume)Ordered By: Alley Howe on 05-29-2023 Urea nitrogen [Mass/Vol] 17 mg/dL 7-18 [facility] Thin prep Papanicolaou smear with manual screeningOrdered By: Alley Howe on 05-29-2023 Thin prep Papanicolaou smear with manual screening 20 U/L 15-37 [facility] Absolute lymphocyte countOrd ered By: Duane Huddleston on 05-22-2023 Lymphocytes Auto (Unsp spec) [#/Vol] 2.71 10*3/uL 0.83-4.51 [facility] Basophil percentageOrdered B y: Duane Huddleston on 05-22-2023 Basophils/100 WBC (Bld) 0.5 % 0-1 [facility] Bilirubin [Mass/Vol] 0.30 mg/dL 0.20-1.00 [facility] Comment on above: For patients on eltr ombopag therapy, use of Dimension [place] TBIL is not recommended. Chloride [Moles/Vol] 108 mmol/L 98-107 [facility] Cholesterol [Mass/Vol] 198 mg/dL <200 [facility] Comment on above: <200 mg/dL Desirable 200-240 mg/dL Borderline >240 mg/dL High Risk Eosinophils/100 WBC (Bld) 0.7 % 0-5 [facility] Glucose [Mass/Vol] 119 mg/dL 74-106 [facility] Comment on above: Fasting Glucose resu lt from 100 to 125 mg/dL suggests IMPAIRED HOMEOSTASIS per A.D.A. criteria. Neutrophils (Bld) [#/Vol] 5.7 10*3/uL 2.0-7.7 [facility] Neutrophils/100 WBC (Bld) 62.0 % 47-70 [facility] Potassium [Moles/Vol] 3.9 mmol/L 3.5-5.1 [facility] Protein [Mass/Vol] 7.5 g/dL 6.4-8.2 [facility] Sodium [Moles/Vol] 137 mmol/L 136-145 [facility] Triglyceride [Mass/Vol] 117 mg/dL <199 [facility] Comment on above: The drugs N-Acetylcy steine and Metamizole may falsely depress this assay.Serum Triglycerides Reference Interval Normal <150 mg/dL Borderline high 150 - 199 mg/dL High 200 - 499 mg/dL Very High > or = 500 mg/dL WBC (Bld) [#/Vol] 9.2 10*3/uL 4.4-11.0 [facility] Blood erythrocytes count (nu mber/volume)Ordered By: Duane Huddleston on 05-22-2023 RBC (Bld) [#/Vol] 4.94 10*6/uL 4.2-5.4 [facility] Blood hemoglobin measurement (mass/volume)Ordered By: Duane Huddleston on 05-22-2023 Hemoglobin (Bld) [Mass/Vol] 15.3 g/dL 12.0-15.0 [facility] Blood lymphocytes/100 leukoc ytesOrdered By: [facility] on [facility]-22-[facility]23 Lymphocytes/100 WBC (Bld) 29.4 % 19-41 [facility] Blood monocytes/100 leukocyt esOrdered By: [facility] on 05-22-2023 Monocytes/100 WBC (Bld) 7.1 % 0-10 [facility] Blood platelet mean volumeOr dered By: [facility] on 05-22-2023 Platelet mean volume (Bld) [Entitic vol] 9.4 fL 6.2-12.0 [facility] Determination of erythrocyte mean corpuscular volume (MCV)Ordered By: [facility] on 05-22-2023 MCV (RBC) [Entitic vol] 92.9 fL 81-99 [facility] Hematocrit Auto (Bld) [Volum e fraction]Ordered By: [facility] on 05-22-2023 Hematocrit (Bld) [Volume fraction] 45.9 % 37-47 [facility] Laboratory - Chemistry and C hemistry - challengeOrdered By: [facility] on 05-22-2023 ALP [Catalytic activity/Vol] 74 U/L 45-117 [facility] ALT [Catalytic activity/Vol] 37 U/L 13-56 [facility] CO2 [Moles/Vol] 22.0 mmol/L 21.0-32.0 [facility] Globulin (S) [Mass/Vol] 3.9 g/dL 2.2-4.2 [facility] Urea nitrogen/Creatinine [Mass ratio] 10.0 mg/mg 10-20 [facility] Laboratory - Hematology and Cell countsOrdered By: [facility] on 05-22-2023 Erythrocyte distribution width (RBC) [Entitic vol] 46.1 fL 35.1-43.9 [facility] Erythrocyte distribution width (RBC) [Ratio] 13.6 % 11.6-14.6 [facility] Immature granulocytes/100 WBC (Bld) 0.300 % 0.0-0.9 [facility] Comment on above: IG% - Immature Granu locytes (promyelocytes, myelocytes and metamyelocytes) > 1% indicates that a LEFT SHIFT is Present. MCH (RBC) [Entitic mass] 31.0 pg 27.0-32.0 [facility] Nucleated RBC/100 WBC (Bld) [Ratio] 0 % 0-5 [facility] MCHC Auto (RBC) [Mass/Vol]Or dered By: Duane Huddleston on 05-22-2023 MCHC (RBC) [Mass/Vol] 33.3 g/dL 32-36 [facility] No Panel InformationOrdered By: Duane Huddleston on 05-22-2023 Estimated GFR (MDRD) Amer 71 mL/min >60 [facility] Comment on above: GFR Calc Estimated GFR (MDRD) Non-Af Amer 59 mL/min >60 [facility] Comment on above: Non- GFR Calc Thyroid Stimulating Hormone (TSH) 1.24 uIU/mL 0.358-3.74 [facility] Vitamin D 25-Hydroxy 54.9 ng/mL [facility] Comment on above: Vitamin D 25(OH) Sta tus Range Deficiency <20 ng/mL (50nmol/L) Insufficiency 20 - 30 ng/mL (50 - 75 nmol/L) Sufficiency 30 - 100 ng/mL (75 - 250 nmol/L) Toxicity >100 ng/mL (>250 nmol/L) Platelets bldOrdered By: Duane Huddleston on 05-22-2023 Platelets (Bld) [#/Vol] 326 10*3/uL 150-450 [facility] Serum or plasma albumin jordan urement (mass/volume)Ordered By: Duane Huddleston on 05-22-2023 Albumin [Mass/Vol] 3.6 g/dL 3.2-5.0 [facility] Serum or plasma albumin/glob ulin mass ratioOrdered By: Duane Huddleston on 05-22-2023 Albumin/Globulin [Mass ratio] 0.9 {ratio} 0.9-2.4 [facility] Serum or plasma calcium jordan urement (mass/volume)Ordered By: Duane Huddleston on 05-22-2023 Calcium [Mass/Vol] 8.9 mg/dL 8.5-10.1 [facility] Serum or plasma cholesterol in HDL measurement (mass/volume)Ordered By: Duane Huddleston on 05-22-2023 Cholesterol in HDL [Mass/Vol] 52 mg/dL >40 [facility] Comment on above: The drugs N-Acetylcy steine and Metamizole may falsely depress this assay. Reference Range HDL <40 mg/dL Low HDL Cholesterol HDL >or= 60 mg/dL High HDL Cholesterol Serum or plasma cholesterol in VLDL measurement (mass/volume)Ordered By: Duane Huddleston on 05-22-2023 Cholesterol in VLDL [Mass/Vol] 23 mg/dL 5-40 [facility] Serum or plasma creatinine m easurement (mass/volume)Ordered By: Duane Huddleston on 05-22-2023 Creatinine [Mass/Vol] 1.00 mg/dL 0.55-1.02 [facility] Comment on above: The validity of the calculated GFR & GFRAA in patients over 70 years has not been determined. Clinical correlation is essential. Serum or plasma low density lipoprotein (LDL) cholesterol measurement (mass/volume)Ordered By: Duane Huddleston on 05-22-2023 Cholesterol in LDL [Mass/Vol] 123 mg/dL 0-130 [facility] Serum or plasma urea nitroge n measurement (mass/volume)Ordered By: Duane Huddleston 05-22-2023 Urea nitrogen [Mass/Vol] 10 mg/dL 7-18 [facility] Thin prep Papanicolaou smear with manual screeningOrdered By: Duane Huddleston on 05-22-2023 Thin prep Papanicolaou smear with manual screening 21 U/L 15-37 [facility] Thin prep Papanicolaou smear with manual screening 7 5-15 [facility] Absolute lymphocyte countOrd ered By: Alison Jean-Baptiste on 03-23-2023 Lymphocytes Auto (Unsp spec) [#/Vol] 2.00 10*3/uL 0.83-4.51 [facility] Basophil percentageOrdered B y: Alison Jean-Baptiste on 03-23-2023 Basophil percentage 0-5 SEEN /hpf 0-5 [facility] Basophils/100 WBC (Bld) 0.4 % 0-1 [facility] Chloride [Moles/Vol] 108 mmol/L 98-[address] [facility] Eosinophils/100 WBC (Bld) 0.4 % 0-5 [facility] Glucose [Mass/Vol] 125 mg/dL 74-106 [facility] Comment on above: Fasting Glucose resu lt from 100 to 125 mg/dL suggests IMPAIRED HOMEOSTASIS per A.D.A. criteria. Neutrophils (Bld) [#/Vol] 5.5 10*3/uL 2.0-7.7 [facility] Neutrophils/100 WBC (Bld) 68.3 % 47-70 [facility] Potassium [Moles/Vol] 3.8 mmol/L 3.5-5.1 [facility] Sodium [Moles/Vol] 136 mmol/L 136-145 [facility] WBC (Bld) [#/Vol] 8.1 10*3/uL 4.4-11.0 [facility] Bilirubin Test strip Ql (U)O rdered By: Alison Jean-Baptiste on 03-23-2023 Bilirubin Ql (U) Negative Negative [facility] Blood erythrocytes count (nu mber/volume)Ordered By: Alison Jean-Baptiste on 03-23-2023 RBC (Bld) [#/Vol] 4.74 10*6/uL 4.2-5.4 [facility] Blood hemoglobin measurement (mass/volume)Ordered By: Alison Jean-Baptiste on 03-23-2023 Hemoglobin (Bld) [Mass/Vol] 14.6 g/dL 12.0-15.0 [facility] Blood lymphocytes/100 leukoc ytesOrdered By: Alison Jean-Baptiste on 03-23-2023 Lymphocytes/100 WBC (Bld) 24.7 % 19-41 [facility] Blood monocytes/100 leukocyt esOrdered By: Alison Jean-Baptiste on 03-23-2023 Monocytes/100 WBC (Bld) 6.0 % 0-10 [facility] Blood platelet mean volumeOr dered By: Alison Jean-Baptiste on 03-23-2023 Platelet mean volume (Bld) [Entitic vol] 8.6 fL 6.2-12.0 [facility] Culture, urineOrdered By: Chencho Jean-Baptiste on 03-23-2023 Bacteria identified Cx Nom (U) Culture exhibits no growth. [facility] Bacteria identified Cx Nom (U) Culture exhibits no growth. [facility] Determination of erythrocyte mean corpuscular volume (MCV)Ordered By: Alison Jean-Baptiste on 03-23-2023 MCV (RBC) [Entitic vol] 88.8 fL 81-99 [facility] Hematocrit Auto (Bld) [Volum e fraction]Ordered By: Alison Jean-Baptiste on 03-23-2023 Hematocrit (Bld) [Volume fraction] 42.1 % 37-47 [facility] Ketones Test strip Ql (U)Ord ered By: Alison Jean-Baptiste on 03-23-2023 Ketones Ql (U) 50 mg/dl Negative [facility] Laboratory - Chemistry and C hemistry - challengeOrdered By: Alison Jean-Baptiste on 03-23-2023 CO2 [Moles/Vol] 24.0 mmol/L 21.0-32.0 [facility] Urea nitrogen/Creatinine [Mass ratio] 11.5 mg/mg 10-20 [facility] Laboratory - Hematology and Cell countsOrdered By: Alison Jean-Baptiste on 03-23-2023 Erythrocyte distribution width (RBC) [Entitic vol] 42.3 fL 35.1-43.9 [facility] Erythrocyte distribution width (RBC) [Ratio] 13.0 % 11.6-14.6 [facility] Immature granulocytes/100 WBC (Bld) 0.200 % 0.0-0.9 [facility] Comment on above: IG% - Immature Granu locytes (promyelocytes, myelocytes and metamyelocytes) > 1% indicates that a LEFT SHIFT is Present. MCH (RBC) [Entitic mass] 30.8 pg 27.0-32.0 [facility] Nucleated RBC/100 WBC (Bld) [Ratio] 0 % 0-5 [facility] MCHC Auto (RBC) [Mass/Vol]Or dered By: Alison Jean-Baptiste on 03-23-2023 MCHC (RBC) [Mass/Vol] 34.7 g/dL 32-36 [facility] Mucus LM Ql (Urine sed)Order ed By: Alison Jean-Baptiste on 03-23-2023 Mucus Ql (Urine sed) 0 SEEN /hpf [facility] Nitrite Test strip Ql (U)Ord ered By: Alison Jean-Baptiste on 03-23-2023 Nitrite Ql (U) Negative Negative [facility] No Panel InformationOrdered By: Alison Jean-Baptiste on 03-23-2023 Estimated Creatinine Clearance Calc 50.48 ml/min [facility] Estimated GFR (MDRD) Amer 83 mL/min >60 [facility] Comment on above: GFR Calc Estimated GFR (MDRD) Non-Af Amer 69 mL/min >60 [facility] Comment on above: Non- GFR Calc Platelets bldOrdered By: Shira Jean-Baptiste on 03-23-2023 Platelets (Bld) [#/Vol] 288 10*3/uL 150-450 [facility] Protein Test strip Ql (U)Ord ered By: Alison Jean-Baptiste on 03-23-2023 Protein Ql (U) 15 mg/dl Negative [facility] Serum or plasma calcium jordan urement (mass/volume)Ordered By: Alison Jean-Baptiste on 03-23-2023 Calcium [Mass/Vol] 8.9 mg/dL 8.5-10.1 [facility] Serum or plasma creatinine m easurement (mass/volume)Ordered By: Alison Jean-Baptiste on 03-23-2023 Creatinine [Mass/Vol] 0.87 mg/dL 0.55-1.02 [facility] Comment on above: The validity of the calculated GFR & GFRAA in patients over 70 years has not been determined. Clinical correlation is essential. Serum or plasma urea nitroge n measurement (mass/volume)Ordered By: Alison Jean-Baptiste on 03-23-2023 Urea nitrogen [Mass/Vol] 10 mg/dL 7-18 [facility] Squamous epithelial cells de tection in urine sediment by light microscopyOrdered By: Alison Jean-Baptiste on 03-23-2023 Epithelial cells.squamous LM Ql (Urine sed) 0-5 SEEN /hpf 5-10 [facility] Thin prep Papanicolaou smear with manual screeningOrdered By: Alison Jean-Baptiste on 03-23-2023 Thin prep Papanicolaou smear with manual screening 4 5-15 [facility] Urine blood detectionOrdered By: Alison Jean-Baptiste on 03-23-2023 RBC Ql (U) 10 /ul Negative [facility] RBC Ql (U) 0-5 SEEN /hpf 0-5 [facility] Urine clarityOrdered By: Shira Jean-Baptiste on 03-23-2023 Clarity (U) Sl. Cloudy Clear [facility] Urine color determinationOrd ered By: Alison Jean-Baptiste on 03-23-2023 Color (U) Yellow Yellow [facility] Urine glucose detectionOrder ed By: Alison Jean-Baptiste on 03-23-2023 Glucose Ql (U) Normal mg/dl Normal [facility] Urine leukocyte esterase det ection by dipstickOrdered By: Alison Jean-Baptiste on 03-23-2023 Leukocyte esterase Test strip Ql (U) 25 /ul Negative [facility] Urine pHOrdered By: Alison Jean-Baptiste on 03-23-2023 pH (U) 7.0 [pH] 5.0 - 8.0 [facility] Urine sediment bacteria coun t by microscopy (number/high power field)Ordered By: Alison Jean-Baptiste on 03-23-2023 Bacteria LM.HPF (Urine sed) [#/Area] 1 /[HPF] None Seen [facility] Urine specific gravity measu rementOrdered By: Alison Jean-Baptiste on 03-23-2023 Specific gravity (U) [Rel density] 1.010 1.002-1.030 [facility] Urobilinogen Auto test strip Ql (U)Ordered By: Alison Jean-Baptiste on 03-23-2023 Urobilinogen Ql (U) Normal mg/dl Normal [facility] Basophil percentageOrdered B y: Cayden Abernathy on 03-16-2023 Basophil percentage 5-10 SEEN /hpf 0-5 [facility] Bilirubin Test strip Ql (U)O rdered By: Cayden Abernathy on 03-16-2023 Bilirubin Ql (U) Negative Negative [facility] Ketones Test strip Ql (U)Ord ered By: Cayden Abernathy on 03-16-2023 Ketones Ql (U) 15 mg/dl Negative [facility] Mucus LM Ql (Urine sed)Order ed By: Cayden Abernathy on 03-16-2023 Mucus Ql (Urine sed) 0 SEEN /hpf [facility] Nitrite Test strip Ql (U)Ord ered By: Cayden Abernathy on 03-16-2023 Nitrite Ql (U) Negative Negative [facility] Protein Test strip Ql (U)Ord ered By: Cayden Abernathy on 03-16-2023 Protein Ql (U) 30 mg/dl Negative [facility] Squamous epithelial cells de tection in urine sediment by light microscopyOrdered By: Cayden Abernathy on 03-16-2023 Epithelial cells.squamous LM Ql (Urine sed) 0-5 SEEN /hpf 5-10 [facility] Urine blood detectionOrdered By: Cayden Abernathy on 03-16-2023 RBC Ql (U) 50 /ul Negative [facility] RBC Ql (U) 0 SEEN /hpf 0-5 [facility] Urine clarityOrdered By: Kim Abernathy on 03-16-2023 Clarity (U) Clear Clear [facility] Urine color determinationOrd ered By: Cayden Abernathy on 03-16-2023 Color (U) Yellow Yellow [facility] Urine glucose detectionOrder ed By: Cayden Abernathy on 03-16-2023 Glucose Ql (U) Normal mg/dl Normal [facility] Urine leukocyte esterase det ection by dipstickOrdered By: Cayden Abernathy on 03-16-2023 Leukocyte esterase Test strip Ql (U) 500 /ul Negative [facility] Urine pHOrdered By: Cayden gibson on 03-16-2023 pH (U) 5.0 [pH] 5.0 - 8.0 [facility] Urine sediment bacteria coun t by microscopy (number/high power field)Ordered By: Cayden Abernathy on 03-16-2023 Bacteria LM.HPF (Urine sed) [#/Area] 0 /[HPF] None Seen [facility] Urine specific gravity measu rementOrdered By: Cayden Abernathy on 03-16-2023 Specific gravity (U) [Rel density] 1.025 1.002-1.030 [facility] Urobilinogen Auto test strip Ql (U)Ordered By: Cayden Abernathy on 03-16-2023 Urobilinogen Ql (U) 1 mg/dl Normal [facility] Absolute lymphocyte countOrd ered By: Duane Huddleston on 03-14-2023 Lymphocytes Auto (Unsp spec) [#/Vol] 2.47 10*3/uL 0.83-4.51 [facility] Basophil percentageOrdered B y: Duane Huddleston on 03-14-2023 Basophils/100 WBC (Bld) 0.6 % 0-1 [facility] Chloride [Moles/Vol] 108 mmol/L 98-107 [facility] Eosinophils/100 WBC (Bld) 0.3 % 0-5 [facility] Glucose [Mass/Vol] 113 mg/dL 74-106 [facility] Comment on above: Fasting Glucose resu lt from 100 to 125 mg/dL suggests IMPAIRED HOMEOSTASIS per A.D.A. criteria. Neutrophils (Bld) [#/Vol] 7.0 10*3/uL 2.0-7.7 [facility] Neutrophils/100 WBC (Bld) 67.2 % 47-70 [facility] Potassium [Moles/Vol] 4.1 mmol/L 3.5-5.1 [facility] Sodium [Moles/Vol] 139 mmol/L 136-145 [facility] WBC (Bld) [#/Vol] 10.4 10*3/uL 4.4-11.0 [facility] Blood erythrocytes count (nu mber/volume)Ordered By: Duane Huddleston on 03-14-2023 RBC (Bld) [#/Vol] 5.01 10*6/uL 4.2-5.4 [facility] Blood hemoglobin measurement (mass/volume)Ordered By: Duane Huddleston on 03-14-2023 Hemoglobin (Bld) [Mass/Vol] 16.0 g/dL 12.0-15.0 [facility] Blood lymphocytes/100 leukoc ytesOrdered By: Duane Huddleston on 03-14-2023 Lymphocytes/100 WBC (Bld) 23.8 % 19-41 [facility] Blood monocytes/100 leukocyt esOrdered By: Duane Huddleston on 03-14-2023 Monocytes/100 WBC (Bld) 7.8 % 0-10 [facility] Blood platelet mean volumeOr dered By: Duane Huddleston on 03-14-2023 Platelet mean volume (Bld) [Entitic vol] 8.7 fL 6.2-12.0 [facility] Culture, urineOrdered By: Guevara Huddleston on 03-14-2023 Bacteria identified Cx Nom (U) Culture exhibits no growth. [facility] Bacteria identified Cx Nom (U) Culture exhibits no growth. [facility] Determination of erythrocyte mean corpuscular volume (MCV)Ordered By: Duane Huddleston on 03-14-2023 MCV (RBC) [Entitic vol] 90.8 fL 81-99 [facility] Hematocrit Auto (Bld) [Volum e fraction]Ordered By: Duane Huddleston on 03-14-2023 Hematocrit (Bld) [Volume fraction] 45.5 % 37-47 [facility] Laboratory - Chemistry and C hemistry - challengeOrdered By: Duane Huddleston on 03-14-2023 CO2 [Moles/Vol] 23.0 mmol/L 21.0-32.0 [facility] Urea nitrogen/Creatinine [Mass ratio] 8.3 mg/mg 10-20 [facility] Laboratory - Hematology and Cell countsOrdered By: Duane Huddleston on 03-14-2023 Erythrocyte distribution width (RBC) [Entitic vol] 43.8 fL 35.1-43.9 [facility] Erythrocyte distribution width (RBC) [Ratio] 13.2 % 11.6-14.6 [facility] Immature granulocytes/100 WBC (Bld) 0.300 % 0.0-0.9 [facility] Comment on above: IG% - Immature Granu locytes (promyelocytes, myelocytes and metamyelocytes) > 1% indicates that a LEFT SHIFT is Present. MCH (RBC) [Entitic mass] 31.9 pg 27.0-32.0 [facility] Nucleated RBC/100 WBC (Bld) [Ratio] 0 % 0-5 [facility] MCHC Auto (RBC) [Mass/Vol]Or dered By: Duane Huddleston on 03-14-2023 MCHC (RBC) [Mass/Vol] 35.2 g/dL 32-36 [facility] No Panel InformationOrdered By: Duane Huddleston on 03-14-2023 Estimated GFR (MDRD) Amer 73 mL/min >60 [facility] Comment on above: GFR Calc Estimated GFR (MDRD) Non-Af Amer 61 mL/min >60 [facility] Comment on above: Non- GFR Calc Platelets bldOrdered By: Duane Huddleston on 03-14-2023 Platelets (Bld) [#/Vol] 262 10*3/uL 150-450 [facility] Serum or plasma calcium jordan urement (mass/volume)Ordered By: Duane Huddleston on 03-14-2023 Calcium [Mass/Vol] 9.4 mg/dL 8.5-10.1 [facility] Serum or plasma creatinine m easurement (mass/volume)Ordered By: Duane Huddleston on 03-14-2023 Creatinine [Mass/Vol] 0.97 mg/dL 0.55-1.02 [facility] Comment on above: The validity of the calculated GFR & GFRAA in patients over 70 years has not been determined. Clinical correlation is essential. Serum or plasma urea nitroge n measurement (mass/volume)Ordered By: Duane Huddleston on 03-14-2023 Urea nitrogen [Mass/Vol] 8 mg/dL 7-18 [facility] Thin prep Papanicolaou smear with manual screeningOrdered By: Duane Huddleston on 03-14-2023 Thin prep Papanicolaou smear with manual screening 8 5-15 [facility] Absolute lymphocyte countOrd ered By: Dr. Huddleston on 11-14-2022 Lymphocytes Auto (Unsp spec) [#/Vol] 2.68 10*3/uL 0.83-4.51 [facility] Basophil percentageOrdered B y: Dr. Huddleston on 11-14-2022 Basophils/100 WBC (Bld) 0.5 % 0-1 [facility] Bilirubin [Mass/Vol] 0.30 mg/dL 0.20-1.00 [facility] Comment on above: For patients on eltr ombopag therapy, use of Dimension [place] TBIL is not recommended. Chloride [Moles/Vol] 107 mmol/L 98-107 [facility] Cholesterol [Mass/Vol] 225 mg/dL <200 [facility] Comment on above: <200 mg/dL Desirable 200-240 mg/dL Borderline >240 mg/dL High Risk Eosinophils/100 WBC (Bld) 0.6 % 0-5 [facility] Glucose [Mass/Vol] 96 mg/dL 74-106 [facility] Neutrophils (Bld) [#/Vol] 6.0 10*3/uL 2.0-7.7 [facility] Neutrophils/100 WBC (Bld) 64.7 % 47-70 [facility] Potassium [Moles/Vol] 4.2 mmol/L 3.5-5.1 [facility] Protein [Mass/Vol] 7.1 g/dL 6.4-8.2 [facility] Sodium [Moles/Vol] 136 mmol/L 136-145 [facility] Triglyceride [Mass/Vol] 88 mg/dL <199 [facility] Comment on above: The drugs N-Acetylcy steine and Metamizole may falsely depress this assay.Serum Triglycerides Reference Interval Normal <150 mg/dL Borderline high 150 - 199 mg/dL High 200 - 499 mg/dL Very High > or = 500 mg/dL WBC (Bld) [#/Vol] 9.3 10*3/uL 4.4-11.0 [facility] Blood erythrocytes count (nu mber/volume)Ordered By: Dr. Huddleston on 11-14-2022 RBC (Bld) [#/Vol] 4.87 10*6/uL 4.2-5.4 [facility] Blood hemoglobin measurement (mass/volume)Ordered By: Dr. Huddleston on 11-14-2022 Hemoglobin (Bld) [Mass/Vol] 15.2 g/dL 12.0-15.0 [facility] Blood lymphocytes/100 leukoc ytesOrdered By: Dr. Huddleston on 11-14-2022 Lymphocytes/100 WBC (Bld) 28.8 % 19-41 [facility] Blood monocytes/100 leukocyt esOrdered By: Dr. Huddleston on 11-14-2022 Monocytes/100 WBC (Bld) 5.2 % 0-10 [facility] Blood platelet mean volumeOr dered By: Dr. Huddleston on 11-14-2022 Platelet mean volume (Bld) [Entitic vol] 9.5 fL 6.2-12.0 [facility] Determination of erythrocyte mean corpuscular volume (MCV)Ordered By: Dr. Huddleston on 11-14-2022 MCV (RBC) [Entitic vol] 93.4 fL 81-99 [facility] Hematocrit Auto (Bld) [Volum e fraction]Ordered By: Dr. Huddleston on 11-14-2022 Hematocrit (Bld) [Volume fraction] 45.5 % 37-47 [facility] Laboratory - Chemistry and C hemistry - challengeOrdered By: Dr. Huddleston on 11-14-2022 ALP [Catalytic activity/Vol] 75 U/L 45-117 [facility] ALT [Catalytic activity/Vol] 26 U/L 13-56 [facility] CO2 [Moles/Vol] 25.0 mmol/L 21.0-32.0 [facility] Globulin (S) [Mass/Vol] 3.5 g/dL 2.2-4.2 [facility] Urea nitrogen/Creatinine [Mass ratio] 14.2 mg/mg 10-20 [facility] Laboratory - Hematology and Cell countsOrdered By: Dr. Huddleston on 11-14-2022 Erythrocyte distribution width (RBC) [Entitic vol] 45.0 fL 35.1-43.9 [facility] Erythrocyte distribution width (RBC) [Ratio] 13.2 % 11.6-14.6 [facility] Immature granulocytes/100 WBC (Bld) 0.200 % 0.0-0.9 [facility] Comment on above: IG% - Immature Granu locytes (promyelocytes, myelocytes and metamyelocytes) > 1% indicates that a LEFT SHIFT is Present. MCH (RBC) [Entitic mass] 31.2 pg 27.0-32.0 [facility] Nucleated RBC/100 WBC (Bld) [Ratio] 0 % 0-5 [facility] MCHC Auto (RBC) [Mass/Vol]Or dered By: Dr. Huddleston on 11-14-2022 MCHC (RBC) [Mass/Vol] 33.4 g/dL 32-36 [facility] No Panel InformationOrdered By: Dr. Huddleston on 11-14-2022 Estimated GFR (MDRD) Amer 86 mL/min >60 [facility] Comment on above: GFR Calc Estimated GFR (MDRD) Non-Af Amer 71 mL/min >60 [facility] Comment on above: Non- GFR Calc Thyroid Stimulating Hormone (TSH) 0.83 uIU/mL 0.358-3.74 [facility] Vitamin D 25-Hydroxy 57.4 ng/mL [facility] Comment on above: Vitamin D 25(OH) Sta tus Range Deficiency <20 ng/mL (50nmol/L) Insufficiency 20 - 30 ng/mL (50 - 75 nmol/L) Sufficiency 30 - 100 ng/mL (75 - 250 nmol/L) Toxicity >100 ng/mL (>250 nmol/L) Platelets bldOrdered By: Dr. Huddleston on 11-14-2022 Platelets (Bld) [#/Vol] 287 10*3/uL 150-450 [facility] Serum or plasma albumin jordan urement (mass/volume)Ordered By: Dr. Huddleston on 11-14-2022 Albumin [Mass/Vol] 3.6 g/dL 3.2-5.0 [facility] Serum or plasma albumin/glob ulin mass ratioOrdered By: Dr. Huddleston on 11-14-2022 Albumin/Globulin [Mass ratio] 1.0 {ratio} 0.9-2.4 [facility] Serum or plasma calcium jordan urement (mass/volume)Ordered By: Dr. Huddleston on 11-14-2022 Calcium [Mass/Vol] 9.3 mg/dL 8.5-10.1 [facility] Serum or plasma cholesterol in HDL measurement (mass/volume)Ordered By: Dr. Huddleston on 11-14-2022 Cholesterol in HDL [Mass/Vol] 55 mg/dL >40 [facility] Comment on above: The drugs N-Acetylcy steine and Metamizole may falsely depress this assay. Reference Range HDL <40 mg/dL Low HDL Cholesterol HDL >or= 60 mg/dL High HDL Cholesterol Serum or plasma cholesterol in VLDL measurement (mass/volume)Ordered By: Dr. Huddleston on 11-14-2022 Cholesterol in VLDL [Mass/Vol] 18 mg/dL 5-40 [facility] Serum or plasma creatinine m easurement (mass/volume)Ordered By: Dr. Huddleston on 11-14-2022 Creatinine [Mass/Vol] 0.84 mg/dL 0.55-1.02 [facility] Comment on above: The validity of the calculated GFR & GFRAA in patients over 70 years has not been determined. Clinical correlation is essential. Serum or plasma low density lipoprotein (LDL) cholesterol measurement (mass/volume)Ordered By: Dr. Huddleston on 11-14-2022 Cholesterol in LDL [Mass/Vol] 152 mg/dL 0-130 [facility] Serum or plasma urea nitroge n measurement (mass/volume)Ordered By: Dr. Huddleston on 11-14-2022 Urea nitrogen [Mass/Vol] 12 mg/dL 7-18 [facility] Thin prep Papanicolaou smear with manual screeningOrdered By: Dr. Huddleston on 11-14-2022 Thin prep Papanicolaou smear with manual screening 19 U/L 15-37 [facility] Thin prep Papanicolaou smear with manual screening 4 5-15 [facility] No Panel Informationon 07-20 IMPRESSION: Partial overriding of the proximal and middle phalanxes in the second and third digits may represent subluxation. Please clinically correlate. No acute fracture seen. [employer]: PSCB Transcribe Date/Time: Jul 20 2022 11:43A Dictated by : TAMARA ALBERT MD This examination was interpreted and the report reviewed and electronically signed by: TAMARA ALBERT MD on Jul 20 2022 12:03PM [facility] DIVISION OF RADIOLOGY Radiology Study observation (narrative) [facility] No Panel InformationOrdered By: [facility] Provider on 07-20-2022 [facility] XR Ankle - bilateral AP and Lateral and obliqueon 07-20-2022 * * *Final Report* * * DATE OF EXAM: Jul 20 2022 11:40AM WOX 5553 - XR ANKLE 3V AP/LAT/OBL LORENE / PROCEDURE REASON: multiple diagnoses * * * * Physician Interpretation * * * * EXAM TITLE: XR ANKLE 3V AP/LAT/OBL LORENE, XR FOOT 3V AP/LAT/OBL RT EXAM DATE/TIME: 07/20/2022 11:40 AM COMPARISON: Ankle x-ray on 04/17/2020 CLINICAL INDICATION/HISTORY: Injury. TECHNIQUE: AP mortise and lateral views of both ankles are presented. AP, oblique and lateral views of the right foot are also presented. FINDINGS: No acute fractures or subluxations are noted in the bilateral ankles or right foot. The mortise joint spaces are maintained. Left-sided os trigonum is visualized. There is deformity of the distal left fibula, likely chronic. There is ankle joint effusion. There is partial overlapping of the proximal phalanxes and middle phalanxes in the second and third digits. There appears be a small accessory bone along the cuboid. The mineralization of the bones is normal. There is mild soft tissue prominence along the lateral malleolus in the right ankle. DIVISION OF RADIOLOGY [facility] * * *Final Report* * * DATE OF EXAM: Jul 20 2022 11:40AM WOX 5553 - XR ANKLE 3V AP/LAT/OBL LORENE / PROCEDURE REASON: multiple diagnoses * * * * Physician Interpretation * * * * EXAM TITLE: XR ANKLE 3V AP/LAT/OBL LORENE, XR FOOT 3V AP/LAT/OBL RT EXAM DATE/TIME: 07/20/2022 11:40 AM COMPARISON: Ankle x-ray on 04/17/2020 CLINICAL INDICATION/HISTORY: Injury. TECHNIQUE: AP mortise and lateral views of both ankles are presented. AP, oblique and lateral views of the right foot are also presented. FINDINGS: No acute fractures or subluxations are noted in the bilateral ankles or right foot. The mortise joint spaces are maintained. Left-sided os trigonum is visualized. There is deformity of the distal left fibula, likely chronic. There is ankle joint effusion. There is partial overlapping of the proximal phalanxes and middle phalanxes in the second and third digits. There appears be a small accessory bone along the cuboid. The mineralization of the bones is normal. There is mild soft tissue prominence along the lateral malleolus in the right ankle. IMPRESSION IMPRESSION: Partial overriding of the proximal and middle phalanxes in the second and third digits may represent subluxation. Please clinically correlate. No acute fracture seen. [employer]: PSCB Transcribe Date/Time: Jul 20 2022 11:43A Dictated by : TAMARA ALBERT MD This examination was interpreted and the report reviewed and electronically signed by: TAMARA ALBERT MD on Jul 20 2022 12:03PM [facility] XR Foot - right AP and Later al and obliqueon 07-20-2022 * * *Final Report* * * DATE OF EXAM: Jul 20 2022 11:40AM WOX 5337 - XR FOOT 3V AP/LAT/OBL RT / PROCEDURE REASON: Pain of right lower extremity due to injury * * * * Physician Interpretation * * * * EXAM TITLE: XR ANKLE 3V AP/LAT/OBL LORENE, XR FOOT 3V AP/LAT/OBL RT EXAM DATE/TIME: 07/20/2022 11:40 AM COMPARISON: Ankle x-ray on 04/17/2020 CLINICAL INDICATION/HISTORY: Injury. TECHNIQUE: AP mortise and lateral views of both ankles are presented. AP, oblique and lateral views of the right foot are also presented. FINDINGS: No acute fractures or subluxations are noted in the bilateral ankles or right foot. The mortise joint spaces are maintained. Left-sided os trigonum is visualized. There is deformity of the distal left fibula, likely chronic. There is ankle joint effusion. There is partial overlapping of the proximal phalanxes and middle phalanxes in the second and third digits. There appears be a small accessory bone along the cuboid. The mineralization of the bones is normal. There is mild soft tissue prominence along the lateral malleolus in the right ankle. DIVISION OF RADIOLOGY Provider, [facility] - 07/20/2022 * * *Final Report* * * DATE OF EXAM: Jul 20 2022 11:40AM WOX 5337 - XR FOOT 3V AP/LAT/OBL RT / PROCEDURE REASON: Pain of right lower extremity due to injury * * * * Physician Interpretation * * * * EXAM TITLE: XR ANKLE 3V AP/LAT/OBL LORENE, XR FOOT 3V AP/LAT/OBL RT EXAM DATE/TIME: 07/20/2022 11:40 AM COMPARISON: Ankle x-ray on 04/17/2020 CLINICAL INDICATION/HISTORY: Injury. TECHNIQUE: AP mortise and lateral views of both ankles are presented. AP, oblique and lateral views of the right foot are also presented. FINDINGS: No acute fractures or subluxations are noted in the bilateral ankles or right foot. The mortise joint spaces are maintained. Left-sided os trigonum is visualized. There is deformity of the distal left fibula, likely chronic. There is ankle joint effusion. There is partial overlapping of the proximal phalanxes and middle phalanxes in the second and third digits. There appears be a small accessory bone along the cuboid. The mineralization of the bones is normal. There is mild soft tissue prominence along the lateral malleolus in the right ankle. IMPRESSION IMPRESSION: Partial overriding of the proximal and middle phalanxes in the second and third digits may represent subluxation. Please clinically correlate. No acute fracture seen. [employer]: PSCB Transcribe Date/Time: Jul 20 2022 11:43A Dictated by : TAMARA ALBERT MD This examination was interpreted and the report reviewed and electronically signed by: TAMARA ALBERT MD on Jul 20 2022 12:03PM [facility] Bacteria identified Cx Nom ( Wound)on 11-23-2021 Wound Culture Negative [facility] Work Phone: Gram stain for investigation of transfusion reactionon 11-23-2021 Microscopic observation Gram stain Nom (Unsp spec) [facility] Work Phone: No Panel Informationon 11-23 Methicillin-Resist S.aureus DNA PCR Negative Negative [facility] Work Phone: Staphylococcus aureus DNA de tection by probe and target amplification methodon 11-23-2021 S. aureus DNA JATINDER+probe Ql (Unsp spec) Negative Negative [facility] Work Phone: [phone] Absolute lymphocyte counton 11-11-2021 Lymphocytes Auto (Unsp spec) [#/Vol] 3.47 10*3/uL 0.83-4.51 [facility] Work Phone: [phone] Basophil percentageon 2021 Basophils/100 WBC (Bld) 0.4 % 0-1 [facility] Work Phone: [phone] Bilirubin [Mass/Vol] 0.40 mg/dL 0.20-1.00 [facility] Work Phone: [phone] Comment on above: For patients on eltr ombopag therapy, use of Dimension [place] TBIL is not recommended. Chloride [Moles/Vol] 107 mmol/L 98-107 [facility] Work Phone: [phone] Cholesterol [Mass/Vol] 190 mg/dL <200 [facility] Work Phone: [phone] Comment on above: <200 mg/dL Desirable 200-240 mg/dL Borderline >240 mg/dL High Risk Eosinophils/100 WBC (Bld) 1.2 % 0-5 [facility] Work Phone: Glucose [Mass/Vol] 110 mg/dL 74-106 [facility] Work Phone: Comment on above: Fasting Glucose resu lt from 100 to 125 mg/dL suggests IMPAIRED HOMEOSTASIS per A.D.A. criteria. Neutrophils (Bld) [#/Vol] 7.2 10*3/uL 2.0-7.7 [facility] Work Phone: Neutrophils/100 WBC (Bld) 62.5 % 47-70 [facility] Work Phone: [phone] Potassium [Moles/Vol] 3.9 mmol/L 3.5-5.1 [facility] Work Phone: [phone] Protein [Mass/Vol] 7.3 g/dL 6.4-8.2 [facility] Work Phone: [phone] Sodium [Moles/Vol] 141 mmol/L 136-145 [facility] Work Phone: [phone] Triglyceride [Mass/Vol] 136 mg/dL [facility] Work Phone: Comment on above: The drugs N-Acetylcy steine and Metamizole may falsely depress this assay.Serum Triglycerides Reference Interval Normal <150 mg/dL Borderline high 150 - 199 mg/dL High 200 - 499 mg/dL Very High > or = 500 mg/dL WBC (Bld) [#/Vol] 11.5 10*3/uL 4.4-11.0 [facility] Work Phone: Blood erythrocytes count (nu mber/volume)on 11-11-2021 RBC (Bld) [#/Vol] 4.58 10*6/uL 4.2-5.4 [facility] Work Phone: [phone] Blood hemoglobin measurement (mass/volume)on 11-11-2021 Hemoglobin (Bld) [Mass/Vol] 14.6 g/dL 12.0-15.0 [facility] Work Phone: Blood lymphocytes/100 leukoc yteson 11-11-2021 Lymphocytes/100 WBC (Bld) 30.3 % 19-41 [facility] Work Phone: Blood monocytes/100 leukocyt eson 11-11-2021 Monocytes/100 WBC (Bld) 5.2 % 0-10 [facility] Work Phone: Blood platelet mean volumeon 11-11-2021 Platelet mean volume (Bld) [Entitic vol] 9.4 fL 6.2-12.0 [facility] Work Phone: Determination of erythrocyte mean corpuscular volume (MCV)on 11-11-2021 MCV (RBC) [Entitic vol] 94.5 fL 81-99 [facility] Work Phone: Hematocrit Auto (Bld) [Volum e fraction]on 11-11-2021 Hematocrit (Bld) [Volume fraction] 43.3 % 37-47 [facility] Work Phone: Laboratory - Chemistry and C hemistry - challengeon 11-11-2021 ALP [Catalytic activity/Vol] 80 U/L 45-117 [facility] Work Phone: ALT [Catalytic activity/Vol] 33 U/L 13-56 [facility] Work Phone: CO2 [Moles/Vol] 26.0 mmol/L 21.0-32.0 [facility] Work Phone: Globulin (S) [Mass/Vol] 3.6 g/dL 2.2-4.2 [facility] Work Phone: Urea nitrogen/Creatinine [Mass ratio] 13.2 mg/mg 10-20 [facility] Work Phone: Laboratory - Hematology and Cell countson 11-11-2021 Erythrocyte distribution width (RBC) [Entitic vol] 46.4 fL 35.1-43.9 [facility] Work Phone: Erythrocyte distribution width (RBC) [Ratio] 13.7 % 11.6-14.6 [facility] Work Phone: Immature granulocytes/100 WBC (Bld) 0.400 % 0.0-0.9 [facility] Work Phone: Comment on above: IG% - Immature Granu locytes (promyelocytes, myelocytes and metamyelocytes) > 1% indicates that a LEFT SHIFT is Present. MCH (RBC) [Entitic mass] 31.9 pg 27.0-32.0 [facility] Work Phone: Nucleated RBC/100 WBC (Bld) [Ratio] 0 % 0-5 [facility] Work Phone: [phone] MCHC Auto (RBC) [Mass/Vol]on 11-11-2021 MCHC (RBC) [Mass/Vol] 33.7 g/dL 32-36 [facility] Work Phone: No Panel Informationon 11-11 Estimated GFR (MDRD) Amer 66 mL/min >60 [facility] Work Phone: Comment on above: GFR Calc Estimated GFR (MDRD) Non-Af Amer 55 mL/min >60 [facility] Work Phone: Comment on above: Non- GFR Calc Thyroid Stimulating Hormone (TSH) 1.01 uIU/mL 0.358-3.74 [facility] Work Phone: Vitamin D 25-Hydroxy 43.4 ng/mL [facility] Work Phone: Comment on above: Vitamin D 25(OH) Sta tus Range Deficiency <20 ng/mL (50nmol/L) Insufficiency 20 - 30 ng/mL (50 - 75 nmol/L) Sufficiency 30 - 100 ng/mL (75 - 250 nmol/L) Toxicity >100 ng/mL (>250 nmol/L) Platelets bldon 11-11-2021 Platelets (Bld) [#/Vol] 331 10*3/uL 150-450 [facility] Work Phone: [phone] Serum or plasma albumin jordan urement (mass/volume)on 11-11-2021 Albumin [Mass/Vol] 3.7 g/dL 3.2-5.0 [facility] Work Phone: [phone] Serum or plasma albumin/glob ulin mass ratioon 11-11-2021 Albumin/Globulin [Mass ratio] 1.0 {ratio} 0.9-2.4 [facility] Work Phone: [phone] Serum or plasma calcium jordan urement (mass/volume)on 11-11-2021 Calcium [Mass/Vol] 8.9 mg/dL 8.5-10.1 [facility] Work Phone: [phone] Serum or plasma cholesterol in HDL measurement (mass/volume)on 11-11-2021 Cholesterol in HDL [Mass/Vol] 52 mg/dL [facility] Work Phone: Comment on above: The drugs N-Acetylcy steine and Metamizole may falsely depress this assay. Reference Range HDL <40 mg/dL Low HDL Cholesterol HDL >or= 60 mg/dL High HDL Cholesterol Serum or plasma cholesterol in VLDL measurement (mass/volume)on 11-11-2021 Cholesterol in VLDL [Mass/Vol] 27 mg/dL 5-40 [facility] Work Phone: [phone] Serum or plasma creatinine m easurement (mass/volume)on 11-11-2021 Creatinine [Mass/Vol] 1.06 mg/dL 0.55-1.02 [facility] Work Phone: Comment on above: The validity of the calculated GFR & GFRAA in patients over 70 years has not been determined. Clinical correlation is essential. Serum or plasma low density lipoprotein (LDL) cholesterol measurement (mass/volume)on 11-11-2021 Cholesterol in LDL [Mass/Vol] 111 mg/dL 0-130 [facility] Work Phone: [phone] Serum or plasma urea nitroge n measurement (mass/volume)on 11-11-2021 Urea nitrogen [Mass/Vol] 14 mg/dL 7-18 [facility] Work Phone: [phone] Thin prep Papanicolaou smear with manual screeningon 11-11-2021 Thin prep Papanicolaou smear with manual screening 20 U/L 15-37 [facility] Work Phone: [phone] Thin prep Papanicolaou smear with manual screening 8 5-15 [facility] Work Phone: CBC W/DIFFon 02-02-2021 BASO ABS 0.10 K/CU MM Normal 0-0.2 [facility] Comment on above: Performed By: #### L 200.10090 #### [facility] [address] [place] [address] Basophils/100 WBC (Bld) 0.6 % Normal 0-2 M [facility] Comment on above: Performed By: #### L 200.54679 #### [facility] [address] [place] [address] EOS ABS 0.10 K/CU MM Normal 0-0.5 [facility] Comment on above: Performed By: #### L 200.20476 #### [facility] [address] [place] [address] Eosinophils/100 WBC (Bld) 0.8 % Normal 0-5 [facility] Comment on above: Performed By: #### L 200.20439 #### [facility] [address] [place] [address] Erythrocyte distribution width (RBC) [Ratio] 13.2 % Normal 11-14.5 [facility] Comment on above: Performed By: #### L 200.14580 #### [facility] [address] [place] [address] Hematocrit (Bld) [Volume fraction] 42.7 % Normal 35.0-47.0 [facility] Comment on above: Performed By: #### L 200.95059 #### [facility] [address] [place], [place] [id number] Hemoglobin (Bld) [Mass/Vol] 14.2 g/dL Normal 11.5-15.5 [facility] Comment on above: Performed By: #### L 200.63388 #### [facility] [address] [place] [address] IMMATR GRAN ABS 0.00 K/CU MM Normal Less than 2 [facility] Comment on above: Performed By: #### L 200.14174 #### [facility] [address] [place] [address] IMMATURE GRAN % 0.3 % Normal Less than 2 [facility] Comment on above: Performed By: #### L 200.38643 #### [facility] [address] [place] [address] LYMPH ABS 3.50 K/CU MM Normal 0.9-4.4 [facility] Comment on above: Performed By: #### L 200.69745 #### [facility] [address] [place] [address] Lymphocytes/100 WBC (Bld) 33.9 % Normal 20-40 [facility] Comment on above: Performed By: #### L 200.70459 #### [facility] [address] [place] [address] MCHC (RBC) [Mass/Vol] 33.3 g/dL Normal 32.0-36.0 [facility] Comment on above: Performed By: #### L 200.62171 #### [facility] [address] [place] [address] MCV (RBC) [Entitic vol] 96.0 fL Normal 80.0-99.0 [facility] Comment on above: Performed By: #### L 200.59254 #### [facility] [address] [place] [address] MONO ABS 0.60 K/CU MM Normal 0.1-1.1 [facility] Comment on above: Performed By: #### L 200.13560 #### [facility] [address] [place] [address] Monocytes/100 WBC (Bld) 5.8 % Normal 2-10 M [facility] Comment on above: Performed By: #### L 200.70031 #### [facility] [address] [place] [address] NEUTROPHIL ABS 6.00 K/CU MM Normal 2.0-8.3 [facility] Comment on above: Performed By: #### L 200.23168 #### [facility] [address] [place] [address] Neutrophils/100 WBC (Bld) 58.6 % Normal 45-75 [facility] Comment on above: Performed By: #### L 200.09662 #### [facility] [address] [place] [address] Nucleated RBC/100 WBC (Bld) [Ratio] 0.0 % Normal Less than 1 [facility] Comment on above: Performed By: #### L 200.32345 #### [facility] [address] [place] [address] Platelet mean volume (Bld) [Entitic vol] 9.5 fL Normal 9.4-12.4 [facility] Comment on above: Performed By: #### L 200.16591 #### [facility] [address] [place] [address] PLT 290 K/CU MM Normal 150-450 [facility] Comment on above: Performed By: #### L 200.89306 #### [facility] [address] [place] [address] RBC 4.45 M/CU MM Normal 3.90-5.30 [facility] Comment on above: Performed By: #### L 200.94342 #### [facility] [address] [place], [place] [id number] WBC 10.3 K/CUMM Normal 4.5-11.0 [facility] Comment on above: Performed By: #### L 200.70154 #### [facility] [address] [place] [address] TOES RTon 02-24-2020 TOES RT [address] [address] Patient: MARA BUSTOS Phone#: : 1955 Age: 64 Gender: F Pt. Type: Out Account: [id number] Location: Ordering: [facility] Exam Date: 02/24/2020/11:59 Family Phys: Charge Code: 446291 Physician: [place] Order #: [id number] DLP Dose#: PROCEDURE: X-RAY TOES RT MIN 2 VIEWS COMPARISON: None. INDICATIONS: Toe pain FINDINGS: BONES: There is a small lucency at the base of the second middle phalanx which may represent a small erosion. No osseous erosion of the 3rd digit. SOFT TISSUES: Negative. No visible soft tissue swelling. EFFUSION: None visible. OTHER: Negative. CONCLUSION: 1. Possible small erosion of the base of the 2nd middle phalanx Dictated by: Mary Hinojosa MD on 02/24/2020 at 12:31 Approved by: Mary Hinojosa MD on 02/24/2020 at 14:55 Normal [facility] BUNon 01-03-2020 Urea nitrogen [Mass/Vol] 12 mg/dL Normal 6 - 20 [facility] Comment on above: Performed By: #### 2 56746 #### [facility],[address] [place] [address]4078 CBC + DIFFon 01-03-2020 Basophils (Bld) [#/Vol] 0.10 x10EE3/UL Normal 0.00 - 0 .10 [facility] Comment on above: Performed By: #### 2 98257 #### [facility],[address] [place] [address]8879 Basophils/100 WBC (Bld) 0.7 % Normal 0.0 - 2.0 J [facility] Comment on above: Performed By: #### 2 92066 #### [facility],[address] [place], [place] [id number] CBC + DIFF Normal [facility] Comment on above: Result Comment: CBC- COMPLETE BLOOD COUNT Performed By: #### 2 44839 #### [facility],[address] [place] [address] Eosinophils (Bld) [#/Vol] 0.10 x10EE3/UL Normal 0.00 - 0.50 [facility] Comment on above: Performed By: #### 2 50868 #### [facility],[address] [place] [address] Eosinophils/100 WBC (Bld) 0.6 % Normal 0.0 - 7.0 [facility] Comment on above: Performed By: #### 2 37414 #### [place] [address] Erythrocyte distribution width (RBC) [Ratio] 14.8 % Normal 12.0 - 15.6 [facility] Comment on above: Performed By: #### 2 60966 #### [place] [address] Hematocrit (Bld) [Volume fraction] 45.5 % Normal 34.0 - 46.0 [facility] Comment on above: Performed By: #### 2 91990 #### [facility],[address] [place], [place] [id number] Hemoglobin (Bld) [Mass/Vol] 15.4 g/dL Normal 12.0 - 16.0 [facility] Comment on above: Performed By: #### 2 32421 #### [place] [id number] Lymphocytes (Bld) [#/Vol] 2.90 x10EE3/UL High 0.80 - 2.80 [facility] Comment on above: Performed By: #### 2 27093 #### [facility],[address] [place] [address] Lymphocytes/100 WBC (Bld) 30.5 % Normal 20.0 - 45.0 [facility] Comment on above: Performed By: #### 2 70110 #### [facility],[address] [place] [address] MANUAL DIFF N/A Normal [facility] Comment on above: Performed By: #### 2 97729 #### [facility],[address] [place] [address] MCH (RBC) [Entitic mass] 32 pg Normal 27 - 33 [facility] Comment on above: Performed By: #### 2 32810 #### [facility],[address] [place] [address] MCHC (RBC) [Mass/Vol] 34 X10 3 Normal 32 - 36 [facility] Comment on above: Performed By: #### 2 70062 #### [facility],[address] [place], [place] [phone] MCV (RBC) [Entitic vol] 94 fL Normal 80 - 99 [facility] Comment on above: Performed By: #### 2 47568 #### [facility],[address] [place], [place] [phone] Monocytes (Bld) [#/Vol] 0.50 x10EE3/UL Normal 0.20 - 1 .00 [facility] Comment on above: Performed By: #### 2 92313 #### [facility],[address] [place] [address]197 MONOS % 5.1 % Normal 0.0 - 10.0 [facility] Comment on above: Performed By: #### 2 77705 #### [facility],[address] [place] [address] 15165 Morphology Naif (Bld) [Interp] N/A Normal [facility] Comment on above: Performed By: #### 2 48220 #### [facility],[address] [place] [address] 97258 Neutrophils (Bld) [#/Vol] 5.90 x10EE3/UL Normal 1.50 - 7.10 [facility] Comment on above: Performed By: #### 2 87818 #### [facility],[address] [place] [address] 32243 Neutrophils/100 WBC (Bld) 63.1 % Normal 46.0 - 76.0 [facility] Comment on above: Performed By: #### 2 15490 #### [facility],[address] [place] [address] 09862 Platelet mean volume (Bld) [Entitic vol] 8.0 fL Normal 6.6 - 10.5 [facility] Comment on above: Result Comment: AUTO MATED DIFFERENTIAL Performed By: #### 2 28585 #### [facility],[address] [place] [address] 08444 Platelets (Bld) [#/Vol] 290 x10EE3/UL Normal 150 - 450 [facility] Comment on above: Performed By: #### 2 83487 #### [facility],[address] [place] [address] 57066 RBC (Bld) [#/Vol] 4.86 x 10EE6/UL Normal 4.10 - 5.30 [facility] Comment on above: Performed By: #### 2 63292 #### [facility],[address] [place] [address] 92237 WBC (Bld) [#/Vol] 9.4 x 10EE3/UL Normal 4.5 - 10.8 [facility] Comment on above: Performed By: #### 2 44049 #### [facility],[address] [place] [address] 04088 CREATININEon 01-03-2020 Creatinine [Mass/Vol] 0.9 mg/dL Normal 0.6 - 1.2 [facility] Comment on above: Performed By: #### 2 07609 #### [facility],[address] [place] [address] 32531 HEPATIC FUNCTION PANELon Albumin [Mass/Vol] 4.3 g/dL Normal 3.4 - 4.8 [facility] Comment on above: Performed By: #### 2 25290 #### [facility],[address] [place] [address] 56350 ALK PHOS 58 U/L Normal 38 - 126 [facility] Comment on above: Performed By: #### 2 78122 #### [facility],[address] [place] [address] 35428 ALT/SGPT 18 U/L Normal 8 - 35 [facility] Comment on above: Performed By: #### 2 65369 #### [facility],[address] [place] [address] 22357 AST/SGOT 19 U/L Normal 13 - 39 [facility] Comment on above: Performed By: #### 2 88450 #### [facility],[address] [place] [address] 38827 Bilirubin [Mass/Vol] 0.5 mg/dL Normal 0.0 - 1.5 [facility] Comment on above: Performed By: #### 2 68893 #### [facility],[address] [place] [address] 80185 Bilirubin.direct [Mass/Vol] 0.1 mg/dL Normal 0.0 - 0.1 [facility] Comment on above: Performed By: #### 2 04867 #### [facility],[address] [place] [address] 51081 HEPATIC FUNCTION PANEL Normal [facility] Comment on above: Result Comment: HEPA TIC FUNCTION PROFILE Performed By: #### 2 62066 #### [facility],[address] [place] [address] 39320 Protein [Mass/Vol] 7.0 g/dL Normal 6.4 - 8.3 [facility] Comment on above: Performed By: #### 2 91236 #### [facility],[address] [place] [address] 52916 MAMM DIGITAL BILAT SCREENon 09-12-2019 MAMM DIGITAL BILAT SCREEN [address] [address] Patient: MARA BUSTOS Phone#: : 1955 Age: 64 Gender: F Pt. Type: Out Account: [id number] Location: Ordering: [facility] Exam Date: 09/12/2019/9:16 Family Phys: Charge Code: [id number] Physician: [place] Order #: [id number] DLP Dose#: PROCEDURE: MAMM BILAT DIGITAL SCREENING WITH CAD COMPARISON: [facility], BILAT SCREENING, 08/16/2017, 9:02. [facility], BILAT SCREENING, 09/11/2018, 8:10. INDICATIONS: Screening . BREAST COMPOSITION: Almost entirely fat (<25% glandular). FINDINGS: DIAGNOSTIC CATEGORY 2--BENIGN FINDING: RIGHT BREAST: No significant suspicious finding. No significant change has occurred. Stable superior lateral nodule. LEFT BREAST: No significant suspicious finding. No significant change has occurred. RECOMMENDATIONS: ROUTINE MAMMOGRAM AND CLINICAL EVALUATION. PLEASE NOTE: A NORMAL MAMMOGRAM DOES NOT EXCLUDE THE POSSIBILITY OF BREAST CANCER. A CLINICALLY SUSPICIOUS PALPABLE LUMP SHOULD BE BIOPSIED. THIS FACILITY UTILIZES A REMINDER SYSTEM TO ENSURE THAT ALL PATIENTS RECEIVE REMINDER LETTERS FOR APPOINTMENTS. THIS INCLUDES REMINDERS FOR ROUTINE MAMMOGRAMS, DIAGNOSITC MAMMOGRAMS, OR OTHER BREAST IMAGING INTERVENTIONS WHEN APPROPRIATE. THIS PATIENT WILL BE PLACED IN THE APPROPRIATE REMINDER SYSTEM. Dictated by: Marcela Kilpatrick MD on 09/12/2019 at 9:50 Approved by: Marcela Kilpatrick MD on 09/12/2019 at 9:50 Normal [facility] CBC + DIFFon 09-04-2019 Basophils (Bld) [#/Vol] 0.10 x10EE3/UL Normal 0.00 - 0 .10 [facility] Comment on above: Performed By: #### 2 53340 #### [facility],[address] [place] [address] 96376 Basophils/100 WBC (Bld) 0.8 % Normal 0.0 - 2.0 [facility] Comment on above: Performed By: #### 2 89311 #### [facility],[address] [place] [address] 49297 CBC + DIFF Normal [facility] Comment on above: Result Comment: CBC- COMPLETE BLOOD COUNT Performed By: #### 2 07840 #### [facility],[address] [place] [address] 48285 Eosinophils (Bld) [#/Vol] 0.10 x10EE3/UL Normal 0.00 - 0.50 [facility] Comment on above: Performed By: #### 2 80762 #### [facility],[address] [place] [address] 72096 Eosinophils/100 WBC (Bld) 0.8 % Normal 0.0 - 7.0 [facility] Comment on above: Performed By: #### 2 18884 #### [facility],[address] [place] [address] 51919 Erythrocyte distribution width (RBC) [Ratio] 14.6 % Normal 12.0 - 15.6 [facility] Comment on above: Performed By: #### 2 28404 #### [facility],[address] [place] [address] 42081 Hematocrit (Bld) [Volume fraction] 43.2 % Normal 34.0 - 46.0 [facility] Comment on above: Performed By: #### 2 74927 #### [facility],[address] [place] [address] 27997 Hemoglobin (Bld) [Mass/Vol] 14.7 g/dL Normal 12.0 - 16.0 [facility] Comment on above: Performed By: #### 2 29155 #### [facility],[address] [place] [address] 14745 Lymphocytes (Bld) [#/Vol] 2.90 x10EE3/UL High 0.80 - 2.80 [facility] Comment on above: Performed By: #### 2 97369 #### [facility],[address] [place] [address] Lymphocytes/100 WBC (Bld) 35.4 % Normal 20.0 - 45.0 [facility] Comment on above: Performed By: #### 2 45221 #### [facility],[address] [place] [address] MANUAL DIFF N/A Normal [facility] Comment on above: Performed By: #### 2 87296 #### [facility],[address] [place] [address] MCH (RBC) [Entitic mass] 32 pg Normal 27 - 33 [facility] Comment on above: Performed By: #### 2 83057 #### [place] [address] MCHC (RBC) [Mass/Vol] 34 X10 3 Normal 32 - 36 [facility] Comment on above: Performed By: #### 2 08511 #### [facility],[address] [place], [place] [id number] MCV (RBC) [Entitic vol] 94 fL Normal 80 - 99 [facility] Comment on above: Performed By: #### 2 59682 #### [facility],[address] [place], [place] [id number] Monocytes (Bld) [#/Vol] 0.40 x10EE3/UL Normal 0.20 - 1 .00 [facility] Comment on above: Performed By: #### 2 55607 #### [place] [id number] MONOS % 5.4 % Normal 0.0 - 10.0 [facility] Comment on above: Performed By: #### 2 85671 #### [facility],[address],[place] [address] Morphology Naif (Bld) [Interp] N/A Normal [facility] Comment on above: Performed By: #### 2 83553 #### [facility],[address] [place] [address] 50518 Neutrophils (Bld) [#/Vol] 4.70 x10EE3/UL Normal 1.50 - 7.10 [facility] Comment on above: Performed By: #### 2 32040 #### [facility],[address] [place] [address] 41313 Neutrophils/100 WBC (Bld) 57.6 % Normal 46.0 - 76.0 [facility] Comment on above: Performed By: #### 2 67077 #### [facility],[address] [place] [address] 73944 Platelet mean volume (Bld) [Entitic vol] 8.2 fL Normal 6.6 - 10.5 [facility] Comment on above: Result Comment: AUTO MATED DIFFERENTIAL Performed By: #### 2 99678 #### [facility],[address] [place] [address] 21726 Platelets (Bld) [#/Vol] 301 x10EE3/UL Normal 150 - 450 [facility] Comment on above: Performed By: #### 2 95112 #### [facility],[address] [place] [address] 32694 RBC (Bld) [#/Vol] 4.59 x 10EE6/UL Normal 4.10 - 5.30 [facility] Comment on above: Performed By: #### 2 13238 #### [facility],[address] [place] [address] 93196 WBC (Bld) [#/Vol] 8.2 x 10EE3/UL Normal 4.5 - 10.8 [facility] Comment on above: Performed By: #### 2 02300 #### [facility],[address] [place] [address] 40208 CMP with eGFRon 09-04-2019 Age - Reported 64 years Normal [facility] Comment on above: Performed By: #### 2 64537 #### [facility],[address] [place] [address] 48236 Albumin [Mass/Vol] 4.3 g/dL Normal 3.4 - 4.8 [facility] Comment on above: Performed By: #### 2 94987 #### [facility],[address] [place] [address] 67833 Albumin/Globulin [Mass ratio] 1.7 {ratio} High 0.9 - 1.6 [facility] Comment on above: Performed By: #### 2 39311 #### [facility],[address] [place] [address] 07023 ALK PHOS 57 U/L Normal 38 - 126 [facility] Comment on above: Performed By: #### 2 19711 #### [facility],[address] [place] [address] 28005 ALT/SGPT 15 U/L Normal 8 - 35 [facility] Comment on above: Performed By: #### 2 01368 #### [facility],[address] [place] [address] 26771 Anion gap [Moles/Vol] 11 mmol/L Normal 10 - 20 [facility] Comment on above: Performed By: #### 2 99152 #### [facility],[address] [place] [address] 09623 AST/SGOT 14 U/L Normal 13 - 39 [facility] Comment on above: Performed By: #### 2 36038 #### [facility],[address] [place] [address] 78534 B/C RATIO 20 ratio Normal 0 - 30 [facility] Comment on above: Performed By: #### 2 89668 #### [facility],[address] [place] [address] 30654 Bilirubin [Mass/Vol] 0.3 mg/dL Normal 0.0 - 1.5 [facility] Comment on above: Performed By: #### 2 78003 #### [facility],[address] [place] [address] 89360 Calcium [Mass/Vol] 9.4 mg/dL Normal 8.6 - 10.2 [facility] Comment on above: Performed By: #### 2 44804 #### [facility],[address] [place] [address] 34791 Chloride [Moles/Vol] 105 mmol/L Normal 98 - 107 [facility] Comment on above: Performed By: #### 2 04025 #### [address] [address] CO2 [Moles/Vol] 25.9 mmol/L Normal 21.0 - 31.0 [facility] Comment on above: Performed By: #### 2 32510 #### [place] [id number] Creatinine [Mass/Vol] 0.9 mg/dL Normal 0.6 - 1.2 [facility] Comment on above: Performed By: #### 2 00453 #### [facility],[address] [place] [address] 23961 GFR/1.73 sq M predicted among non-blacks MDRD (S/P/Bld) [Vol rate/Area] mL/min/{1.73_m2} Normal 60 - 999 [facility] Comment on above: Performed By: #### 2 50853 #### [facility],[address] [place], [place] [id number] Result Comment: ACCO RDING TO THE NATIONAL KIDNEY DISEASE EDUCATION PROGRAM(NKDE), A NORMAL eGFR IS A VALUE GREATER THAN OR EQUAL TO 60 ML/MIN/1.73 SQ METERS. CHRONIC KIDNEY DISEASE: <60mL/MIN/1.73 SQ METERS KIDNEY FAILURE: <15mL/MIN/1.73 SQ METERS THIS TEST SHOULD ONLY BE USED FOR PATIENTS 18 YEARS OF AGE AND OLDER. GFR/1.73 sq M predicted among non-blacks MDRD (S/P/Bld) [Vol rate/Area] Normal [facility] Comment on above: Result Comment: COMP REHENSIVE METABOLIC PANEL Performed By: #### 2 40154 #### [facility],[address] [place] [address]654 Globulin (S) [Mass/Vol] 2.6 g/dL Normal 1.5 - 3.8 [facility] Comment on above: Performed By: #### 2 92075 #### [facility],[address] [place] [address] 31198 Glucose [Mass/Vol] 108 mg/dL High 74 - 106 [facility] Comment on above: Performed By: #### 2 32184 #### [facility],[address] [place] [address] 93096 Potassium [Moles/Vol] 4.3 mmol/L Normal 3.5 - 5.1 [facility] Comment on above: Performed By: #### 2 80715 #### [facility],[address] [place] [address] 57618 Protein [Mass/Vol] 6.9 g/dL Normal 6.4 - 8.3 [facility] Comment on above: Performed By: #### 2 44746 #### [facility],[address] [place] [address] 99174 Sodium [Moles/Vol] 138 mmol/L Normal 136 - 145 [facility] Comment on above: Performed By: #### 2 24163 #### [facility],[address] [place] [address] 87406 Urea nitrogen [Mass/Vol] 18 mg/dL Normal 6 - 20 [facility] Comment on above: Performed By: #### 2 22733 #### [facility],[address] [place] [address] 73374 ALBUMIN PLASMAon 05-24-2019 Albumin [Mass/Vol] 4.5 g/dL Normal 3.4 - 4.8 [facility] Comment on above: Performed By: #### 2 91820 #### [facility],[address] [place] [address] 86034 BUN/CREAT eGFR (NON-)on 05-24-2019 Age - Reported 63 years Normal [facility] Comment on above: Performed By: #### 2 75103 #### [facility],[address] [place] [address] 41642 Creatinine [Mass/Vol] 0.9 mg/dL Normal 0.6 - 1.2 [facility] Comment on above: Performed By: #### 2 50382 #### [facility],[address] [place] [address] 97587 GFR/1.73 sq M predicted among non-blacks MDRD (S/P/Bld) [Vol rate/Area] mL/min/{1.73_m2} Normal 60 - 999 [facility] Comment on above: Result Comment: ACCO RDING TO THE NATIONAL KIDNEY DISEASE EDUCATION PROGRAM(NKDE),A NORMAL eGFR IS A VALUE GREATER THAN OR EQUAL TO 60 ML/MIN/1.73 SQ METERS.KIDNEY DISEASE MAY BE PRESENT WHEN THE eGFR IS LESS THAN 60 ML/MIN/1.73 SQ METERS.VALUES LESS THEN 15 ML/MIN/1.73 SQ METERS INDICATE KIDNEY FAILURE.THIS TEST SHOULD ONLY BE USED FOR PATIENTS 18 AND OLDER. Performed By: #### 2 37414 #### [facility],[address] [place] [address] 24253 Urea nitrogen [Mass/Vol] Normal [facility] Comment on above: Result Comment: BUN/ CREATININE eGFR NON-) Performed By: #### 2 46309 #### [facility],[address] [place] [address] 18127 Urea nitrogen [Mass/Vol] 12 mg/dL Normal 6 - 20 [facility] Comment on above: Performed By: #### 2 18105 #### [facility],[address] [place] [address] 96281 C-REACTIVE PROTEINon 019 CRP [Mass/Vol] 0.30 mg/dl Normal 0.00 - 1.00 [facility] Comment on above: Performed By: #### 2 20754 #### [facility],[address] [place] [address] 92004 CBC + DIFFon 05-24-2019 Basophils (Bld) [#/Vol] 0.10 x10EE3/UL Normal 0.00 - 0 .10 [facility] Comment on above: Performed By: #### 2 62225 #### [facility],[address] [place] [address] 95021 Basophils/100 WBC (Bld) 0.8 % Normal 0.0 - 2.0 [facility] Comment on above: Performed By: #### 2 41297 #### [facility],[address] [place] [address] 97434 CBC + DIFF Normal [facility] Comment on above: Result Comment: CBC- COMPLETE BLOOD COUNT Performed By: #### 2 96872 #### [facility],[address] [place] [address] 99105 Eosinophils (Bld) [#/Vol] 0.10 x10EE3/UL Normal 0.00 - 0.50 [facility] Comment on above: Performed By: #### 2 15592 #### [facility],[address] [place] [address] 01232 Eosinophils/100 WBC (Bld) 0.9 % Normal 0.0 - 7.0 [facility] [facility] Comment on above: Performed By: #### 2 [id number] #### [facility],[address] [place] [address] 99554 Erythrocyte distribution width (RBC) [Ratio] 14.1 % Normal 12.0 - 15.6 [facility] Comment on above: Performed By: #### 2 [id number] #### [facility],[address] [place] [address] 19410 Hematocrit (Bld) [Volume fraction] 44.7 % Normal 34.0 - 46.0 [facility] Comment on above: Performed By: #### 2 [id number] #### [facility],[address] [place] [address] 50688 Hemoglobin (Bld) [Mass/Vol] 15.0 g/dL Normal 12.0 - 16.0 [facility] Comment on above: Performed By: #### 2 [id number] #### [facility],[address] [place] [address] 37435 Lymphocytes (Bld) [#/Vol] 2.80 x10EE3/UL Normal 0.80 - 2.80 [facility] Comment on above: Performed By: #### 2 [id number] #### [facility],[address] [place], [place] [id number] Lymphocytes/100 WBC (Bld) 29.8 % Normal 20.0 - 45.0 [facility] Comment on above: Performed By: #### 2 75500 #### [facility],[address] [place] [address] 15036 MANUAL DIFF N/A Normal [facility] Comment on above: Performed By: #### 2 [id number] #### [facility],[address] [place] [address] 06725 MCH (RBC) [Entitic mass] 31 pg Normal 27 - 33 [facility] Comment on above: Performed By: #### 2 [id number] #### [facility],[address] [place] [address] 26119 MCHC (RBC) [Mass/Vol] 34 X10 3 Normal 32 - 36 [facility] Comment on above: Performed By: #### 2 88535 #### [facility],[address] [place] [address] 17388 MCV (RBC) [Entitic vol] 93 fL Normal 80 - 99 [facility] Comment on above: Performed By: #### 2 [id number] #### [facility],[address] [place] [address] 14502 Monocytes (Bld) [#/Vol] 0.50 x10EE3/UL Normal 0.20 - 1 .00 [facility] Comment on above: Performed By: #### 2 50651 #### [facility],[address] [place] [address] 01482 MONOS % 4.8 % Normal 0.0 - 10.0 [facility] Comment on above: Performed By: #### 2 60486 #### [facility],[address] [place] [address] 82884 Morphology Naif (Bld) [Interp] N/A Normal [facility] Comment on above: Performed By: #### 2 [id number] #### [facility],[address] [place] [address] 04908 Neutrophils (Bld) [#/Vol] 6.00 x10EE3/UL Normal 1.50 - 7.10 [facility] Comment on above: Performed By: #### 2 [id number] #### [facility],[address] [place] [address] 36623 Neutrophils/100 WBC (Bld) 63.7 % Normal 46.0 - 76.0 [facility] Comment on above: Performed By: #### 2 [id number] #### [facility],[address] [place] [address] 36669 Platelet mean volume (Bld) [Entitic vol] 7.5 fL Normal 6.6 - 10.5 [facility] Comment on above: Result Comment: AUTO MATED DIFFERENTIAL Performed By: #### 2 [id number] #### [facility],[address] [place] [address] 49151 Platelets (Bld) [#/Vol] 322 x10EE3/UL Normal 150 - 450 [facility] Comment on above: Performed By: #### 2 95260 #### [facility],[address] [place] [address] 80497 RBC (Bld) [#/Vol] 4.83 x 10EE6/UL Normal 4.10 - 5.30 [facility] Comment on above: Performed By: #### 2 78506 #### [facility],[address] [place] [address] 73329 WBC (Bld) [#/Vol] 9.4 x 10EE3/UL Normal 4.5 - 10.8 [facility] Comment on above: Performed By: #### 2 55596 #### [facility],[address] [place], [place] [address] SEDRATEon 05-24-2019 SEDRATE 14 mm/hr Normal 0 - 30 [facility] Comment on above: Performed By: #### 2 36667 #### [facility],[address] [place], [place] [id number] SGOT (AST)on 05-24-2019 AST/SGOT 18 U/L Normal 13 - 39 [facility] Comment on above: Performed By: #### 2 01968 #### [facility],[address] [place], [place] [id number] SGPT (ALT)on 05-24-2019 ALT [Catalytic activity/Vol] 21 U/L Normal 8 - 35 [facility] Comment on above: Performed By: #### 2 [id number] #### [facility],[address] [place], [place] [id number] Vital Signs Date Time Vital Sign Value Performing Clinician Mónica barnett 11-25-2024 09:53-0400 Body height 162 cm Devante Christensen MD Work Phone: [facility] 11-25-2024 09:53-0400 Body mass index (BMI) [Ratio] 31.97 kg/m2 Devante Christensen MD Work Phone: [facility] 11-25-2024 09:53-0400 Body weight 83.92 kg Devante Christensen MD Work Phone: [facility] 11-25-2024 09:53-0400 Diastolic blood pressure 94 mm[Hg] Devante Christensen MD Work Phone: [facility] 11-25-2024 09:53-0400 Systolic blood pressure 158 mm[Hg] Devante Christensen MD Work Phone: [facility] 05-29-2024 10:53-0500 Body mass index (BMI) [Ratio] 33.4 kg/m2 Yakov Summers MD Work Phone: [facility] 05-29-2024 10:53-0500 Body weight 86.2 kg Yakov Summers MD Work Phone: [facility] 05-29-2024 10:53-0500 Diastolic blood pressure 73 mm[Hg] Yakov Summers MD Work Phone: [facility] 05-29-2024 10:53-0500 Systolic blood pressure 144 mm[Hg] Yakov Summers MD Work Phone: [facility] 04-17-2024 10:36-0400 Diastolic blood pressure 57 mm[Hg] Yakov Summers MD Work Phone: [facility] 04-17-2024 10:36-0400 Heart rate 52 /min Yakov Summers MD Work Phone: [facility] 04-17-2024 10:36-0400 Systolic blood pressure 132 mm[Hg] Yakov Summers MD Work Phone: [facility] 02-19-2024 09:17-0400 Body height 160.7 cm Pacc 1 Work Phone: [facility] 02-19-2024 09:17-0400 Body mass index (BMI) [Ratio] 31.81 kg/m2 Pacc 1 Work Phone: [facility] 02-19-2024 09:17-0400 Body temperature 97.3 [degF] Pacc 1 Work Phone: [facility] 02-19-2024 09:17-0400 Body weight 82.1 kg Pacc 1 Work Phone: [facility] 02-19-2024 09:17-0400 Diastolic blood pressure 92 mm[Hg] Pacc 1 Work Phone: [facility] 02-19-2024 09:17-0400 Heart rate 69 /min Pacc 1 Work Phone: [facility] 02-19-2024 09:17-0400 Respiratory rate 14 /min Pacc 1 Work Phone: [facility] 02-19-2024 09:17-0400 SaO2% (BldA) [Mass fraction] 95 % Pacc 1 Work Phone: [facility] 02-19-2024 09:17-0400 Systolic blood pressure 154 mm[Hg] Pacc 1 Work Phone: [facility] 01-15-2024 07:55-0400 Body height 160.7 cm Pacc 1 Work Phone: [facility] 01-15-2024 07:55-0400 Body mass index (BMI) [Ratio] 30.23 kg/m2 Pacc 1 Work Phone: [facility] 01-15-2024 07:55-0400 Body temperature 98.2 [degF] Pacc 1 Work Phone: [facility] 01-15-2024 07:55-0400 Body weight 78.02 kg Pacc 1 Work Phone: [facility] 01-15-2024 07:55-0400 Diastolic blood pressure 84 mm[Hg] Pacc 1 Work Phone: [facility] 01-15-2024 07:55-0400 Heart rate 64 /min Pacc 1 Work Phone: [facility] 01-15-2024 07:55-0400 Respiratory rate 16 /min Pacc 1 Work Phone: [facility] 01-15-2024 07:55-0400 SaO2% (BldA) [Mass fraction] 97 % Pacc 1 Work Phone: [facility] 01-15-2024 07:55-0400 Systolic blood pressure 134 mm[Hg] Pacc 1 Work Phone: [facility] 11-26-2023 12:43-0400 Body temperature 97.7 [degF] [facility] 11-26-2023 12:43-0400 Diastolic blood pressure 73 mm[Hg] [facility] 11-26-2023 12:43-0400 Heart rate 62 /min [facility] 11-26-2023 12:43-0400 Respiratory rate 17 /min [facility] 11-26-2023 12:43-0400 SaO2% (BldA) [Mass fraction] 95 % [facility] 11-26-2023 12:43-0400 Systolic blood pressure 140 mm[Hg] [facility] 11-26-2023 09:00-0400 Body height 160.02 cm [facility] 11-26-2023 09:00-0400 Body mass index (BMI) [Ratio] 29.2 kg/m2 [facility] 11-26-2023 09:00-0400 Body weight 74.84 kg [facility] 11-23-2023 09:30-0400 Body mass index (BMI) [Ratio] 29.53 kg/m2 Xiomara Wiley MD Work Phone: [facility] 11-23-2023 09:30-0400 Body weight 76.2 kg Xiomara Wiley MD Work Phone: [facility] 11-23-2023 09:30-0400 Diastolic blood pressure 68 mm[Hg] Xiomara Wiley MD Work Phone: [facility] 11-23-2023 09:30-0400 Systolic blood pressure 128 mm[Hg] Xiomara Wiley MD Work Phone: [facility] 09-14-2023 10:21-0500 Body weight 74.84 kg Xiomara Wiley MD Work Phone: [facility] 09-14-2023 10:21-0500 Diastolic blood pressure 78 mm[Hg] Xiomara Wiley MD Work Phone: [facility] 09-14-2023 10:21-0500 Systolic blood pressure 138 mm[Hg] Xiomara Wiley MD Work Phone: [facility] 08-30-2023 14:49-0500 Diastolic blood pressure 80 mm[Hg] Yakov Summers MD Work Phone: [facility] 08-30-2023 14:49-0500 Heart rate 73 /min Yakov Summers MD Work Phone: [facility] 08-30-2023 14:49-0500 Systolic blood pressure 153 mm[Hg] Yakov Summers MD Work Phone: [facility] 08-24-2023 09:28-0500 Body weight 74 kg Gabby Barley SECURE SOFTWARE ASSESSOR.BATTERY MECHANIC Work Phone (unformatted): [phone] [facility] 08-24-2023 09:28-0500 Diastolic blood pressure 84 mm[Hg] Gabby Barley SECURE SOFTWARE ASSESSOR.BATTERY MECHANIC Work Phone (unformatted): [phone] [facility] 08-24-2023 09:28-0500 Heart rate 71 /min Gabby Barley SECURE SOFTWARE ASSESSOR.BATTERY MECHANIC Work Phone (unformatted): [phone] [facility] 08-24-2023 09:28-0500 Systolic blood pressure 144 mm[Hg] Gabby Barley SECURE SOFTWARE ASSESSOR.BATTERY MECHANIC Work Phone (unformatted): [phone] [facility] 06-19-2023 10:46-0500 Body height 160.7 cm Xiomara Wiley MD Work Phone: [facility] 06-19-2023 10:46-0500 Body weight 75.48 kg Xiomara Wiley MD Work Phone: [facility] 06-19-2023 10:46-0500 Diastolic blood pressure 80 mm[Hg] Xiomara Wiley MD Work Phone: [facility] 06-19-2023 10:46-0500 Systolic blood pressure 126 mm[Hg] Xiomara Wiley MD Work Phone: [facility] 03-23-2023 07:03-0400 Body height 160.02 cm [facility] 03-23-2023 07:03-0400 Body mass index (BMI) [Ratio] 28.9 kg/m2 [facility] 03-23-2023 07:03-0400 Body temperature 97 [degF] [facility] 03-23-2023 07:03-0400 Body weight 74.1 kg [facility] 03-23-2023 07:03-0400 Diastolic blood pressure 74 mm[Hg] [facility] 03-23-2023 07:03-0400 Heart rate 69 /min [facility] 03-23-2023 07:03-0400 Respiratory rate 18 /min [facility] 03-23-2023 07:03-0400 SaO2% (BldA) [Mass fraction] 98 % [facility] 03-23-2023 07:03-0400 Systolic blood pressure 146 mm[Hg] [facility] 03-16-2023 09:55-0400 Body height 160.02 cm [facility] 03-16-2023 09:55-0400 Body mass index (BMI) [Ratio] 28.7 kg/m2 [facility] 03-16-2023 09:55-0400 Body temperature 98 [degF] [facility] 03-16-2023 09:55-0400 Body weight 73.48 kg [facility] 03-16-2023 09:55-0400 Diastolic blood pressure 94 mm[Hg] [facility] 03-16-2023 09:55-0400 Heart rate 84 /min [facility] 03-16-2023 09:55-0400 Respiratory rate 22 /min [facility] 03-16-2023 09:55-0400 SaO2% (BldA) [Mass fraction] 98 % [facility] 03-16-2023 09:55-0400 Systolic blood pressure 178 mm[Hg] [facility] 07-20-2022 11:03-0500 Body temperature 98.2 [degF] Mason Christianson APRN.BATTERY MECHANIC Work Phone: [facility] 07-20-2022 11:03-0500 Body weight 75.3 kg Mason Sammy SECURE SOFTWARE ASSESSOR.BATTERY MECHANIC Work Phone: [facility] 07-20-2022 11:03-0500 Diastolic blood pressure 82 mm[Hg] Mason Christianson SECURE SOFTWARE ASSESSOR.BATTERY MECHANIC Work Phone: [facility] 07-20-2022 11:03-0500 Heart rate 66 /min Mason Christianson SECURE SOFTWARE ASSESSOR.BATTERY MECHANIC Work Phone: [facility] 07-20-2022 11:03-0500 Respiratory rate 18 /min Mason Christianson SECURE SOFTWARE ASSESSOR.BATTERY MECHANIC Work Phone: [facility] 07-20-2022 11:03-0500 SaO2% (BldA) [Mass fraction] 98 % Mason Christianson SECURE SOFTWARE ASSESSOR.BATTERY MECHANIC Work Phone: [facility] 07-20-2022 11:03-0500 Systolic blood pressure 124 mm[Hg] Mason Christianson SECURE SOFTWARE ASSESSOR.BATTERY MECHANIC Work Phone: [facility] Encounters Encounter Date Encounter Type Care Provider Facility Start: 06-21-2025 ambulatory Duane [facility] [place] Facility:[facility] Start: 05-26-20[facility] Start: 04-07-2025 End: 04-07-[address] Duane Huddleston MD Work Phone: -Laboratory Phy Office 3rd Flr Start: 04-07-2025 End: 04-07-[address] Duane Huddleston MD -Laboratory Phy Office 3rd Flr Start: 04-07-2025 End: 04-07-2025 ambulatory Duane Huddleston Facility:[facility] Start: 01-21-2025 Non-patient / Non-visit Dr. Shona lam MD -[facility] Work Phone: Start: 01-14-2025 End: 01-14-[address] Duane Huddelston MD Work Phone: -Outpatient Bone Densitometry Start: 01-14-2025 End: 01-14-2025 Patient encounter procedure MEERA RENEE MD -Outpatient Bone Densitometry Work Phone: Start: 01-14-2025 End: 01-14-2025 ambulatory MEERA RENEE Facility:[facility] Start: 12-26-2024 ambulatory DUANE HUDDLESTON Facility:[facility] Start: 12-26-2024 Encounter for gynecological examination (general) (routine) without abnormal findings DUANE HUDDLESTON [facility] Start: 12-26-2024 End: 12-26-2024 Patient encounter status Screen Wstr [facility] Start: 12-26-2024 End: 12-26-2024 Subsequent hospital visit by physician Screen Mammo [facility] Mammogram Comment on above: Encounter for gyneco logical examination (general) (routine) without abnormal findings [Z01.419] Start: 12-22-2024 ambulatory MEERA RENEE Facility:[facility] Start: 12-04-2024 End: 02-03-2025 Follow-up encounter Zahira Darby MD Work Phone: OB/Gynecology Start: 11-29-2024 End: 11-29-2024 Discharged Recurring MEERA RENEE MD -Laboratory Work Phone: Start: 11-29-2024 End: 11-29-[address] Duane Huddleston MD Work Phone: [facility] Work Phone: Start: 11-25-2024 End: 11-25-2024 Patient encounter procedure Devante Christensen MD Work Phone: OB/Gynecology Comment on above: Encounter for gyneco logical examination (general) (routine) without abnormal findings (Primary Dx); Encounter for screening mammogram for breast cancer; Screening for cervical cancer Start: 11-25-2024 End: 11-25-2024 Patient encounter status Devante Christensen MD Work Phone: [facility] Start: 11-25-2024 End: 11-25-2024 ambulatory DUANE HUDDLESTON Facility:[facility] Start: 11-20-2024 End: 11-20-[address] Duane Huddleston MD Work Phone: [facility] Work Phone: Start: 11-20-2024 End: 11-20-[address] Duane Huddleston MD -Laboratory Work Phone: Start: 11-20-2024 End: 11-20-2024 ambulatory [facility] Facility:[facility] Start: 09-30-2024 End: 09-30-2024 Discharged Recurring MEERA RENEE MD -Laboratory Work Phone: Start: 09-30-2024 End: 09-30-[address] Duane Huddleston MD Work Phone: [facility] Work Phone: Start: 06-26-2024 End: 06-26-2024 Discharged Recurring MEERA RENEE MD -Laboratory Work Phone: Start: 06-26-2024 End: 06-26-2024 ambulatory MEERA RENEE Facility:[facility] Start: 05-29-2024 End: 05-29-2024 Patient encounter procedure Yakov Summers MD Work Phone: Urogynecology Comment on above: Vaginal prolapse (Pr imary Dx); Chronic vulvitis Start: 05-29-2024 End: 05-29-2024 ambulatory [facility] Facility:[facility] Start: 04-17-2024 End: 04-17-2024 Patient encounter procedure Yakov Summers MD Work Phone: Urogynecology Comment on above: Vaginal prolapse (Pr imary Dx) Start: 04-17-2024 End: 04-17-2024 ambulatory [facility] Facility[facility] Start: 03-11-2024 End: 03-18-2024 Telephone encounter Yakov Summers MD Work Phone: URO/Gynecology Start: 03-02-2024 Refill Xiomara Matta Work Phone: OB/Gynecology Comment on above: Refill Request Start: 02-29-2024 End: 02-29-2024 ambulatory YAKOV SUMMERS Facility:[facility] Start: 02-20-2024 End: 02-20-2024 ambulatory Uro Surgical Assist Nurse Renetta Work Phone: TRANSMISSIONS SYSTEMS OPERATOR [facility] Comment on above: Educational circumst ance (Primary Dx) Start: 02-20-2024 End: 02-20-2024 Telemedicine consultation with patient [facility] Surgical Assist Nurse Renetta Work Phone: TRANSMISSIONS SYSTEMS OPERATOR [facility] Start: 02-19-2024 End: 02-19-2024 PAT Pacc Bette 1 Work Phone: Pre Anesthesia Comment on above: Palpitations (Primar y Dx); Former smoker; Constipation, unspecified constipation type; Gastroesophageal reflux disease, unspecified whether esophagitis present; Rheumatoid arthritis, involving unspecified site, unspecified whether rheumatoid factor present (HCC); Depressive disorder; Obesity with body mass index 30 or greater; Mixed hyperlipidemia Start: 02-01-2024 Telephone encounter Yakov Summers MD Work Phone: [facility] [place] [facility] [place] Comment on above: RESCHEDULE SURGERY Start: 01-16-2024 End: 01-16-2024 ambulatory [facility] Surgical Assist Nurse Renetta Work Phone: TRANSMISSIONS SYSTEMS OPERATOR [facility] Comment on above: Educational circumst ance (Primary Dx) Start: 01-16-2024 End: 01-16-2024 Telemedicine consultation with patient [facility] Surgical Assist Nurse Renetta Work Phone: TRANSMISSIONS SYSTEMS OPERATOR [facility] Start: 01-15-2024 Encounter for other preprocedural examination DUANE HUDDLESTON [facility] Start: 01-15-2024 End: 01-15-2024 PAT [facility] [place] 1 Work Phone: Pre Anesthesia Comment on above: Pre-operative examin ation (Primary Dx); Former smoker; Palpitations; Gastroesophageal reflux disease, unspecified whether esophagitis present; Constipation, unspecified constipation type; Rheumatoid arthritis, involving unspecified site, unspecified whether rheumatoid factor present (HCC); Depressive disorder; Obesity with body mass index 30 or greater Start: 01-15-2024 End: 01-15-2024 Preprocedural examination done Pac [place] 1 Work Phone: [facility] Work Phone: Start: 11-26-2023 End: 11-26-2023 Emergency department patient visit [facility]-Emergency Department Work Phone: Start: 11-23-2023 End: 11-23-2023 Patient encounter procedure Xiomara Wiley MD Work Phone: OB/Gynecology Comment on above: Skin yeast infection (Primary Dx) Start: 11-21-2023 Telephone encounter Xiomara walsh MD Work Phone: [address] [place] [address] Comment on above: Patient Question Start: 11-20-2023 End: 11-20-2023 ambulatory [facility] Work Phone: Start: 11-20-2023 End: 11-20-2023 Patient encounter procedure [facility]-Laboratory, Phy Office 3rd Flr Start: 09-29-2023 Telephone encounter Yakov Summers MD Work Phone: [facility] [place] [facility] [place] Comment on above: Future Appointment Start: 09-25-2023 End: 09-25-2023 ambulatory [facility] Work Phone: Start: 09-25-2023 End: 09-25-2023 Patient encounter procedure [facility]-Laboratory Work Phone: Start: 09-14-2023 Telephone encounter Xiomara walsh MD Work Phone: OB/Gynecology Comment on above: Results Start: 09-14-2023 End: 09-14-2023 Patient encounter procedure Xiomara Wiley MD Work Phone: OB/Gynecology Comment on above: Lichen sclerosus (Pr imary Dx); Vulvar atrophy Start: 09-06-2023 Telephone encounter Yakov Summers MD Work Phone: [facility] [place] [facility] [place] Comment on above: Schedule Surgery Start: 08-30-2023 End: 08-30-2023 Patient encounter procedure Yakov Summers MD Work Phone: TRANSMISSIONS SYSTEMS OPERATOR [facility] Comment on above: Incomplete uterovagi nal prolapse (Primary Dx); Urinary frequency; Cystocele, midline; Rectocele Start: 08-24-2023 End: 08-24-2023 Patient encounter procedure Gabby Hidalgo SECURE SOFTWARE ASSESSOR.BATTERY MECHANIC Work Phone (unformatted): [phone] TRANSMISSIONS SYSTEMS OPERATOR [facility] Comment on above: Incomplete uterovagi nal prolapse (Primary Dx); Urinary frequency; Constipation, unspecified constipation type Start: 06-22-2023 Telephone encounter Xiomara walsh MD Work Phone: OB/Gynecology Comment on above: Orders Start: 06-19-2023 End: 06-19-2023 Patient encounter procedure Xiomara Wiley MD Work Phone: OB/Gynecology Comment on above: History of HPV infec tion (Primary Dx); Tobacco user; Skin change; Uterine prolapse; Urinary symptom or sign; Cystocele with prolapse Start: 06-02-2023 End: 06-02-2023 [facility] Work Phone: Start: 05-29-2023 End: 05-29-2023 ambulatory [facility] Work Phone: Start: 05-29-2023 End: 05-29-2023 Patient encounter procedure [facility]-Laboratory Work Phone: Start: 05-22-2023 End: 05-22-2023 ambulatory [facility] Work Phone: Start: 05-22-2023 End: 05-22-2023 Patient encounter procedure [facility]-Laboratory, Phy Office 3rd Flr Start: 03-23-2023 End: 03-23-2023 Emergency department patient visit [facility]-Emergency Department Work Phone: Start: 03-16-2023 End: 03-16-2023 Emergency department patient visit [facility]-Emergency Department Work Phone: Start: 03-14-2023 End: 03-14-2023 ambulatory [facility] Work Phone: Start: 03-14-2023 End: 03-14-2023 Patient encounter procedure [facility]-Laboratory, Phy Office 3rd Flr Start: 02-21-2023 End: 02-21-2023 Patient encounter procedure [facility]-Radiology, [facility] Work Phone: Start: 01-23-2023 End: 01-23-2023 ambulatory [facility] Work Phone: Start: 01-23-2023 End: 01-23-2023 Patient encounter procedure [facility]-MRI - [facility] Work Phone: Start: 12-20-2022 End: 12-20-2022 ambulatory [facility] Work Phone: Start: 12-20-2022 End: 12-20-2022 Patient encounter procedure [facility]-Outpatient Breast Imaging Work Phone: Start: 11-14-2022 End: 11-14-2022 ambulatory [facility] Work Phone: Start: 11-14-2022 End: 11-14-2022 Patient encounter procedure [facility]-Laboratory, Phy Office 3rd Flr Start: 07-20-2022 End: 07-20-2022 Subsequent hospital visit by physician [facility] Work Phone: Radiology Comment on above: Pain of right lower extremity due to injury [M79.604] Start: 07-20-2022 End: 07-20-2022 Patient encounter procedure Mason Christianson APRNGuerreroBATTERY MECHANIC Work Phone: [facility] Comment on above: Pain of right lower extremity due to injury (Primary Dx); Injury of left ankle, initial encounter Start: 12-16-2021 End: 12-16-2021 Patient encounter procedure [facility]-Outpatient Breast Imaging Start: 11-23-2021 Patient encounter procedure [facility], Specimen Start: 11-11-2021 End: 11-11-2021 Patient encounter procedure [facility], Phy Office 3rd Flr Start: 02-24-2020 End: 02-24-2020 Patient encounter procedure ALLEY HOWE [facility] Start: 01-03-2020 End: 01-03-2020 Patient encounter procedure MARY CASTILLO [facility] Start: 09-12-2019 End: 09-12-2019 Patient encounter procedure DESIREE BURTON [facility] Start: 09-04-2019 End: 09-04-2019 Patient encounter procedure MARY CASTILLO [facility] Start: 05-24-2019 End: 05-24-2019 Patient encounter procedure MARY Santos [facility] Procedures Date Procedure Procedure Detail Performing Clinician Start: 04-07-2025 SARS-CoV-2, Influenza & RSV (PCR) Dr. Duane Huddleston MD Work Phone: Start: 01-14-2025 Dual energy X-ray absorptiometry Dr. Duane Huddleston MD Work Phone: Start: 11-20-2024 Vitamin D, 25-hydroxy measurement Dr. Duane Huddleston MD Work Phone: Comment on above: Vitamin D StatusDeficiency: <20 ng/mL (5 0nmol/L)Insufficiency: 20-30 ng/mL (50-75 nmol/L)Sufficiency: 30-100 ng/mL (75-250 nmol/L)Toxicity: >100 ng/mL (>250 nmol/L) Start: 11-26-2023 X-ray of both feet Start: 11-26-2023 Radiography of ankle Start: 08-24-2023 Urnls dip stick/tablet rgnt auto w/o microscopy Gabby Hidalgo APRN.BATTERY MECHANIC Work Phone (unformatted): [phone] Start: 06-02-2023 CT of chest Start: 03-23-2023 Urine culture Start: 03-23-2023 Computed tomography of abdomen and pelvis with contrast Start: 03-14-2023 Urine culture Start: 02-21-2023 X-ray of unilateral ribs, two views without x-ray of chest Start: 01-23-2023 MRI of lower extremity Start: 01-23-2023 MRI of joint of lower extremity Start: 12-20-2022 Dual energy X-ray absorptiometry Start: 12-20-2022 Screening mammography Start: 07-20-2022 Radex ankle complete minimum 3 views Mason Christianson APRN.CNP Work Phone: Start: 07-20-2022 Radex foot complete minimum 3 views Mason Christianson APRN.CNP Work Phone: Start: 12-16-2021 Screening mammography Start: 11-23-2021 Investigation of transfusion reaction Start: 11-23-2021 Microbial culture, routine Start: 11-11-2021 End: 11-11-2021 Plain x-ray of hand H/O: surgery History of unila teral oophorectomy H/O: surgery Hx of hemorrhoidectomy Comment on above: 07/09/20 H/O: tubal ligation History of tubal liga tion History of tonsillectomy History of tonsillectomy Plan of Treatment Date Care Activity Detail Author Start: 05-22-2033 Urine microalbumin profile DTaP,Tdap,Td Vaccine (4 - Td or Tdap) [facility] Start: 01-14-2027 Diabetes Screening Diabetes Screening [facility] Start: 12-26-2025 Screening for malignant neoplasm of breast Mammogram Screening [facility] Start: 12-01-2025 End: 12-01-2025 Patient encounter procedure 12/01/2025 8:50 AM EDT Office Visit OB/Gynecology [address] [place], [place] [id number] Devante Christensen MD [address] [place] [address] Annual OB/Gynecology Comment on above: Annual Start: 11-25-2025 Screening for malignant neoplasm of cervix Cervical Cancer Screening [facility] Start: 03-24-2025 Influenza vaccination Influ[facility] Vaccine (#[facility] Start: 01-16-2025 Covid-19 Vaccine ( season) Covid-19 Vaccine ( season) [facility] Start: 12-26-2024 End: 12-26-2024 Patient encounter procedure 12/26/2024 8:30 AM EDT Appointment Mammogram [address] [place] [place] [id number] Encounter for gynecological examination (general) (routine) without abnormal findings [Z01.419]; Encounter for screening mammogram for breast cancer [Z12.31] Mammogram Comment on above: Encounter for gynecological examination (general) (routine) without abnormal findings [Z01.419]; Encounter for screening mammogram for breast cancer [Z12.31] Start: 07-24-2024 Advance Directive Discussion Advance Directive Discussion [facility] Start: 07-24-2024 Medicare Advantage Annual Wellness Visit Medicare Advantage Annual Wellness Visit [facility] Start: 07-15-2024 Covid-19 Vaccine () Covid-19 Vaccine () [facility] Start: 05-29-2024 End: 05-29-2024 Patient encounter procedure 05/29/2024 10:30 AM EST Office Visit Urogynecology [address] [place] [address] Yakov Summers MD [address] [facility] [address] [place] [address] POST OP 3 MONTHS Urogynecology Comment on above: POST OP 3 MONTHS Start: 05-08-2024 End: 05-08-2024 Patient encounter procedure 05/08/2024 10:30 AM EDT Office Visit TRANSMISSIONS SYSTEMS OPERATOR [facility] [address] [facility] [address] [place] [address] Yakov Summers MD [address] [facility] [address] [place] [address] POST OP 3 MONTHS TRANSMISSIONS SYSTEMS OPERATOR [facility] Comment on above: POST OP 3 MONTHS Start: 04-17-2024 End: 04-17-2024 Patient encounter procedure 04/17/2024 10:30 AM EDT Office Visit Urogynecology [address] [place] [address] Yakov Summers MD [address] [facility] [address] [place] [address] POST OP 4-6 WEEKS Urogynecology Comment on above: POST OP 4-6 WEEKS Start: 03-24-2024 Covid-19 Vaccine () Covid-19 Vaccine () [facility] Start: 03-24-2024 Influenza vaccination Influenza Vaccine (#1) [facility] Start: 03-13-2024 End: 03-13-2024 Patient encounter procedure 03/13/2024 10:45 AM EDT Office Visit TRANSMISSIONS SYSTEMS OPERATOR [facility] [address] [address] Yakov Summers MD [address] [address] POST OP 4-6 WEEKS TRANSMISSIONS SYSTEMS OPERATOR [facility] Comment on above: POST OP 4-6 WEEKS Start: 02-29-2024 End: 02-29-2024 Admission to same day surgery center 02/29/2024 7:30 AM EDT - 02/29/2024 11:25 AM EDT Surgery [facility] [address] [place] [address] Yakov Summers MD [address] [address] COLPORRHAPHY POSTERIOR [facility] Comment on above: COLPORRHAPHY POSTERIOR Start: 02-29-2024 End: 02-29-2024 Anterior colporraphy rpr cystocele w/cysto ANTERIOR COLPORRHAPHY REPAIR CYSTOCELE WITH OR W/O REPAIR URETHROCELE INCLUDING CYSTOURETHROSCOPY WHEN PERFORMED Uterovaginal prolapse 02/29/2024 7:30 AM EDT ME OR Start: 02-29-2024 End: 02-29-2024 Colpopexy vaginal extraperitoneal approach FIXATION LIGAMENT SACROSPINOUS Uterovaginal prolapse 02/29/2024 7:30 AM EDT ME OR Start: 02-29-2024 End: 02-29-2024 Cystourethroscopy CYSTOSCOPY Uterovaginal prolapse 02/29/2024 7:30 AM EDT ME OR Start: 02-29-2024 End: 02-29-2024 Perineoplasty rpr perineum nonobstetrical spx PERINEOPLASTY, NON-OBSTETRICAL Uterovaginal prolapse 02/29/2024 7:30 AM EDT ME OR Start: 02-29-2024 End: 02-29-2024 Post colporrhaphy rectocele w/wo perineorrhaphy COLPORRHAPHY POSTERIOR Uterovaginal prolapse 02/29/2024 7:30 AM EDT ME OR Start: 02-29-2024 Subsequent hospital visit by physician 02/29/2024 7:30 AM EDT Hospital Encounter [facility] [address] [place] [address] Yakov Summers MD [address] [address] Uterovaginal prolapse [N81.4] [facility] Comment on above: Uterovaginal prolapse [N81.4] Start: 02-20-2024 End: 02-20-2024 ambulatory 02/20/2024 2:00 PM EDT [facility] TRANSMISSIONS SYSTEMS OPERATOR [facility] [address] [address] [place], Uro Surgical Assist Nurse [address] [address] PRE OP TEACHING TELEVISIT TRANSMISSIONS SYSTEMS OPERATOR [facility] Comment on above: PRE OP TEACHING TELEVISIT Start: 02-19-2024 End: 02-19-2024 Anesthesia consultation 02/19/2024 9:20 AM EDT PAT Pre Anesthesia [address] [place] [address] 1, Pacc [place] [address] [place] [address] PRE OP Pre Anesthesia Comment on above: PRE OP Start: 02-01-2024 End: 02-01-2024 Admission to same day surgery center 02/01/2024 11:25 AM EDT - 02/01/2024 3:35 PM EDT Surgery [facility] [address] [place] [address] Yakov Summers MD [address] [address] COLPORRHAPHY POSTERIOR [facility] Comment on above: COLPORRHAPHY POSTERIOR Start: 02-01-2024 End: 02-01-2024 Anterior colporraphy rpr cystocele w/cysto ANTERIOR COLPORRHAPHY REPAIR CYSTOCELE WITH OR W/O REPAIR URETHROCELE INCLUDING CYSTOURETHROSCOPY WHEN PERFORMED Uterovaginal prolapse 02/01/2024 11:25 AM EDT ME OR Start: 02-01-2024 End: 02-01-2024 Colpopexy vaginal extraperitoneal approach FIXATION LIGAMENT SACROSPINOUS Uterovaginal prolapse 02/01/2024 11:25 AM EDT ME OR Start: 02-01-2024 End: 02-01-2024 Cystourethroscopy CYSTOSCOPY Uterovaginal prolapse 02/01/2024 11:25 AM EDT ME OR Start: 02-01-2024 End: 02-01-2024 Perineoplasty rpr perineum nonobstetrical spx PERINEOPLASTY, NON-OBSTETRICAL Uterovaginal prolapse 02/01/2024 11:25 AM EDT ME OR Start: 02-01-2024 End: 02-01-2024 Post colporrhaphy rectocele w/wo perineorrhaphy COLPORRHAPHY POSTERIOR Uterovaginal prolapse 02/01/2024 11:25 AM EDT ME OR Start: 02-01-2024 Subsequent hospital visit by physician 02/01/2024 11:25 AM EDT Hospital Encounter [facility] [address] [place] [address] Yakov Summers MD [address] [address] Uterovaginal prolapse [N81.4] [facility] Comment on above: Uterovaginal prolapse [N81.4] Start: 01-16-2024 End: 01-16-2024 ambulatory 01/16/2024 1:00 PM EDT [facility] TRANSMISSIONS SYSTEMS OPERATOR [facility] [address] [address] JacksonTonio valentino Surgical Assist Nurse [address] [address] PRE OP TEACHING TELEVISIT TRANSMISSIONS SYSTEMS OPERATOR [facility] Comment on above: PRE OP TEACHING TELEVISIT Start: 01-15-2024 End: 04-15-2024 Bacteria identified in Urine by Culture [facility] Work Phone: Comment on above: Expected: 01/15/2024, Expires: Start: 01-15-2024 End: 01-15-2024 ambulatory 01/15/2024 9:00 AM EDT Results Only [facility] [address] [place] [address] PRE OP [facility] Comment on above: PRE OP Start: 01-15-2024 End: 01-15-2024 Anesthesia consultation 01/15/2024 8:00 AM EDT PAT Pre Anesthesia [address] [facility] [place] [address] 1, Pacc [place] [address] [place] [address] PRE OP Pre Anesthesia Comment on above: PRE OP Start: 11-26-2023 [facility] Start: 11-23-2023 End: 11-23-2023 Patient encounter procedure 11/23/2023 9:20 AM EDT Office Visit OB/Gynecology [address] [place] [address] Xiomara Wiley MD [address] [place] [address] redness, itching under left breast OB/Gynecology Comment on above: redness, itching under left breast Start: 08-31-2023 End: 11-30-2023 CBC panel - Blood by Automated count CBC Lab Routine Incomplete uterovaginal prolapse Urinary frequency Cystocele, midline Rectocele Expected: 08/31/2023, Expires: 11/30/2023 [facility] Work Phone: Comment on above: Expected: 08/31/2023, Expires: Start: 08-16-2023 Shingrix Vaccine (2 of 2) Shingrix Vaccine (2 of 2) [facility] Start: 07-24-2023 Advance Directive Discussion Advance Directive Discussion [facility] Start: 07-24-2023 Behavioral Health Screening Behavioral Health Screening [facility] Start: 07-24-2023 Depression Assessment Depression Assessment [facility] Start: 07-17-2023 Covid-19 Vaccine () Covid-19 Vaccine () [facility] Start: 03-23-2023 Bacteria identified in Urine by Culture Urine Culture [facility] Start: 03-23-2023 [facility] Start: 07-24-2022 ADVANCE DIRECTIVE DISCUSSION ADVANCE DIRECTIVE DISCUSSION [facility] Start: 07-24-2022 DEPRESSION ASSESSMENT DEPRESSION ASSESSMENT [facility] Start: 03-24-2022 Influenza vaccination INFLUENZA (#1) [facility] Start: 2018 BONE DENSITY BONE DENSITY [facility] Start: 2018 Bone Density Screening Bone Density Screening [facility] Start: 2018 Screening for osteoporosis Bone Density Screening [facility] Start: 10-20-2014 Shingrix Vaccine (1 of 2) Shingrix Vaccine (1 of 2) [facility] Start: 04-10-2003 Screening for malignant neoplasm of cervix Cervical Cancer Screening [facility] Start: 1998 COLOGUARD (FIT-DNA) COLOGUARD (FIT-DNA) [facility] Start: 1998 Colonoscopy COLONOSCOPY [facility] Start: 1998 COLORECTAL CANCER SCREENING COLORECTAL CANCER SCREENING [facility] Start: [address] COLONOGRAPHY [facility] Start: 1998 DIABETES SCREEN DIABETES SCREEN [facility] Start: 1998 Diabetes Screening Diabetes Screening [facility] Start: 1998 FECAL OCCULT BLOOD FECAL OCCULT BLOOD [facility] Start: 1998 Lipid 1996 panel - Serum or Plasma Lipid Screening [facility] Start: 1998 Lipid panel Lipid Screening [facility] Start: 1998 LIPID SCREEN LIPID SCREEN [facility] Start: 1998 Screening for malignant neoplasm of colon [facility] Start: 1998 SIGMOIDOSCOPY SIGMOIDOSCOPY [facility] Start: 1993 Mammography [facility] Start: 1993 Screening for malignant neoplasm of breast Mammogram Screening [facility] Start: 1972 SHINGRIX VACCINE (1 of 2) SHINGRIX VACCINE (1 of 2) [facility] Start: 1972 Urine microalbumin profile DTAP,TDAP,TD (1 - Tdap) [facility] Start: 1971 Anxiety Screening Anxiety Screening [facility] Start: 1971 HEPATITIS C SCREENING HEPATITIS C SCREENING [facility] Start: 1971 Hepatitis C screening Hepatitis C Screening [facility] Start: 1959 PNEUMOCOCCAL: 65+ (1 - PCV) PNEUMOCOCCAL: 65+ (1 - PCV) [facility] Start: 02[birth year]07-1954 COVID-19 VACCINE (#1) COVID-19 VACCINE (#1) [facility] Bacteria identified in Urine by Culture URINE CULTURE Microbiology Routine Urinary frequency 08/24/2023 10:18 AM EST [facility] Work Phone (unformatted): [phone] End: 12-25-2025 DBT Breast - bilateral screening NICKY SCREENING W [facility] Radiology Routine Encounter for gynecological examination (general) (routine) without abnormal findings Encounter for screening mammogram for breast cancer 1 Occurrences starting 11/25/2024 until 12/25/2025 [facility] Work Phone: Comment on above: 1 Occurrences starting 11/25/2024 until 12/25/2025 DBT Breast - bilater al screening NICKY SCREENING W [facility]ADA Radiology Routine Encounter for gynecological examination (general) (routine) without abnormal findings Encounter for screening mammogram for breast cancer 12/26/2024 8:43 AM EDT [facility] Work Phone: End: 01-14-2025 ECG COMPLETE ECG COMPLETE ECG Routine Pre-operative examination 1 Occurrences starting 01/15/2024 until 01/14/2025 [facility] Comment on above: 1 Occurrences starting 01/15/2024 until 01/14/2025 PAP TEST PAP TEST Lab Marc kohler Encounter for gynecological examination (general) (routine) without abnormal findings Screening for cervical cancer 11/25/2024 12:26 PM EDT [facility] Patient Education [facility] Work Phone: Patient referral [facility] Work Phone: SURGICAL PATHOLOGY SURGICAL PATH OLOGY Lab Routine History of HPV infection Tobacco user Skin change 06/19/2023 11:35 AM EST [facility] Work Phone: [facility] HI OR [facility] Immunizations Immunization Date Immunization Notes Care Provider Chris amaya 05-20-2024 influenza virus vacc ine, unspecified formulation Zahira Darby MD Work Phone: [facility] 05-22-2023 influenza virus vacc ine, unspecified formulation Yakov Summers MD Work Phone: [facility] Payers Date Payer Category Payer Medicare (Managed Care) [employer] [id number] 2024 Unknown [id number] 2024 Self-pay [id number] 2023 Private Health Insurance [facility] [id number] 2017 Medicare [id number] 1953 Unknown [id number]. 651 1953 Unknown [id number]. 651 1953 Unknown [id number] [id number]. 651 1953 Unknown [id number] [id number]. 651 1953 Unknown [id number] [id number]. 651 Medicaid [id number] Medicare [id number] Medicare [id number] Unknown [id number]. 462 Unknown [id number] [id number]. 462 Unknown [id number] [id number]. 462 Unknown [id number] [id number]. 462 Unknown [id number] [id number]. 462 Unknown [id number] [id number]. 462 Unknown [id number] [id number]. 462 Unknown [id number]. 462 Unknown [id number]. 462 Social History Date Type Detail Facility Start: 11-06-2020 End: 11-26-2023 Tobacco smoking status CAIS Unknown if ever smoked [facility] Start: 11-06-2020 Cigarettes [facility] Start: 1955 Sex Assigned At Female W [facility] Start: 07-20-2022 End: 11-26-2023 Tobacco smoking status NHIS Smokes tobacco daily [facility] Start: 07-20-2022 End: 04-17-2024 Tobacco use and exposure Smokeless tobacco non-user [facility] Start: 1955 Sex Assigned At Not on file C [facility] Start: 06-19-2023 End: 11-25-2024 Alcohol intake Current drinker of alcohol (finding) [facility] Start: 06-19-2023 End: 11-25-2024 History of Social function [facility] Start: 06-19-2023 End: 11-25-2024 Tobacco use panel [facility] National Score (1-100), lower number is lower risk 80 [facility] Start: 06-19-2023 Alcohol Comment [facility] Start: 01-15-2024 End: 04-17-2024 Tobacco smoking status NHIS Ex-smoker [facility] Start: 07-24-1969 End: 12-29-2023 History of tobacco use Current smoker [facility] Start: 07-24-1969 End: 12-29-2023 History of tobacco use Cigarette Smoker [facility] Start: 10-21-2024 Sex Female (finding) [facility] Clinical Notes 07-20-2022 to 12-26-2024 Miladis Berg Mammo Tech - 12/26/2024 8:30 AM EDTResult Encounter Note - Zahira Darby MD - 12/04/2024 11:39 AM EDTResult Encounter Note - Zahira Darby MD - 12/04/2024 11:39 AM EDT Note Date & Type Note Facility 12-26-2024 History of Presen t illness Narrative Radiology Service Progress Note PATIENT NAME: Mara Bustos DATE OF SERVICE: December 26, 2024 TIME: 8:55 AM PATIENT IDENTITY VERIFICATION COMPLETED USING TWO (2) IDENTIFIERS: Name and Date of confirmed by patient verbally. FALL SCREENING: Has the patient had 2 falls in the last year or 1 fall with injury or currently using an Ambulatory Assistive Device (Walker, Cane, Wheelchair, Crutches, etc.)? No PATIENT GENDER DATA: Assigned female at . status: : No status: NO. PATIENT RELEVANT IMPLANT DATA REVIEWED: Not Applicable PATIENT PRESENTS WITH AN IMPLANTABLE OR ATTACHED SALES CONSULTANT: No RADIOLOGY DEPARTMENT: Mammography PERIPHERAL IV DATA: Not applicable SIGNED BY: Areli Coultero Candi December 26, 2024 8:55 AM documented in this encounter [facility] 12-26-2024 Note HNO ID: [id number] Author: MILADIS BERG Mammo Tech Service: ? Author Type: Electronic Assembly Type: Progress Notes Filed: 12/26/2024 08:55 Note Text: Radiology Service Progress Note PATIENT NAME: Mara Bustos DATE OF SERVICE: December 26, 2024 TIME: 8:55 AM PATIENT IDENTITY VERIFICATION COMPLETED USING TWO (2) IDENTIFIERS: Name and Date of confirmed by patient verbally. FALL SCREENING: Has the patient had 2 falls in the last year or 1 fall with injury or currently using an Ambulatory Assistive Device (Walker, Cane, Wheelchair, Crutches, etc.)? No PATIENT GENDER DATA: Assigned female at . status: : No status: NO. PATIENT RELEVANT IMPLANT DATA REVIEWED: Not Applicable PATIENT PRESENTS WITH AN IMPLANTABLE OR ATTACHED SALES CONSULTANT: No RADIOLOGY DEPARTMENT: Mammography PERIPHERAL IV DATA: Not applicable SIGNED BY: Terry Coulter December 26, 2024 8:55 AM [facility] 12-04-2024 Progress note Formatting of t his note might be different from the original. Send letter about normal pap if she does not have mychart. Zahira Darby MD [facility] Work Phone: 12-04-2024 Miscellaneous Notes Send letter about normal pap if she does not have mychart. Zahira Darby MD documented in this encounter [facility] 11-25-2024 Note Addended by: DEVANTE CHRISTENSEN on: 11/25/2024 12:20 PM Modules accepted: Orders [facility] 11-25-2024 Miscellaneous Notes Addended by: DEVANTE CHRISTENSEN on: 11/25/2024 12:20 PM Modules accepted: Orders Addended by: LAI ROGER on: 11/25/2024 11:38 AM Modules accepted: Orders documented in this encounter [facility] 11-25-2024 Note Addended by: LAI ROGER on: 11/25/2024 11:38 AM Modules accepted: Orders [facility] 11-25-2024 Note HNO ID: [id number] Author: DEVANTE CHRISTENSEN MD Service: ? 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 Mara is a 69 year old who presents for an annual gynecologic exam without complaints. Postmenopausal: Yes since age 47 HRT use: No. Leep: Yes: Bothersome pelvic pain: No Last mammogram: 2023 normal History of abnormal mammogram: No OB History Gravida2 Para2 Term2 Preterm0 AB0 Living2 SAB0 IAB0 Ectopic0 Multiple0 Live Births0 Comment: Largest baby 8 lb 9 oz Problem Relation Age of Onset Diabetes Mother Heart Father Ovarian cancer Sister No Known Problems Maternal Grandmother No Known Problems Maternal Grandfather No Known Problems Paternal Grandmother No Known Problems Paternal Grandfather SOCIAL HISTORY Social History Tobacco Use Smoking status: Former Current packs/day: 0.00 Types: Cigarettes Start date: 1971 Quit date: 12/29/2023 Years since quittin.9 Smokeless tobacco: Never Vaping Use Vaping status: Never Used Substance Use Topics Alcohol use: Yes Comment: occasional Drug use: Never REVIEW OF SYSTEMS Abdomen: No abdominal pain, nausea, vomiting, diarrhea, or constipation. No bloating, early satiety, indigestion, or increased flatulence. Bladder: No dysuria, gross hematuria, urinary frequency, urinary urgency, or incontinence Breast: No breast lumps, nipple d/c, overlying skin changes, redness or skin retraction Allergies and current medication updated:Yes SENSITIVE EXAM: The sensitive examination was discussed with the Patient or Patient's Authorized Foot Piece Assembler. As applicable, any other physician, advance practice provider, medical student, or other health professional student that will be observing or involved in the sensitive examination for educational or training purposes was discussed with the Patient or Authorized Foot Piece Assembler. The Patient or Authorized Foot Piece Assembler has agreed to proceed with the sensitive examination. (Sensitive examination includes inspection and/or palpation of the breasts, pelvis, prostate and anorectal regions). EXAM: There were no vitals taken for this visit. GENERAL: pleasant, female in no apparent distress HEENT: Normocephalic, atraumatic, mucus membranes moist, and no lesions NECK: Supple, full range of motion, no adenopathy, and thyroid normal DERMATOLOGY: Normal, without lesions, non-icteric, and non-hirsute BREAST: soft, non-tender, symmetric, no dominant mass, normal nipple-areolar complex, no lymphadenopathy, and no nipple discharge CHEST: Normal inspiratory effort ABDOMEN: soft, non-tender, and no masses PELVIC: external genitalia normal, normal Bartholin's glands, urethra, [place]'s glands, no vulvar lesions, no cervical lesions, good vaginal support, physiologic discharge present, normal appearing perineal body and perianal region BIMANUAL: uterus normal size, shape and consistency, no adnexal masses, and non-tender RECTOVAGINAL: deferred. 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 Mara is a 69 year old who presents for an annual gynecologic exam without complaints. Postmenopausal: Yes since age 47 HRT use: No. Leep: Yes: Bothersome pelvic pain: No Last mammogram: 2023 normal History of abnormal mammogram: No OB History Gravida2 Para2 Term2 Preterm0 AB0 Living2 SAB0 IAB0 Ectopic0 Multiple0 Live Births0 Comment: Largest baby 8 lb 9 oz Problem Relation Age of Onset Diabetes Mother Heart Father Ovarian cancer Sister No Known Problems Maternal Grandmother No Known Problems Maternal Grandfather No Known Problems Paternal Grandmother No Known Problems Paternal Grandfather SOCIAL HISTORY Social History Tobacco Use Smoking status: Former Current packs/day: 0.00 Types: Cigarettes Start date: 1969 Quit date: 12/29/2023 Years since quittin.9 Smokeless tobacco: Never Vaping Use Vaping status: Never Used Substance Use Topics Alcohol use: Yes Comment: occasional Drug use: Never REVIEW OF SYSTEMS Abdomen: No abdominal pain, nausea, vomiting, diarrhea, or constipation. No bloating, early satiety, indigestion, or increased flatulence. Bladder: No dysuria, gross hematuria, urinary frequency, urinary urgency, or incontinence Breast: No breast lumps, nipple d/c, overlying skin changes, redness or skin retraction Allergies and current medication updated:Yes SENSITIVE EXAM: The sensitive examination was discussed with the Patient or Patient's Authorized Foot Piece Assembler. As applicable, any other physician, advance practice provider, medical student, or other health professional student that will be observing or involved in the sensitive examination for educational or training purposes was discussed with the Patient or Authorized Foot Piece Assembler. The Patient or Authorized Foot Piece Assembler has agreed to proceed with the sensitive examination. (Sensitive examination includes inspection and/or palpation of the breasts, pelvis, prostate and anorectal regions). EXAM: There were no vitals taken for this visit. GENERAL: pleasant, female in no apparent distress HEENT: Normocephalic, atraumatic, mucus membranes moist, and no lesions NECK: Supple, full range of motion, no adenopathy, and thyroid normal DERMATOLOGY: Normal, without lesions, non-icteric, and non-hirsute BREAST: soft, non-tender, symmetric, no dominant mass, normal nipple-areolar complex, no lymphadenopathy, and no nipple discharge CHEST: Normal inspiratory effort ABDOMEN: soft, non-tender, and no masses PELVIC: external genitalia normal, normal Bartholin's glands, urethra, [place]'s glands, no vulvar lesions, no cervical lesions, good vaginal support, physiologic discharge present, normal appearing perineal body and perianal region BIMANUAL: uterus normal size, shape and consistency, no adnexal masses, and non-tender RECTOVAGINAL: deferred. NEURO: alert and oriented x3,exam grossly non-focal EXTREMITIES: normal ASSESSMENT/PLAN: 1) Health maintenance: Pap done with reflex HPV 2) Follow up one year or sooner as needed # elevated bp 158/94 is typical in office but normal at home Devante Christensen MD documented in this encounter [facility] 05-29-2024 History of Presen t illness Narrative Female Pelvic Medicine & Reconstructive Surgery Post-Op Visit Mara Bustos is a 68 year old year old female who presents for a 3 Month post-op check s/p Procedure(s) on 02/29/24: Sacrospinous ligament suspension hysteropexy Anterior colporrhaphy Posterior colporrhaphy Perineorrhaphy Cystoscopy Bladder biopsy. Post-op complications: no Bleeding: no Pain: no If you had pain related to your prolapse before surgery, has your pain resolved? Not Applicable Abnormal vaginal discharge: no Pathology: FINAL DIAGNOSIS A. Urinary bladder, biopsy: - Chronic inflammation and reactive changes. B. Skin, perineum, biopsy: - Focal ulcer, chronic inflammation, and reactive changes. Using Clobetasol 2x/week. Denies vulvar itching or irritation. Sciatic pain has resolved. PFDI-20 Do you: Usually experience pressure in the lower abdomen? No (0) Usually experience heaviness or dullness in the pelvic area? No (0) Usually have a bulge or something falling out that you can see or feel in your vaginal area? No (0) Ever have to push on the vagina or around the rectum to have or complete a bowel movement? No (0) Usually experience a feeling of incomplete bladder emptying? No (0) Ever have to push up on a bulge in the vaginal area with your fingers to start or complete urination? No (0) Feel you need to strain too hard to have a bowel movement? No (0) Feel you have not completely emptied your bowels at the end of a bowel movement? No (0) Usually lose stool beyond your control if your stool is well formed? No (0) Usually lose stool beyond your control if your stool is loose? No (0) Usually lose gas from the rectum beyond your control? No (0) Usually have pain when you pass your stool? No (0) Experience a strong sense of urgency and have to vance to the bathroom to have a bowel movement? No (0) Does part of your bowel ever pass through the rectum and bulge outside during or after a bowel movement? No (0) Usually experience frequent urination? No (0) Usually experience urine leakage associated with a feeling of urgency, that is, a strong sensation of needing to go to the bathroom? No (0) Usually experience urine leakage related to coughing, sneezing or laughing? No (0) Usually experience small amounts of urine leakage (that is, drops)? No (0) Usually experience difficulty emptying your bladder? No (0) Usually experience pain or discomfort in the lower abdomen or genital region? No (0) Overall, how satisfied were you with your postoperative pain medication? Very satisfied With regard to your expectations before surgery, did you have the amount of pain you expected, more pain, or less pain? Much less pain than I expected Was the preoperative teaching you had about pain expectations helpful? Yes Were the discharge instructions you received about pain medications helpful? Yes The sensitive examination was discussed with the Patient or Patient's Authorized Foot Piece Assembler. As applicable, any other physician, advance practice provider, medical student, or other health professional student that will be observing or involved in the sensitive examination for educational or training purposes was discussed with the Patient or Authorized Foot Piece Assembler. The Patient or Authorized Foot Piece Assembler has agreed to proceed with the sensitive examination. (Sensitive examination includes inspection and/or palpation of the breasts, pelvis, prostate and anorectal regions) Music Producer offered, exam chaperoned by Latoya Bravo RN OBJECTIVE: BP 144/73 Wt 86.2 kg (190 lb 0.6 oz) BMI 33.40 kg/m General Appearance: Appears stated age, comfortable, No acute distress Abdomen: Benign, soft, non-tender, no hernia, masses. Pelvic examination: Vulva/Perineum: Normal development, no lesions, perineal incision healing well Urethral Meatus:Normal location and size, no lesions Urethra: No masses, tenderness or scarring Bladder:No masses, no tenderness Vagina: Good vaginal support, suture material present, incision healing well, and atrophic Cervix: surgically absent Uterus: surgical absent Adnexa:No masses, tenderness or nodularity ASSESMENT: Mara Bustos is a 68 year old year old female who is post-op; stable and doing well post-operative course uncomplicated PLAN: - May resume normal activities - No lifting restrictions - continue her clobetasol - working well, can titrate up/down as needed when she has a flare, can continue to follow with her primary OBGYN Recommend annual vaginal exams with primary OBGYN F/u with urogyn PRN Yakov Summers MD documented in this encounter [facility] 05-29-2024 Note HNO ID: [id number] Author: YAKOV SUMMERS MD Service: ? Author Type: Physician Type: Progress Notes Filed: 05/29/2024 11:20 Note Text: Female Pelvic Medicine AND Reconstructive Surgery Post-Op Visit Mara Bustos is a 68 year old year old female who presents for a 3 Month post-op check s/p Procedure(s) on 02/29/24: Sacrospinous ligament suspension hysteropexy Anterior colporrhaphy Posterior colporrhaphy Perineorrhaphy Cystoscopy Bladder biopsy. Post-op complications: no Bleeding: no Pain: no If you had pain related to your prolapse before surgery, has your pain resolved? Not Applicable Abnormal vaginal discharge: no Pathology: FINAL DIAGNOSIS A. Urinary bladder, biopsy: - Chronic inflammation and reactive changes. B. Skin, perineum, biopsy: - Focal ulcer, chronic inflammation, and reactive changes. Using Clobetasol 2x/week. Denies vulvar itching or irritation. Sciatic pain has resolved. PFDI-20 Do you: Usually experience pressure in the lower abdomen? No (0) Usually experience heaviness or dullness in the pelvic area? No (0) Usually have a bulge or something falling out that you can see or feel in your vaginal area? No (0) Ever have to push on the vagina or around the rectum to have or complete a bowel movement? No (0) Usually experience a feeling of incomplete bladder emptying? No (0) Ever have to push up on a bulge in the vaginal area with your fingers to start or complete urination? No (0) Feel you need to strain too hard to have a bowel movement? No (0) Feel you have not completely emptied your bowels at the end of a bowel movement? No (0) Usually lose stool beyond your control if your stool is well formed? No (0) Usually lose stool beyond your control if your stool is loose? No (0) Usually lose gas from the rectum beyond your control? No (0) Usually have pain when you pass your stool? No (0) Experience a strong sense of urgency and have to vance to the bathroom to have a bowel movement? No (0) Does part of your bowel ever pass through the rectum and bulge outside during or after a bowel movement? No (0) Usually experience frequent urination? No (0) Usually experience urine leakage associated with a feeling of urgency, that is, a strong sensation of needing to go to the bathroom? No (0) Usually experience urine leakage related to coughing, sneezing or laughing? No (0) Usually experience small amounts of urine leakage (that is, drops)? No (0) Usually experience difficulty emptying your bladder? No (0) Usually experience pain or discomfort in the lower abdomen or genital region? No (0) Overall, how satisfied were you with your postoperative pain medication? Very satisfied With regard to your expectations before surgery, did you have the amount of pain you expected, more pain, or less pain? Much less pain than I expected Was the preoperative teaching you had about pain expectations helpful? Yes Were the discharge instructions you received about pain medications helpful? Yes The sensitive examination was discussed with the Patient or Patient's Authorized Foot Piece Assembler. As applicable, any other physician, advance practice provider, medical student, or other health professional student that will be observing or involved in the sensitive examination for educational or training purposes was discussed with the Patient or Authorized Foot Piece Assembler. The Patient or Authorized Foot Piece Assembler has agreed to proceed with the sensitive examination. (Sensitive examination includes inspection and/or palpation of the breasts, pelvis, prostate and anorectal regions) Music Producer offered, exam chaperoned by Latoya Bravo RN OBJECTIVE: BP 144/73 Wt 86.2 kg (190 lb 0.6 oz) BMI 33.40 kg/m? General Appearance: Appears stated age, comfortable, No acute distress Abdomen: Benign, soft, non-tender, no hernia, masses. Pelvic examination: Vulva/Perineum: Normal development, no lesions, perineal incision healing well Urethral Meatus:Normal location and size, no lesions Urethra: No masses, tenderness or scarring Bladder:No masses, no tenderness Vagina: Good vaginal support, suture material present, incision healing well, and atrophic Cervix: surgically absent Uterus: surgical absent Adnexa:No masses, tenderness or nodularity ASSESMENT: Mara Bustos is a 68 year old year old female who is post-op; stable and doing well post-operative course uncomplicated PLAN: - May resume normal activities - No lifting restrictions - continue her clobetasol - working well, can titrate up/down as needed when she has a flare, can continue to follow with her primary OBGYN Recommend annual vaginal exams with primary OBGYN F/u with urogyn PRN Yakov Summers MD [facility] 04-17-2024 History of Presen t illness Narrative Female Pelvic Medicine & Reconstructive Surgery Post-Op Visit Mara Bustos is a 68 year old year old female who presents for a 6 Week post-op check s/p Procedure(s): Sacrospinous ligament suspension hysteropexy Anterior colporrhaphy Posterior colporrhaphy Perineorrhaphy Cystoscopy Bladder biopsy Anesthesia: General Findings: - Stage II cystocele, uterovaginal prolapse, rectocele - Normal 360 degree cysto with bladder dome intact, bilateral ureteral orifice noted with brisk jets, no sutures or injuries seen in bladder. - Red lesion lateral to right ureteral orifice on cysto - asymmetric darkened skin lesion on perineum - Vaginal sweep was negative - Rectal exam confirms no suture material in the rectum. Post-op complications: no Bleeding: no Pain: no If you had pain related to your prolapse before surgery, has your pain resolved? Yes Abnormal vaginal discharge: no Pathology: Overall doing great! Does have some occasional sciatic pain down right leg that is new since surgery, but only occurs after she's done a lot or walked a lot in a day. Component FINAL DIAGNOSIS A. Urinary bladder, biopsy: - Chronic inflammation and reactive changes. B. Skin, perineum, biopsy: - Focal ulcer, chronic inflammation, and reactive changes. PFDI-20 Do you: Usually experience pressure in the lower abdomen? No (0) Usually experience heaviness or dullness in the pelvic area? No (0) Usually have a bulge or something falling out that you can see or feel in your vaginal area? No (0) Ever have to push on the vagina or around the rectum to have or complete a bowel movement? No (0) Usually experience a feeling of incomplete bladder emptying? No (0) Ever have to push up on a bulge in the vaginal area with your fingers to start or complete urination? No (0) Feel you need to strain too hard to have a bowel movement? No (0) Feel you have not completely emptied your bowels at the end of a bowel movement? No (0) Usually lose stool beyond your control if your stool is well formed? No (0) Usually lose stool beyond your control if your stool is loose? No (0) Usually lose gas from the rectum beyond your control? No (0) Usually have pain when you pass your stool? No (0) Experience a strong sense of urgency and have to vance to the bathroom to have a bowel movement? No (0) Does part of your bowel ever pass through the rectum and bulge outside during or after a bowel movement? No (0) Usually experience frequent urination? No (0) Usually experience urine leakage associated with a feeling of urgency, that is, a strong sensation of needing to go to the bathroom? No (0) Usually experience urine leakage related to coughing, sneezing or laughing? No (0) Usually experience small amounts of urine leakage (that is, drops)? No (0) Usually experience difficulty emptying your bladder? No (0) Usually experience pain or discomfort in the lower abdomen or genital region? No (0) Overall, how satisfied were you with your postoperative pain medication? Neither satisfied nor dissatisfied With regard to your expectations before surgery, did you have the amount of pain you expected, more pain, or less pain? Much less pain than I expected Was the preoperative teaching you had about pain expectations helpful? Yes Were the discharge instructions you received about pain medications helpful? Yes The sensitive examination was discussed with the Patient or Patient's Authorized Foot Piece Assembler. As applicable, any other physician, advance practice provider, medical student, or other health professional student that will be observing or involved in the sensitive examination for educational or training purposes was discussed with the Patient or Authorized Foot Piece Assembler. The Patient or Authorized Foot Piece Assembler has agreed to proceed with the sensitive examination. (Sensitive examination includes inspection and/or palpation of the breasts, pelvis, prostate and anorectal regions) Music Producer offered, exam chaperoned by Mae Dunn RN OBJECTIVE: BP 132/57 Pulse (!) 52 General Appearance: Appears stated age, comfortable, No acute distress Abdomen: Benign, soft, non-tender, no hernia, masses. Pelvic examination: Vulva/Perineum: Normal development, no lesions, perineal incision healing well, ulcer on right labia majora Urethral Meatus:Normal location and size, no lesions Urethra: No masses, tenderness or scarring Bladder:No masses, no tenderness Vagina: Good vaginal support, suture material present, incision healing well. No tenderness to palpation when palpate incisions, no reproducibility of sciatic pain Cervix: surgically absent Uterus: surgical absent Adnexa:No masses, tenderness or nodularity ASSESMENT: Mara Bustos is a 68 year old year old female who is post-op; stable and doing well post-operative course uncomplicated PLAN: - May resume normal activities - No lifting restrictions - May resume intercourse in 3-4 weeks. - Recommend she keep an eye on sciatic pain. No tenderness to palpation at SSLS suture site, no sciatic pain reproducibility. Likely she has some surgical induration and suspect will improve with time. If not improved at 3 months consider short course of PT vs steroid taper - Restart clobetasol ointment on vulva. If vulvar irritation not improved at 3 months switch to estrace on the vulva - Follow up for 3 month postop visit, then at 1 year, then can see primary OBGYN for usual annual exams. Yakov Summers MD documented in this encounter [facility] 04-17-2024 Note HNO ID: [id number] Author: YAKOV SUMMERS MD Service: ? Author Type: Physician Type: Progress Notes Filed: 04/17/2024 11:45 Note Text: Female Pelvic Medicine AND Reconstructive Surgery Post-Op Visit Mara Bustos is a 68 year old year old female who presents for a 6 Week post-op check s/p Procedure(s): Sacrospinous ligament suspension hysteropexy Anterior colporrhaphy Posterior colporrhaphy Perineorrhaphy Cystoscopy Bladder biopsy Anesthesia: General Findings: - Stage II cystocele, uterovaginal prolapse, rectocele - Normal 360 degree cysto with bladder dome intact, bilateral ureteral orifice noted with brisk jets, no sutures or injuries seen in bladder. - Red lesion lateral to right ureteral orifice on cysto - asymmetric darkened skin lesion on perineum - Vaginal sweep was negative - Rectal exam confirms no suture material in the rectum. Post-op complications: no Bleeding: no Pain: no If you had pain related to your prolapse before surgery, has your pain resolved? Yes Abnormal vaginal discharge: no Pathology: Overall doing great! Does have some occasional sciatic pain down right leg that is new since surgery, but only occurs after she's done a lot or walked a lot in a day. Component FINAL DIAGNOSIS A. Urinary bladder, biopsy: - Chronic inflammation and reactive changes. B. Skin, perineum, biopsy: - Focal ulcer, chronic inflammation, and reactive changes. PFDI-20 Do you: Usually experience pressure in the lower abdomen? No (0) Usually experience heaviness or dullness in the pelvic area? No (0) Usually have a bulge or something falling out that you can see or feel in your vaginal area? No (0) Ever have to push on the vagina or around the rectum to have or complete a bowel movement? No (0) Usually experience a feeling of incomplete bladder emptying? No (0) Ever have to push up on a bulge in the vaginal area with your fingers to start or complete urination? No (0) Feel you need to strain too hard to have a bowel movement? No (0) Feel you have not completely emptied your bowels at the end of a bowel movement? No (0) Usually lose stool beyond your control if your stool is well formed? No (0) Usually lose stool beyond your control if your stool is loose? No (0) Usually lose gas from the rectum beyond your control? No (0) Usually have pain when you pass your stool? No (0) Experience a strong sense of urgency and have to vance to the bathroom to have a bowel movement? No (0) Does part of your bowel ever pass through the rectum and bulge outside during or after a bowel movement? No (0) Usually experience frequent urination? No (0) Usually experience urine leakage associated with a feeling of urgency, that is, a strong sensation of needing to go to the bathroom? No (0) Usually experience urine leakage related to coughing, sneezing or laughing? No (0) Usually experience small amounts of urine leakage (that is, drops)? No (0) Usually experience difficulty emptying your bladder? No (0) Usually experience pain or discomfort in the lower abdomen or genital region? No (0) Overall, how satisfied were you with your postoperative pain medication? Neither satisfied nor dissatisfied With regard to your expectations before surgery, did you have the amount of pain you expected, more pain, or less pain? Much less pain than I expected Was the preoperative teaching you had about pain expectations helpful? Yes Were the discharge instructions you received about pain medications helpful? Yes The sensitive examination was discussed with the Patient or Patient's Authorized Foot Piece Assembler. As applicable, any other physician, advance practice provider, medical student, or other health professional student that will be observing or involved in the sensitive examination for educational or training purposes was discussed with the Patient or Authorized Foot Piece Assembler. The Patient or Authorized Foot Piece Assembler has agreed to proceed with the sensitive examination. (Sensitive examination includes inspection and/or palpation of the breasts, pelvis, prostate and anorectal regions) Music Producer offered, exam chaperoned by Mae Dunn RN OBJECTIVE: BP 132/57 Pulse (!) 52 General Appearance: Appears stated age, comfortable, No acute distress Abdomen: Benign, soft, non-tender, no hernia, masses. Pelvic examination: Vulva/Perineum: Normal development, no lesions, perineal incision healing well, ulcer on right labia majora Urethral Meatus:Normal location and size, no lesions Urethra: No masses, tenderness or scarring Bladder:No masses, no tenderness Vagina: Good vaginal support, suture material present, incision healing well. No tenderness to palpation when palpate incisions, no reproducibility of sciatic pain Cervix: surgically absent Uterus: surgical absent Adnexa:No masses, tenderness or nodularity ASSESMENT: Mara Bustos is a 68 year old year (more content not included)... [facility] 03-18-2024 Telephone encounter Note Call to pt. Verified name and . Dr. Summers's message given to pt. Pt verbalized understanding. Pt will follow up with next scheduled post op appointment 04/17. [facility] 03-18-2024 Miscellaneous Notes Call to pt. Verified name and . Dr. Summers's message given to pt. Pt verbalized understanding. Pt will follow up with next scheduled post op appointment 04/17. Attempted to call pt. LVM to call back for a message from Dr. Summers at her convenience. Office number provided. Attempted to call pt. Message left to call office. ----- Message from Yakov Summers MD sent at 03/11/2024 1:13 PM EDT ----- Hi! Can you please call mara and let her know the 2 biopsies I sent during her surgery were normal? Bladder and perineum. Thanks Salbador Abdi RN March 11, 2024 5:06 PM documented in this encounter [facility] 03-12-2024 Telephone encounter Note Attempted to call pt. LVM to call back for a message from Dr. Summers at her convenience. Office number provided. [facility] 03-11-2024 Telephone encounter Note Attempted to call pt. Message left to call office. ----- Message from Yakov Summers MD sent at 03/11/2024 1:13 PM EDT ----- Hi! Can you please call mara and let her know the 2 biopsies I sent during her surgery were normal? Bladder and perineum. 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, 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 Staffing PROM BURN OFF OPERATOR: Amelia Romero APRN.PROM BURN OFF OPERATOR Performed by: LESLIE Indications and Patient Condition Indications for airway management: anesthesia Preoxygenated: yes anesthesia circuit Patient position: sniffing Method: asleep Cricoid Pressure: No Manual In-Line Stabilization: No Difficult Mask: No Final Airway Details Final airway type: endotracheal airway Final Endotracheal Airway: ETT Cuffed: yes Successful intubation technique: direct laryngoscopy Endotracheal tube insertion site: oral Blade: Rekha Blade size: #4 ETT size (mm): 7.0 Measured from: lips Measurement (cm): 22 Placement verified by: chest auscultation and capnometry Cormack-Lehane Classification: grade I - full view of glottis Number of attempts at approach: 1 Failed airway: no Unrecognized esophageal intubation: no Airway not difficult SIGNATURE: Amelia Romero APRN.PROM BURN OFF OPERATOR PATIENT NAME: Mara Bustos DATE: February 29, 2024 TIME: 12:57 PM CSN: [id number] [facility] 02-20-2024 History of Presen t illness Narrative DATE OF SERVICE: 02/20/2024 PROBLEM: Mara Bustos presents for pre-op teaching. PRE-OP DIAGNOSIS: uterovaginal prolapse SCHEDULED SURGERY AND DATE: 02/29/24 at [place]: Sacrospinous hysteropexy Anterior colporrhaphy Posterior colporrhaphy Perineorrhaphy Cystoscopy Vaginal cyst excision Procedures as indicated PRIMARY SURGEON: Yakov Summers MD NURSING PREOP ASSESSMENT: Fevers, chills, cough, or nasal congestion: No Vaginal itching, burning, discharge, or odor: No Pain with urination, frequency, urgency, cloudy or foul smelling urine: No If yes to any of the above then MD notified: Not Applicable ADVANCED CARE PLANNING: Does the patient have an advanced directive: No Does [facility] have a copy of the patient's advanced directive: No Was advanced directive given to the patient: No PATIENT LEARNING ASSESSMENT: Individual patient/family learning needs evaluated and addressed: Yes Cognitive ability: Alert and oriented Motivation to learn: Eager Factors affecting learning: None Physical limitations affecting learning: None Patient learns best by: Multiple Methods Method of instruction: Teach Back , Individual instruction Written instruction/Handouts Verbal instruction Instructions provided to: Patient via telephone. Written material provided prior to education appointment. Family support: Unable to assess - Family not present PRE- AND POST-OPERATIVE TEACHING Pre-operative teaching and supplemental material provided and reviewed with patient: Your Surgical Guide Book Map Written pre-op and post-op instructions Bowel prep directions Antibacterial soap: given to patient prior to preop teaching appointment Pre-operative instructions provided and reviewed with patient/family: No eating, drinking, or smoking after midnight prior to surgery unless otherwise directed No alcohol the day before surgery Medications as prescribed by anesthesia, internal medicine, surgeon, or COMPUTER OPERATIONS SPECIALIST Stop NSAIDs, Aspirin (ASA), vitamins, herbal supplements, herbal teas, and diet pills 7-10 days prior to surgery OK to take tylenol prn pain unless otherwise directed by physician Call surgery coordinators if any other questions about surgery date or pre-op appointments Bowel prep instructions: Magnesium citrate (10 oz) per protocol Day of surgery instructions provided and reviewed with patient/family: Arrival time (call surgical coordinators on the office day prior to surgery for verification) No jewelry, body piercing, makeup, contacts, lotions, nail south sudanese on fingers, or anything in hair on arrival to surgery Wear low healed shoes and loose fitting clothing Leave all valuables at home or with a family member Directions to [facility] Parking/parking validation on the day prior to surgery Admission/check in (Report to entrance A for surgery) Holding area Placement of IV Surgical positioning Family waiting area Surgical recovery room Post-operative instructions provided and reviewed with patient/family: SEE PATIENT INSTRUCTION SECTION FOR DETAILS. ACTIVITY - No heavy lifting (>5-10 lbs), no pushing/pulling, OK to climb stairs DRIVING - No driving for 1 week unless prior approval from MD, OK to ride in a car. DIET - Advance diet as tolerated and as ordered by MD, drink 8 glasses of water a day, eat a diet high in protein and fiber unless otherwise directed by MD. CATHETER - Will be inserted during surgery, you may go home with a catheter for 7-10 days and will have to come back to the office for a voiding trial, UTI symptoms reviewed and patient instructed to notify MD of any of these symptoms. BATHING - OK to shower after surgery unless otherwise directed by MD, no tub baths. PAIN MEDICATION - IV pain medication after surgery, IV COURSE INSTRUCTOR if ordered by MD, discharged home with a prescription for PO pain medication, pain management after surgery, side effects of pain medication (including constipation, dizziness, drowsiness, and medication interactions). VAGINAL CARE - Pelvic rest x6 weeks unless otherwise directed by MD. DVT PROPHYLAXIS - Early ambulation, SCDs, injectable anticoagulants (heparin, lovenox, etc) RESPIRATORY - Incentive spirometer, coughing/deep breathing exercises, ambulation. SYMPTOMS TO NOTIFY MD - Fever, chills, nausea, vomiting, increased or severe pain, heavy vaginal bleeding, foul smelling vaginal drainage, pain or swelling in extremities. URGENT SYMPTOMS - Call 911 or go to ER if any shortness of breath, difficulty breathing, or chest pain. HOW TO CONTACT PHYSICIAN - Physician's office phone number given to patient, if after hours patient instructed to call die operator and ask for it applications developer urogynecologist. MEGHAN program offered to patient: No Additional teaching as indicated by patient/family learning needs. PATIENT LEARNING EVALUATION & FOLLOW UP PLAN: Patient and/or family express understanding of upcoming surgery, pre-operative preparation, the operative process, and post-operative instructions. Follow up plan: Complete - No need for follow-up Patient has a post-op appointment scheduled: Yes Referral (recommentation): None Educator: Latoya Bravo [facility] documented in this encounter [facility] 02-20-2024 Note HNO ID: [id number] Author: ?, ?, ? Service: ? Author Type: ? Type: Progress Notes Filed: 02/20/2024 14:14 Note Text: DATE OF SERVICE: 02/20/2024 PROBLEM: Mara Bustos presents for pre-op teaching. PRE-OP DIAGNOSIS: uterovaginal prolapse SCHEDULED SURGERY AND DATE: 02/29/24 at [place]: Sacrospinous hysteropexy Anterior colporrhaphy Posterior colporrhaphy Perineorrhaphy Cystoscopy Vaginal cyst excision Procedures as indicated PRIMARY SURGEON: Yakov Summers MD NURSING PREOP ASSESSMENT: Fevers, chills, cough, or nasal congestion: No Vaginal itching, burning, discharge, or odor: No Pain with urination, frequency, urgency, cloudy or foul smelling urine: No If yes to any of the above then MD notified: Not Applicable ADVANCED CARE PLANNING: Does the patient have an advanced directive: No Does [facility] have a copy of the patient's advanced directive: No Was advanced directive given to the patient: No PATIENT LEARNING ASSESSMENT: Individual patient/family learning needs evaluated and addressed: Yes Cognitive ability: Alert and oriented Motivation to learn: Eager Factors affecting learning: None Physical limitations affecting learning: None Patient learns best by: Multiple Methods Method of instruction: Teach Back , Individual instruction Written instruction/Handouts Verbal instruction Instructions provided to: Patient via telephone. Written material provided prior to education appointment. Family support: Unable to assess - Family not present PRE- AND POST-OPERATIVE TEACHING Pre-operative teaching and supplemental material provided and reviewed with patient: Your Surgical Guide Book Map Written pre-op and post-op instructions Bowel prep directions Antibacterial soap: given to patient prior to preop teaching appointment Pre-operative instructions provided and reviewed with patient/family: No eating, drinking, or smoking after midnight prior to surgery unless otherwise directed No alcohol the day before surgery Medications as prescribed by anesthesia, internal medicine, surgeon, or COMPUTER OPERATIONS SPECIALIST Stop NSAIDs, Aspirin (ASA), vitamins, herbal supplements, herbal teas, and diet pills 7-10 days prior to surgery OK to take tylenol prn pain unless otherwise directed by physician Call surgery coordinators if any other questions about surgery date or pre-op appointments Bowel prep instructions: Magnesium citrate (10 oz) per protocol Day of surgery instructions provided and reviewed with patient/family: Arrival time (call surgical coordinators on the office day prior to surgery for verification) No jewelry, body piercing, makeup, contacts, lotions, nail south sudanese on fingers, or anything in hair on arrival to surgery Wear low healed shoes and loose fitting clothing Leave all valuables at home or with a family member [facility] Parking/parking validation on the day prior to surgery Admission/check in (Report to entrance A for surgery) Holding area Placement of IV Surgical positioning Family waiting area Surgical recovery room Post-operative instructions provided and reviewed with patient/family: SEE PATIENT INSTRUCTION SECTION FOR DETAILS. ACTIVITY - No heavy lifting (>5-10 lbs), no pushing/pulling, OK to climb stairs DRIVING - No driving for 1 week unless prior approval from MD, OK to ride in a car. DIET - Advance diet as tolerated and as ordered by MD, drink 8 glasses of water a day, eat a diet high in protein and fiber unless otherwise directed by MD. CATHETER - Will be inserted during surgery, you may go home with a catheter for 7-10 days and will have to come back to the office for a voiding trial, UTI symptoms reviewed and patient instructed to notify MD of any of these symptoms. BATHING - OK to shower after surgery unless otherwise directed by MD, no tub baths. PAIN MEDICATION - IV pain medication after surgery, IV COURSE INSTRUCTOR if ordered by MD, discharged home with a prescription for PO pain medication, pain management after surgery, side effects of pain medication (including constipation, dizziness, drowsiness, and medication interactions). VAGINAL CARE - Pelvic rest x6 weeks unless otherwise directed by MD. DVT PROPHYLAXIS - Early ambulation, SCDs, injectable anticoagulants (heparin, lovenox, etc) RESPIRATORY - Incentive spirometer, coughing/deep breathing exercises, ambulation. SYMPTOMS TO NOTIFY MD - Fever, chills, nausea, vomiting, increased or severe pain, heavy vaginal bleeding, foul smelling vaginal drainage, pain or swelling in extremities. URGENT SYMPTOMS - Call 911 or go to ER if any shortness of breath, difficulty breathing, or chest pain. HOW TO CONTACT PHYSICIAN - Physician's office phone number given to patient, if after hours patient instructed to call die operator and ask for it applications developer urogynecologist. MEGHAN program offered to patient: No Additional teaching as indicated by patient/fa (more content not included)... [facility] 02-20-2024 Instructions Latoya Bravo - 02/20/2024 8:17 AM EDT Images from the original note were not included. HELPFUL PRE-SURGICAL INFORMATION Preparing your skin for [...] Fish Oil, Flax Seed, Thanh, Ginkgo, Ginseng, Pancho's Wort, Tumeric, and anti-inflammatory medications including Motrin, [...] days before surgery, we recommend that you perform stretching exercises to decrease pain after surgery. [...] counter for support. Hold for 10 seconds. PATIENT INSTRUCTIONS PRIOR TO SURGERY Please read these instructions carefully. Your surgery may be cancelled if you do not follow these instructions. GENERAL Do not wear jewelry, body piercing(s), makeup, nail south sudanese, hairpins, or contacts on the day of surgery. Leave valuables and money at home or with family members. If you have Obstructive Sleep Apnea and use a CPAP/BiPAP machine, bring your mask, tubing, and machine with you on the day of surgery. INFECTION PREVENTION Please notify your doctor if you have any signs of an infection (i.e. fever, severe cough, nasal congestion, pain with urination, abnormal vaginal discharge, etc). Hand washing is extremely important in preventing infection (for both you as the patient and for the caregivers). HOSPITALIZATION Before you leave the hospital, you typically need to be able to eat/drink, urinate, and have your pain controlled with oral medication. Your surgeon or other members of your surgeon s team will discuss any other specific medical issues related to your discharge with you. Your surgeon may order intermittent compression sleeves. These are massaging leg pumps to help prevent blood clots after surgery. It is also very important that you walk as soon as possible and as frequently as possible after surgery. This will help decrease your risk of blood clots, exercise your lungs and speed up your recovery after surgery. If you are admitted to the hospital overnight, you will be given an incentive spirometer, which is a breathing machine that will help make sure that you are taking deep breaths and expanding your lungs while in the hospital. [facility] At the [facility], we have a multidisciplinary team of caregivers that includes fellows, residents, nurse practitioners (office electrician), physician assistants (PAs), clinical nurse specialists (CNSs), nurses, medical assistants (MAs), patient care nursing assistants (PCNAs), social workers, rehabilitation caseworker and many others. We all have different roles and responsibilities but we all are here to help you. If you spend the night in the hospital, a physician from your care team will see you the day after your surgery. At times, scheduling does not permit your surgeon to see you in the hospital the day after surgery. If this occurs, another physician on the urogynecology care team will see you in the hospital. THE DAY BEFORE SURGERY If you are having surgery at [facility]: On the day before your surgery, you must call [phone] to find out your surgery arrival time. If you are having surgery at a [facility] ([facility] center, [facility]): You will receive a call the day before surgery to give you your surgery arrival time. THE DAY OF SURGERY/CHECK IN Surgery Location Parking Check-in Location [facility] [address] [place] [address] [address] or robot technician parking available DESK J1-1 A map is located in Your Surgical Guide Book. The online version of the surgical guide book can be found at: [email or web address] [facility] [address] [address] [place], [place] Parking garage connected to hospital or robot technician Registration desk, first floor, main [facility] [address] [place], [place] Parking lot in front of building [address] (elevator to lower level) [facility] [address] [place], [place] Parking garage next to hospital or robot technician Atrium, W1 Surgical Waiting Desk [facility] [address] [facility] [address] [place], [place] Parking garage across from main entrance. Main entrance [facility] [address] [place], [place] Park in the back of the hospital, go to Entrance A. Take elevators to 1st floor and enter into the Surgery Department UROGYNECOLOGY POSTOP INSTRUCTIONS ACTIVITY Your surgical recovery will be unique to you and how you heal. In the first few days after surgery, you will probably feel sluggish. As you recover, you will gradually return to normal activities. It is important to push yourself to return to normal activities as you feel fit. Listen to your body in terms of increasing your activity level as you recover. You may walk and climb stairs right after surgery. Walking and stair climbing will not hurt your surgical repair. You may resume activities like lifting/running/high impact aerobic activities/sit-up as soon as you feel strong enough. Please do not do any bike or horseback riding for 2 weeks if you have had a midurethral sling. Do not put anything in the vagina for 6 weeks after surgery unless otherwise instructed by your doctor (including tampons, douching, sexual intercourse, etc). No driving while you are taking narcotic pain medication, or until you feel that you are ready and can safely slam the brakes if needed. Avoid sitting or lying in bed for more than 2 hours at a time while you are awake to reduce your risk of blood clots. You may return to work when directed by your physician. Please contact your doctor if you need any return to work letters or medical leave paperwork to be completed. PAIN MANAGEMENT After you go home, you should take the prescribed acetaminophen (Tylenol) and ibuprofen (Motrin) as directed. We recommend rotating the timing of these medications so that you are taking one of these medications every 3 to [address], you can help prevent pain. After the first 72 hours, you can take these medications as needed. These should be the first medications you use for pain. Applying ice packs to your incisions (abdominal or vulvar/perineal) for 20 minutes as often as needed may also help. Some pain medications can cause constipation so you should take a stool softener (i.e. Colace) or laxative (i.e. Miralax) while you are on these medications (see the following section on constipation). You may have been prescribed an opioid medication, also known as a narcotic pill. This is usually oxycodone. You may be familiar with the medication Percocet, which is a combination of oxycodone and acetaminophen. These opiate medications have side effects like nausea or vomiting, constipation, and sleepiness. You should only take them if your pain is not controlled by ibuprofen and/or acetaminophen. It is important to keep this stronger pain medication safely stored, as it is at great risk of being stolen or misused by family, friends, or even strangers. Please be sure to dispose of leftover pain medication after you have recovered. You may dispose of unused narcotic medications in the trash with an unpleasant substance such as coffee grounds or cat litter. You can also check FDA.gov to assess which medications can be safely flushed down the toilet. There are locations to dispose of unused medications at three [facility] locations: [facility] pharmacy, [facility] pharmacy, and the Pharmacy at the Main [place] for [facility] (inside the parking garage on the first floor). CONSTIPATION You may not have a bowel movement for 3-5 days after surgery. This is normal. To help prevent constipation after your surgery, you may receive prescriptions to take including the following: Miralax (polyethylene glycol) 17 g (1 measured capful or 1 packet) once a day. If you have not had a bowel movement 3 days after surgery, you may take the Miralax two times a day. If you have any discomfort because of the need to have a bowel movement, you may add milk of magnesia or magnesium citrate (available at your local pharmacy without a prescription) at any time. Do not take milk of magnesia or magnesium citrate if you have kidney failure. If you have loose or watery stools, stop taking the medications and call your doctor s office. OTHER MEDICATIONS If you were prescribed vaginal estrogen, you should resume it in 7-10 days after surgery unless you were instructed otherwise. Please check your discharge instructions about when to resume other medications. WOUND CARE If you have aurelio (abdominal incision), they need to be removed about 10-14 days after surgery. There will be dissolvable stitches under your skin that do not need to be removed. If you have band aids, steri strips, (paper tape) or a small gauze covered by tegarderm (clear tape) over your small abdominal incisions, these may be removed when you shower the day after surgery. Keep any incision clean, dry, and open to the air. Shower daily after surgery. No tub baths until wound is completely healed. If you have any abdominal incisions, wash them daily with a mild antibacterial soap and water. Pat your incision dry with a clean towel. Wash your hands frequently, especially before touching your incision, changing any dressings, after using the restroom, and before eating. HENNING CATHETER CARE You may go home with a Henning catheter in your bladder. You will need to follow up for a nurse visit within 3-10 days for removal. You will be called by the office to get this appointment if it is not listed below. General Principles on Catheter Care: Always wash your hands with soap and water before handling your catheter tubing or bag. It is important to empty your catheter bag before it gets too full. Keep the catheter tubing free of kinks and Henning bag below the level of your bladder. Keep your genital region and catheter tubing clean. Instructions on Catheter Plug Use: A catheter plug is used to occlude the end of the catheter so that it can be disconnected from the drainage bag during the day. You may be sent home with catheter plugs. Your postop nurse will give you instructions on how to use the plug before going home. The Henning catheter must be disconnected from its drainage tubing and bag. The plug can then be inserted into the open end of the catheter. The plug should fit snugly. While the plug is in place, your bladder will fill with urine. You must empty your bladder by removing the plug and draining the catheter over the toilet at least every 3 to 4 hours, or sooner if you feel an urge to urinate. After you have drained the catheter, replace the plug. The catheter should be reconnected to the drainage bag at night so that your bladder can continuously drain while you are sleeping. The plug can be washed every night before bedtime with soap and water. Store it in a clean plastic Ziploc bag when it is not in use. You can continue daytime catheter plugging until your scheduled voiding trial. WHAT TO EXPECT AT HOME Recovery from surgery is generally 4 weeks, but sometimes longer for more strenuous activity. It is normal to be very tired during this time. It is normal to have some drainage or a small amount of vaginal bleeding after surgery which may last up to 6 weeks. It is normal to have some bruising around the vaginal opening or on the buttocks if you had a vaginal surgery or around your incisions if you had an abdominal or laparoscopic surgery. If you had a laparoscopic surgery, you may experience gas pain, abdominal swelling, or shoulder pain for 24-72 hours after surgery. A warm shower, heating pad, and/or walking may help. WHEN TO CALL YOUR DOCTOR: If you cannot urinate for 3-5 hours or are only able to urinate small amounts. Fever (>100.4 F or 38.0 C) or chills. Incision problems such as redness, warmth, swelling, or foul-smelling drainage. Severe nausea or persistent vomiting. Bright red vaginal bleeding (soaking >1 pad/hour) Foul smelling vaginal drainage (note that some vaginal discharge is normal) Severe pain not relieved with pain medication. Pain and swelling in your legs, especially if it is only on one side and not the other. Pain with urination, cloudy urine, or foul-smelling urine. Or if you have any other problems or questions. CALL 911 OR GO TO THE EMERGENCY ROOM IF YOU HAVE: shortness of breath, difficulty breathing, or chest pain. UROGYNECOLOGY PHYSICIAN CONTACT INFORMATION During business hours, these numbers connect to your doctor s office. During the evening and weekends, these numbers will connect you to the answering service to speak with the doctor it applications developer. Press Option 3 for specialty services and speak with the die operator. Dr. Yakov Jackson Office [place] [facility] Yumi Grimm, ROGELIO Hidalgo, ROGELIO Gentile, ROGELIO Wylie, BATTERY MECHANIC Valentine Dunn, BATTERY MECHANIC Lesa Doyle, BATTERY MECHANIC Please DO NOT use MyChart for post-surgery concerns. documented in this encounter [facility] 02-19-2024 History and physical note Images from the original note were not included. [facility] HISTORY AND PHYSICAL EXAMINATION SERVICE DATE: 02/19/2024 SERVICE TIME: 9:54 AM PRIMARY CARE PHYSICIAN: Duane Huddleston MD Assessment Patient has the following medical conditions which may affect kyle-operative course: Palpitations Assessment: controlled on rx Former smoker Assessment: 0.5ppd/55 years, quit 12/29/2023, no wheezes, lungs CTA, pulse ox 97% on RA Constipation Assessment: otc rx as needed Gastroesophageal reflux disease Assessment: controlled on rx Rheumatoid arthritis (HCC) Assessment: controlled on rx, following OSH rheumatology Depressive disorder Assessment: hx, no current tx Obesity with body mass index 30 or greater Assessment: Body mass index is 31.81 kg/m . Hyperlipidemia Assessment: diet controlled [place] Activity Status Index: METS: Climb a flight of stairs or walk up a hill (5.50 METs) DASI Score: 5.5 Patient denies any chest pain or undue shortness of breath with the above physical activity. Clinical Frailty Scale: 3. Well, with treated comorbid disease STOP-Bang Score: BMI greater than 35 kg/m^2 Patient over 50 years old Has a large neck Denies snoring loudly Denies feeling tired, fatigued, or sleepy during the daytime Has not been observed to stop breathing or choking/gasping during sleep Denies having high blood pressure Non-male patient STOP-Bang Score: 3 [id number] Score: Age: 65-74 Sex: female CHF history: No Hypertension history: No Stroke/TIA/thromboembolism history: No Vascular disease history: No Diabetes history: No [id number] Score: 2 ARISCAT Score: Age: 51-80 Preoperative SpO2: >=96% Respiratory infection in the last month: No Preoperative anemia: No Surgical incision: peripheral Duration of surgery: >3 hrs Emergency procedure: No ARISCAT Score: 26 ANESTHESIA FINDINGS: Intubation History: No history of difficult intubation Significant Anesthesia Considerations: none Airway History: No history of difficult airway I - PHYSICAL EVALUATION AIRWAY Patient intubated: No. Tracheostomy tube not present Mallampati: II. TM distance: >3 FB. Neck ROM: full ROM without neurological symptoms. Mouth opening: adequate. Short neck: no. Additional comments: +left TMJ. Thick neck: yes Suarez present: no Lip Bite Test: I Microretrognathia/Micronagthia/R ecessed Chin: No DENTAL Dentures, upper: complete. Dentures, lower: complete. II - ANESTHESIA PLAN Anesthetic Plan: other Beta Bessy Monitoring Plan Post Procedure Analgesic Plan Informed Consent Anesthetic risks, benefits, alternatives, personnel and consent discussed: yes. Patient / Responsible Alliance Party agrees to proceed: yes Patient / Surrogate agrees to blood products: blood products not planned Discussed the possibility of lip / dental damage: yes Prepared for Surgery: optimally prepared for surgery. CONSULTS: Patient does not require consults for optimization at this time Planned Anesthetic: other The Following Tests/Procedures Have Been Initiated: No orders of the defined types were placed in this encounter. REASON FOR VISIT: Mara Bustos is a 68 year old female who is scheduled for Procedure(s): COLPORRHAPHY POSTERIOR (N/A) CYSTOSCOPY (N/A) FIXATION LIGAMENT SACROSPINOUS (Pending) ANTERIOR COLPORRHAPHY REPAIR CYSTOCELE WITH OR W/O REPAIR URETHROCELE INCLUDING CYSTOURETHROSCOPY WHEN PERFORMED (N/A) PERINEOPLASTY, NON-OBSTETRICAL (N/A) at the request of Dr. Yakov Summers for consultation. My final recommendation will be communicated back to the requesting physician by way of shared medical record or letter. Subjective The patient has the following: ACTIVE PROBLEM LIST Constipation Depressive Disorder Gastroesophageal Reflux Disease Hyperlipidemia Obesity With Body Mass Index 30 Or Greater Rheumatoid Arthritis (Hcc) Former Smoker Palpitations COVID-19 Immunization Status Overdue - Covid-19 Vaccine ( season) Overdue since 07/17/2023 05/22/2023 Imm Admin: COVID-19 vaccine, age 12+ yr, season (PFIZER-BIONTECH) 11/14/2022 Imm Admin: COVID-19 vaccine, age 12+ yr, bivalent (MODERNA) 11/10/2021 Outside Immunization: COVID-19, mRNA, LNP-S, PF, 100 mcg/0.5mL dose or 50 mcg/0.25mL dose Only the first 3 history entries have been loaded, but more history exists. CHIEF COMPLAINT: Pre-op exam HPI: Mara Bustos is a 68 year old seen for PAC due to scheduled above surgery because of uterovaginal prolapse. 08/30/2023, Dr. Yakov Summers CHIEF COMPLAINT: Mara Bustos is a 68 year old referred for consultation regarding pelvic organ prolapse. She has not had a hysterectomy. PRABHU:08/24/23 IMPRESSION: Mara Bustos is a 68 year old female with [...] which included preparing to see the patient, [id number] patient care, completing clinical documentation, obtaining and/or reviewing separately obtained history, performing a medically appropriate examination, counseling and educating the patient/family/caregiver, ordering medications, tests, or procedures, and communicating with other HCPs (not separately reported). My final recommendations will be communicated back to the requesting physician by way of shared Medical record or letter via US mail. Gabby Hidalgo APRN.BATTERY MECHANIC = HISTORY OF PRESENT ILLNESS from Gabby 08/24/23: HISTORY OF PRESENT ILLNESS: First noticed prolapse in February, states she saw something that was not right. Saw urology and gynecology, was referred to [...] remove left ovary. 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 No neurological symptoms or problems. Respiratory: +former smoker 0.5ppd/55 years. No history of current cough or dyspnea, or pneumonia in the past 6 weeks. No history of respiratory/pulmonary symptoms or problems. Cardiovascular: Positive for: arrhythmia (+palpations, on rx) Negative for: abdominal aortic aneurysm, AICD/PPM, angina, anticoagulation therapy, atrial fibrillation, CAD, chest pain, CHF, congenital heart defect, DVT/PE, hyperlipidemia, hypertension, recent TX, murmur/valvular heart disease, PTCA, PVD, open heart surgery and valve surgery. GI: Positive for: GERD (on rx) Negative for: abdominal pain, dysphagia, hepatitis, irritable bowel syndrome, inflammatory bowel disease, liver disease, nausea, pancreatitis, vomiting and ETOH >2 drinks/day. : No history of dysuria, frequency or incontinence, stones or chronic kidney disease. No difficulty urinating, nocturia > 1 time per night or hematuria. 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 Endocrine: No history of diabetes. Has not taken steroids within the past 30 days. No history of endocrinological symptoms or problems. Hematology: No history of bleeding or clotting disorder. Patient is not taking anti-coagulation or platelet medications. No history of hematological symptoms or problems. Oncology: No history of CA metastasis, chemo within 30 days, or radiotherapy within 90 days. No history of oncological symptoms or problems. Psych: Positive for: depression. Musculoskeletal: Positive for: rheumatoid arthritis. Patient's crop puller is [facility]. Skin: Negative for lesions, rash and itching. PAST MEDICAL HISTORY Diagnosis Date Essential hypertension Rheumatoid arthritis (HCC) PAST SURGICAL HISTORY Procedure [...] 03/19/2018 and partial oophorectomy TONSILLECTOMY & ADENOIDECTOMY FAMILY HISTORY Problem Relation Age of Onset Diabetes Mother Heart Father Ovarian cancer Sister No Known Problems Maternal Grandmother No Known Problems Maternal Grandfather No Known Problems Paternal Grandmother No Known Problems Paternal Grandfather Social History Tobacco Use Smoking status: Former Types: Cigarettes Start date: 1969 Quit date: 12/29/2023 Years since quittin.1 Smokeless tobacco: Never Vaping Use Vaping Use: Never used Substance Use Topics Alcohol use: Yes Comment: occasional Drug use: Never Prior to Admission medications as of 02/19/24 0921 Medication Sig Last Dose Taking clobetasol (TEMOVATE) 0.05 % ointment Apply a half of fingertip unit over the affected area every night for 12 weeks until follow up. Taking Yes calcium carbonate-vitamin D3 500 mg-15 mcg (600 unit) tab Take by mouth. Taking Yes Flaxseed Oil 1,000 mg cap Take by mouth. Taking Yes KLOR-CON M10 10 mEq tablet TAKE 1 TABLET ORALLY ONCE PER DAY FOR 90 DAYS Taking Yes metoprolol tartrate, short acting, (LOPRESSOR) 25 mg tablet Taking Yes methotrexate 2.5 mg tablet Taking Yes hydrOXYchloroQUINE (PLAQUENIL) 200 mg tablet Taking Yes folic acid 1 mg tablet Taking Yes esomeprazole (NEXIUM) 40 mg capsule Taking Yes No medication comments found. ALLERGIES No Known Allergies Objective PHYSICAL EXAM: General: alert and oriented (x3), healthy appearance and obese. Pertinent negatives noted - not distressed. Skin: normal color, no rash or lesions. HEENT: EOM intact and pupils equal round. Pertinent negatives noted - no carotid bruit. Cardiovascular: regular rate and rhythm, normal S1 and S2, no rub, murmurs, or gallop. Respiratory: normal breath sounds, no wheezes or crackles. No chest wall deformity or tenderness. Abdomen: soft. Pertinent negatives noted - not tender. Extremities: no deformity, no edema or tenderness, no joint swelling or clubbing. Neurological: normal cognition and motor skills. Gait normal. No weakness or sensory deficit. PAIN ASSESSMENT: VITALS: BP 154/92 Pulse 69 Temp (Src) 97.3 (Temporal) Resp 14 Ht 5' 3.25 (1.61m) Wt 181 lb (82.1kg) SpO2 95% BMI 31.79 kg/(m^2). Diagnostic tests reviewed for today's visit: Lab Value Units Date High Low HB 13.7 g/dL 01/15/2024 15.5 11.5 HCT 40.4 % 01/15/2024 46.0 36.0 WBC 8.60 k/uL 01/15/2024 11.00 3.70 PLT 223 k/uL 01/15/2024 400 150 NA 141 mmol/L 01/15/2024 144 136 K 3.9 mmol/L 01/15/2024 5.1 3.7 GLUC 111 mg/dL 01/15/2024 99 74 BUN 10 mg/dL 01/15/2024 21 7 CREAT 0.85 mg/dL 01/15/2024 0.96 0.58 PTSEC No results within date range. INR No results within date range. APTT No results within date range. ALT 17 U/L 01/15/2024 38 7 AST 19 U/L 01/15/2024 35 13 TBILI 0.5 mg/dL 01/15/2024 1.3 0.2 TSH No results within date range. Lab Value Units Date High Low HCGQT No results within date range. UHCG No results within date range. HCG, BODY* No results within date range. Lab Value Units Date High Low ABORHD No results within date range. ABSCREEN No results within date range. No results found for: HBA1C Recent Results (from the past 8760 hour(s)) ECG COMPLETE Collection Time: 01/15/24 9:05 AM Result Value Ventricular Rate 49 Atrial Rate 49 P-R Interval 182 QRS Duration 98 QT Interval 438 QTC Calculation (Bazett) 395 Calculated P [place] 7 Calculated R [place] -14 Calculated T [place] 18 Impression SINUS BRADYCARDIA OTHERWISE NORMAL ECG Confirmed by MD TATA, STACEY () on 01/15/2024 9:43:06 AM No results found for this or any previous visit (from the past 27257 hour(s)). Instructions Given to Patient: Instructions located in the after visit summary. Patient given verbal and written preop instructions and voices comprehension and compliance. SIGNATURE: Saray Rivera APRN.CNP PATIENT NAME: Mara Bustos DATE: February 19, 2024 TIME: 9:21 AM PAGER/CONTACT #: T [facility] 02-19-2024 History and physical note Images from the original note were not included. [facility] HISTORY AND PHYSICAL EXAMINATION SERVICE DATE: 02/19/2024 SERVICE TIME: 9:54 AM PRIMARY CARE PHYSICIAN: Duane Huddleston MD Assessment Patient has the following medical conditions which may affect kyle-operative course: Palpitations Assessment: controlled on rx Former smoker Assessment: 0.5ppd/55 years, quit 12/29/2023, no wheezes, lungs CTA, pulse ox 97% on RA Constipation Assessment: otc rx as needed Gastroesophageal reflux disease Assessment: controlled on rx Rheumatoid arthritis (HCC) Assessment: controlled on rx, following OSH rheumatology Depressive disorder Assessment: hx, no current tx Obesity with body mass index 30 or greater Assessment: Body mass index is 31.81 kg/m . Hyperlipidemia Assessment: diet controlled [place] Activity Status Index: METS: Climb a flight of stairs or walk up a hill (5.50 METs) DASI Score: 5.5 Patient denies any chest pain or undue shortness of breath with the above physical activity. Clinical Frailty Scale: 3. Well, with treated comorbid disease STOP-Bang Score: BMI greater than 35 kg/m^2 Patient over 50 years old Has a large neck Denies snoring loudly Denies feeling tired, fatigued, or sleepy during the daytime Has not been observed to stop breathing or choking/gasping during sleep Denies having high blood pressure Non-male patient STOP-Bang Score: 3 [id number] Score: Age: 65-74 Sex: female CHF history: No Hypertension history: No Stroke/TIA/thromboembolism history: No Vascular disease history: No Diabetes history: No [id number] Score: 2 ARISCAT Score: Age: 51-80 Preoperative SpO2: >=96% Respiratory infection in the last month: No Preoperative anemia: No Surgical incision: peripheral Duration of surgery: >3 hrs Emergency procedure: No ARISCAT Score: 26 ANESTHESIA FINDINGS: Intubation History: No history of difficult intubation Significant Anesthesia Considerations: none Airway History: No history of difficult airway I - PHYSICAL EVALUATION AIRWAY Patient intubated: No. Tracheostomy tube not present Mallampati: II. TM distance: >3 FB. Neck ROM: full ROM without neurological symptoms. Mouth opening: adequate. Short neck: no. Additional comments: +left TMJ. Thick neck: yes Suarez present: no Lip Bite Test: I Microretrognathia/Micronagthia/R ecessed Chin: No DENTAL Dentures, upper: complete. Dentures, lower: complete. II - ANESTHESIA PLAN Anesthetic Plan: other Beta Bessy Monitoring Plan Post Procedure Analgesic Plan Informed Consent Anesthetic risks, benefits, alternatives, personnel and consent discussed: yes. Patient / Responsible Alliance Party agrees to proceed: yes Patient / Surrogate agrees to blood products: blood products not planned Discussed the possibility of lip / dental damage: yes Prepared for Surgery: optimally prepared for surgery. CONSULTS: Patient does not require consults for optimization at this time Planned Anesthetic: other The Following Tests/Procedures Have Been Initiated: No orders of the defined types were placed in this encounter. REASON FOR VISIT: Mara Bustos is a 68 year old female who is scheduled for Procedure(s): COLPORRHAPHY POSTERIOR (N/A) CYSTOSCOPY (N/A) FIXATION LIGAMENT SACROSPINOUS (Pending) ANTERIOR COLPORRHAPHY REPAIR CYSTOCELE WITH OR W/O REPAIR URETHROCELE INCLUDING CYSTOURETHROSCOPY WHEN PERFORMED (N/A) PERINEOPLASTY, NON-OBSTETRICAL (N/A) at the request of Dr. Yakov Summers for consultation. My final recommendation will be communicated back to the requesting physician by way of shared medical record or letter. Subjective The patient has the following: ACTIVE PROBLEM LIST Constipation Depressive Disorder Gastroesophageal Reflux Disease Hyperlipidemia Obesity With Body Mass Index 30 Or Greater Rheumatoid Arthritis (Hcc) Former Smoker Palpitations COVID-19 Immunization Status Overdue - Covid-19 Vaccine ( season) Overdue since 07/17/2023 05/22/2023 Imm Admin: COVID-19 vaccine, age 12+ yr, season (PFIZER-BIONTECH) 11/14/2022 Imm Admin: COVID-19 vaccine, age 12+ yr, bivalent (MODERNA) 11/10/2021 Outside Immunization: COVID-19, mRNA, LNP-S, PF, 100 mcg/0.5mL dose or 50 mcg/0.25mL dose Only the first 3 history entries have been loaded, but more history exists. CHIEF COMPLAINT: Pre-op exam HPI: Mara Bustos is a 68 year old seen for PAC due to scheduled above surgery because of uterovaginal prolapse. 08/30/2023, Dr. Yakov Summers CHIEF COMPLAINT: Mara Bustos is a 68 year old referred for consultation regarding pelvic organ prolapse. She has not had a hysterectomy. PRABHU:08/24/23 IMPRESSION: Mara Bustos is a 68 year old female with [...] which included preparing to see the patient, [id number] patient care, completing clinical documentation, obtaining and/or reviewing separately obtained history, performing a medically appropriate examination, counseling and educating the patient/family/caregiver, ordering medications, tests, or procedures, and communicating with other HCPs (not separately reported). My final recommendations will be communicated back to the requesting physician by way of shared Medical record or letter via US mail. Gabby Hidalgo APRN.BATTERY MECHANIC = HISTORY OF PRESENT ILLNESS from Gabby 08/24/23: HISTORY OF PRESENT ILLNESS: First noticed prolapse in February, states she saw something that was not right. Saw urology and gynecology, was referred to [...] remove left ovary. 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 No neurological symptoms or problems. Respiratory: +former smoker 0.5ppd/55 years. No history of current cough or dyspnea, or pneumonia in the past 6 weeks. No history of respiratory/pulmonary symptoms or problems. Cardiovascular: Positive for: arrhythmia (+palpations, on rx) Negative for: abdominal aortic aneurysm, AICD/PPM, angina, anticoagulation therapy, atrial fibrillation, CAD, chest pain, CHF, congenital heart defect, DVT/PE, hyperlipidemia, hypertension, recent TX, murmur/valvular heart disease, PTCA, PVD, open heart surgery and valve surgery. GI: Positive for: GERD (on rx) Negative for: abdominal pain, dysphagia, hepatitis, irritable bowel syndrome, inflammatory bowel disease, liver disease, nausea, pancreatitis, vomiting and ETOH >2 drinks/day. : No history of dysuria, frequency or incontinence, stones or chronic kidney disease. No difficulty urinating, nocturia > 1 time per night or hematuria. 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 Endocrine: No history of diabetes. Has not taken steroids within the past 30 days. No history of endocrinological symptoms or problems. Hematology: No history of bleeding or clotting disorder. Patient is not taking anti-coagulation or platelet medications. No history of hematological symptoms or problems. Oncology: No history of CA metastasis, chemo within 30 days, or radiotherapy within 90 days. No history of oncological symptoms or problems. Psych: Positive for: depression. Musculoskeletal: Positive for: rheumatoid arthritis. Patient's crop puller is [facility]. Skin: Negative for lesions, rash and itching. PAST MEDICAL HISTORY Diagnosis Date Essential hypertension Rheumatoid arthritis (HCC) PAST SURGICAL HISTORY Procedure [...] Grandfather Social History Tobacco Use Smoking status: Former Types: Cigarettes Start date: 1969 Quit date: 12/29/2023 Years since quittin.1 Smokeless tobacco: Never Vaping Use Vaping Use: Never used Substance Use Topics Alcohol use: Yes Comment: occasional Drug use: Never Prior to Admission medications as of 02/19/24 0921 Medication Sig Last Dose Taking clobetasol (TEMOVATE) 0.05 % ointment Apply a half of fingertip unit over the affected area every night for 12 weeks until follow up. Taking Yes calcium carbonate-vitamin D3 500 mg-15 mcg (600 unit) tab Take by mouth. Taking Yes Flaxseed Oil 1,000 mg cap Take by mouth. Taking Yes KLOR-CON M10 10 mEq tablet TAKE 1 TABLET ORALLY ONCE PER DAY FOR 90 DAYS Taking Yes metoprolol tartrate, short acting, (LOPRESSOR) 25 mg tablet Taking Yes methotrexate 2.5 mg tablet Taking Yes hydrOXYchloroQUINE (PLAQUENIL) 200 mg tablet Taking Yes folic acid 1 mg tablet Taking Yes esomeprazole (NEXIUM) 40 mg capsule Taking Yes No medication comments found. ALLERGIES No Known Allergies Objective PHYSICAL EXAM: General: alert and oriented (x3), healthy appearance and obese. Pertinent negatives noted - not distressed. Skin: normal color, no rash or lesions. HEENT: EOM intact and pupils equal round. Pertinent negatives noted - no carotid bruit. Cardiovascular: regular rate and rhythm, normal S1 and S2, no rub, murmurs, or gallop. Respiratory: normal breath sounds, no wheezes or crackles. No chest wall deformity or tenderness. Abdomen: soft. Pertinent negatives noted - not tender. Extremities: no deformity, no edema or tenderness, no joint swelling or clubbing. Neurological: normal cognition and motor skills. Gait normal. No weakness or sensory deficit. PAIN ASSESSMENT: VITALS: BP 154/92 Pulse 69 Temp (Src) 97.3 (Temporal) Resp 14 Ht 5' 3.25 (1.61m) Wt 181 lb (82.1kg) SpO2 95% BMI 31.79 kg/(m^2). Diagnostic tests reviewed for today's visit: Lab Value Units Date High Low HB 13.7 g/dL 01/15/2024 15.5 11.5 HCT 40.4 % 01/15/2024 46.0 36.0 WBC 8.60 k/uL 01/15/2024 11.00 3.70 PLT 223 k/uL 01/15/2024 400 150 NA 141 mmol/L 01/15/2024 144 136 K 3.9 mmol/L 01/15/2024 5.1 3.7 GLUC 111 mg/dL 01/15/2024 99 74 BUN 10 mg/dL 01/15/2024 21 7 CREAT 0.85 mg/dL 01/15/2024 0.96 0.58 PTSEC No results within date range. INR No results within date range. APTT No results within date range. ALT 17 U/L 01/15/2024 38 7 AST 19 U/L 01/15/2024 35 13 TBILI 0.5 mg/dL 01/15/2024 1.3 0.2 TSH No results within date range. Lab Value Units Date High Low HCGQT No results within date range. UHCG No results within date range. HCG, BODY* No results within date range. Lab Value Units Date High Low ABORHD No results within date range. ABSCREEN No results within date range. No results found for: HBA1C Recent Results (from the past 8760 hour(s)) ECG COMPLETE Collection Time: 01/15/24 9:05 AM Result Value Ventricular Rate 49 Atrial Rate 49 P-R Interval 182 QRS Duration 98 QT Interval 438 QTC Calculation (Bazett) 395 Calculated P [place] 7 Calculated R [place] -14 Calculated T [place] 18 Impression SINUS BRADYCARDIA OTHERWISE NORMAL ECG Confirmed by TATA, MD, STACEY () on 01/15/2024 9:43:06 AM No results found for this or any previous visit (from the past 52397 hour(s)). Instructions Given to Patient: Instructions located in the after visit summary. Patient given verbal and written preop instructions and voices comprehension and compliance. SIGNATURE: Saray Rivera APRN.CNP PATIENT NAME: Mara Bustos DATE: February 19, 2024 TIME: 9:21 AM PAGER/CONTACT #: documented in this encounter [facility] 02-19-2024 Instructions Saray Rivera APRN.CNP - 02/19/2024 9:21 AM EDT Images from the original note were not included. [facility] PATIENT PREOPERATIVE INSTRUCTIONS Yakov Summers MD has scheduled you for your procedure at this surgery center: [facility]: [phone] -- [address] [id number]. Please read below carefully for your personalized instructions. Dietary Restrictions: - No solid food after midnight. - You may have 12 ounces of clear liquids (water, clear juices such as apple juice or gatorade, carbonated beverages, clear tea, black coffee, jello) until 2 hours before scheduled arrival at facility. No red/purple coloring and no creamer/sugar Medications: Unless instructed differently below, stay on all of your medications until your surgery. If you start any new medications after today's visit, please contact your surgeon. Pre-Surgery Med Instructions Medication Instructions clobetasol (TEMOVATE) 0.05 % ointment Do not take the day of surgery calcium carbonate-vitamin D3 500 mg-15 mcg (600 unit) tab Stop 7 days before surgery Flaxseed Oil 1,000 mg cap Stop 7 days before surgery KLOR-CON M10 10 mEq tablet Take the day of surgery with a small sip of water metoprolol tartrate, short acting, (LOPRESSOR) 25 mg tablet Take the day of surgery with a small sip of water methotrexate 2.5 mg tablet Take the day of surgery with a small sip of water hydrOXYchloroQUINE (PLAQUENIL) 200 mg tablet Take the day of surgery with a small sip of water folic acid 1 mg tablet Stop 7 days before surgery esomeprazole (NEXIUM) 40 mg capsule Take the day of surgery with a small sip of water If you start any new medications after today's visit, please contact the surgeon's office. Blood Thinning Medications: - Stop NSAIDS (Ibuprofen, Advil, Aleve, Motrin, Celebrex, Mobic, etc.) 7 days before surgery, as directed by your surgeon. - Stop Aspirin 7 days before surgery, as directed by your surgeon. - Stop Vitamin E, ALL multi-vitamins, herbals and dietary supplements 7 days before surgery. - You may take Tylenol (Acetaminophen) or any of your pain medications that do not contain aspirin or NSAIDS as needed. Important Reminders: - Candy, mints, and tobacco products are NOT permitted the morning of surgery. - Hearing aids, dentures and glasses may be worn the morning of surgery. - NO jewelry, body piercings, makeup, hairpins or contacts are to be worn the day of surgery. If you develop symptoms such as a fever, cold, or flu, or have other changes to your health within TWO DAYS of scheduled surgery or the morning of surgery, please contact the surgery center above. Personal Belongings: -Please have photo ID and insurance cards. -If you do not have a copy of advance directives on file with us, please bring a copy with you on the day of surgery. - Leave ALL valuables and money at home or with family members. For Outpatient Procedures: - YOU MUST HAVE A RESPONSIBLE MEAT DRESSER TAKE YOU HOME. A SALES AND IN HOME DELIVERY SPECIALIST OR JUVENILE CORRECTIONS OFFICER CANNOT BE MADE A RESPONSIBLE MEAT DRESSER. - We recommend that a responsible person stays with you overnight to take care of you. - You cannot stay in a hotel alone after outpatient surgery. You will not be permitted to have your surgery, if you do not have someone to take care of you. Arrival Time for Surgery: - The Surgery Center or hospital where you are having surgery will call the afternoon before surgery (or Monday for Monday surgery) with a scheduled arrival time. - If you have not heard by 4 pm, please contact the surgery center above. Please be aware that emergency situations arise, which may delay or change your surgical time. If this happens, we will notify you as soon as possible and regret any inconvenience. If you already have an Advance Directive, please fax a copy to [phone] or email to for it to be added to your chart. If you do not have an Advance Directive, you can find the appropriate form and more information at [email or web address]. We recommend that you complete the Advance Directive form found on the website and bring it with you the day of your surgery. It can be witnessed and scanned into your chart that day. Saray Rivera APRN.CNP documented in this encounter [facility] 02-01-2024 Telephone encounter Note Per staff msg from Dr Melina Jackson cancelled the rest of their surgeries for today 01/31 so this pt needs to be rescheduled, spoke with pt and she accepted 02/29/24 surgery date at [place], scheduled pre/post op appts [facility] 02-01-2024 Miscellaneous Notes Per staff msg from Dr Melina Jackson cancelled the rest of their surgeries for today 01/31 so this pt needs to be rescheduled, spoke with pt and she accepted 02/29/24 surgery date at [place], scheduled pre/post op appts documented in this encounter [facility] 01-16-2024 History of Presen t illness Narrative DATE OF SERVICE: 01/16/2024 PROBLEM: Mara Bustos presents for pre-op teaching. PRE-OP DIAGNOSIS: Uterovaginal prolapse SCHEDULED SURGERY AND DATE: 02/01/24 at [place]: Sacrospinous hysteropexy Anterior colporrhaphy Posterior colporrhaphy Perineorrhaphy Cystoscopy Vaginal cyst excision Procedures as indicated PRIMARY SURGEON: Yakov Summers MD NURSING PREOP ASSESSMENT: Fevers, chills, cough, or nasal congestion: No Vaginal itching, burning, discharge, or odor: No Pain with urination, frequency, urgency, cloudy or foul smelling urine: No If yes to any of the above then MD notified: Not Applicable ADVANCED CARE PLANNING: Does the patient have an advanced directive: No Does [facility] have a copy of the patient's advanced directive: No Was advanced directive given to the patient: No PATIENT LEARNING ASSESSMENT: Individual patient/family learning needs evaluated and addressed: Yes Cognitive ability: Alert and oriented Motivation to learn: Eager Factors affecting learning: None Physical limitations affecting learning: None Patient learns best by: Multiple Methods Method of instruction: Teach Back , Individual instruction Written instruction/Handouts Verbal instruction Instructions provided to: Patient via telephone. Written material mailed to patient. Family support: Unable to assess - Family not present PRE- AND POST-OPERATIVE TEACHING Pre-operative teaching and supplemental material provided and reviewed with patient: Your Surgical Guide Book Map Written pre-op and post-op instructions Bowel prep directions Antibacterial soap: given to patient prior to preop teaching appointment Pre-operative instructions provided and reviewed with patient/family: No eating, drinking, or smoking after midnight prior to surgery unless otherwise directed No alcohol the day before surgery Medications as prescribed by anesthesia, internal medicine, surgeon, or COMPUTER OPERATIONS SPECIALIST Stop NSAIDs, Aspirin (ASA), vitamins, herbal supplements, herbal teas, and diet pills 7-10 days prior to surgery OK to take tylenol prn pain unless otherwise directed by physician Call surgery coordinators if any other questions about surgery date or pre-op appointments Bowel prep instructions: Magnesium citrate (10 oz) per protocol Day of surgery instructions provided and reviewed with patient/family: Arrival time (call surgical coordinators on the office day prior to surgery for verification) No jewelry, body piercing, makeup, contacts, lotions, nail [place] su[place] on fingers, or anything in hair on arrival to surgery Wear low healed shoes and loose fitting clothing Leave all valuables at home or with a family member Directions to [facility] Parking/parking validation on the day prior to surgery Admission/check in (Report to entrance A for surgery) Holding area Placement of IV Surgical positioning Family waiting area Surgical recovery room Post-operative instructions provided and reviewed with patient/family: SEE PATIENT INSTRUCTION SECTION FOR DETAILS. ACTIVITY - slowly increase activity as tolerated, OK to climb stairs DRIVING - No driving for 24 hours or while taking narcotics, OK to ride in a car. DIET - Advance diet as tolerated and as ordered by MD, drink 8 glasses of water a day, eat a diet high in protein and fiber unless otherwise directed by MD. CATHETER - Will be inserted during surgery, you may go home with a catheter for 7-10 days and will have to come back to the office for a voiding trial, UTI symptoms reviewed and patient instructed to notify MD of any of these symptoms. VULVAR CARE - Sitz baths TID and prn, keep vulva clean/dry/open to air, apply medicated cream as prescribed by surgeon. BATHING - OK to shower after surgery unless otherwise directed by MD, no tub baths. PAIN MEDICATION - IV pain medication after surgery, IV COURSE INSTRUCTOR if ordered by MD, discharged home with a prescription for PO pain medication, pain management after surgery, side effects of pain medication (including constipation, dizziness, drowsiness, and medication interactions). VAGINAL CARE - Pelvic rest x6 weeks unless otherwise directed by MD. DVT PROPHYLAXIS - Early ambulation, SCDs, injectable anticoagulants (heparin, lovenox, etc) RESPIRATORY - Incentive spirometer, coughing/deep breathing exercises, ambulation. SYMPTOMS TO NOTIFY MD - Fever, chills, nausea, vomiting, increased or severe pain, heavy vaginal bleeding, foul smelling vaginal drainage, pain or swelling in extremities. URGENT SYMPTOMS - Call 911 or go to ER if any shortness of breath, difficulty breathing, or chest pain. HOW TO CONTACT PHYSICIAN - Physician's office phone number given to patient, if after hours patient instructed to call die operator and ask for it applications developer urogynecologist MEGHAN program offered to patient: No Additional teaching as indicated by patient/family learning needs. PATIENT LEARNING EVALUATION & FOLLOW UP PLAN: Patient and/or family express understanding of upcoming surgery, pre-operative preparation, the operative process, and post-operative instructions. Follow up plan: Complete - No need for follow-up Patient has a post-op appointment scheduled: Yes Referral (recommentation): None Educator: Latoya Bravo [facility] documented in this encounter [facility] 01-16-2024 Note HNO ID: [id number] Author: ?, ?, ? Service: ? Author Type: ? Type: Progress Notes Filed: 01/16/2024 13:42 Note Text: DATE OF SERVICE: 01/16/2024 PROBLEM: Mara Bustos presents for pre-op teaching. PRE-OP DIAGNOSIS: Uterovaginal prolapse SCHEDULED SURGERY AND DATE: 02/01/24 at [place]: Sacrospinous hysteropexy Anterior colporrhaphy Posterior colporrhaphy Perineorrhaphy Cystoscopy Vaginal cyst excision Procedures as indicated PRIMARY SURGEON: Yakov Summers MD NURSING PREOP ASSESSMENT: Fevers, chills, cough, or nasal congestion: No Vaginal itching, burning, discharge, or odor: No Pain with urination, frequency, urgency, cloudy or foul smelling urine: No If yes to any of the above then MD notified: Not Applicable ADVANCED CARE PLANNING: Does the patient have an advanced directive: No Does [facility] have a copy of the patient's advanced directive: No Was advanced directive given to the patient: No PATIENT LEARNING ASSESSMENT: Individual patient/family learning needs evaluated and addressed: Yes Cognitive ability: Alert and oriented Motivation to learn: Eager Factors affecting learning: None Physical limitations affecting learning: None Patient learns best by: Multiple Methods Method of instruction: Teach Back , Individual instruction Written instruction/Handouts Verbal instruction Instructions provided to: Patient via telephone. Written material mailed to patient. Family support: Unable to assess - Family not present PRE- AND POST-OPERATIVE TEACHING Pre-operative teaching and supplemental material provided and reviewed with patient: Your Surgical Guide Book Map Written pre-op and post-op instructions Bowel prep directions Antibacterial soap: given to patient prior to preop teaching appointment Pre-operative instructions provided and reviewed with patient/family: No eating, drinking, or smoking after midnight prior to surgery unless otherwise directed No alcohol the day before surgery Medications as prescribed by anesthesia, internal medicine, surgeon, or COMPUTER OPERATIONS SPECIALIST Stop NSAIDs, Aspirin (ASA), vitamins, herbal supplements, herbal teas, and diet pills 7-10 days prior to surgery OK to take tylenol prn pain unless otherwise directed by physician Call surgery coordinators if any other questions about surgery date or pre-op appointments Bowel prep instructions: Magnesium citrate (10 oz) per protocol Day of surgery instructions provided and reviewed with patient/family: Arrival time (call surgical coordinators on the office day prior to surgery for verification) No jewelry, body piercing, makeup, contacts, lotions, nail [place] su[place]ese on fingers, or anything in hair on arrival to surgery Wear low healed shoes and loose fitting clothing Leave all valuables at home or with a family member Directions to [facility] Parking/parking validation on the day prior to surgery Admission/check in (Report to entrance A for surgery) Holding area Placement of IV Surgical positioning Family waiting area Surgical recovery room Post-operative instructions provided and reviewed with patient/family: SEE PATIENT INSTRUCTION SECTION FOR DETAILS. ACTIVITY - slowly increase activity as tolerated, OK to climb stairs DRIVING - No driving for 24 hours or while taking narcotics, OK to ride in a car. DIET - Advance diet as tolerated and as ordered by MD, drink 8 glasses of water a day, eat a diet high in protein and fiber unless otherwise directed by MD. CATHETER - Will be inserted during surgery, you may go home with a catheter for 7-10 days and will have to come back to the office for a voiding trial, UTI symptoms reviewed and patient instructed to notify MD of any of these symptoms. VULVAR CARE - Sitz baths TID and prn, keep vulva clean/dry/open to air, apply medicated cream as prescribed by surgeon. BATHING - OK to shower after surgery unless otherwise directed by MD, no tub baths. PAIN MEDICATION - IV pain medication after surgery, IV COURSE INSTRUCTOR if ordered by MD, discharged home with a prescription for PO pain medication, pain management after surgery, side effects of pain medication (including constipation, dizziness, drowsiness, and medication interactions). VAGINAL CARE - Pelvic rest x6 weeks unless otherwise directed by MD. DVT PROPHYLAXIS - Early ambulation, SCDs, injectable anticoagulants (heparin, lovenox, etc) RESPIRATORY - Incentive spirometer, coughing/deep breathing exercises, ambulation. SYMPTOMS TO NOTIFY MD - Fever, chills, nausea, vomiting, increased or severe pain, heavy vaginal bleeding, foul smelling vaginal drainage, pain or swelling in extremities. URGENT SYMPTOMS - Call 911 or go to ER if any shortness of breath, difficulty breathing, or chest pain. HOW TO CONTACT PHYSICIAN - Physician's office phone number given to patient, if after hours patient instructed to call die operator and ask for it applications developer urogynecolo (more content not included)... [facility] 01-16-2024 Instructions Latoya Bravo E - 01/16/2024 8:18 AM EDT Images from the original note were not included. HELPFUL PRE-SURGICAL INFORMATION Preparing your skin for [...] Fish Oil, Flax Seed, Thanh, Ginkgo, Ginseng, Dieterich's Wort, Tumeric, and anti-inflammatory medications including Motrin, [...] days before surgery, we recommend that you perform stretching exercises to decrease pain after surgery. [...] counter for support. Hold for 10 seconds. PATIENT INSTRUCTIONS PRIOR TO SURGERY Please read these instructions carefully. Your surgery may be cancelled if you do not follow these instructions. GENERAL Do not wear jewelry, body piercing(s), makeup, nail south su[place]ese, hairpins, or contacts on the day of surgery. Leave valuables and money at home or with family members. If you have Obstructive Sleep Apnea and use a CPAP/BiPAP machine, bring your mask, tubing, and machine with you on the day of surgery. INFECTION PREVENTION Please notify your doctor if you have any signs of an infection (i.e. fever, severe cough, nasal congestion, pain with urination, abnormal vaginal discharge, etc). Hand washing is extremely important in preventing infection (for both you as the patient and for the caregivers). HOSPITALIZATION Before you leave the hospital, you typically need to be able to eat/drink, urinate, and have your pain controlled with oral medication. Your surgeon or other members of your surgeon s team will discuss any other specific medical issues related to your discharge with you. Your surgeon may order intermittent compression sleeves. These are massaging leg pumps to help prevent blood clots after surgery. It is also very important that you walk as soon as possible and as frequently as possible after surgery. This will help decrease your risk of blood clots, exercise your lungs and speed up your recovery after surgery. If you are admitted to the hospital overnight, you will be given an incentive spirometer, which is a breathing machine that will help make sure that you are taking deep breaths and expanding your lungs while in the hospital. [facility] At the [facility], we have a multidisciplinary team of caregivers that includes fellows, residents, nurse practitioners (office electrician), physician assistants (PAs), clinical nurse specialists (CNSs), nurses, medical assistants (MAs), patient care nursing assistants (PCNAs), social workers, rehabilitation caseworker and many others. We all have different roles and responsibilities but we all are here to help you. If you spend the night in the hospital, a physician from your care team will see you the day after your surgery. At times, scheduling does not permit your surgeon to see you in the hospital the day after surgery. If this occurs, another physician on the urogynecology care team will see you in the hospital. THE DAY BEFORE SURGERY If you are having surgery at [facility]: On the day before your surgery, you must call [phone] to find out your surgery arrival time. If you are having surgery at a [facility] ([facility], [facility]): You will receive a call the day before surgery to give you your surgery arrival time. THE DAY OF SURGERY/CHECK IN Surgery Location Parking Check-in Location [facility] [address] [place] [address] garage or robot technician parking available DESK J1-1 A map is located in Your Surgical Guide Book. The online version of the surgical guide book can be found at: [email or web address] [facility] [address] [place], [place] Parking garage connected to hospital or Face to Face Live Registration desk, first floor, [facility] [address] [place], [place] Parking lot in front of building [address] (elevator to lower level) [facility] [address] [place], [place] Parking garage next to hospital or Jerald Stiles Surgical Waiting Desk [facility] [address] [place], [place] Parking garage across from main entrance. Main entrance [facility] [address], [place] Park in the back of the hospital, go to Entrance A. Take elevators to 1st floor and enter into the Surgery Department UROGYNECOLOGY POSTOP INSTRUCTIONS ACTIVITY Your surgical recovery will be unique to you and how you heal. In the first few days after surgery, you will probably feel sluggish. As you recover, you will gradually return to normal activities. It is important to push yourself to return to normal activities as you feel fit. Listen to your body in terms of increasing your activity level as you recover. You may walk and climb stairs right after surgery. Walking and stair climbing will not hurt your surgical repair. You may resume activities like lifting/running/high impact aerobic activities/sit-up as soon as you feel strong enough. Please do not do any bike or horseback riding for 2 weeks if you have had a midurethral sling. Do not put anything in the vagina for 6 weeks after surgery unless otherwise instructed by your doctor (including tampons, douching, sexual intercourse, etc). No driving while you are taking narcotic pain medication, or until you feel that you are ready and can safely slam the brakes if needed. Avoid sitting or lying in bed for more than 2 hours at a time while you are awake to reduce your risk of blood clots. You may return to work when directed by your physician. Please contact your doctor if you need any return to work letters or medical leave paperwork to be completed. PAIN MANAGEMENT After you go home, you should take the prescribed acetaminophen (Tylenol) and ibuprofen (Motrin) as directed. We recommend rotating the timing of these medications so that you are taking one of these medications every 3 to [address], you can help prevent pain. After the first 72 hours, you can take these medications as needed. These should be the first medications you use for pain. Applying ice packs to your incisions (abdominal or vulvar/perineal) for 20 minutes as often as needed may also help. Some pain medications can cause constipation so you should take a stool softener (i.e. Colace) or laxative (i.e. Miralax) while you are on these medications (see the following section on constipation). You may have been prescribed an opioid medication, also known as a narcotic pill. This is usually oxycodone. You may be familiar with the medication Percocet, which is a combination of oxycodone and acetaminophen. These opiate medications have side effects like nausea or vomiting, constipation, and sleepiness. You should only take them if your pain is not controlled by ibuprofen and/or acetaminophen. It is important to keep this stronger pain medication safely stored, as it is at great risk of being stolen or misused by family, friends, or even strangers. Please be sure to dispose of leftover pain medication after you have recovered. You may dispose of unused narcotic medications in the trash with an unpleasant substance such as coffee grounds or cat litter. You can also check FDA.gov to assess which medications can be safely flushed down the toilet. There are locations to dispose of unused medications at three [facility] locations: [facility] pharmacy, [facility] pharmacy, and the Pharmacy at the [facility] [place] for [facility] (inside the parking garage on the first floor). CONSTIPATION You may not have a bowel movement for 3-5 days after surgery. This is normal. To help prevent constipation after your surgery, you may receive prescriptions to take including the following: Miralax (polyethylene glycol) 17 g (1 measured capful or 1 packet) once a day. If you have not had a bowel movement 3 days after surgery, you may take the Miralax two times a day. If you have any discomfort because of the need to have a bowel movement, you may add milk of magnesia or magnesium citrate (available at your local pharmacy without a prescription) at any time. Do not take milk of magnesia or magnesium citrate if you have kidney failure. If you have loose or watery stools, stop taking the medications and call your doctor s office. OTHER MEDICATIONS If you were prescribed vaginal estrogen, you should resume it in 7-10 days after surgery unless you were instructed otherwise. Please check your discharge instructions about when to resume other medications. WOUND CARE If you have aurelio (abdominal incision), they need to be removed about 10-14 days after surgery. There will be dissolvable stitches under your skin that do not need to be removed. If you have band aids, steri strips, (paper tape) or a small gauze covered by tegarderm (clear tape) over your small abdominal incisions, these may be removed when you shower the day after surgery. Keep any incision clean, dry, and open to the air. Shower daily after surgery. No tub baths until wound is completely healed. If you have any abdominal incisions, wash them daily with a mild antibacterial soap and water. Pat your incision dry with a clean towel. Wash your hands frequently, especially before touching your incision, changing any dressings, after using the restroom, and before eating. HENNING CATHETER CARE You may go home with a Henning catheter in your bladder. You will need to follow up for a nurse visit within 3-10 days for removal. You will be called by the office to get this appointment if it is not listed below. General Principles on Catheter Care: Always wash your hands with soap and water before handling your catheter tubing or bag. It is important to empty your catheter bag before it gets too full. Keep the catheter tubing free of kinks and Henning bag below the level of your bladder. Keep your genital region and catheter tubing clean. Instructions on Catheter Plug Use: A catheter plug is used to occlude the end of the catheter so that it can be disconnected from the drainage bag during the day. You may be sent home with catheter plugs. Your postop nurse will give you instructions on how to use the plug before going home. The Henning catheter must be disconnected from its drainage tubing and bag. The plug can then be inserted into the open end of the catheter. The plug should fit snugly. While the plug is in place, your bladder will fill with urine. You must empty your bladder by removing the plug and draining the catheter over the toilet at least every 3 to 4 hours, or sooner if you feel an urge to urinate. After you have drained the catheter, replace the plug. The catheter should be reconnected to the drainage bag at night so that your bladder can continuously drain while you are sleeping. The plug can be washed every night before bedtime with soap and water. Store it in a clean plastic Ziploc bag when it is not in use. You can continue daytime catheter plugging until your scheduled voiding trial. WHAT TO EXPECT AT HOME Recovery from surgery is generally 4 weeks, but sometimes longer for more strenuous activity. It is normal to be very tired during this time. It is normal to have some drainage or a small amount of vaginal bleeding after surgery which may last up to 6 weeks. It is normal to have some bruising around the vaginal opening or on the buttocks if you had a vaginal surgery or around your incisions if you had an abdominal or laparoscopic surgery. If you had a laparoscopic surgery, you may experience gas pain, abdominal swelling, or shoulder pain for 24-72 hours after surgery. A warm shower, heating pad, and/or walking may help. WHEN TO CALL YOUR DOCTOR: If you cannot urinate for 3-5 hours or are only able to urinate small amounts. Fever (>100.4 F or 38.0 C) or chills. Incision problems such as redness, warmth, swelling, or foul-smelling drainage. Severe nausea or persistent vomiting. Bright red vaginal bleeding (soaking >1 pad/hour) Foul smelling vaginal drainage (note that some vaginal discharge is normal) Severe pain not relieved with pain medication. Pain and swelling in your legs, especially if it is only on one side and not the other. Pain with urination, cloudy urine, or foul-smelling urine. Or if you have any other problems or questions. CALL 911 OR GO TO THE EMERGENCY ROOM IF YOU HAVE: shortness of breath, difficulty breathing, or chest pain. UROGYNECOLOGY PHYSICIAN CONTACT INFORMATION During business hours, these numbers connect to your doctor s office. During the evening and weekends, these numbers will connect you to the answering service to speak with the doctor it applications developer. Press Option 3 for specialty services and speak with the die operator. Dr. Yakov Jackson Office [facility] Office Yumi Grimm, BATTERY MECHANIC Gabby Hidalgo, ROGELIO Gentile, BATTERY MECHANIC Jessica Wylie, BATTERY MECHANIC Valentine Dunn, BATTERY MECHANIC Lesa Doyle, BATTERY MECHANIC Please DO NOT use MyChart for post-surgery concerns. documented in this encounter [facility] 01-15-2024 History and physical note Images from the original note were not included. HISTORY AND PHYSICAL EXAMINATION SERVICE DATE: 01/15/2024 SERVICE TIME: 9:40 AM PRIMARY CARE PHYSICIAN: Duane Huddleston MD Assessment Patient has the following medical conditions which may affect kyle-operative course: Former smoker Assessment: 0.5ppd/55 years, quit 12/29/2023, no wheezes, lungs CTA, pulse ox 97% on RA Palpitations Assessment: controlled on rx EKG today bradycardia otherwise normal Gastroesophageal reflux disease Assessment: controlled on rx Constipation Assessment: otc rx as needed Rheumatoid arthritis (HCC) Assessment: controlled on rx, following OSH rheumatology Depressive disorder Assessment: hx, no current tx Obesity with body mass index 30 or greater Assessment: Body mass index is 30.23 kg/m . [place] Activity Status Index: METS: Climb a flight of stairs or walk up a hill (5.50 METs) DASI Score: 5.5 Patient denies any chest pain or undue shortness of breath with the above physical activity. Clinical Frailty Scale: 3. Well, with treated comorbid disease STOP-Bang Score: BMI greater than 35 kg/m^2 Patient over 50 years old Has a large neck Denies snoring loudly Denies feeling tired, fatigued, or sleepy during the daytime Has not been observed to stop breathing or choking/gasping during sleep Denies having high blood pressure Non-male patient STOP-Bang Score: 3 [id number] Score: Age: 65-74 Sex: female CHF history: No Hypertension history: No Stroke/TIA/thromboembolism history: No Vascular disease history: No Diabetes history: No [id number] Score: 2 ARISCAT Score: Age: 51-80 Preoperative SpO2: >=96% Respiratory infection in the last month: No Preoperative anemia: No Surgical incision: peripheral Duration of surgery: >3 hrs Emergency procedure: No ARISCAT Score: 26 ANESTHESIA FINDINGS: Intubation History: No history of difficult intubation Significant Anesthesia Considerations: none Airway History: No history of difficult airway I - PHYSICAL EVALUATION AIRWAY Patient intubated: No. Tracheostomy tube not present Mallampati: II. TM distance: >3 FB. Neck ROM: full ROM without neurological symptoms. Mouth opening: adequate. Short neck: no. Additional comments: +left TMJ. Thick neck: yes Suarez present: no Lip Bite Test: I Microretrognathia/Micronagthia/R ecessed Chin: No DENTAL Dentures, upper: complete. Dentures, lower: complete. II - ANESTHESIA PLAN Anesthetic Plan: other Beta Bessy Monitoring Plan Post Procedure Analgesic Plan Informed Consent Anesthetic risks, benefits, alternatives, personnel and consent discussed: yes. Patient / Responsible Alliance Party agrees to proceed: yes Patient / Surrogate agrees to blood products: blood products not planned Discussed the possibility of lip / dental damage: yes Prepared for Surgery: optimally prepared for surgery, pending [see comment]. Labs and EKG CONSULTS: Patient does not require consults for optimization at this time Planned Anesthetic: other anesthesia choice The Following Tests/Procedures Have Been Initiated: Orders Placed This Encounter >CBC + AUTO DIFF Standing Status: Future Number of Occurrences: 1 Standing Expiration Date: 04/15/2024 >CMP Standing Status: Future Number of Occurrences: 1 Standing Expiration Date: 04/15/2024 Urine Culture - LAB COLLECT Standing Status: Future Number of Occurrences: 1 Standing Expiration Date: 04/15/2024 ECG COMPLETE Standing Status: Future Standing Expiration Date: 01/14/2025 REASON FOR VISIT: Mara Bustos is a 68 year old female who is scheduled for Procedure(s): COLPORRHAPHY POSTERIOR (N/A) CYSTOSCOPY (N/A) FIXATION LIGAMENT SACROSPINOUS (Pending) ANTERIOR COLPORRHAPHY REPAIR CYSTOCELE WITH OR W/O REPAIR URETHROCELE INCLUDING CYSTOURETHROSCOPY WHEN PERFORMED (N/A) PERINEOPLASTY, NON-OBSTETRICAL (N/A) at the request of Dr. Yakov Summers for consultation. My final recommendation will be communicated back to the requesting physician by way of shared medical record or letter. Subjective The patient has the following: ACTIVE PROBLEM LIST Constipation Depressive Disorder Gastroesophageal Reflux Disease Hyperlipidemia Obesity With Body Mass Index 30 Or Greater Rheumatoid Arthritis (Hcc) Former Smoker Palpitations COVID-19 Immunization Status Overdue - Covid-19 Vaccine () Overdue since 07/17/2023 05/22/2023 Imm Admin: COVID-19 vaccine, age 12+ yr, season (Pure [place]) 11/14/2022 Imm Admin: COVID-19 vaccine, age 12+ yr, bivalent (MODERNA) 11/10/2021 Outside Immunization: COVID-19, mRNA, LNP-S, PF, 100 mcg/0.5mL dose or 50 mcg/0.25mL dose Only the first 3 history entries have been loaded, but more history exists. CHIEF COMPLAINT: Pre-op exam HPI: Mara Bustos is a 68 year old seen for PAC due to scheduled above surgery because of uterovaginal prolapse. 08/30/2023, Dr. Yakov Summers CHIEF COMPLAINT: Mara Bustos is a 68 year old referred for consultation regarding pelvic organ prolapse. She has not had a hysterectomy. PRABHU:08/24/23 IMPRESSION: Mara Bustos is a 68 year old female with [...] which included preparing to see the patient, [id number] patient care, completing clinical documentation, obtaining and/or reviewing separately obtained history, performing a medically appropriate examination, counseling and educating the patient/family/caregiver, ordering medications, tests, or procedures, and communicating with other HCPs (not separately reported). My final recommendations will be communicated back to the requesting physician by way of shared Medical record or letter via US mail. Gabby HidalgoJEOVANNY.BATTERY MECHANIC = HISTORY OF PRESENT ILLNESS from Gabby 08/24/23: HISTORY OF PRESENT ILLNESS: First noticed prolapse in February, states she saw something that was not right. Saw urology and gynecology, was referred to [...] remove left ovary. 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 No neurological symptoms or problems. Respiratory: +former smoker 0.5ppd/55 years. No history of current cough or dyspnea, or pneumonia in the past 6 weeks. No history of respiratory/pulmonary symptoms or problems. Cardiovascular: Positive for: arrhythmia (+palpations, on rx) Negative for: anticoagulation therapy, atrial fibrillation, CAD, chest pain, CHF, congenital heart defect, DVT/PE, hyperlipidemia, hypertension, recent TX, murmur/valvular heart disease, PVD, open heart surgery and valve surgery. GI: Positive for: GERD (on rx) Negative for: abdominal pain, dysphagia, hepatitis, irritable bowel syndrome, inflammatory bowel disease, liver disease, nausea, pancreatitis, vomiting and ETOH >2 drinks/day. : No history of dysuria, frequency or incontinence, stones or chronic kidney disease. No difficulty urinating, nocturia > 1 time per night or hematuria. Endocrine: No history of diabetes. Has not taken steroids within the past 30 days. No history of endocrinological symptoms or problems. Hematology: No history of bleeding or clotting disorder. Patient is not taking anti-coagulation or platelet medications. No history of hematological symptoms or problems. Oncology: No history of CA metastasis, chemo within 30 days, or radiotherapy within 90 days. No history of oncological symptoms or problems. Psych: Positive for: depression. Musculoskeletal: Negative for joint pain or swelling, back pain or muscle pain. Skin: Negative for lesions, rash and itching. PAST MEDICAL HISTORY Diagnosis Date Essential hypertension Rheumatoid arthritis (HCC) PAST SURGICAL HISTORY Procedure [...] 03/19/2018 and partial oophorectomy TONSILLECTOMY & ADENOIDECTOMY FAMILY HISTORY Problem Relation Age of Onset Diabetes Mother Heart Father Ovarian cancer Sister No Known Problems Maternal Grandmother No Known Problems Maternal Grandfather No Known Problems Paternal Grandmother No Known Problems Paternal Grandfather Social History Tobacco Use Smoking status: Former Types: Cigarettes Start date: 1969 Quit date: 12/29/2023 Years since quittin.0 Smokeless tobacco: Never Vaping Use Vaping Use: Never used Substance Use Topics Alcohol use: Yes Comment: occasional Drug use: Never Prior to Admission medications as of 01/15/24 0934 Medication Sig Last Dose Taking clobetasol (TEMOVATE) 0.05 % ointment Apply a half of fingertip unit over the affected area every night for 12 weeks until follow up. Taking Yes calcium carbonate-vitamin D3 500 mg-15 mcg (600 unit) tab Take by mouth. Taking Yes Flaxseed Oil 1,000 mg cap Take by mouth. Taking Yes KLOR-CON M10 10 mEq tablet TAKE 1 TABLET ORALLY ONCE PER DAY FOR 90 DAYS Taking Yes metoprolol tartrate, short acting, (LOPRESSOR) 25 mg tablet Taking Yes methotrexate 2.5 mg tablet Taking Yes hydrOXYchloroQUINE (PLAQUENIL) 200 mg tablet Taking Yes folic acid 1 mg tablet Taking Yes esomeprazole (NEXIUM) 40 mg capsule Taking Yes No medication comments found. ALLERGIES No Known Allergies Objective PHYSICAL EXAM: General: alert and oriented (x3) and healthy appearance. Pertinent negatives noted - not distressed. Skin: normal color, no rash or lesions. HEENT: EOM intact and pupils equal round. Pertinent negatives noted - no carotid bruit. Cardiovascular: regular rate and rhythm, normal S1 and S2, no rub, murmurs, or gallop. Respiratory: normal breath sounds, no wheezes or crackles. No chest wall deformity or tenderness. Abdomen: soft. Pertinent negatives noted - not tender. Extremities: no deformity, no edema or tenderness, no joint swelling or clubbing. Neurological: normal cognition and motor skills. Gait normal. No weakness or sensory deficit. PAIN ASSESSMENT: Pain Pain Level: 8 Pain Location: Abdomen Description: Sharp, Bloating Duration Amount of Time: 3 Duration Units: Days Frequency: Intermittent VITALS: BP 134/84 Pulse 64 Temp (Src) 98.2 (Temporal) Resp 16 Ht 5' 3.25 (1.61m) Wt 172 lb (78.0kg) SpO2 97% BMI 30.21 kg/(m^2). Diagnostic tests reviewed for today's visit: Lab Value Units Date High Low HB 13.7 g/dL 01/15/2024 15.5 11.5 HCT 40.4 % 01/15/2024 46.0 36.0 WBC 8.60 k/uL 01/15/2024 11.00 3.70 PLT 223 k/uL 01/15/2024 400 150 NA No results within date range. K No results within date range. GLUC No results within date range. BUN No results within date range. CREAT No results within date range. PTSEC No results within date range. INR No results within date range. APTT No results within date range. ALT No results within date range. AST No results within date range. TBILI No results within date range. TSH No results within date range. Lab Value Units Date High Low HCGQT No results within date range. UHCG No results within date range. HCG, BODY* No results within date range. Lab Value Units Date High Low ABORHD No results within date range. ABSCREEN No results within date range. No results found for: HBA1C Recent Results (from the past 8760 hour(s)) ECG COMPLETE Collection Time: 01/15/24 9:05 AM Result Value Ventricular Rate 49 Atrial Rate 49 P-R Interval 182 QRS Duration 98 QT Interval 438 QTC Calculation (Bazett) 395 Calculated P [place] 7 Calculated R [place] -14 Calculated T [place] 18 Impression SINUS BRADYCARDIA OTHERWISE NORMAL ECG No results found for this or any previous visit (from the past 27883 hour(s)). Instructions Given to Patient: Instructions located in the after visit summary. Patient given verbal and written preop instructions and voices comprehension and compliance. SIGNATURE: Saray Rivera APRN.CNP PATIENT NAME: Mara Bustos DATE: January 15, 2024 TIME: 8:26 AM PAGER/CONTACT #: [facility] 01-15-2024 History and physical note Images from the original note were not included. HISTORY AND PHYSICAL EXAMINATION SERVICE DATE: 01/15/2024 SERVICE TIME: 9:40 AM PRIMARY CARE PHYSICIAN: Duane Huddleston MD Assessment Patient has the following medical conditions which may affect kyle-operative course: Former smoker Assessment: 0.5ppd/55 years, quit 12/29/2023, no wheezes, lungs CTA, pulse ox 97% on RA Palpitations Assessment: controlled on rx EKG today bradycardia otherwise normal Gastroesophageal reflux disease Assessment: controlled on rx Constipation Assessment: otc rx as needed Rheumatoid arthritis (HCC) Assessment: controlled on rx, following OSH rheumatology Depressive disorder Assessment: hx, no current tx Obesity with body mass index 30 or greater Assessment: Body mass index is 30.23 kg/m . [place] Activity Status Index: METS: Climb a flight of stairs or walk up a hill (5.50 METs) DASI Score: 5.5 Patient denies any chest pain or undue shortness of breath with the above physical activity. Clinical Frailty Scale: 3. Well, with treated comorbid disease STOP-Bang Score: BMI greater than 35 kg/m^2 Patient over 50 years old Has a large neck Denies snoring loudly Denies feeling tired, fatigued, or sleepy during the daytime Has not been observed to stop breathing or choking/gasping during sleep Denies having high blood pressure Non-male patient STOP-Bang Score: 3 [id number] Score: Age: 65-74 Sex: female CHF history: No Hypertension history: No Stroke/TIA/thromboembolism history: No Vascular disease history: No Diabetes history: No [id number] Score: 2 ARISCAT Score: Age: 51-80 Preoperative SpO2: >=96% Respiratory infection in the last month: No Preoperative anemia: No Surgical incision: peripheral Duration of surgery: >3 hrs Emergency procedure: No ARISCAT Score: 26 ANESTHESIA FINDINGS: Intubation History: No history of difficult intubation Significant Anesthesia Considerations: none Airway History: No history of difficult airway I - PHYSICAL EVALUATION AIRWAY Patient intubated: No. Tracheostomy tube not present Mallampati: II. TM distance: >3 FB. Neck ROM: full ROM without neurological symptoms. Mouth opening: adequate. Short neck: no. Additional comments: +left TMJ. Thick neck: yes Suarez present: no Lip Bite Test: I Microretrognathia/Micronagthia/R ecessed Chin: No DENTAL Dentures, upper: complete. Dentures, lower: complete. II - ANESTHESIA PLAN Anesthetic Plan: other Beta Bessy Monitoring Plan Post Procedure Analgesic Plan Informed Consent Anesthetic risks, benefits, alternatives, personnel and consent discussed: yes. Patient / Responsible Alliance Party agrees to proceed: yes Patient / Surrogate agrees to blood products: blood products not planned Discussed the possibility of lip / dental damage: yes Prepared for Surgery: optimally prepared for surgery, pending [see comment]. Labs and EKG CONSULTS: Patient does not require consults for optimization at this time Planned Anesthetic: other anesthesia choice The Following Tests/Procedures Have Been Initiated: Orders Placed This Encounter >CBC + AUTO DIFF Standing Status: Future Number of Occurrences: 1 Standing Expiration Date: 04/15/2024 >CMP Standing Status: Future Number of Occurrences: 1 Standing Expiration Date: 04/15/2024 Urine Culture - LAB COLLECT Standing Status: Future Number of Occurrences: 1 Standing Expiration Date: 04/15/2024 ECG COMPLETE Standing Status: Future Standing Expiration Date: 01/14/2025 REASON FOR VISIT: Mara Bustos is a 68 year old female who is scheduled for Procedure(s): COLPORRHAPHY POSTERIOR (N/A) CYSTOSCOPY (N/A) FIXATION LIGAMENT SACROSPINOUS (Pending) ANTERIOR COLPORRHAPHY REPAIR CYSTOCELE WITH OR W/O REPAIR URETHROCELE INCLUDING CYSTOURETHROSCOPY WHEN PERFORMED (N/A) PERINEOPLASTY, NON-OBSTETRICAL (N/A) at the request of Dr. Yakov Summers for consultation. My final recommendation will be communicated back to the requesting physician by way of shared medical record or letter. Subjective The patient has the following: ACTIVE PROBLEM LIST Constipation Depressive Disorder Gastroesophageal Reflux Disease Hyperlipidemia Obesity With Body Mass Index 30 Or Greater Rheumatoid Arthritis (Hcc) Former Smoker Palpitations COVID-19 Immunization Status Overdue - Covid-19 Vaccine ( season) Overdue since 07/17/2023 05/22/2023 Imm Admin: COVID-19 vaccine, age 12+ yr, season (PFIZER-BIONTECH) 11/14/2022 Imm Admin: COVID-19 vaccine, age 12+ yr, bivalent (MODERNA) 11/10/2021 Outside Immunization: COVID-19, mRNA, LNP-S, PF, 100 mcg/0.5mL dose or 50 mcg/0.25mL dose Only the first 3 history entries have been loaded, but more history exists. CHIEF COMPLAINT: Pre-op exam HPI: Mara Bustos is a 68 year old seen for PAC due to scheduled above surgery because of uterovaginal prolapse. 08/30/2023, Dr. Yakov Summers CHIEF COMPLAINT: Mara Bustos is a 68 year old referred for consultation regarding pelvic organ prolapse. She has not had a hysterectomy. PRABHU:08/24/23 IMPRESSION: Mara Bustos is a 68 year old female with [...] which included preparing to see the patient, [id number] patient care, completing clinical documentation, obtaining and/or reviewing separately obtained history, performing a medically appropriate examination, counseling and educating the patient/family/caregiver, ordering medications, tests, or procedures, and communicating with other HCPs (not separately reported). My final recommendations will be communicated back to the requesting physician by way of shared Medical record or letter via [place] mail. Gabby Hidalgo APRN.BATTERY MECHANIC = HISTORY OF PRESENT ILLNESS from Gabby 08/24/23: HISTORY OF PRESENT ILLNESS: First noticed prolapse in February, states she saw something that was not right. Saw urology and gynecology, was referred to [...] remove left ovary. 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 No neurological symptoms or problems. Respiratory: +former smoker 0.5ppd/55 years. No history of current cough or dyspnea, or pneumonia in the past 6 weeks. No history of respiratory/pulmonary symptoms or problems. Cardiovascular: Positive for: arrhythmia (+palpations, on rx) Negative for: anticoagulation therapy, atrial fibrillation, CAD, chest pain, CHF, congenital heart defect, DVT/PE, hyperlipidemia, hypertension, recent TX, murmur/valvular heart disease, PVD, open heart surgery and valve surgery. GI: Positive for: GERD (on rx) Negative for: abdominal pain, dysphagia, hepatitis, irritable bowel syndrome, inflammatory bowel disease, liver disease, nausea, pancreatitis, vomiting and ETOH >2 drinks/day. : No history of dysuria, frequency or incontinence, stones or chronic kidney disease. No difficulty urinating, nocturia > 1 time per night or hematuria. Endocrine: No history of diabetes. Has not taken steroids within the past 30 days. No history of endocrinological symptoms or problems. Hematology: No history of bleeding or clotting disorder. Patient is not taking anti-coagulation or platelet medications. No history of hematological symptoms or problems. Oncology: No history of CA metastasis, chemo within 30 days, or radiotherapy within 90 days. No history of oncological symptoms or problems. Psych: Positive for: depression. Musculoskeletal: Negative for joint pain or swelling, back pain or muscle pain. Skin: Negative for lesions, rash and itching. PAST MEDICAL HISTORY Diagnosis Date Essential hypertension Rheumatoid arthritis (HCC) PAST SURGICAL HISTORY Procedure [...] Grandfather Social History Tobacco Use Smoking status: Former Types: Cigarettes Start date: 1969 Quit date: 12/29/2023 Years since quittin.0 Smokeless tobacco: Never Vaping Use Vaping Use: Never used Substance Use Topics Alcohol use: Yes Comment: occasional Drug use: Never Prior to Admission medications as of 01/15/24 0934 Medication Sig Last Dose Taking clobetasol (TEMOVATE) 0.05 % ointment Apply a half of fingertip unit over the affected area every night for 12 weeks until follow up. Taking Yes calcium carbonate-vitamin D3 500 mg-15 mcg (600 unit) tab Take by mouth. Taking Yes Flaxseed Oil 1,000 mg cap Take by mouth. Taking Yes KLOR-CON M10 10 mEq tablet TAKE 1 TABLET ORALLY ONCE PER DAY FOR 90 DAYS Taking Yes metoprolol tartrate, short acting, (LOPRESSOR) 25 mg tablet Taking Yes methotrexate 2.5 mg tablet Taking Yes hydrOXYchloroQUINE (PLAQUENIL) 200 mg tablet Taking Yes folic acid 1 mg tablet Taking Yes esomeprazole (NEXIUM) 40 mg capsule Taking Yes No medication comments found. ALLERGIES No Known Allergies Objective PHYSICAL EXAM: General: alert and oriented (x3) and healthy appearance. Pertinent negatives noted - not distressed. Skin: normal color, no rash or lesions. HEENT: EOM intact and pupils equal round. Pertinent negatives noted - no carotid bruit. Cardiovascular: regular rate and rhythm, normal S1 and S2, no rub, murmurs, or gallop. Respiratory: normal breath sounds, no wheezes or crackles. No chest wall deformity or tenderness. Abdomen: soft. Pertinent negatives noted - not tender. Extremities: no deformity, no edema or tenderness, no joint swelling or clubbing. Neurological: normal cognition and motor skills. Gait normal. No weakness or sensory deficit. PAIN ASSESSMENT: Pain Pain Level: 8 Pain Location: Abdomen Description: Sharp, Bloating Duration Amount of Time: 3 Duration Units: Days Frequency: Intermittent VITALS: BP 134/84 Pulse 64 Temp (Src) 98.2 (Temporal) Resp 16 Ht 5' 3.25 (1.61m) Wt 172 lb (78.0kg) SpO2 97% BMI 30.21 kg/(m^2). Diagnostic tests reviewed for today's visit: Lab Value Units Date High Low HB 13.7 g/dL 01/15/2024 15.5 11.5 HCT 40.4 % 01/15/2024 46.0 36.0 WBC 8.60 k/uL 01/15/2024 11.00 3.70 PLT 223 k/uL 01/15/2024 400 150 NA No results within date range. K No results within date range. GLUC No results within date range. BUN No results within date range. CREAT No results within date range. PTSEC No results within date range. INR No results within date range. APTT No results within date range. ALT No results within date range. AST No results within date range. TBILI No results within date range. TSH No results within date range. Lab Value Units Date High Low HCGQT No results within date range. UHCG No results within date range. HCG, BODY* No results within date range. Lab Value Units Date High Low ABORHD No results within date range. ABSCREEN No results within date range. No results found for: HBA1C Recent Results (from the past 8760 hour(s)) ECG COMPLETE Collection Time: 01/15/24 9:05 AM Result Value Ventricular Rate 49 Atrial Rate 49 P-R Interval 182 QRS Duration 98 QT Interval 438 QTC Calculation (Bazett) 395 Calculated P [place] 7 Calculated R [place] -14 Calculated T [place] 18 Impression SINUS BRADYCARDIA OTHERWISE NORMAL ECG No results found for this or any previous visit (from the past 77890 hour(s)). Instructions Given to Patient: Instructions located in the after visit summary. Patient given verbal and written preop instructions and voices comprehension and compliance. SIGNATURE: Saray Rivera APRN.CNP PATIENT NAME: Mara Bustos DATE: January 15, 2024 TIME: 8:26 AM PAGER/CONTACT #: documented in this encounter [facility] 01-15-2024 Instructions Saray Rivera APRN.CNP - 01/15/2024 8:26 AM EDT PATIENT PREOPERATIVE INSTRUCTIONS Yakov Summers MD has scheduled you for your procedure at this surgery center: [facility]: [phone] -- [address] [address]. Please read below carefully for your personalized instructions. Dietary Restrictions: - No solid food after midnight. - You may have 12 ounces of clear liquids (water, clear juices such as apple juice or gatorade, carbonated beverages, clear tea, black coffee, jello) until 2 hours before scheduled arrival at facility. No red/purple coloring and no creamer/sugar Medications: Unless instructed differently below, stay on all of your medications until your surgery. If you start any new medications after today's visit, please contact your surgeon. Pre-Surgery Med Instructions Medication Instructions clobetasol (TEMOVATE) 0.05 % ointment Do not take the day of surgery calcium carbonate-vitamin D3 500 mg-15 mcg (600 unit) tab Stop 7 days before surgery Flaxseed Oil 1,000 mg cap Stop 7 days before surgery KLOR-CON M10 10 mEq tablet Take the day of surgery with a small sip of water metoprolol tartrate, short acting, (LOPRESSOR) 25 mg tablet Take the day of surgery with a small sip of water methotrexate 2.5 mg tablet Take the day of surgery with a small sip of water hydrOXYchloroQUINE (PLAQUENIL) 200 mg tablet Take the day of surgery with a small sip of water folic acid 1 mg tablet Stop 7 days before surgery esomeprazole (NEXIUM) 40 mg capsule Take the day of surgery with a small sip of water If you start any new medications after today's visit, please contact the surgeon's office. Blood Thinning Medications: - Stop NSAIDS (Ibuprofen, Advil, Aleve, Motrin, Celebrex, Mobic, etc.) 7 days before surgery, as directed by your surgeon. - Stop Aspirin 7 days before surgery, as directed by your surgeon. - Stop Vitamin E, ALL multi-vitamins, herbals and dietary supplements 7 days before surgery. - You may take Tylenol (Acetaminophen) or any of your pain medications that do not contain aspirin or NSAIDS as needed. Important Reminders: - Candy, mints, and tobacco products are NOT permitted the morning of surgery. - Hearing aids, dentures and glasses may be worn the morning of surgery. - NO jewelry, body piercings, makeup, hairpins or contacts are to be worn the day of surgery. If you develop symptoms such as a fever, cold, or flu, or have other changes to your health within TWO DAYS of scheduled surgery or the morning of surgery, please contact the surgery center above. Personal Belongings: -Please have photo ID and insurance cards. -If you do not have a copy of advance directives on file with us, please bring a copy with you on the day of surgery. - Leave ALL valuables and money at home or with family members. Arrival Time for Surgery: - The Surgery Center or hospital where you are having surgery will call the afternoon before surgery (or Monday for Monday surgery) with a scheduled arrival time. - If you have not heard by 4 pm, please contact the surgery center above. Please be aware that emergency situations arise, which may delay or change your surgical time. If this happens, we will notify you as soon as possible and regret any inconvenience. If you already have an Advance Directive, please fax a copy to [phone] or email to for it to be added to your chart. If you do not have an Advance Directive, you can find the appropriate form and more information at [email or web address]. We recommend that you complete the Advance Directive form found on the website and bring it with you the day of your surgery. It can be witnessed and scanned into your chart that day. Saray Rivera APRN.ROGELIO documented in this encounter [facility] 11-23-2023 History of Presen t illness Narrative Mara Bustos is a 68 year old female who presents for problem visit - rash under breast. HPI: Redness and itching under left breast. This has been going on for years off and on. Using goldbond powder. No other breast changes. OB History T2 L2 SAB0 IAB0 Ectopic0 Multiple0 Live Births0 Comment: Largest baby 8 lb 9 oz Surgical Assist History LMP: Postmenopausal Age at Menarche: Age at First : Age at Menopause: Surgical Assist History Comments: Sexual Activity: Yes; Male Contraception: Tubal Ligation PAST MEDICAL HISTORY Diagnosis Date Essential hypertension Rheumatoid arthritis (HCC) PAST SURGICAL HISTORY Procedure [...] mg tablet esomeprazole (NEXIUM) 40 mg capsule clotrimazole (LOTRIMIN) 1 % cream Apply to affected area two times a day for 14 days. clobetasol (TEMOVATE) 0.05 % ointment Apply a half of fingertip unit over the affected area every night for 12 weeks until follow up. (Patient not taking: Reported on 08/24/2023) No current facility-administered medications for this visit. Allergies As of Date: 11/23/2023 (No Known Allergies) Fully Assessed 09/14/2023 REVIEW OF SYSTEMS Breast: No breast lumps, nipple d/c, or skin retraction. Expanded ROS: N/A Allergies and current medication updated:Yes EXAM: BP 128/68 Wt 168 lb (76.2kg) GENERAL: pleasant, female in no apparent distress HEENT: Normocephalic and atraumatic NECK: full range of motion DERMATOLOGY: Normal, without lesions, non-icteric, and non-hirsute BREAST: soft, non-tender, symmetric, no dominant mass, normal nipple-areolar complex, no lymphadenopathy, no nipple discharge, and erythema under left breast CHEST: Normal inspiratory effort NEURO: exam grossly non-focal EXTREMITIES: normal ASSESSMENT AND PLAN: Encounter Diagnosis ICD-10-CM 1. Skin yeast infection B37.2 clotrimazole (LOTRIMIN) 1 % cream Candidal intertrigo noted. Discussed importance of keeping skin clean and dry. Clotrimazole cream sent in to use PRN. Discussed to call if rash worsens or does not improve. RTO annual exams and PRN. Xiomara Wiley DO Medical Decision Making: Problems: Low: Acute, uncomplicated illness or injury Risk: Moderate: Drug management Medical Decision Making Level: 3 - Low documented in this encounter [facility] 11-21-2023 Telephone encounter Note Called and spoke with patient. It flares up from time to time. Scheduled an appointment for evaluation so that it's treated appropriately. Alison Vail RN [facility] 11-21-2023 Miscellaneous Notes Called and spoke with patient. It flares up from time to time. Scheduled an appointment for evaluation so that it's treated appropriately. Alison Vail RN Patient is calling asking if she could use the Clobetasol ointment on her breast as she has redness and itchiness to the left breast. Please advise the patient. documented in this encounter [facility] 11-21-2023 Telephone encounter Note Patient is calling asking if she could use the Clobetasol ointment on her breast as she has redness and itchiness to the left breast. Please advise the patient. [facility] 09-29-2023 Miscellaneous Notes Spoke with patient and gave her the date & times for PACC & lab appts documented in this encounter [facility] 09-14-2023 Miscellaneous Notes Noted thank you it [...] Roxana Zhong RN documented in this encounter [facility] 09-14-2023 History of Presen t illness Narrative Mara Bustos is a 68 year old female who [...] Comment: Largest baby 8 lb 9 oz Surgical Assist History LMP: Postmenopausal Age at Menarche: Age at First : Age at Menopause: Surgical Assist History Comments: Sexual Activity: Yes; Male Contraception: [...] consistent with atrophy, normal Bartholin's glands, urethra, [place]'s glands, no vulvar lesions, normal appearing perineal [...] on lichen sclerosis for her to review. Xiomara Wiley, Medical Decision Making: Problems: Moderate: New problem with uncertain prognosis Risk: Low: Low risk from testing/treatment Medical Decision Making Level: 3 - Low documented in this encounter [facility] 09-06-2023 Miscellaneous Notes Spoke with patient and she asked for [facility] for surgery, pt accepted 02/01/24 surgery date at [facility], scheduled pre & post op appts except PACC & lab because PACC schedule was not available documented in this encounter [facility] 08-30-2023 Instructions Yakov Summers MD - 08/30/2023 [...] Fish Oil, Flax Seed, Thanh, Ginkgo, Ginseng, Pancho's Wort, Tumeric, and anti-inflammatory medications including Motrin, [...] out of medicine. documented in this encounter [facility] 08-30-2023 History of Presen t illness Narrative Female Pelvic Medicine & Reconstructive Surgery Consult CHIEF COMPLAINT: Mara Bustos is a 68 year old referred for consultation regarding pelvic organ prolapse. She has not had a hysterectomy. PRABHU:08/24/23 IMPRESSION: Mara Bustos is a 68 year old female with [...] which included preparing to see the patient, [id number] patient care, completing clinical documentation, obtaining and/or reviewing separately obtained history, performing a medically appropriate examination, counseling and educating the patient/family/caregiver, ordering medications, tests, or procedures, and communicating with other HCPs (not separately reported). My final recommendations will be communicated back to the requesting physician by way of shared Medical record or letter via [place] mail. Gabby Hidalgo APRN.BATTERY MECHANIC = HISTORY OF PRESENT ILLNESS from Gabby 08/24/23: HISTORY OF PRESENT ILLNESS: First noticed prolapse in February, states she saw something that was not right. Saw urology and gynecology, was referred to [...] remove left ovary. 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 IMPRESSION & PLAN: Mara Bustos is a 68 year old female with: Stage II cystocele, UVP, rectocele We discussed the findings of our history and physcial today demonstrating Stage II uterovaginal prolapse, cystocele, rectocele. We discussed non-surgical management options, including a pessary and pelvic floor therapy, but she declined these and expressed a desire to proceed with surgery. I reviewed various surgical options: reconstructive versus obliterative, mesh versus [place] tissue, and abdominal versus vaginal versus laparoscopic. [...] OAB - will address symptoms after surgery manager personal to call [ ] order surgery Yakov Summers MD I spent a total of 55 minutes on the date of the service which included preparing to see the patient, [id number] patient care, completing clinical documentation, obtaining and/or reviewing separately obtained history, performing a medically appropriate examination, counseling and educating the patient/family/caregiver, and ordering medications, tests, or procedures. documented in this encounter [facility] 08-24-2023 History of Presen t illness Narrative Female Pelvic Medicine & Reconstructive Surgery Consult CHIEF COMPLAINT: Mara Bustos is a 68 year old female who presents for consultation requested by Dr. Wiley for an opinion regarding Pelvic Organ Prolapse. HISTORY OF PRESENT ILLNESS: First noticed prolapse in February, states she saw something that was not right. Saw urology and gynecology, was referred to [...] remove left ovary. 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 Gabby Hidalgo APRN.BATTERY MECHANIC Music Producer offered: Patient declines. OBJECTIVE: There were no [...] Nurse performed and PVR 0 mL IMPRESSION: Mara Bustos is a 68 year old female with [...] which included preparing to see the patient, [id number] patient care, completing clinical documentation, obtaining and/or reviewing separately obtained history, performing a medically appropriate examination, counseling and educating the patient/family/caregiver, ordering medications, tests, or procedures, and communicating with other HCPs (not separately reported). My final recommendations will be communicated back to the requesting physician by way of shared Medical record or letter via [place] mail. Gabby Hidalgo APRN.ROGELIO documented in this encounter [facility] 06-22-2023 Miscellaneous Notes See result note Clobetasol ordered documented in this encounter [facility] 06-19-2023 History of Presen t illness Narrative Mara Bustos is a 67 year old female who [...] 1% lidocaine with 1:100,000 epi. 3 mm Newton punch used to biopsy region. HEMOSTASIS: Obtained with pressure Procedure Summary: Patient tolerated procedure well. ASSESSMENT: Patient reported new skin lesion, h/o HPV, tobacco user PLAN: Specimens labeled and sent to Pathology. Will notify patient of results in 1-2 weeks. Post-procedure instructions reviewed and written material given to the patient. Xiomara Wiley DO Music Producer offered: Patient declines. Mara Bustos is a 67 year old female who [...] she had prolapse and to see a clerical aide teacher. She is interested in surgical management of her prolapse. She also noticed a new perineal lesion when looking with a mirror over last few weeks. She was getting annual exams and pap smears with a provider in [facility]. Reports h/o LEEP 30+ years ago. She states her last pap was 4 years ago and normal. OB History No obstetric history on file. Surgical Assist History LMP: Postmenopausal Age at Menarche: Age at First : Age at Menopause: Surgical Assist History Comments: Sexual Activity: Yes; Male Contraception: [...] external genitalia atrophic, normal Bartholin's glands, urethra, [place]'s glands, no cervical lesions, stage 2 uterine [...] prior pap smears and annual exam visits. Xiomara Wiley DO Medical Decision Making: Problems: Moderate: New problem with uncertain prognosis Medical Decision Making Level: 2 - Straightforward documented in this encounter [facility] 07-20-2022 History of Presen t illness Narrative Images from the original note were not included. Subjective HPI HPI Mara Bustos is a 66 year old female who [...] XR ANKLE GENERAL 3V AP/LAT/OBL BILATERAL Mason Sammy, SECURE SOFTWARE ASSESSOR.BATTERY MECHANIC documented in this encounter [facility] 07-20-2022 History of Presen t illness Narrative Radiology Service Progress Note PATIENT NAME: Mara Bustos DATE OF SERVICE: July 20, 2022 TIME: 11:29 AM PATIENT IDENTITY VERIFICATION COMPLETED USING TWO (2) IDENTIFIERS: Name and Date of confirmed by patient verbally. FALL SCREENING: Has the patient had 2 falls in the last year or 1 fall with injury or currently using an Ambulatory Assistive Device (Walker, Cane, Wheelchair, Crutches, etc.)? No PATIENT GENDER DATA: Female. status: : No status: NO. PATIENT RELEVANT IMPLANT DATA REVIEWED: Not Applicable RADIOLOGY DEPARTMENT: General X-ray: Exam(s) Completed: Lower Extremity X-Ray(s): Ankle, Bilateral and Wt. Bearing and Foot, Right and Wt. Bearing PERIPHERAL IV DATA: Not applicable SIGNED BY: RT Cheko(R) July 20, 2022 11:20 AM documented in this encounter [facility] Evaluation note No assessment inform ation available [facility] Work Phone: Evaluation note Diagnosis Pain of right lower extremity due to injury- Primary Injury of left ankle, initial encounter [facility] Diagnosis History of HPV infection- Primary Personal history of other infectious and parasitic disease Tobacco user Tobacco use disorder Skin change Other symptoms involving skin and integumentary tissues Uterine prolapse Uterine prolapse without mention of vaginal wall prolapse Urinary symptom or sign Other symptoms involving urinary system Cystocele with prolapse [facility] Diagnosis Lichen sclerosus- Primary Circumscribed scleroderma [facility] Diagnosis Incomplete uterovaginal prolapse- Primary Uterovaginal prolapse, incomplete Urinary frequency Constipation, unspecified constipation type [facility] Diagnosis Incomplete uterovaginal prolapse- Primary Uterovaginal prolapse, incomplete Urinary frequency Cystocele, midline Rectocele [facility] 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 Uterovaginal prolapse Uterovaginal prolapse, unspecified [facility] Diagnosis Skin yeast infection- Primary Candidiasis of skin and nails Uterovaginal prolapse Uterovaginal prolapse, unspecified [facility] Diagnosis Pre-operative examination- Primary Preoperative examination, unspecified Former smoker Personal history of tobacco use, presenting hazards to health Palpitations Gastroesophageal reflux disease, unspecified whether esophagitis present Constipation, unspecified constipation type Rheumatoid arthritis, involving unspecified site, unspecified whether rheumatoid factor present (HCC) Depressive disorder Depressive disorder, not elsewhere classified Obesity with body mass index 30 or greater Uterovaginal prolapse Uterovaginal prolapse, unspecified * Assessment & Plan Note - Saray Rivera APRN.CNP - 01/15/2024 9:37 AM EDT Associated Problem(s): Obesity with body mass index 30 or greater Assessment: Body mass index is 30.23 kg/m . * Assessment & Plan Note - Saray Rivera APRN.CNP - 01/15/2024 9:37 AM EDT Associated Problem(s): Depressive disorder Assessment: hx, no current tx * Assessment & Plan Note - Saray Rivera APRN.CNP - 01/15/2024 9:37 AM EDT Associated Problem(s): Rheumatoid arthritis (HCC) Assessment: controlled on rx, following OSH rheumatology * Assessment & Plan Note - Saray Rivera APRN.CNP - 01/15/2024 9:37 AM EDT Associated Problem(s): Constipation Assessment: otc rx as needed * Assessment & Plan Note - Saray Rivera APRN.CNP - 01/15/2024 9:36 AM EDT Associated Problem(s): Gastroesophageal reflux disease Assessment: controlled on rx * Assessment & Plan Note - Saray Rivera APRN.CNP - 01/15/2024 9:36 AM EDT Associated Problem(s): Palpitations Assessment: controlled on rx EKG today bradycardia otherwise normal * Assessment & Plan Note - Saray Rivera APRN.CNP - 01/15/2024 9:36 AM EDT Associated Problem(s): Former smoker Assessment: 0.5ppd/55 years, quit 12/29/2023, no wheezes, lungs CTA, pulse ox 97% on RA documented in this encounter [facility] note* Diagnosis Educational circumstance- Primary Uterovaginal prolapse Uterovaginal prolapse, unspecified documented in this encounter [facility] note* Diagnosis Palpitations- Primary Former smoker Personal history of tobacco use, presenting hazards to health Constipation, unspecified constipation type Gastroesophageal reflux disease, unspecified whether esophagitis present Rheumatoid arthritis, involving unspecified site, unspecified whether rheumatoid factor present ([facility]) Depressive disorder Depressive disorder, not elsewhere classified Obesity with body mass index 30 or greater Mixed hyperlipidemia Uterovaginal prolapse Uterovaginal prolapse, unspecified * Assessment & Plan Note - Saray Rivera APRN.CNP - 02/19/2024 9:23 AM EDT Associated Problem(s): Hyperlipidemia Assessment: diet controlled * Assessment & Plan Note - Saray Rivera APRN.CNP - 02/19/2024 9:23 AM EDT Associated Problem(s): Obesity with body mass index 30 or greater Assessment: Body mass index is 31.81 kg/m . * Assessment & Plan Note - Saray Rivera APRN.CNP - 02/19/2024 9:23 AM EDT Associated Problem(s): Depressive disorder Assessment: hx, no current tx * Assessment & Plan Note - Saray Rivera APRN.CNP - 02/19/2024 9:23 AM EDT Associated Problem(s): Rheumatoid arthritis (HCC) Assessment: controlled on rx, following OSH rheumatology * Assessment & Plan Note - Saray Rivera APRN.CNP - 02/19/2024 9:23 AM EDT Associated Problem(s): Gastroesophageal reflux disease Assessment: controlled on rx * Assessment & Plan Note - Saray Rivera APRN.CNP - 02/19/2024 9:22 AM EDT Associated Problem(s): Constipation Assessment: otc rx as needed * Assessment & Plan Note - Saray Rivera APRN.CNP - 02/19/2024 9:22 AM EDT Associated Problem(s): Former smoker Assessment: 0.5ppd/55 years, quit 12/29/2023, no wheezes, lungs CTA, pulse ox 97% on RA * Assessment & Plan Note - Saray Rivera APRN.CNP - 02/19/2024 9:22 AM EDT Associated Problem(s): Palpitations Assessment: controlled on rx documented in this encounter [facility] note* Diagnosis Educational circumstance- Primary Uterovaginal prolapse Uterovaginal prolapse, unspecified documented in this encounter [facility] note* Diagnosis Lichen sclerosus Circumscribed scleroderma documented in this encounter [facility] note* Diagnosis Pre-operative examination- Primary Preoperative examination, unspecified Former smoker Personal history of tobacco use, presenting hazards to health Palpitations Gastroesophageal reflux disease, unspecified whether esophagitis present Constipation, unspecified constipation type Rheumatoid arthritis, involving unspecified site, unspecified whether rheumatoid factor present (HCC) Depressive disorder Depressive disorder, not elsewhere classified Obesity with body mass index 30 or greater Incomplete uterovaginal prolapse Uterovaginal prolapse, incomplete Urinary frequency Cystocele, midline Rectocele Palpitations- Primary Former smoker Personal history of tobacco use, presenting hazards to health Constipation, unspecified constipation type Gastroesophageal reflux disease, unspecified whether esophagitis present Rheumatoid arthritis, involving unspecified site, unspecified whether rheumatoid factor present (HCC) Depressive disorder Depressive disorder, not elsewhere classified Obesity with body mass index 30 or greater Mixed hyperlipidemia Vaginal prolapse- Primary Unspecified prolapse of vaginal lozano documented in this encounter [facility] note* Diagnosis Pre-operative examination- Primary Preoperative examination, unspecified Former smoker Personal history of tobacco use, presenting hazards to health Palpitations Gastroesophageal reflux disease, unspecified whether esophagitis present Constipation, unspecified constipation type Rheumatoid arthritis, involving unspecified site, unspecified whether rheumatoid factor present (HCC) Depressive disorder Depressive disorder, not elsewhere classified Obesity with body mass index 30 or greater Incomplete uterovaginal prolapse Uterovaginal prolapse, incomplete Urinary frequency Cystocele, midline Rectocele Palpitations- Primary Former smoker Personal history of tobacco use, presenting hazards to health Constipation, unspecified constipation type Gastroesophageal reflux disease, unspecified whether esophagitis present Rheumatoid arthritis, involving unspecified site, unspecified whether rheumatoid factor present (HCC) Depressive disorder Depressive disorder, not elsewhere classified Obesity with body mass index 30 or greater Mixed hyperlipidemia Vaginal prolapse- Primary Unspecified prolapse of vaginal lozano Chronic vulvitis Vaginitis and vulvovaginitis, unspecified documented in this encounter [facility] note* Diagnosis Pre-operative examination- Primary Preoperative examination, unspecified Former smoker Personal history of tobacco use, presenting hazards to health Palpitations Gastroesophageal reflux disease, unspecified whether esophagitis present Constipation, unspecified constipation type Rheumatoid arthritis, involving unspecified site, unspecified whether rheumatoid factor present (HCC) Depressive disorder Depressive disorder, not elsewhere classified Obesity with body mass index 30 or greater Incomplete uterovaginal prolapse Uterovaginal prolapse, incomplete Urinary frequency Cystocele, midline Rectocele Palpitations- Primary Former smoker Personal history of tobacco use, presenting hazards to health Constipation, unspecified constipation type Gastroesophageal reflux disease, unspecified whether esophagitis present Rheumatoid arthritis, involving unspecified site, unspecified whether rheumatoid factor present (HCC) Depressive disorder Depressive disorder, not elsewhere classified Obesity with body mass index 30 or greater Mixed hyperlipidemia Encounter for gynecological examination (general) (routine) without abnormal findings- Primary Encounter for screening mammogram for breast cancer Screening for cervical cancer Screening for malignant neoplasm of the cervix documented in this encounter [facility] note* Diagnosis Pre-operative examination- Primary Preoperative examination, unspecified Former smoker Personal history of tobacco use, presenting hazards to health Palpitations Gastroesophageal reflux disease, unspecified whether esophagitis present Constipation, unspecified constipation type Rheumatoid arthritis, involving unspecified site, unspecified whether rheumatoid factor present (HCC) Depressive disorder Depressive disorder, not elsewhere classified Obesity with body mass index 30 or greater Incomplete uterovaginal prolapse Uterovaginal prolapse, incomplete Urinary frequency Cystocele, midline Rectocele Palpitations- Primary Former smoker Personal history of tobacco use, presenting hazards to health Constipation, unspecified constipation type Gastroesophageal reflux disease, unspecified whether esophagitis present Rheumatoid arthritis, involving unspecified site, unspecified whether rheumatoid factor present (HCC) Depressive disorder Depressive disorder, not elsewhere classified Obesity with body mass index 30 or greater Mixed hyperlipidemia Encounter for gynecological examination (general) (routine) without abnormal findings Encounter for screening mammogram for breast cancer documented in this encounter [facility] for referral (narrative)* Diagnostic Procedure Only (Urgent) - Closed Specialty Diagnoses / Procedures Referred By Contac t Referred To Contact [facility] Diagnoses Pain of right lower extremity due to injury Injury of left ankle, initial encounter Procedures XR ANKLE GENERAL 3V AP/LAT/OBL BILATERAL RADEX ANKLE COMPLETE MINIMUM 3 VIEWS Mason Christianson APRN.BATTERY MECHANIC [address] [place] [address] Xr Imaging Referral ID Status Reason Start Date Expiration Date V isits Requested Visits Authorized [id number] Closed Auto-Generate d Referral 07/20/2022 08/19/2023 1 1 * Diagnostic Procedure Only (Urgent) - Closed Specialty Diagnoses / Procedures Referred By Sharonac t Referred To Contact XR IMAGING Diagnoses Pain of right lower extremity due to injury Procedures XR FOOT GENERAL 3V AP/LAT/OBL RIGHT RADEX FOOT COMPLETE MINIMUM 3 VIEWS Mason Christianson APRN.BATTERY MECHANIC [address] [place] [address] Xr Imaging Referral ID Status Reason Start Date Expiration Date V isits Requested Visits Authorized [id number] Closed Auto-Generate d Referral 07/20/2022 08/19/2023 1 1 [facility] for referral (narrative)* Outpatient Procedure (Routine) - Pending Review Specialty Diagnoses / Procedures Referred By Contac t Referred To Contact [facility] Diagnoses Pre-operative examination Procedures ECG COMPLETE ECG ROUTINE ECG W/LEAST 12 LDS W/I&R Saray Rivera APRN.BATTERY MECHANIC [address] [place] [address] [facility] [address] [place] [address] Referral ID Status Reason Start Date Expiration Date Visits Requested Visits Authorized [id number] Pending Review Auto-Generat ed Referral 01/15/2024 01/14/2025 1 1 [facility] for referral (narrative)No reason for referral information [facility] Phone: Reason for visit Narrative* Diagnostic Procedure Only (Urgent) - Closed Specialty Diagnoses / Procedures Referred By Contac t Referred To Contact XR IMAGING Diagnoses Injury of left ankle, initial encounter Procedures XR ANKLE GENERAL 3V AP/LAT/OBL LEFT RADEX ANKLE COMPLETE MINIMUM 3 VIEWS Mason Christianson APRN.BATTERY MECHANIC [address] [place] [address] [place] [address] Referral ID Status Reason Start Date Expiration Date V isits Requested Visits Authorized [id number] Closed Auto-Generate d Referral 07/20/2022 08/19/2023 1 1 [facility] for visit Narrative* Diagnostic Procedure Only (Routine) - Closed Specialty Diagnoses / Procedures Referred By Contac t Referred To Contact [facility] Diagnoses Encounter for gynecological examination (general) (routine) without abnormal findings Encounter for screening mammogram for breast cancer Procedures NICKY SCREENING W ESTRADA SCREENING DIGITAL BREAST TOMOSYNTHESIS BI SCREENING MAMMOGRAPHY BI 2-VIEW BREAST INC CAD Devante Christensen MD [address] [place] [address] Phone: tel: fax: [facility] [address] [place] [address] Referral ID Status Reason Start Date Expiration Date V isits Requested Visits Authorized [id number] Closed Auto-Generate d Referral 11/25/2024 12/25/2025 1 1 [facility] Summary Purpose Family History No Family History Records Found Relationship Condition Age at Onset Recorded Date/T nery mother Diabetes mellitus Unknown Cerebrovascular accident (CVA) Unknown Coronary artery disease Unknown Hypertension Unknown father Hypertension Unknown sister Malignant neoplasm Unknown Advance Directives No Advanced Directives Records Found Advance Directive Response Recorded Date/ Time Living Will No November 06, 2020 10:26am Power of Automation Analyst No November 06 10:26am Advance Directive Response Recorded Date/ Time Living Will No March 16 10:27am Power of Automation Analyst No March 16, 023 10:27am Advance Directive Response Recorded Date/ Time Living Will No March 23 7:47am Power of Automation Analyst No March 23 023 7:47am Advance Directive Response Recorded Date/ Time Living Will No March 23 6:47am Power of Automation Analyst No March 23 023 6:47am Advance Directive Response Recorded Date/ Time Living Will No November 26, 2023 11 :15am Power of Automation Analyst No November 26, 2023 11:15am Advance Directive Response Recorded Date/ Time Living Will No November 26, 2023 11 :15am Do you have a Healthcare Power of Automation Analyst? No November 26, 2023 11:15am Living Will No July 24 4:43am Do you have a Healthcare Power of Automation Analyst? No July 24, 2024 4:43am Advance Directive Response Recorded Date/ Time Living Will No July 24 4:43am Do you have a Healthcare Power of Automation Analyst? No July 24, 2024 4:43am Advance Directive Response Recorded Date/ Time Living Will No July 24 4:43am Do you have a Healthcare Power of Automation Analyst? No July 24, 2024 4:43am Living Will No October 21, 2024 9:40pm Do you have a Healthcare Power of Automation Analyst? No October 21, 2024 9:40pm Chief Complaint and Reason for Visit Chief Complaint SCREENING Chief Complaint SCREENING OA Chief Complaint SCREENING OA X-RAY OF RIBS FEMALE PAIN/NAUSEA Chief Complaint SCREENING OA X-RAY OF RIBS FEMALE PAIN/NAUSEA gu complaint Chief Complaint X-RAY OF RIBS FEMALE PAIN/NAUSEA gu complaint Chief Complaint NICOTINE DEP S/O- EVERY 3 MOS Chief Complaint S/O- EVERY 3 MOS ankle injury Chief Complaint Admit Date s/o every 3 months June 26, 2024 9 :32am s/o every 3 months September 30, 2024 12: 25pm Chief Complaint Admit Date s/o every 3 months September 30, 2024 12: 25pm Chief Complaint Admit Date s/o every 3 months September 30, 2024 12: 25pm s/o every 3 months November 29, 2024 10:19a m Chief Complaint Admit Date s/o every 3 months September 30, 2024 12: 25pm s/o every 3 months November 29, 2024 10:19a m Other specified disorders of bone densit y and stru January 14, 2025 1:22pm Chief Complaint Admit Date Other specified disorders of bone densit y and stru January 14, 2025 1:22pm Reason for Referral Specialty Diagnoses / Procedures Referred By Contac t Referred To Contact Diagnoses Uterine prolapse Urinary symptom or sign Cystocele with prolapse Procedures CONSULT TO URO GYNECOLOGY OFFICE/OUTPATIENT [facility] 60-74 MINUTES Xiomara Wiley MD [address] [place] [address] Referral ID Status Reason Start Date Expiration Date Visits Requested Visits Authorized [id number] Pending Review PCP Requested Referral Auto-Generate d Referral 3 06/18/2024 1 1 Specialty Diagnoses / Procedures Referred By Contac t Referred To Contact Diagnoses Incomplete uterovaginal prolapse Urinary frequency Cystocele, midline Rectocele Procedures REFER TO PACC - PRE ANESTHESIA CONSULTATION CLINIC OFFICE/OUTPATIENT [facility] 60 MINUTES Yakov Summers MD [address] [facility] [address] [place] [address] Referral ID Status Reason Start Date Expiration Date Visits Requested Visits Authorized [id number] Pending Review PCP Requested Referral 08/31/2023 08/30/2024 1 1 Additional Source Comments INFORMATION SOURCE (unrecogn ized section and content) DATE CREATED AUTHOR [facility] DATE CREATED AUTHOR AUTHOR'S ORGANIZ ATION 02/10/2021 [facility] [place] DATE CREATED AUTHOR AUTHOR'S ORGANIZ ATION 03/07/2024 [facility] DATE CREATED AUTHOR AUTHOR'S ORGANIZ ATION 05/31/2024 [facility] DATE CREATED AUTHOR AUTHOR'S ORGANIZ ATION 12/28/2024 [facility] DATE CREATED AUTHOR AUTHOR'S ORGANIZ ATION 06/02/2025 [facility] Goals (unrecognized section and content) Goals may be documented in a n alternate sectionGoals may be documented in an alternate sectionGoals may be documented in an alternate sectionGoals may be documented in an alternate sectionGoals may be documented in an alternate sectionGoals may be documented in an alternate sectionGoals may be documented in an alternate sectionGoals may be documented in an alternate sectionGoals may be documented in an alternate sectionGoals may be documented in an alternate sectionGoals may be documented in an alternate sectionGoals may be documented in an alternate sectionGoals may be documented in an alternate sectionGoals may be documented in an alternate sectionGoals may be documented in an alternate sectionGoals may be documented in an alternate sectionGoals may be documented in an alternate section Source Comments (unrecognize d section and content) In the event this informatio n is protected by the Federal Confidentiality of Alcohol and Drug Abuse Patient Records regulations: The Federal rules restrict any use of the information to criminally investigate or prosecute any alcohol or drug abuse patient.[facility] the event this information is protected by the Federal Confidentiality of Alcohol and Drug Abuse Patient Records regulations: The Federal rules restrict any use of the information to criminally investigate or prosecute any alcohol or drug abuse patient.[facility] the event this information is protected by the Federal Confidentiality of Alcohol and Drug Abuse Patient Records regulations: The Federal rules restrict any use of the information to criminally investigate or prosecute any alcohol or drug abuse patient.[facility] the event this information is protected by the Federal Confidentiality of Alcohol and Drug Abuse Patient Records regulations: The Federal rules restrict any use of the information to criminally investigate or prosecute any alcohol or drug abuse patient.[facility] the event this information is protected by the Federal Confidentiality of Alcohol and Drug Abuse Patient Records regulations: The Federal rules restrict any use of the information to criminally investigate or prosecute any alcohol or drug abuse patient.[facility] Hospital[facility] the event this information is protected by the Federal Confidentiality of Alcohol and Drug Abuse Patient Records regulations: The Federal rules restrict any use of the information to criminally investigate or prosecute any alcohol or drug abuse patient.[facility] Hospital[facility] the event this information is protected by the Federal Confidentiality of Alcohol and Drug Abuse Patient Records regulations: The Federal rules restrict any use of the information to criminally investigate or prosecute any alcohol or drug abuse patient.[facility] Hospital[facility] the event this information is protected by the Federal Confidentiality of Alcohol and Drug Abuse Patient Records regulations: The Federal rules restrict any use of the information to criminally investigate or prosecute any alcohol or drug abuse patient.[facility] Hospital[facility] the event this information is protected by the Federal Confidentiality of Alcohol and Drug Abuse Patient Records regulations: The Federal rules restrict any use of the information to criminally investigate or prosecute any alcohol or drug abuse patient.[facility] the event this information is protected by the Federal Confidentiality of Alcohol and Drug Abuse Patient Records regulations: The Federal rules restrict any use of the information to criminally investigate or prosecute any alcohol or drug abuse patient.[facility] Hospital[facility] the event this information is protected by the Federal Confidentiality of Alcohol and Drug Abuse Patient Records regulations: The Federal rules restrict any use of the information to criminally investigate or prosecute any alcohol or drug abuse patient.[facility] Hospital[facility] the event this information is protected by the Federal Confidentiality of Alcohol and Drug Abuse Patient Records regulations: The Federal rules restrict any use of the information to criminally investigate or prosecute any alcohol or drug abuse patient.[facility] Hospital[facility] the event this information is protected by the Federal Confidentiality of Alcohol and Drug Abuse Patient Records regulations: The Federal rules restrict any use of the information to criminally investigate or prosecute any alcohol or drug abuse patient.[facility] HospitalIn the event this information is protected by the Federal Confidentiality of Alcohol and Drug Abuse Patient Records regulations: The Federal rules restrict any use of the information to criminally investigate or prosecute any alcohol or drug abuse patient.[facility] Hospital[facility] the event this information is protected by the Federal Confidentiality of Alcohol and Drug Abuse Patient Records regulations: The Federal rules restrict any use of the information to criminally investigate or prosecute any alcohol or drug abuse patient.[facility] Hospital[facility] the event this information is protected by the Federal Confidentiality of Alcohol and Drug Abuse Patient Records regulations: The Federal rules restrict any use of the information to criminally investigate or prosecute any alcohol or drug abuse patient.[facility] Hospital[facility] the event this information is protected by the Federal Confidentiality of Alcohol and Drug Abuse Patient Records regulations: The Federal rules restrict any use of the information to criminally investigate or prosecute any alcohol or drug abuse patient.[facility] HospitalIn the event this information is protected by the Federal Confidentiality of Alcohol and Drug Abuse Patient Records regulations: The Federal rules restrict any use of the information to criminally investigate or prosecute any alcohol or drug abuse patient.[facility] HospitalIn the event this information is protected by the Federal Confidentiality of Alcohol and Drug Abuse Patient Records regulations: The Federal rules restrict any use of the information to criminally investigate or prosecute any alcohol or drug abuse patient.[facility] HospitalIn the event this information is protected by the Federal Confidentiality of Alcohol and Drug Abuse Patient Records regulations: The Federal rules restrict any use of the information to criminally investigate or prosecute any alcohol or drug abuse patient.[facility] HospitalIn the event this information is protected by the Federal Confidentiality of Alcohol and Drug Abuse Patient Records regulations: The Federal rules restrict any use of the information to criminally investigate or prosecute any alcohol or drug abuse patient.[facility] HospitalIn the event this information is protected by the Federal Confidentiality of Alcohol and Drug Abuse Patient Records regulations: The Federal rules restrict any use of the information to criminally investigate or prosecute any alcohol or drug abuse patient.[facility] HospitalIn the event this information is protected by the Federal Confidentiality of Alcohol and Drug Abuse Patient Records regulations: The Federal rules restrict any use of the information to criminally investigate or prosecute any alcohol or drug abuse patient.[facility] Hospital[facility] the event this information is protected by the Federal Confidentiality of Alcohol and Drug Abuse Patient Records regulations: The Federal rules restrict any use of the information to criminally investigate or prosecute any alcohol or drug abuse patient.[facility] Reason for Visit (unrecogniz ed section and content) Reason Comments bilateral ankle pain Fell yesterday Reason Comments New Patient Prolapse Reason Comments Orders Specialty Diagnoses / Procedures Referred By Contac t Referred To Contact CARDIOLOGY Diagnoses Uterine prolapse Urinary symptom or sign Cystocele with prolapse Procedures CONSULT TO URO GYNECOLOGY OFFICE/OUTPATIENT NEW HIGH MDM 60-74 MINUTES Xiomara Wiley MD [address] [place] [address] [facility] [address] [place] [address] Referral ID Status Reason Start Date Expiration Date V isits Requested Visits Authorized [id number] Closed PCP Requested Referral Auto-Generated Referral 07/24/2023 07/23/2024 1 1 Specialty Diagnoses / Procedures Referred By Contac t Referred To Contact Lace Burn Out 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 [address] [place] [address] Referral ID Status Reason Start Date Expiration Date V isits Requested Visits Authorized [id number] Authorized 07/24/2023 07/23/2024 99 99 Reason Comments Schedule Surgery Reason Comments Medication Follow-up clobetasol Specialty Diagnoses / Procedures Referred By Contronal t Referred To Contact Lace Burn Out Tender / CUSTOMER SOLUTIONS TEAMMATE Diagnoses Follow-up exam Medication Follow up Procedures OFFICE/OUTPATIENT ESTABLISHED HIGH MDM 40 MIN EST WHI PATIENT Xiomara Wiley MD [address] [place] [address] Xiomara Wiley MD [address] [place] [address] Referral ID Status Reason Start Date Expiration Date V isits Requested Visits Authorized [id number] Authorized 07/24/2023 07/23/2024 99 99 Reason Comments Results Reason Comments Future Appointment Reason Comments Patient Question Reason Comments Redness and itching under left breast Acute Visit Reason Comments Consult Reason Comments Pre-Op Teaching Reason Comments RESCHEDULE SURGERY Reason Comments Consult Reason Comments Refill Request Reason Comments [facility] Teams (unrecognized sec tion and content) Production Grip Relationship Specialty Start Date End Date Duane Huddleston Chi [address] [facility] [address] [place], [place] [id number] PCP - General Gerontology 07/20/22 Team Status: Active Member Role Status Dates Desiree CAMPOS, PA Family Provider Active Dr. Duane Huddleston MD Primary Care Provider Active Team Status: Inactive Member Role Status Dates Dr. Duane Huddleston MD Primary Care Provider, Attending Provider Active Team Status: Active Member Role Status Dates Dr. Duane Huddleston MD Primary Care Provi marilyn, Attending Provider, Referring Provider Active Dr. Alley Howe , DO Other Provider Active Team Status: Inactive Member Role Status Dates Dr. Duane Huddleston MD Primary Care Provider Active MARY AntonioM Attending Provider, Referrin g Provider Active Team Status: Inactive Member Role Status Dates Dr. Duane Huddleston MD Primary Care Provi marilyn, Attending Provider, Referring Provider Active Dr. Alley Howe , DO Other Provider Active Team Status: Inactive Member Role Status Dates Dr. Duane Huddleston MD Primary Care Provider Active Dr. Alley Howe , Attending Provider, Referr ing Provider Active Team Status: Active Member Role Status Dates Dr. Duane Huddleston MD Primary Care Provider, Attending Provider Active Team Status: Inactive Member Role Status Dates Dr. Duane Huddleston MD Primary Care Provider Active Dr. Cayden Abernathy DO Emergency Provider Active Team Status: Inactive Member Role Status Dates Dr. Duane Huddleston MD Primary Care Provider Active Dr. Alison Jean-Baptiste MD Emergency Provider Active Team Status: Inactive Member Role Status Dates Dr. Duane Huddleston MD Primary Care Provider Active Dr. Cayden Abernathy DO Attending Provider, Emergency P rovider Active Team Status: Inactive Member Role Status Dates Dr. Duane Huddleston MD Primary Care Provider Active Dr. Alison Jean-Baptiste MD Attending Provider, Emergency Provider Active Production Grip Relationship Specialty Start Date End Date Duane Huddleston Chi [address] [place] [address] PCP - General Gerontology 07/20/22 Production Grip Relationship Specialty Start Date End Date Duane Huddleston Chi [address] [place], [place] [id number] PCP - General Gerontology 07/20/22 Production Grip Relationship Specialty Start Date End Date Duane Huddleston Chi [address] [place], [place] [id number] PCP - General Gerontology 07/20/22 Production Grip Relationship Specialty Start Date End Date Duane Huddleston Chi [address] [place], [place] [address] PCP - General Gerontology 07/20/22 Production Grip Relationship Specialty Start Date End Date Duane Huddleston Chi [address] [place], [place] [id number] PCP - General Gerontology 07/20/22 Production Grip Relationship Specialty Start Date End Date Duane Huddleston Chi [address] [place], [place] [id number] PCP - General Gerontology 07/20/22 Production Grip Relationship Specialty Start Date End Date Duane Huddleston Chi [address] [place], [place] [id number] PCP - General Gerontology 07/20/22 Team Status: Inactive Member Role Status Dates Dr. Duane Huddleston MD Primary Care Provi marilyn, Attending Provider, Referring Provider Active Team Status: Inactive Member Role Status Dates Dr. Duane Huddleston MD Primary Care Provider Active MEERA RENEE MD Attending Provider, Referring Provid er Active Production Grip Relationship Specialty Start Date End Date Duane Huddleston Chi [address] [facility] [place] [id number] PCP - General Gerontology 07/20/22 Production Grip Relationship Specialty Start Date End Date Duane Huddleston Chi [address] [place], [place] [id number] PCP - General Gerontology 07/20/22 Team Status: Inactive Member Role Status Dates Dr. Duane Huddleston MD Primary Care Provider Active Dr. Austin Elizalde DO Emergency Provider Active Production Grip Relationship Specialty Start Date End Date Duane Huddleston Chi [address] [place], [place] [id number] PCP - General Gerontology 07/20/22 Production Grip Relationship Specialty Start Date End Date Duane Huddleston Chi [address] [place], [place] [id number] PCP - General Gerontology 07/20/22 Production Grip Relationship Specialty Start Date End Date Duane Huddleston Chi [address] [place], [place] [id number] PCP - General Gerontology 07/20/22 Production Grip Relationship Specialty Start Date End Date Duane Huddleston Chi [address] [place], [place] [id number] PCP - General Gerontology 07/20/22 Production Grip Relationship Specialty Start Date End Date Duane Huddleston Chi [address] [place], [place] [id number] PCP - General Gerontology 07/20/22 Production Grip Relationship Specialty Start Date End Date Duane Huddleston Chi [address] [place], [place] [id number] PCP - General Gerontology 07/20/22 Production Grip Relationship Specialty Start Date End Date Duane Huddleston Chi [address] [place], [place] [address] PCP - General Gerontology 07/20/22 Production Grip Relationship Specialty Start Date End Date Duane Huddleston Chi [address] [place], [place] [id number] PCP - General Gerontology 07/20/22 Production Grip Relationship Specialty Start Date End Date Duane Huddleston Chi [address] [place], [place] [address] [facility] - General Gerontology 07/20/22 Team Status: Active Member Role Status Dates Dr. Duane Huddleston MD Primary Care Provider Active Team Status: Inactive Member Role Status Dates Dr. Duane Huddleston MD Primary Care Provider Active Start: June 26, 2024 End: June 26, 2024 MEERA RENEE MD Attending Provider Active Star t: June 26, 2024 End: June 26, 2024 MEERA RENEE MD Referring Provider Active Star t: June 26, 2024 End: June 26, 2024 Team Status: Inactive Member Role Status Dates Dr. Duane Huddleston MD Primary Care Provider Active Start: September 30, 2024 End: September 30, 2024 MEERA RENEE MD Attending Provider Active Star t: September 30, 2024 End: September 30, 2024 MEERA RENEE MD Referring Provider Active Star t: September 30, 2024 End: September 30, 2024 Production Grip Relationship Specialty Start Date End Date Duane Huddleston Chi [address] [facility] [address] [place] [address] [facility] - General Gerontology 07/20/22 Team Status: Inactive Member Role Status Dates Dr. Duane Huddleston MD Primary Care Provider Active Start: November 20, 2024 End: November 20, 2024 Dr. Duane Huddleston MD Attending Provider Active Start: November 20, 2024 End: November 20, 2024 Dr. Duane Huddleston MD Referring Provider Active Start: November 20, 2024 End: November 20, 2024 Team Status: Inactive Member Role Status Dates Dr. Duane Huddleston MD Primary Care Provider Active Start: November 29, 2024 End: November 29, 2024 MEERA RENEE MD Attending Provider Active Star t: November 29, 2024 End: November 29, 2024 MEERA RENEE MD Referring Provider Active Star t: November 29, 2024 End: November 29, 2024 Production Grip Relationship Specialty Start Date End Date Duane Huddleston Chi [address] [facility] [address] [place] [address] PCP - General Gerontology 07/20/22 Team Status: Active Member Role/Relationship Status Dates Dr. Duane Huddleston MD Primary Care Provider Active Team Status: Inactive Member Role/Relationship Status Dates Dr. Duane Huddleston MD Primary Care Provider Active Start: September 30, 2024 End: September 30, 2024 MEERA RENEE MD Attending Provider Active Star t: September 30, 2024 End: September 30, 2024 MEERA RENEE MD Referring Provider Active Star t: September 30, 2024 End: September 30, 2024 Team Status: Inactive Member Role/Relationship Status Dates Dr. Duane Huddleston MD Primary Care Provider Active Start: November 20, 2024 End: November 20, 2024 Dr. Duane Huddleston MD Attending Provider Active Start: November 20, 2024 End: November 20, 2024 Dr. Duane Huddleston MD Referring Provider Active Start: November 20, 2024 End: November 20, 2024 Team Status: Inactive Member Role/Relationship Status Dates Dr. Duane Huddleston MD Primary Care Provider Active Start: November 29, 2024 End: November 29, 2024 MEERA RENEE MD Attending Provider Active Star t: November 29, 2024 End: November 29, 2024 MEERA RENEE MD Referring Provider Active Star t: November 29, 2024 End: November 29, 2024 Team Status: Inactive Member Role/Relationship Status Dates Dr. Duane Huddleston MD Primary Care Provider Active Start: January 14, 2025 End: January 14, 2025 MEERA RENEE MD Attending Provider Active Star t: January 14, 2025 End: January 14, 2025 MEERA RENEE MD Referring Provider Active Star t: January 14, 2025 End: January 14, 2025 Production Grip Relationship Specialty Start Date End Date Duane Huddleston Chi [address] [place] [address] [address] [place] [address] PCP - General Gerontology 07/20/22 Team Status: Active Member Role/Relationship Status Dates Dr. Duane Huddleston MD Primary care physician Active Team Status: Inactive Member Role/Relationship Status Dates Dr. Duane Huddleston MD Primary care physician Active Start: January 14, 2025 End: January 14, 2025 MEERA RENEE MD Attending physician Active Sta rt: January 14, 2025 End: January 14, 2025 MEERA RENEE MD Referring Provider Active Star t: January 14, 2025 End: January 14, 2025 Team Status: Inactive Member Role/Relationship Status Dates Dr. Duane Huddleston MD Primary care physician Active Start: January 21, 2025 Dr. Shona Duran MD Attending physician Active Start: January 21, 2025 Team Status: Inactive Member Role/Relationship Status Dates Dr. Duane Huddleston MD Primary care physician Active Start: April 07, 2025 End: April 07, 2025 Dr. Duane Huddleston MD Attending physician Active Start: April 07, 2025 End: April 07, 2025 FOR RECORDS PERTAINING TO PATIENTS WHO ARE [...] BE BASED ON THE PRIMARY CLINICAL RECORDS. [facility] [employer] [facility]. provides no warranty or guarantee of the accuracy or completeness of information in this document.
== END 2025-06-21 23:59 | disposition home or self-care (01) ==
LOC: CT 09:43
PROVIDERS: PCP Family Medicine Geriatric Medicine; Referring Provider Family Medicine Geriatric Medicine; Visit Provider Family Medicine Geriatric Medicine
DX: Z12.2 Encounter for screening for malignant neoplasm of respiratory organs (principal); F17.210 Nicotine dependence, cigarettes, uncomplicated
CPT/HCPCS: 71271